=== PATIENT | female | born 1985 | race African-American/Black ===

== ENCOUNTER 2020-08-09 | Outpatient (REF) | payer OTHER, SELFPAY | END 2020-08-09 00:01 | disposition home or self-care (01) | LOC: HO.WFDLNP | PROVIDERS: Visit Provider Family Medicine | DX: Z20.828 Contact with and (suspected) exposure to other viral communicable diseases (principal) | CPT/HCPCS: U0003 ==

== ENCOUNTER 2020-09-30 18:59 | Emergency (ER) | payer OTHER, SELFPAY ==
[2020-09-30 19:13] VITALS: BP 108/62; BP 95/58; PULSE 81; PULSE 98; RESP 16; TEMP 37.4; O2SAT 100; BMI 26.4
--- NOTE | 2020-09-30 19:16 | ED_ITS ---
HPI - Chest Pain General Chief Complaint: Chest Pain Stated Complaint: chest pain Time Seen by Provider: 09/30/20 19:16 Source: patient Mode of arrival: EMS Limitations: no limitations History of Present Illness HPI narrative: Patient history of anxiety an hour ago vomited 1 time and following vomiting started noticing mid chest pain with shortness of breath that increases on taking deep breaths no radiation of pain no diaphoresis no loss of consciousness or palpitation patient does have a history of chest pain with anxiety in the past patient denied any use of cocaine MD complaint: chest pain Onset (ago): hour(s) (1) Timing of current episode: episodic Prior episodes: Yes Onset: during rest Pain location: substernal Pain radiation: none Severity: mild Quality: sharp Relieving factors: nothing Exacerbating factors: inspiration Context: recent illness Associated symptoms: vomiting Treatment prior to arrival: none Risk Factors Coronary artery disease risk factors: none Thoracic aortic dissection risk factors: none Related Data Home Medications Medication Instructions Recorded Confirmed hydroxyzine pamoate 25 mg capsule 25 mg PO BID 08/09/20 quetiapine 100 mg tablet 100 mg PO BEDTIME 08/09/20 sertraline 100 mg tablet 300 mg PO Q OTHER DAY PRN 08/09/20 Allergies Allergy/AdvReac Type Severity Reaction Status Date / Time No Known Allergies Allergy Unknown NOT Verified 09/30/20 19:09 APPLICABLE Review of Systems Review of Systems: Constitutional : No Weight loss, No Fever, No Chills ENT/Mouth : No sore throat, No Rhinorrhea Eyes: No Eye Pain, No Swelling Cardiovascular : ++ Chest Pain, no palpitations Respiratory : No Cough, No Sputum, + shortness of breath Gastrointestinal : no Nausea, No Vomiting, No Diarrhea, No abdominal Pain, no black stools Genitourinary : No Dysuria, No Urinary Frequency Musculoskeletal : No joint pain, No Myalgias, No Joint Swelling Skin : No Skin Lesions, No rash Neuro : No Weakness, No Numbness, No Dizziness, No Headache Psych : + Anxiety/Panic, No Depression Heme/Lymph: No Bruising, No Lymphadenopathy Endocrine : No Polyuria, No Polydipsia All other systems reviewed and are negative [facility] Past Medical History Medical History Anxiety Asthma Depression Social History Social History Alcohol intake: never Smoking Status: Current every day smoker Use of substances other than those prescribed or required for medical reasons: Yes Substance Use Type: Marijuana Substance Use Frequency: Daily Last Used Substance: Hours (ago) Any prior treatment program specific to substance use: No Advance Directives: No Advance Directives Information Provided: Yes Physical Exam Vital Signs: Vital Signs: Last Vital Signs Temp 99.3 F 09/30/20 19:20 Pulse 92 09/30/20 19:20 Resp 14 09/30/20 19:20 BP 95/58 L 09/30/20 19:20 Pulse Ox 100 09/30/20 19:20 Body Mass Index 26.4 Const: General: cooperative, healthy appearing, comfortable, no acute distress and anxious Orientation/consciousness: patient oriented x3 HENMT: Head: Yes normocephalic Eyes: General: appearance normal, both eyes and all related structures Neck: Neck: Yes normal visual inspection and Yes no JVD Chest: Chest palpation & inspection: normal inspection of the chest and normal palpation of entire chest wall Resp: Effort & Inspection: normal respiratory effort Auscultation: clear to auscultation bilaterally, no crackles, no rales and no rhonchi Percussion: percussion normal Cardio: Jugular venous distension: no JVD Rate: regular rate Rhythm: regular rhythm Heart sounds: S1 normal heart sound present and S2 normal heart sound present Peripheral pulses: Peripheral pulses 2+ throughout GI: Inspection: Yes normal to inspection Palpation (GI): Soft to palpation, not firm and nontender Auscultation: normal bowel sounds : General: Yes no CVA tenderness Back/Spine/Pelvis: Back: no CVA tenderness Thoracic/Lumbar Spine: thoracic and lumbar spine normal to inspection Skin: General skin exam: no rashes or lesions noted Neuro: General: patient oriented x3, gait normal, moves all extremities, Normal light touch and pain sensation and CN's II-XI intact bilaterally Extrem: General: Yes no calf tenderness and No pedal edema Psych: Appearance: grossly normal MDM - Chest Pain Differential Diagnosis Differential diagnosis: Likely chest pain Medical Records Data Attestation: I reviewed the patient's medical records. Lab Data Attestation: I reviewed the patient's lab results. Result diagrams: 09/30/20 19:29 09/30/20 19:29 Labs: Lab Results 0109/30/20 09/30/20 Range/Units 19:29 19:29 19:29 WBC 12.1 H (4.8-10.8) X10*3/uL RBC 3.52 L (4.20-5.50) X10*6/uL Hgb 10.9 L (12.0-16.0) g/dl Hct 32.1 L (37-47) % MCV 91.2 (80-98) fL MCH 31.0 (27.0-33.0) pg MCHC 34.0 (31.0-35.0) g/dl RDW 13.8 (11.0-16.0) % Plt Count 313 (160-400) X10*3/uL MPV 8.6 L (9.4-12.3) fL Immature Gran % (Auto) 0.2 (0.0-0.4) % Neut % (Auto) 55.2 (45-73) % Lymph % (Auto) 33.8 (20-40) % [place] % (Auto) 7.0 (2-11) % Eos % (Auto) 3.1 (0-4) % Baso % (Auto) 0.7 (0-2) % Lymph # (Auto) 4.1 (1.2-4.9) X10*3/uL [place] # (Auto) 0.9 (0.1-1.2) X10*3/uL Eos # (Auto) 0.4 (0.0-0.4) X10*3/uL Baso # (Auto) 0.1 (0.0-0.2) X10*3/uL Abs Immat Gran (auto) 0.03 (0.00-0.03) X10*3/uL Absolute Neuts (auto) 6.7 (2.0-8.3) X10*3/uL Absolute Nucleated RBC 0.000 (0.0-0.012) X10*3/uL Nucleated RBC % (auto) 0.0 (0.0-0.2) /100WBC Sodium 141 (135-145) mmol/L Potassium 3.7 (3.3-5.1) mmol/l Chloride 106 (96-108) mmol/L Carbon Dioxide 29 (22-29) mmol/L Anion Gap 10 L (12-20) BUN 14 (9-16) mg/dL Creatinine 0.97 (0.5-1.4) mg/dL Estim Creat Clear Calc 67.4 Estimated GFR > 60 Random Glucose 98 (60-115) mg/dL Calcium 8.7 (8.4-10.2) mg/dL Troponin I High Sens < 3.5 (<3.5-17.0) ng/L ECG Data ECG #1: Attestation: I personally reviewed and interpreted this ECG as follows: Interpretation: Normal sinus rhythm heart rate 89 normal axis normal intervals no acute ST T wave changes impression normal EKG Discharge Plan Discharge Clinical Impression: Atypical chest pain Patient Disposition: Home, Self-Care Instructions: Chest Pain (ED) Additional Instructions: Follow-up with PCP if any concerns Prescriptions: No Action sertraline 100 mg tablet 300 mg PO Q OTHER DAY PRNRF: 0 quetiapine 100 mg tablet 100 mg PO BEDTIME RF: 0 hydroxyzine pamoate 25 mg capsule 25 mg PO BID RF: 0
--- NOTE | 2020-09-30 19:17 | ECG_ITS ---
Test Reason : CHEST PAIN Blood Pressure : / mmHG Vent. Rate : 089 BPM Atrial Rate : 089 BPM P-R Int : 150 ms QRS Dur : 082 ms QT Int : 362 ms P-R-T Axes : 079 066 056 degrees QTc Int : 440 ms Normal sinus rhythm Normal ECG When compared with ECG of 25-NOV-2019 05:56, No significant change was found Referred By: Paolo Donohue Electronically Signed By:PRADEEP GUZMÁN MD
--- NOTE | 2020-09-30 19:17 | XR_ITS ---
EXAMINATION: XR CHEST CLINICAL INFORMATION: Chest pain COMPARISON: 07/12/2019 TECHNIQUE: Frontal view of the chest was obtained. FINDINGS: No significant abnormality is noted involving the heart, lungs, mediastinum, bony thorax or soft tissues. XR/XR chest 1V IMPRESSION: Unremarkable examination.
[2020-09-30 19:20] VITALS: BP 95/58; PULSE 92; RESP 14; TEMP 37.4; O2SAT 100
[2020-09-30 19:34] LABS: MANUAL DIFF FLAG NO
[2020-09-30 19:35] LABS: Basophils Absolute Auto 0.1 X10*3/uL (0.0-0.2); Basophils Percent Auto 0.7 % (0-2); Eosinophils Absolute Auto 0.4 X10*3/uL (0.0-0.4); Eosinophils Percent Auto 3.1 % (0-4); Hematocrit 32.1 % (37-47); Hemoglobin 10.9 g/dl (12.0-16.0); Imm Gran Abs Auto 0.03 X10*3/uL (0.00-0.03); Imm Gran Pct Auto 0.2 % (0.0-0.4); Lymphocytes Absolute Auto 4.1 X10*3/uL (1.2-4.9); Lymphocytes Percent Auto 33.8 % (20-40); Mean Corpuscular Volume 91.2 fL (80-98); Mean Platelet Volume 8.6 fL (9.4-12.3); Monocytes Absolute Auto 0.9 X10*3/uL (0.1-1.2); Neutrophils Absolute Auto 6.7 X10*3/uL (2.0-8.3); Neutrophils Percent Auto 55.2 % (45-73); Platelet Count 313 X10*3/uL (160-400); Red Blood Count 3.52 X10*6/uL (4.20-5.50); Red Cell Distribution Width 13.8 % (11.0-16.0); White Blood Count 12.1 X10*3/uL (4.8-10.8)
[2020-09-30 19:56] LABS: Anion Gap 10 (12-20); Blood Urea Nitrogen 14 mg/dL (9-16); Calcium 8.7 mg/dL (8.4-10.2); Carbon Dioxide 29 mmol/L (22-29); Chloride 106 mmol/L (96-108); Creatinine Clr Calc Pharmacy 67.4; Estimated Glomerular Filt Rate > 60; Glucose Random 98 mg/dL (60-115); Potassium 3.7 mmol/l (3.3-5.1); Sodium 141 mmol/L (135-145)
[2020-09-30 20:01] LABS: Troponin-I High Sensitivity < 3.5 ng/L (<3.5-17.0)
[2020-09-30 20:13] VITALS: BP 98/53; PULSE 80; RESP 20; TEMP 36.8; O2SAT 98
== END 2020-09-30 20:17 | disposition home or self-care (01) ==
PROVIDERS: Emergency Provider Internal Medicine
DX: R07.89 Other chest pain (principal); F12.90 Cannabis use, unspecified, uncomplicated; F17.200 Nicotine dependence, unspecified, uncomplicated; Z71.6 Tobacco abuse counseling; Z79.899 Other long term (current) drug therapy
CPT/HCPCS: 36415; 71045; 80048; 84484; 85025; 93005; 99283; 99284

== ENCOUNTER 2020-10-14 09:26 | Emergency (ER) | payer OTHER, SELFPAY ==
--- NOTE | 2020-10-14 09:55 | ECG_ITS ---
Test Reason : SOB,CP Blood Pressure : / mmHG Vent. Rate : 077 BPM Atrial Rate : 077 BPM P-R Int : 164 ms QRS Dur : 078 ms QT Int : 358 ms P-R-T Axes : 073 058 032 degrees QTc Int : 405 ms Normal sinus rhythm Normal ECG When compared with ECG of 30-SEP-2020 19:08, No significant change was found Referred By: Sonia Smith Electronically Signed By:Panda Manriquez
[2020-10-14 10:08] VITALS: BP 111/69; PULSE 82; RESP 18; TEMP 37.1; O2SAT 99; BMI 24.4
--- NOTE | 2020-10-14 10:43 | ED.URI ---
HPI - URI/Sore Throat General Chief Complaint: Upper Respiratory Symptoms Stated Complaint: SOB Time Seen by Provider: 10/14/20 09:48 Source: patient Mode of arrival: ambulatory History of Present Illness HPI Narrative: 35-year-old female with a past medical history of anxiety, asthma, depression presenting to the ED complaining of sharp chest pain since last night with associated SOB, myalgias, headache, and dry cough. Admits chest pain worse with deep inspiration. 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 Denies fever, chills, abdominal pain, nausea/vomiting, LE edema, history of blood clots Related Data Home Medications Medication Instructions Recorded Confirmed hydroxyzine pamoate 25 mg capsule 25 mg PO BID 08/09/20 buspirone 1 tab PO BID 10/14/20 sertraline 1 tab PO QAM 10/14/20 Allergies Allergy/AdvReac Type Severity Reaction Status Date / Time latex Allergy Mild Rash Verified 10/14/20 10:15 Review of Systems Review of Systems: Constitutional: No Weight loss, No Fever, No Chills, No Night Sweats, +Fatigue, No Malaise ENT/Mouth: No Nasal Congestion, No Sinus Pain, No Hoarseness, No sore throat Eyes: No Eye Pain, No Swelling, No Redness, No Foreign Body, No Discharge, No Vision Changes Cardiovascular: + Chest Pain, +SOB, No Edema Respiratory: + Cough, No Sputum, No Wheezing Gastrointestinal: No Nausea, No Vomiting, No Diarrhea, No Constipation, No Abdominal pain Musculoskeletal: No joint pain,+ Myalgias, No Joint Swelling Skin: No Skin Lesions, No rash Neuro: No Weakness, No Numbness, No Dizziness, + Headache Yes all other systems are reviewed and are negative [facility] Past Medical History Attestation statement: The following information was validated with the patient. Medical History Anxiety Asthma Depression Social History Social History Alcohol intake: never Smoking Status: Current every day smoker Substance Use Type: Marijuana Advance Directives: No Advance Directives Information Provided: No Physical Exam Vital Signs: Vital Signs: Last Vital Signs Temp 98.7 F 10/14/20 10:08 Pulse 80 10/14/20 13:14 Resp 16 10/14/20 13:14 BP 111/69 10/14/20 10:08 Pulse Ox 99 10/14/20 10:08 Body Mass Index 24.4 Const: General: cooperative and healthy appearing Orientation/consciousness: patient oriented x3 Limitations: no limitations HENMT: Head: Yes normal to inspection Ears: hearing grossly normal bilaterally General nose exam: Normal external nose present Face and sinus: Yes normal facial exam Eyes: General: appearance normal, both eyes and all related structures EOM: EOMs intact bilaterally Neck: Neck: Yes normal visual inspection and Yes no meningeal signs Resp: Effort & Inspection: normal respiratory effort Auscultation: clear to auscultation bilaterally, no rales, no rhonchi and no wheezes Cardio: Rate: regular rate Heart sounds: S1 normal heart sound present and S2 normal heart sound present GI: Inspection: Yes normal to inspection Skin: Rashes: no rashes Wounds: no wounds Neuro: General: patient oriented x3 and no meningeal signs Gait exam (Neuro): Normal gait present Extrem: Other: No LE edema General: Yes normal to inspection Course Course Course Narrative: -H&H at baseline, no leukocytosis, D-dimer negative, troponin negative - 1415- COVID-19/influenza/RSV negative. Results discussed with patient including worrisome signs and symptoms and strict return precautions. Patient verbalized understanding and feels safe for discharge home MDM - URI/Sore Throat MDM Narrative Medical decision making narrative: 35-year-old female with a past medical history of anxiety, asthma, depression presenting to the ED complaining of sharp chest pain since last night with associated SOB, myalgias, headache, and dry cough. On exam VSS, NAD/well-appearing, concern for PE/ACS vs COVID-19/viral syndrome. Low concern for pneumonia. Plan: EKG, labs, COVID-19 testing, re-evaluate CXR from 09/30 [facility] Medical Records Attestation: I reviewed the patient's medical records. Lab Data Attestation: I reviewed the patient's lab results. Result diagrams: 10/14/20 11:21 10/14/20 11:21 Labs: Lab Results 10/14/20 10/14/20 10/14/20 Range/Units 11:21 11:21 11:21 WBC 9.9 (4.8-10.8) X10*3/uL RBC 3.77 L (4.20-5.50) X10*6/uL Hgb 11.5 L (12.0-16.0) g/dl Hct 34.1 L (37-47) % MCV 90.5 (80-98) fL MCH 30.5 (27.0-33.0) pg MCHC 33.7 (31.0-35.0) g/dl RDW 13.4 (11.0-16.0) % Plt Count 285 (160-400) X10*3/uL MPV 8.8 L (9.4-12.3) fL Immature Gran % (Auto) 0.2 (0.0-0.4) % Neut % (Auto) 65.1 (45-73) % Lymph % (Auto) 23.8 (20-40) % [place] % (Auto) 8.4 (2-11) % Eos % (Auto) 2.1 (0-4) % Baso % (Auto) 0.4 (0-2) % Lymph # (Auto) 2.4 (1.2-4.9) X10*3/uL [place] # (Auto) 0.8 (0.1-1.2) X10*3/uL Eos # (Auto) 0.2 (0.0-0.4) X10*3/uL Baso # (Auto) 0.0 (0.0-0.2) X10*3/uL Abs Immat Gran (auto) 0.02 (0.00-0.03) X10*3/uL Absolute Neuts (auto) 6.4 (2.0-8.3) X10*3/uL Absolute Nucleated RBC 0.000 (0.0-0.012) X10*3/uL Nucleated RBC % (auto) 0.0 (0.0-0.2) /100WBC PT 12.9 (10.8-13.0) SEC INR 1.1 (0.9-1.1) APTT 38.4 H (24.1-38.0) SEC D-Dimer < 200 NG/ML Sodium 138 (135-145) mmol/L Potassium 4.2 (3.3-5.1) mmol/l Chloride 108 (96-108) mmol/L Carbon Dioxide 23 (22-29) mmol/L Anion Gap 11 L (12-20) BUN 11 (9-16) mg/dL Creatinine 0.75 (0.5-1.4) mg/dL Estim Creat Clear Calc 84.2 Estimated GFR > 60 Random Glucose 80 (60-115) mg/dL Calcium 8.4 (8.4-10.2) mg/dL Magnesium 2.0 (1.6-2.6) mg/dL Troponin I High Sens (<3.5-17.0) ng/L B-Natriuretic Peptide (<100) pg/mL Coronavirus (PCR) (Negative) Influenza Type A (PCR) (Negative) Influenza Type B (PCR) (Negative) RSV RNA Qual (PCR) (Negative) 10/14/20 10/14/20 Range/Units 11:21 13:01 WBC (4.8-10.8) X10*3/uL RBC (4.20-5.50) X10*6/uL Hgb (12.0-16.0) g/dl Hct (37-47) % MCV (80-98) fL MCH (27.0-33.0) pg MCHC (31.0-35.0) g/dl RDW (11.0-16.0) % Plt Count (160-400) X10*3/uL MPV (9.4-12.3) fL Immature Gran % (Auto) (0.0-0.4) % Neut % (Auto) (45-73) % Lymph % (Auto) (20-40) % [place] % (Auto) (2-11) % Eos % (Auto) (0-4) % Baso % (Auto) (0-2) % Lymph # (Auto) (1.2-4.9) X10*3/uL [place] # (Auto) (0.1-1.2) X10*3/uL Eos # (Auto) (0.0-0.4) X10*3/uL Baso # (Auto) (0.0-0.2) X10*3/uL Abs Immat Gran (auto) (0.00-0.03) X10*3/uL Absolute Neuts (auto) (2.0-8.3) X10*3/uL Absolute Nucleated RBC (0.0-0.012) X10*3/uL Nucleated RBC % (auto) (0.0-0.2) /100WBC PT (10.8-13.0) SEC INR (0.9-1.1) APTT (24.1-38.0) SEC D-Dimer NG/ML Sodium (135-145) mmol/L Potassium (3.3-5.1) mmol/l Chloride (96-108) mmol/L Carbon Dioxide (22-29) mmol/L Anion Gap (12-20) BUN (9-16) mg/dL Creatinine (0.5-1.4) mg/dL Estim Creat Clear Calc Estimated GFR Random Glucose (60-115) mg/dL Calcium (8.4-10.2) mg/dL Magnesium (1.6-2.6) mg/dL Troponin I High Sens < 3.5 (<3.5-17.0) ng/L B-Natriuretic Peptide < 10 (<100) pg/mL Coronavirus (PCR) NEGATIVE (Negative) Influenza Type A (PCR) NEGATIVE (Negative) Influenza Type B (PCR) NEGATIVE (Negative) RSV RNA Qual (PCR) NEGATIVE (Negative) Discharge Plan Discharge Clinical Impression: Viral infection Patient Disposition: Home, Self-Care Instructions: Viral Syndrome (ED) Additional Instructions: Your blood work was reassuring today in the ED You are negative for COVID-19/influenza/and RSV. Make sure you stay hydrated at home, rest Follow-up with her doctor If her symptoms persist or worsen, pain becomes unbearable, if constant worsening chest pain/shortness of breath return to the ED Prescriptions: No Action sertraline 100 mg tablet 1 tab PO QAM RF: 0 buspirone 10 mg tablet 1 tab PO BID RF: 0 hydroxyzine pamoate 25 mg capsule 25 mg PO BID RF: 0 Referrals: Physician,Unknown [Primary Care Provider] - 2 days
[2020-10-14 11:28] LABS: MANUAL DIFF FLAG NO
[2020-10-14 11:33] LABS: Basophils Percent Auto 0.4 % (0-2); Eosinophils Absolute Auto 0.2 X10*3/uL (0.0-0.4); Eosinophils Percent Auto 2.1 % (0-4); Hematocrit 34.1 % (37-47); Hemoglobin 11.5 g/dl (12.0-16.0); Imm Gran Abs Auto 0.02 X10*3/uL (0.00-0.03); Imm Gran Pct Auto 0.2 % (0.0-0.4); Lymphocytes Absolute Auto 2.4 X10*3/uL (1.2-4.9); Lymphocytes Percent Auto 23.8 % (20-40); Mean Corpuscular HGB Conc 33.7 g/dl (31.0-35.0); Mean Corpuscular Hemoglobin 30.5 pg (27.0-33.0); Mean Corpuscular Volume 90.5 fL (80-98); Mean Platelet Volume 8.8 fL (9.4-12.3); Monocytes Absolute Auto 0.8 X10*3/uL (0.1-1.2); Monocytes Percent Auto 8.4 % (2-11); Neutrophils Absolute Auto 6.4 X10*3/uL (2.0-8.3); Neutrophils Percent Auto 65.1 % (45-73); Platelet Count 285 X10*3/uL (160-400); Red Blood Count 3.77 X10*6/uL (4.20-5.50); Red Cell Distribution Width 13.4 % (11.0-16.0); White Blood Count 9.9 X10*3/uL (4.8-10.8)
[2020-10-14 11:37] LABS: INTERNATIONAL NORM RATIO 1.1 (0.9-1.1); Prothrombin Time 12.9 SEC (10.8-13.0)
[2020-10-14 11:40] LABS: Partial Thromboplastin Time 38.4 SEC (24.1-38.0)
[2020-10-14 11:41] LABS: D Dimer < 200 NG/ML
[2020-10-14 12:04] LABS: Anion Gap 11 (12-20); Blood Urea Nitrogen 11 mg/dL (9-16); Calcium 8.4 mg/dL (8.4-10.2); Carbon Dioxide 23 mmol/L (22-29); Chloride 108 mmol/L (96-108); Creatinine Clr Calc Pharmacy 84.2; Estimated Glomerular Filt Rate > 60; Glucose Random 80 mg/dL (60-115); Potassium 4.2 mmol/l (3.3-5.1); Sodium 138 mmol/L (135-145)
[2020-10-14 12:13] LABS: B Type Natriuretic Peptide < 10 pg/mL (<100); Troponin-I High Sensitivity < 3.5 ng/L (<3.5-17.0)
[2020-10-14 13:14] VITALS: PULSE 80; RESP 16
[2020-10-14 13:49] LABS: Influenza A PCR NEGATIVE (Negative); Influenza B PCR NEGATIVE (Negative); Resp Syncy Virus RNA Qual PCR NEGATIVE (Negative); SARS COV2 PCR INHOUSE NEGATIVE (Negative)
[2020-10-14 14:30] VITALS: BP 102/70; PULSE 78; RESP 18; TEMP 37.3; O2SAT 96
== END 2020-10-14 14:36 | disposition home or self-care (01) ==
PROVIDERS: Physician Assistant; Emergency Provider Emergency Medicine
DX: B34.9 Viral infection, unspecified (principal); Z20.822 Contact with and (suspected) exposure to COVID-19; J45.909 Unspecified asthma, uncomplicated
CPT/HCPCS: 0241U; 36415; 80048; 83735; 83880; 84484; 85025; 85379; 85610; 85730; 93005; 99283; 99284

== ENCOUNTER 2020-10-20 17:41 | Outpatient (REF) | payer OTHER, SELFPAY | END 2020-10-20 17:42 | disposition home or self-care (01) | LOC: HO.LNP 17:41 | PROVIDERS: Visit Provider Hospitalist | DX: R10.2 Pelvic and perineal pain (principal); Z20.822 Contact with and (suspected) exposure to COVID-19 | CPT/HCPCS: 36415; U0003; U0005 ==

== ENCOUNTER 2020-10-21 19:48 | Emergency (ER) | payer OTHER, SELFPAY ==
--- NOTE | ~2020-10-21 | XR_ITS ---
EXAMINATION: XR CHEST CLINICAL INFORMATION: Pneumonia COMPARISON: Chest x-ray 09/30/2020 TECHNIQUE: Frontal portable view of the chest was obtained. 8:57 PM FINDINGS: No significant abnormality is noted involving the heart, lungs, mediastinum, bony thorax or soft tissues. XR/XR chest 1V IMPRESSION: Unremarkable examination.
[2020-10-21 20:34] VITALS: BP 116/69; PULSE 80; RESP 16; TEMP 36.9; O2SAT 99; BMI 24.4
--- NOTE | 2020-10-21 20:58 | ED.URI ---
HPI - URI/Sore Throat General Chief Complaint: Upper Respiratory Symptoms Stated Complaint: diff Breathing Time Seen by Provider: 10/21/20 20:50 Source: patient Mode of arrival: ambulatory Limitations: no limitations History of Present Illness HPI Narrative: Patient comes to emergency room complaining of chills, body aches, nonproductive cough. Patient states that her shortness of breath is due to her not having albuterol. Patient states she ran out of her albuterol pump and albuterol for her neb machine more than a month ago. Patient has an appointment pending by her PCP. Yesterday, patient was tested for COVID-19, she tested negative. Related Data Home Medications Medication Instructions Recorded Confirmed hydroxyzine pamoate 25 mg capsule 25 mg PO BID 08/09/20 buspirone 1 tab PO BID 10/14/20 sertraline 1 tab PO QAM 10/14/20 ibuprofen 200 mg tablet 400 mg PO Q6H 10/20/20 Previous Rx's Medication Instructions Recorded albuterol sulfate 1.25 mg INHALATION Q4-6H PRN #90 ml 10/21/20 albuterol sulfate 2 puff INHALATION Q4-6H PRN #8.5 g 10/21/20 ipratropium 0.5 mg-albuterol 3 mg 3 ml INHALATION Q6-8H PRN #90 ml 10/21/20 (2.5 mg base)/3 mL nebulization soln Allergies Allergy/AdvReac Type Severity Reaction Status Date / Time latex Allergy Mild Rash Verified 10/21/20 21:27 Review of Systems Review of Systems: Constitutional : No Weight loss, pinning of fatigue, generalized malaise ENT/Mouth : No Hearing loss, No Ear Pain, No Nasal Congestion, No Sinus Pain, No Hoarseness, No sore throat, No Rhinorrhea, No Swallowing Difficulty Eyes: No Eye Pain, No Swelling, No Redness, No Foreign Body, No Discharge, No Vision Changes Cardiovascular : No Chest Pain, No SOB, No Dyspnea on Exertion, No Orthopnea, No Edema, No Palpitations Respiratory : Nonproductive Cough, No Sputum, occasional Wheezing, No Smoke Exposure, No Dyspnea Gastrointestinal : No Nausea, No Vomiting, No Diarrhea, No Constipation, No abdominal Pain, No Hematochezia, No Melena Genitourinary : no irregular bleeding, No Dysuria, No Urinary Frequency, No Hematuria, No Urinary Incontinence, No Urgency, No Flank Pain, No Urinary Flow Changes, No Hesitancy Musculoskeletal : No joint pain, No Myalgias, No Joint Swelling Skin : No Skin Lesions, No rash Neuro : No Weakness, No Numbness, No Paresthesias, No Loss of Consciousness, No Dizziness, No Headache Psych : No Anxiety/Panic, No Depression, No SI/HI/AH/VH, No Social Issues, Heme/Lymph: No Bruising, No Bleeding,No Lymphadenopathy Endocrine : No Polyuria, No Polydipsia, No Temperature Intolerance [facility] Past Medical History Medical History Anxiety Asthma Depression Social History Social History Alcohol intake: never Smoking Status: Current every day smoker Substance Use Type: Marijuana Advance Directives: No Advance Directives Information Provided: No Physical Exam Vital Signs: Vital Signs: Last Vital Signs Temp 98.5 F 10/21/20 20:34 Pulse 80 10/21/20 20:34 Resp 16 10/21/20 20:34 BP 116/69 10/21/20 20:34 Pulse Ox 99 10/21/20 20:34 Body Mass Index 24.4 Appearance: Alert. Oriented X3. No acute distress. Well-appearing Eyes: Pupils equal, round and reactive to light. ENT: Pharynx normal. Neck: Normal inspection. Neck supple. No lymph nodes noted. No crepitus CVS: Normal heart rate and rhythm. Pulses normal. Normal S1 and S2 Respiratory: No respiratory distress. Breath sounds normal. No Wheezing. No rales Abdomen: Soft and nontender. No rigidity. No distention. good BS x4 Skin: Skin warm and dry. Normal skin color. Normal skin turgor. Extremities: No lower extremity edema. No lower extremity edema. No Lacerations. No Rash Neuro: Oriented X 3. No motor deficit. No sensory deficit. Moving all extermities. No slurred speech. Course Course Course Narrative: I discussed the x-ray with the patient, no acute findings. Per patient's request, a prescription of albuterol was sent to the patient's pharmacy. At this time, patient has no respiratory distress, no wheezing, oxygen saturation is 99% on room air. MDM - URI/Sore Throat Imaging Data Chest x-ray: Radiologist's impression: No significant abnormality is noted involving the heart, lungs, mediastinum, bony thorax or soft tissues. XR/XR chest 1V IMPRESSION: Unremarkable examination. Discharge Plan Discharge Clinical Impression: Upper respiratory infection, viral Patient Disposition: Home, Self-Care Instructions: Cold Symptoms (ED) Additional Instructions: Please follow-up with your primary care physician tomorrow. If you have any worsening or new symptoms, please return to the emergency room or call 911 Prescriptions: New albuterol sulfate 90 mcg/actuation HFA aerosol inhaler 2 puff inhalation Q4-6H PRN (Reason: shortness of breath or wheezing) Qty: 8.5 RF: 0 albuterol sulfate 1.25 mg/3 mL solution for nebulization 1.25 mg inhalation Q4-6H PRN (Reason: shortness of breath or wheezing) Qty: 90 RF: 0 No Action sertraline 100 mg tablet 1 tab PO QAM RF: 0 buspirone 10 mg tablet 1 tab PO BID RF: 0 hydroxyzine pamoate 25 mg capsule 25 mg PO BID RF: 0 ibuprofen 200 mg tablet 400 mg PO Q6H RF: 0
== END 2020-10-21 21:49 | disposition home or self-care (01) ==
PROVIDERS: Emergency Provider Emergency Medicine; PCP Hospitalist
DX: J06.9 Acute upper respiratory infection, unspecified (principal); R06.02 Shortness of breath; F17.200 Nicotine dependence, unspecified, uncomplicated; Z71.6 Tobacco abuse counseling; Z79.899 Other long term (current) drug therapy
CPT/HCPCS: 71045; 99283

== ENCOUNTER 2020-10-22 11:10 | Outpatient (REF) | payer OTHER, SELFPAY ==
[2020-10-22 14:16] LABS: Hemoglobin 11.9 g/dl (12.0-16.0); Mean Corpuscular HGB Conc 33.1 g/dl (31.0-35.0); Mean Corpuscular Hemoglobin 30.7 pg (27.0-33.0); Mean Corpuscular Volume 92.8 fL (80-98); Mean Platelet Volume 9.2 fL (9.4-12.3); Platelet Count 334 X10*3/uL (160-400); Red Blood Count 3.88 X10*6/uL (4.20-5.50); Red Cell Distribution Width 13.5 % (11.0-16.0); White Blood Count 9.6 X10*3/uL (4.8-10.8)
[2020-10-22 14:49] LABS: Anion Gap 11 (12-20); Blood Urea Nitrogen 8 mg/dL (9-16); Calcium 9.2 mg/dL (8.4-10.2); Carbon Dioxide 28 mmol/L (22-29); Chloride 107 mmol/L (96-108); Estimated Glomerular Filt Rate > 60; Glucose Random 92 mg/dL (60-115); Sodium 142 mmol/L (135-145)
== END 2020-10-22 11:11 | disposition home or self-care (01) ==
LOC: HO.WFDLDS 11:10
PROVIDERS: Visit Provider Hospitalist
DX: B34.9 Viral infection, unspecified (principal)
CPT/HCPCS: 36415; 80048; 85027

== ENCOUNTER 2020-11-10 09:42 | Outpatient (REF) | payer OTHER, SELFPAY ==
[2020-11-10 12:07] LABS: Alanine Aminotransferase 7 U/L (0-31); Albumin Level 4.2 g/dL (3.5-5.0); Alkaline Phosphatase 29 U/L (39-117); Anion Gap 11 (12-20); Aspartate Amino Transferase 9 U/L (5-31); Bilirubin Total 0.3 mg/dL (0.0-1.0); Blood Urea Nitrogen 10 mg/dL (9-16); Calcium 9.1 mg/dL (8.4-10.2); Carbon Dioxide 27 mmol/L (22-29); Chloride 105 mmol/L (96-108); Estimated Glomerular Filt Rate > 60; Glucose Random 82 mg/dL (60-115); Potassium 4.5 mmol/L (3.3-5.1); Sodium 138 mmol/L (135-145); Total Protein 6.8 g/dL (6.5-8.0)
== END 2020-11-10 09:43 | disposition home or self-care (01) ==
LOC: HO.WFDLDS 09:42
PROVIDERS: Visit Provider Hospitalist
DX: R53.82 Chronic fatigue, unspecified (principal)
CPT/HCPCS: 36415; 80053

== ENCOUNTER 2020-12-16 12:45 | Outpatient (REF) | payer OTHER, SELFPAY ==
[2020-12-16 13:56] LABS: MANUAL DIFF FLAG NO
[2020-12-16 13:59] LABS: Basophils Absolute Auto 0.1 X10*3/uL (0.0-0.2); Basophils Percent Auto 0.5 % (0-2); Eosinophils Absolute Auto 0.2 X10*3/uL (0.0-0.4); Eosinophils Percent Auto 1.7 % (0-4); Hematocrit 36.3 % (37-47); Imm Gran Abs Auto 0.04 X10*3/uL (0.00-0.03); Imm Gran Pct Auto 0.3 % (0.0-0.4); Lymphocytes Absolute Auto 2.4 X10*3/uL (1.2-4.9); Lymphocytes Percent Auto 20.5 % (20-40); Mean Corpuscular HGB Conc 33.1 g/dl (31.0-35.0); Mean Corpuscular Hemoglobin 30.3 pg (27.0-33.0); Mean Corpuscular Volume 91.7 fL (80-98); Mean Platelet Volume 8.9 fL (9.4-12.3); Monocytes Absolute Auto 0.7 X10*3/uL (0.1-1.2); Monocytes Percent Auto 6.1 % (2-11); Neutrophils Absolute Auto 8.2 X10*3/uL (2.0-8.3); Neutrophils Percent Auto 70.9 % (45-73); Platelet Count 336 X10*3/uL (160-400); Red Blood Count 3.96 X10*6/uL (4.20-5.50); Red Cell Distribution Width 13.4 % (11.0-16.0); White Blood Count 11.5 X10*3/uL (4.8-10.8)
[2020-12-16 14:28] LABS: Glucose Urine UA NEG (NEG); Leukocyte Esterase Urine NEG (NEG); Nitrite Urine NEG (NEG); Urine Blood 2+ (NEG); Urine Ketones NEG (NEG); Urine Protein NEG (NEG-TRACE)
[2020-12-16 14:34] LABS: Alanine Aminotransferase 10 U/L (0-31); Albumin Level 4.2 g/dL (3.5-5.0); Alkaline Phosphatase 27 U/L (39-117); Anion Gap 10 (12-20); Aspartate Amino Transferase 11 U/L (5-31); Bilirubin Total 0.3 mg/dL (0.0-1.0); Blood Urea Nitrogen 11 mg/dL (9-16); Calcium 8.8 mg/dL (8.4-10.2); Carbon Dioxide 25 mmol/L (22-29); Chloride 106 mmol/L (96-108); Estimated Glomerular Filt Rate > 60; Glucose Random 87 mg/dL (60-115); Iron 77 mcg/dL (30-160); Percent Iron Saturation 24 % (15-50); Potassium 4.2 mmol/L (3.3-5.1); Sodium 137 mmol/L (135-145); Total Iron Binding Capacity 317 mcg/dL (228-428); Total Protein 6.8 g/dL (6.5-8.0); Unsaturated Iron Binding 240 ug/dL
[2020-12-16 14:41] LABS: Appearance Urine CLEAR; Color Urine YELLOW
[2020-12-16 15:04] LABS: TSH reflex Free T4 1.17 uIU/mL (0.32-4.0)
[2020-12-16 15:06] LABS: WBC Urine 0-2 /HPF (0-4)
[2020-12-16 15:07] LABS: Bacteria Urine TRACE /LPF; Squamous Epithelial Cell Urine 1+ /LPF
== END 2020-12-16 12:46 | disposition home or self-care (01) ==
LOC: HO.WFDLDS 12:45
PROVIDERS: Hospitalist; Visit Provider Family Medicine
DX: R10.9 Unspecified abdominal pain (principal); R53.83 Other fatigue
CPT/HCPCS: 36415; 80053; 81001; 81003; 83540; 84443; 85025

== ENCOUNTER 2020-12-24 03:00 | Emergency (ER) | payer MEDICAID, SELFPAY ==
--- NOTE | ~2020-12-24 | XR_ITS ---
EXAMINATION: XR CHEST CLINICAL INFORMATION: Cough COMPARISON: 10/21/2020 TECHNIQUE: Frontal view of the chest was obtained. FINDINGS: Normal symmetric lung volumes. No parenchymal consolidation. No pleural effusion. No pneumothorax. Cardiomediastinal silhouette and pulmonary vascularity are within normal limits. No acute osseous abnormalities. XR/XR chest 1V IMPRESSION: No acute findings.
--- NOTE | ~2020-12-24 | CT_ITS ---
EXAMINATION: CT ABDOMEN AND PELVIS WITHOUT CONTRAST CLINICAL INFORMATION: Left flank pain COMPARISON: None TECHNIQUE: Multidetector volumetric imaging was performed from the superior aspect of the liver through the pubic symphysis. Sagittal and coronal reformatted images were obtained on the technologist's workstation. This CT examination was performed using dose optimization techniques as appropriate, variously including the following: *Automated exposure control *Adjustment of mA and/or kV according to patient size (this includes techniques or standardized protocols for targeted exams where dose is matched to indication/reason for exam; i.e. extremities or head) *Use of iterative reconstruction technique DLP: 430 mGy-cm FINDINGS: LUNG BASES: The visualized lung bases are unremarkable. LIVER, GALLBLADDER, AND BILIARY TREE: The liver is normal in size, shape, and attenuation. No focal hepatic lesion or biliary ductal dilatation is present. Cholelithiasis. No pericholecystic fluid. PANCREAS: Unremarkable. SPLEEN: Unremarkable. ADRENAL GLANDS: Unremarkable. KIDNEYS AND URETERS: There is bilateral medullary nephrocalcinosis, along with a couple punctate nonobstructive calculi within the interpolar region of the left kidney. BLADDER: Unremarkable. GASTROINTESTINAL TRACT: The small and large bowel are unremarkable. The appendix is unremarkable. ABDOMINAL WALL: No significant hernia is appreciated. LYMPH NODES: Normal. VASCULAR: There are a few scattered calcific plaques of the aorta. PELVIC VISCERA: Unremarkable. OSSEOUS STRUCTURES: Unremarkable. CT/CT abdomen pelvis wo con IMPRESSION: * No acute findings within the abdomen or pelvis to explain the patient's symptomatology. * Mild bilateral medullary nephrocalcinosis along with a couple punctate nonobstructive calculi within the left kidney. No ureteral calculi or hydronephrosis. * Cholelithiasis. * There are a few calcific plaques evident along the distal abdominal aorta and right internal iliac artery. Recommend formal cardiovascular health risk assessment.
[2020-12-24 03:03] VITALS: BP 103/64; BP 136/90; PULSE 80; RESP 16; TEMP 36.8; O2SAT 97; O2SAT 98; BMI 18.8
[2020-12-24] MEDS: 0.9 % Sodium Chloride 1,000 ML 999 ML IV (03:52)
[2020-12-24] MEDS: ondansetron HCL 4 MG/2 ML VIAL IVPUSH (03:52)
[2020-12-24 04:00] VITALS: BP 94/63; PULSE 74; RESP 16; TEMP 36.3; O2SAT 99
--- NOTE | 2020-12-24 04:06 | ED.CHESTPAIN ---
HPI - Chest Pain General Chief Complaint: Chest Pain Stated Complaint: CP W/ VOMITING X'S 30 MINUTES Time Seen by Provider: 12/24/20 03:31 Source: patient Mode of arrival: EMS History of Present Illness HPI narrative: This is a 35-year-old female who presents with chest pain and abdominal pain that started yesterday. The chest pain is sternal and worsens with deep inspiration, nonradiating, ?tight?. She denies any diarrhea, urinary pain/burning/frequency and endorses that she had several episodes of nausea and vomiting that started approximately 1:00 a.m. this morning. Related Data Home Medications Medication Instructions Recorded Confirmed buspirone 1 tab PO BID 10/14/20 12/21/20 sertraline 1 tab PO QAM 10/14/20 12/21/20 ibuprofen 200 mg tablet 400 mg PO Q6H 10/20/20 12/21/20 Previous Rx's Medication Instructions Recorded albuterol sulfate 2 puff INHALATION Q4-6H PRN #8.5 g 10/21/20 albuterol sulfate 1.25 mg/3 mL 1.25 mg INHALATION Q4-6H PRN #90 ml 10/25/20 solution for nebulization budesonide-formoterol HFA 160 2 puff INHALATION Q12H 30 Days 11/29/20 mcg-4.5 mcg/actuation aerosol #10.2 g inhaler ipratropium 0.5 mg-albuterol 3 mg 3 ml INHALATION Q6-8H PRN #90 ml 11/30/20 (2.5 mg base)/3 mL nebulization soln gabapentin 300 mg capsule 300 mg PO BID 30 Days #60 cap 12/16/20 montelukast 10 mg tablet 10 mg PO BEDTIME #30 tab 12/16/20 psyllium husk 3.4 gram/5.4 gram 1 tbsp PO BID 30 Days #660 g 12/16/20 oral powder Allergies Allergy/AdvReac Type Severity Reaction Status Date / Time latex Allergy Mild Rash Verified 12/16/20 11:56 Review of Systems Review of Systems: Pertinent positives and negatives as stated in HPI 10 point review of systems is otherwise negative. PMFSH Past Medical History Source: nursing notes reviewed Medical History Anxiety Asthma Depression Social History Social History Alcohol intake: current Alcohol intake frequency: holidays/special occasions only Smoking Status: Current every day smoker Tobacco Type: Cigarette Cigarettes Per Day: 7 Substance Use Type: Marijuana Advance Directives: No Physical Exam Vital Signs: Vital Signs: Last Vital Signs Temp 97.9 F 12/24/20 06:00 Pulse 72 12/24/20 06:00 Resp 16 12/24/20 06:00 BP 98/64 12/24/20 06:00 Pulse Ox 99 12/24/20 06:00 Body Mass Index 18.8 VITAL SIGNS: Reviewed. GENERAL: Well developed, well nourished, in no acute distress. HEAD: Normocephalic/atraumatic OROPHARYNX: no oral lesions noted, posterior pharynx clear NECK: Supple, no adenopathy LUNGS: Normal breath sounds, no tachypnea, no wheezing SpO2<97> CARDIOVASCULAR: Regular rate and rhythm without noted murmurs ABDOMEN: Soft, non-tender, non-distended with bowel sounds. NEUROLOGIC: Alert and oriented x 4. Course Course Course Narrative: This is a 35-year-old female with history and clinical presentation suggestive of possible marijuana induced nausea and vomiting, however patient reports pleuritic type chest pain and abdominal discomfort after recent visit to [place]. Will rule out gastritis, pancreatitis, gallbladder pathologies. Review of all investigations there are no acute findings from chronically stable. After patient received IV fluids and Zofran she has been able to tolerate oral intake and was informed of all results. She was discharged in stable condition. MDM - Chest Pain Lab Data Result diagrams: 12/24/20 04:35 12/24/20 04:35 Labs: Lab Results 12/24/20 12/24/20 12/24/20 Range/Units 04:35 04:35 04:37 WBC 10.3 (4.8-10.8) X10*3/uL RBC 3.52 L (4.20-5.50) X10*6/uL Hgb 10.7 L (12.0-16.0) g/dl Hct 32.3 L (37-47) % MCV 91.8 (80-98) fL MCH 30.4 (27.0-33.0) pg MCHC 33.1 (31.0-35.0) g/dl RDW 13.1 (11.0-16.0) % Plt Count 286 (160-400) X10*3/uL MPV 8.8 L (9.4-12.3) fL Immature Gran % (Auto) 0.3 (0.0-0.4) % Neut % (Auto) 60.5 (45-73) % Lymph % (Auto) 27.2 (20-40) % [place] % (Auto) 9.5 (2-11) % Eos % (Auto) 2.0 (0-4) % Baso % (Auto) 0.5 (0-2) % Lymph # (Auto) 2.8 (1.2-4.9) X10*3/uL [place] # (Auto) 1.0 (0.1-1.2) X10*3/uL Eos # (Auto) 0.2 (0.0-0.4) X10*3/uL Baso # (Auto) 0.1 (0.0-0.2) X10*3/uL Abs Immat Gran (auto) 0.03 (0.00-0.03) X10*3/uL Absolute Neuts (auto) 6.2 (2.0-8.3) X10*3/uL Absolute Nucleated RBC 0.000 (0.0-0.012) X10*3/uL Nucleated RBC % (auto) 0.0 (0.0-0.2) /100WBC Sodium 141 (135-145) mmol/L Potassium 3.5 (3.3-5.1) mmol/L Chloride 109 H (96-108) mmol/L Carbon Dioxide 23 (22-29) mmol/L Anion Gap 13 (12-20) BUN 8 L (9-16) mg/dL Creatinine 0.74 (0.5-1.4) mg/dL Estim Creat Clear Calc 96.0 Estimated GFR > 60 Random Glucose 83 (60-115) mg/dL Calcium 8.5 (8.4-10.2) mg/dL Total Bilirubin < 0.2 (0.0-1.0) mg/dL AST 10 (5-31) U/L ALT 8 (0-31) U/L Alkaline Phosphatase 27 L (39-117) U/L Total Protein 6.3 L (6.5-8.0) g/dL Albumin 3.9 (3.5-5.0) g/dL Lipase 12 (8-78) U/L Urine Color Urine Appearance Urine pH (5.0-8.0) Ur Specific [place] (1.005-1.025) Urine Protein (NEG-TRACE) MG/DL Urine Glucose (UA) (NEG) MG/DL Urine Ketones (NEG) MG/DL Urine Blood (NEG) Urine Nitrite (NEG) Ur Leukocyte Esterase (NEG) Urine RBC (0) /HPF Urine WBC (0-4) /HPF Ur Squamous Epith Cells /LPF Urine Bacteria /LPF Urine Mucus /LPF Urine Test (NEGATIVE) Urine Opiates Screen (Not Detect) Ur Barbiturates Screen (Not Detect) Ur Phencyclidine Scrn (Not Detect) Ur Amphetamines Screen (Not Detect) U Benzodiazepines Scrn (Not Detect) Urine Cocaine Screen (Not Detect) U Marijuana (THC) Screen (Not Detect) COVID-19 (BASIM) Negative (Negative) COVID-19 Clin Com See Note 12/24/20 12/24/20 12/24/20 Range/Units 04:37 04:37 04:37 WBC (4.8-10.8) X10*3/uL RBC (4.20-5.50) X10*6/uL Hgb (12.0-16.0) g/dl Hct (37-47) % MCV (80-98) fL MCH (27.0-33.0) pg MCHC (31.0-35.0) g/dl RDW (11.0-16.0) % Plt Count (160-400) X10*3/uL MPV (9.4-12.3) fL Immature Gran % (Auto) (0.0-0.4) % Neut % (Auto) (45-73) % Lymph % (Auto) (20-40) % [place] % (Auto) (2-11) % Eos % (Auto) (0-4) % Baso % (Auto) (0-2) % Lymph # (Auto) (1.2-4.9) X10*3/uL [place] # (Auto) (0.1-1.2) X10*3/uL Eos # (Auto) (0.0-0.4) X10*3/uL Baso # (Auto) (0.0-0.2) X10*3/uL Abs Immat Gran (auto) (0.00-0.03) X10*3/uL Absolute Neuts (auto) (2.0-8.3) X10*3/uL Absolute Nucleated RBC (0.0-0.012) X10*3/uL Nucleated RBC % (auto) (0.0-0.2) /100WBC Sodium (135-145) mmol/L Potassium (3.3-5.1) mmol/L Chloride (96-108) mmol/L Carbon Dioxide (22-29) mmol/L Anion Gap (12-20) BUN (9-16) mg/dL Creatinine (0.5-1.4) mg/dL Estim Creat Clear Calc Estimated GFR Random Glucose (60-115) mg/dL Calcium (8.4-10.2) mg/dL Total Bilirubin (0.0-1.0) mg/dL AST (5-31) U/L ALT (0-31) U/L Alkaline Phosphatase (39-117) U/L Total Protein (6.5-8.0) g/dL Albumin (3.5-5.0) g/dL Lipase (8-78) U/L Urine Color YELLOW Urine Appearance CLEAR Urine pH 7.5 (5.0-8.0) Ur Specific [place] 1.020 (1.005-1.025) Urine Protein NEG (NEG-TRACE) MG/DL Urine Glucose (UA) NEG (NEG) MG/DL Urine Ketones NEG (NEG) MG/DL Urine Blood 1+ H (NEG) Urine Nitrite NEG (NEG) Ur Leukocyte Esterase NEG (NEG) Urine RBC 5-9 H (0) /HPF Urine WBC 0-2 (0-4) /HPF Ur Squamous Epith Cells 2+ /LPF Urine Bacteria TRACE /LPF Urine Mucus 2+ /LPF Urine Test NEGATIVE (NEGATIVE) Urine Opiates Screen Not Detected (Not Detect) Ur Barbiturates Screen Not Detected (Not Detect) Ur Phencyclidine Scrn Not Detected (Not Detect) Ur Amphetamines Screen Not Detected (Not Detect) U Benzodiazepines Scrn Not Detected (Not Detect) Urine Cocaine Screen POSITIVE H (Not Detect) U Marijuana (THC) Screen POSITIVE H (Not Detect) COVID-19 (BASIM) (Negative) COVID-19 Clin Com Discharge Plan Discharge Clinical Impression: Abdominal pain, Nausea & vomiting Patient Disposition: Home, Self-Care Instructions: Abdominal Pain (ED), Acute Nausea and Vomiting (ED) Additional Instructions: Continue stay well hydrated with water. Follow-up with your primary care provider in the next 2-3 days. Do not hesitate to return the emergency department should you develop any acute worsening of symptoms. Prescriptions: No Action albuterol sulfate 1.25 mg/3 mL solution for nebulization 1.25 mg inhalation Q4-6H PRN (Reason: shortness of breath or wheezing) Qty: 90 RF: 1 budesonide-formoterol [Symbicort] 160-4.5 mcg/actuation HFA aerosol inhaler 2 puff inhalation Q12H 30 Days Qty: 10.2 RF: 5 montelukast 10 mg tablet 10 mg PO BEDTIME Qty: 30 RF: 2 sertraline 100 mg tablet 1 tab PO QAM RF: 0 buspirone 10 mg tablet 1 tab PO BID RF: 0 albuterol sulfate 90 mcg/actuation HFA aerosol inhaler 2 puff inhalation Q4-6H PRN (Reason: shortness of breath or wheezing) Qty: 8.5 RF: 0 ibuprofen 200 mg tablet 400 mg PO Q6H RF: 0 Metamucil 3.4 gram/5.4 gram powder 1 tbsp PO BID 30 Days Qty: 660 RF: 3 gabapentin 300 mg capsule 300 mg PO BID 30 Days Qty: 60 RF: 3 Referrals: Physician,Unknown [Primary Care Provider] - 2 days
[2020-12-24 04:44] LABS: Basophils Absolute Auto 0.1 X10*3/uL (0.0-0.2); Basophils Percent Auto 0.5 % (0-2); Eosinophils Absolute Auto 0.2 X10*3/uL (0.0-0.4); Hematocrit 32.3 % (37-47); Hemoglobin 10.7 g/dl (12.0-16.0); Imm Gran Abs Auto 0.03 X10*3/uL (0.00-0.03); Imm Gran Pct Auto 0.3 % (0.0-0.4); Lymphocytes Absolute Auto 2.8 X10*3/uL (1.2-4.9); Lymphocytes Percent Auto 27.2 % (20-40); MANUAL DIFF FLAG NO; Mean Corpuscular HGB Conc 33.1 g/dl (31.0-35.0); Mean Corpuscular Hemoglobin 30.4 pg (27.0-33.0); Mean Corpuscular Volume 91.8 fL (80-98); Mean Platelet Volume 8.8 fL (9.4-12.3); Monocytes Percent Auto 9.5 % (2-11); Neutrophils Absolute Auto 6.2 X10*3/uL (2.0-8.3); Neutrophils Percent Auto 60.5 % (45-73); Platelet Count 286 X10*3/uL (160-400); Red Blood Count 3.52 X10*6/uL (4.20-5.50); Red Cell Distribution Width 13.1 % (11.0-16.0); White Blood Count 10.3 X10*3/uL (4.8-10.8)
[2020-12-24 04:49] LABS: Glucose Urine UA NEG (NEG); Leukocyte Esterase Urine NEG (NEG); Nitrite Urine NEG (NEG); PH 7.5 (5.0-8.0); Urine Blood 1+ (NEG); Urine Ketones NEG (NEG); Urine Protein NEG (NEG-TRACE)
[2020-12-24 04:51] LABS: UPreg QC Valid YES; Urine Pregnancy NEGATIVE (NEGATIVE)
[2020-12-24 04:52] LABS: Appearance Urine CLEAR; Color Urine YELLOW
[2020-12-24 05:00] LABS: COVID-19 Test Negative (Negative); IDNOW Serial# 9DD0AD1C
[2020-12-24 05:13] LABS: WBC Urine 0-2 /HPF (0-4)
[2020-12-24 05:14] LABS: Bacteria Urine TRACE /LPF; Mucus Urine 2+ /LPF; Squamous Epithelial Cell Urine 2+ /LPF
[2020-12-24 05:21] LABS: Amphetamine Screen Urine Not Detected (Not Detect); Barbiturates, Urine Not Detected (Not Detect); Benzodiazepines Screen Urine Not Detected (Not Detect); Cannabinoid Screen Urine POSITIVE (Not Detect); Cocaine Screen Urine POSITIVE (Not Detect); Opiate Screen Urine Not Detected (Not Detect); Phencyclidine Screen Urine Not Detected (Not Detect)
[2020-12-24 05:24] LABS: Alanine Aminotransferase 8 U/L (0-31); Albumin Level 3.9 g/dL (3.5-5.0); Alkaline Phosphatase 27 U/L (39-117); Anion Gap 13 (12-20); Aspartate Amino Transferase 10 U/L (5-31); Bilirubin Total < 0.2 mg/dL (0.0-1.0); Blood Urea Nitrogen 8 mg/dL (9-16); Calcium 8.5 mg/dL (8.4-10.2); Carbon Dioxide 23 mmol/L (22-29); Chloride 109 mmol/L (96-108); Estimated Glomerular Filt Rate > 60; Glucose Random 83 mg/dL (60-115); Lipase 12 U/L (8-78); Potassium 3.5 mmol/L (3.3-5.1); Sodium 141 mmol/L (135-145); Total Protein 6.3 g/dL (6.5-8.0)
[2020-12-24 06:00] VITALS: BP 98/64; PULSE 72; RESP 16; TEMP 36.6; O2SAT 99
[2020-12-24] MEDS: Lidocaine HCl Viscous 2 % 15 ML SOLUTION 10 ML MUCOUS MEM (06:25)
[2020-12-24] MEDS: Magnesium Hydrox/Alum Hydrox 30 ML ORAL.SUSP PO (06:25)
== END 2020-12-24 07:50 | disposition home or self-care (01) ==
PROVIDERS: Emergency Provider Student in an Organized Health Care Education/Training Program
DX: R07.9 Chest pain, unspecified (principal); R10.9 Unspecified abdominal pain; F17.210 Nicotine dependence, cigarettes, uncomplicated; R11.2 Nausea with vomiting, unspecified; Z20.822 Contact with and (suspected) exposure to COVID-19; Z79.899 Other long term (current) drug therapy; Z71.6 Tobacco abuse counseling
CPT/HCPCS: 36415; 71045; 74176; 80053; 80307; 81001; 81025; 83690; 85025; 87635; 96374; 96375; 99284; J2405

== ENCOUNTER 2021-04-12 23:17 | Emergency (ER) | payer OTHER, SELFPAY ==
--- NOTE | ~2021-04-12 | XR_ITS ---
EXAMINATION: XR CHEST CLINICAL INFORMATION: Cough COMPARISON: 12/24/2020 TECHNIQUE: 2 views of the chest were obtained. FINDINGS: No significant abnormality is noted involving the heart, lungs, mediastinum, bony thorax or soft tissues. XR/XR chest 2V IMPRESSION: Unremarkable examination.
[2021-04-12 23:41] VITALS: BP 99/54; PULSE 99; RESP 20; TEMP 37.3; O2SAT 99; BMI 28.5
[2021-04-13 01:38] LABS: Strep A Nucleic Acid Negative (Negative)
--- NOTE | 2021-04-13 01:38 | ED.URI ---
HPI - URI/Sore Throat General Chief Complaint: Upper Respiratory Symptoms Stated Complaint: nausea, fever, migraine, cough, SoB Time Seen by Provider: 04/13/21 00:21 Source: patient Mode of arrival: ambulatory Limitations: no limitations History of Present Illness HPI Narrative: 35 y/o female with no medical history presents to the ED with 3 days of sore throat, dry cough, headache and muscle aches. She has been around her 7 yo daughter who had similar symptoms. She took her to the frozen pie [facility] and was tested negative for COVID-19. Patient has been taking Motrin with improvement in her headache. She denies fever, chills, N/V/D, abdominal pain. She has not any chest pains or difficulty breathing. She has not gotten the COVID vaccination. MD elicited complaint: cough, sore throat and nasal congestion Onset (ago): day(s) (3) Consistency: constant Severity: moderate Description of mucous: clear and watery Able to tolerate fluids by mouth: Yes Exacerbating factors: exertion Relieving factors: NSAID and OTC cold medicine Context: sick contacts Associated symptoms: headache, nasal congestion, sore throat and cough Treatments prior to arrival: none Related Data Home Medications Medication Instructions Recorded Confirmed buspirone 1 tab PO BID 10/14/20 12/21/20 sertraline 1 tab PO QAM 10/14/20 12/21/20 ibuprofen 200 mg tablet 400 mg PO Q6H 10/20/20 12/21/20 Previous Rx's Medication Instructions Recorded albuterol sulfate 2 puff INHALATION Q4-6H PRN #8.5 g 10/21/20 albuterol sulfate 1.25 mg/3 mL 1.25 mg INHALATION Q4-6H PRN #90 ml 10/25/20 solution for nebulization budesonide-formoterol HFA 160 2 puff INHALATION Q12H 30 Days 11/29/20 mcg-4.5 mcg/actuation aerosol #10.2 g inhaler ipratropium 0.5 mg-albuterol 3 mg 3 ml INHALATION Q6-8H PRN #90 ml 11/30/20 (2.5 mg base)/3 mL nebulization soln gabapentin 300 mg capsule 300 mg PO BID 30 Days #60 cap 12/16/20 montelukast 10 mg tablet 10 mg PO BEDTIME #30 tab 12/16/20 psyllium husk 3.4 gram/5.4 gram 1 tbsp PO BID 30 Days #660 g 12/16/20 oral powder Allergies Allergy/AdvReac Type Severity Reaction Status Date / Time latex Allergy Mild Rash Verified 12/16/20 11:56 Review of Systems Review of Systems: Constitutional: No Fever, No Chills ENT/Mouth: + sore throat, + Rhinorrhea, No Swallowing Difficulty Cardiovascular: No Chest Pain, No SOB, No Orthopnea, No Edema Respiratory: + Cough, No Sputum, No Wheezing, No dyspnea Gastrointestinal: No Nausea, No Vomiting, No Diarrhea, No abdominal Pain Genitourinary: No Dysuria, No Urinary Frequency, No Hematuria Musculoskeletal: No joint pain, + Myalgias Skin: No Skin Lesions, No rash Neuro: No Weakness, No Numbness, No Dizziness, + Headache Psych: No Anxiety/Panic, No Depression Heme/Lymph: No Bruising, No Lymphadenopathy Endocrine: No Polyuria, No Polydipsia PMFSH Past Medical History Attestation statement: The following information was validated with the patient. Medical History Anxiety Asthma Depression Social History Social History Alcohol intake: current Alcohol intake frequency: holidays/special occasions only Cigarettes Per Day: 7 Substance Use Type: Marijuana Advance Directives: No Advance Directives Information Provided: No Patient : No Physical Exam Vital Signs: Vital Signs: Last Vital Signs Temp 99.1 F 04/12/21 23:41 Pulse 99 04/12/21 23:41 Resp 20 04/12/21 23:41 BP 99/54 L 04/12/21 23:41 Pulse Ox 99 04/12/21 23:41 Body Mass Index 28.5 Appearance: Alert. Oriented X3. Appears ill. Eyes: Pupils equal, round and reactive to light. ENT: Pharynx with moderate generalized erythema, no tonsillar swelling or exudate. Neck: Normal inspection. Neck supple. CVS: Normal heart rate and rhythm. Pulses normal. Respiratory: No respiratory distress. Breath sounds normal. Abdomen: Soft and nontender. +BS x4 Skin: Skin warm and dry. Normal skin color. Normal skin turgor. No rashes. Extremities: No lower extremity edema. Neuro: Oriented X 3. Nonfocal. Course Course Course Narrative: 35 y/o female presenting with dry cough, sore throat, headache and myalgias in the setting of being around her sick daughter who was COVID negative. Suspect viral syndrome. VS are stable and lungs are clear. COVID and Strep test sent. MDM - URI/Sore Throat Lab Data Labs: Lab Results 04/13/21 04/13/21 Range/Units 01:11 01:11 COVID-19 (BASIM) Negative (Negative) COVID-19 Clin Com See Note S. pyogenes GrpA JOBY Negative (Negative) Critical Care Time Critical Care Time Critical Care Time: No Discharge Plan Discharge Clinical Impression: Viral illness Patient Disposition: Home, Self-Care Instructions: Viral Syndrome (ED) Additional Instructions: Your Strep test was negative. Your COVID test was negative. Your symptoms are most likely due to another virus. Treatment is supportive care - rest, drink plenty of fluids. Take over the counter cold and flu medications for your symptoms. Use warm salt water gargles several times per day. Take Motrin and/or Tylenol as needed for body aches and headaches. Follow up with your doctor as needed. If you develop new or worsening symptoms call 911 or come back to the ER for further evaluation. Prescriptions: No Action albuterol sulfate 1.25 mg/3 mL solution for nebulization 1.25 mg inhalation Q4-6H PRN (Reason: shortness of breath or wheezing) Qty: 90 RF: 1 budesonide-formoterol [Symbicort] 160-4.5 mcg/actuation HFA aerosol inhaler 2 puff inhalation Q12H 30 Days Qty: 10.2 RF: 5 montelukast 10 mg tablet 10 mg PO BEDTIME Qty: 30 RF: 2 sertraline 100 mg tablet 1 tab PO QAM RF: 0 buspirone 10 mg tablet 1 tab PO BID RF: 0 albuterol sulfate 90 mcg/actuation HFA aerosol inhaler 2 puff inhalation Q4-6H PRN (Reason: shortness of breath or wheezing) Qty: 8.5 RF: 0 ibuprofen 200 mg tablet 400 mg PO Q6H RF: 0 Metamucil 3.4 gram/5.4 gram powder 1 tbsp PO BID 30 Days Qty: 660 RF: 3 gabapentin 300 mg capsule 300 mg PO BID 30 Days Qty: 60 RF: 3
[2021-04-13 01:43] LABS: COVID-19 Test Negative (Negative); IDNOW Serial# 9DD0AD1C
--- NOTE | 2021-04-13 02:48 | PC.NURSE ---
pt resting in hallway stretcher in supine position. no coughing or dyspnea.
== END 2021-04-13 02:48 | disposition home or self-care (01) ==
PROVIDERS: Emergency Provider Student in an Organized Health Care Education/Training Program; PCP Hospitalist
DX: B34.9 Viral infection, unspecified (principal); Z20.822 Contact with and (suspected) exposure to COVID-19; R50.9 Fever, unspecified; J02.9 Acute pharyngitis, unspecified; F17.210 Nicotine dependence, cigarettes, uncomplicated; F12.90 Cannabis use, unspecified, uncomplicated
CPT/HCPCS: 36415; 71046; 87635; 87651; 99283

== ENCOUNTER → 2021-06-22 15:09 | Outpatient (BNVA) | payer OTHER, SELFPAY | PROVIDERS: PCP Family Medicine; Referring Provider Family Medicine; Visit Provider Surgery | DX: K80.20 Calculus of gallbladder without cholecystitis without obstruction (principal) | CPT/HCPCS: 99202 ==

== ENCOUNTER 2021-10-18 08:51 | Day surgery (SDC) | payer OTHER, SELFPAY ==
[2021-10-12 15:19] VITALS: BMI 32.7
--- NOTE | 2021-10-17 09:53 | P.CONAN_ITS ---
Documented by User: Mely Blank NP 10/17/21 09:55 HPI - Anesthesia Eval Consult details Narrative: 36yo F for Cholecystectomy Laparoscopic, Poss Open PMFSH Active Problems Active Problems: All Active Problems (Updated 10/12/21 @ 15:19 by Tran Can RN) Close exposure to 2019 novel coronavirus (Acute) Viral illness (Acute) Suprapubic pain, acute (Acute) Fatigue (Acute) Asthma, mild intermittent, poorly controlled (Acute) Joint pain (Acute) Abdominal pain (Acute) Cholelithiasis (Acute) Gallstones (Acute) Past Medical History Medical History (Updated 10/12/21 @ 15:19 by Tran Can RN) Anxiety Asthma COVID-19 vaccination declined Depression Gallstones Surgical History Surgical History (Updated 10/12/21 @ 15:07 by Tran Can RN) Hx of tubal ligation Social History Social History Household Members Other:: minor daughter Are you a primary pediatric care coordinator to a significant other at home: Yes (minor daughter) Do you presently have visiting nurse or other home services: No Alcohol intake: current Alcohol intake frequency: does not drink Patient Tobacco Use Status: Current everyday Tobacco user Tobacco use type: Cigarette Cigarettes Per Day: 4 Years Smoked: 5 Use of substances other than those prescribed or required for medical reasons: Yes Substance Use Type: Marijuana Substance Use Type Other:: advised to hold pre-op Are you DNR?: No Advance Directives: No Advance Directives Information Provided: Yes (brochure mailed) Advance Directives on File: No Recently lost weight without trying: No Eating poorly because of decreased appetite: No Nutrition Risks: No Nutritional Risk Patient : No : No Meds Allergies Allergy/AdvReac Type Severity Reaction Status Date / Time latex Allergy Mild Rash Verified 10/18/21 08:56 Home Medications Medication Instructions Recorded Confirmed Last Taken Type buspirone 10 mg 1 tab PO BID 10/14/20 10/12/21 Unknown History tablet sertraline 100 mg 1 tab PO QAM 10/14/20 10/12/21 Unknown History tablet famotidine 40 mg 40 mg PO DAILY 06/22/21 10/12/21 Unknown History tablet hydroxyzine 25 mg PO BEDTIME 10/06/21 01/26/22 Unknown History pamoate 25 mg capsule Exam Exam Date and Time: October 17, 2021 0953 Height,Weight and Vital Signs: Height 5 ft Weight 76 kg Pertinent Lab Results Pertinent Lab Results: Laboratory Tests 12/24/20 12/24/20 04:35 04:35 WBC 10.3 Hgb 10.7 L Hct 32.3 L Plt Count 286 Sodium 141 Potassium 3.5 Chloride 109 H Carbon Dioxide 23 BUN 8 L Creatinine 0.74 Assessment and Plan Assessment Anesthesia Assessment: Chart Reviewed Documented by User: Omar Del Real 10/18/21 10:06 [facility] Past Medical History Medical History (Updated 10/12/21 @ 15:19 by Tran Can RN) Anxiety Asthma COVID-19 vaccination declined Depression Gallstones Family History Family history of problems with anesthesia: No Surgical History Surgical History (Updated 10/12/21 @ 15:07 by Tran Can RN) Hx of tubal ligation History of Problems with Anesthesia: No Social History Social History Household Members Other:: minor daughter Are you a primary pediatric care coordinator to a significant other at home: Yes (minor daughter) Do you presently have visiting nurse or other home services: No Alcohol intake: current Alcohol intake frequency: does not drink Patient Tobacco Use Status: Current everyday Tobacco user Tobacco use type: Cigarette Cigarettes Per Day: 4 Years Smoked: 5 Use of substances other than those prescribed or required for medical reasons: Yes Substance Use Type: Marijuana Substance Use Type Other:: advised to hold pre-op Are you DNR?: No Advance Directives: No Advance Directives Information Provided: Yes (brochure mailed) Advance Directives on File: No Recently lost weight without trying: No Eating poorly because of decreased appetite: No Nutrition Risks: No Nutritional Risk Patient : No : No Meds Allergies Allergy/AdvReac Type Severity Reaction Status Date / Time latex Allergy Mild Rash Verified 10/18/21 08:56 Home Medications Medication Instructions Recorded Confirmed Last Taken Type buspirone 10 mg 1 tab PO BID 10/14/20 10/12/21 Unknown History tablet sertraline 100 mg 1 tab PO QAM 10/14/20 10/12/21 Unknown History tablet famotidine 40 mg 40 mg PO DAILY 06/22/21 10/12/21 Unknown History tablet hydroxyzine 25 mg PO BEDTIME 06/22/21 10/12/21 Unknown History pamoate 25 mg capsule Exam Airway Mallampati Class: II Neck ROM: Full Loose/Missing/Broken Teeth: Yes (Chipped ) Assessment and Plan Assessment Anesthesia Assessment: Anesthesia Plan Discussed Final Anesthetic Review Family History of Problems with Anesthesia: No History of Problems with Anesthesia: No NPO: Yes ASA Class: II Final Preanesthetic Review: Meds/Louis Chart Reviewed Patient Risk: Intermediate Procedure Risk: Intermediate Anesthetic Plan Anesthetic Plan: GA Disposition: Standard PACU
[2021-10-18] VITALS (21 sets, daily range): BP systolic 98–114; BP diastolic 59–80; PULSE 76–96; RESP 12–20; TEMP 36.4–36.7; O2SAT 97–100
[2021-10-18] MEDS: Acetaminophen 325 MG TABLET 650 MG PO (09:19)
[2021-10-18] MEDS: Lactated Ringers 1,000 ML 100 ML IVCONT (09:28)
--- NOTE | 2021-10-18 09:38 | MHC.SHP ---
Pre-Procedural Eval Section A Date of Service: 10/18/21 Section B Chief Complaint: Gallstones Details of Present Illness: Has had periodic right upper quadrant pain, ultrasound last year showed gallstones Relevant Family History (Specify if Yes): No Relevant Social History: None Present Medications: see Short Stay Collaborative assessment Medical History: Significant History (Asthma) History of Previous Operations: No relevant previous surgery Allergies: Allergies Allergy/AdvReac Type Severity Reaction Status Date / Time latex Allergy Mild Rash Verified 10/18/21 08:56 Review of Systems Sugical H&P ROS: Negative: Constitution, Cardiovascular, Respiratory, Neurological, Psychiatric, Hem-Onc, Allergic/Immunologic, Gastrointestinal, Genitourinary, Musculoskeletal, Integumentary, Endocrine and Eyes/Ears/Nose/Throat Exam Surgical H&P Exam: Normal: HEENT, Normal: Heart, Normal: Lungs, Normal: Extremities, Normal: Abdomen, Normal: Skin and Normal: Neurological Plan Diagnosis/Plan: Unchanged I have reviewed the history and physical and performed a pertinent physical examination on my patient. No changes have occurred unless specified.
--- NOTE | 2021-10-18 11:28 | P.OP_ITS ---
Operative Note Operative Note Date of Service: 10/18/21 Narrative: Preop diagnosis: Symptomatic gallstones Postop diagnosis same Procedure: Laparoscopic cholecystectomy Surgeon: Tray Escamilla MD pharmacy sales assistant: DALIA Campa Patient is a 36 year female with known gallstones on a previous ultrasound. She did describe periodic right upper quadrant pain and tenderness. I had seen her last June 2021 and she wanted to proceed with cholecystectomy. She understood the technique of laparoscopic cholecystectomy and possible open and was aware of the risks, benefits, and alternatives . She was brought to the operating room and placed supine on the table under gene ral anesthesia via endotracheal tube. The abdomen is prepped and draped in the usual sterile fashion. A surgical time-out was done. The patient received Cefotan 2 g IV preoperatively. I made a short supraumbilical incision on the skin using blade 15. This was carried down through the full-thickness of the skin and subcutaneous fat down to the fascia. The fascia was incised. The peritoneum was entered. Through this incision a Chata port was introduced. Pneumoperitoneum was introduced to a pressure of 15 mm hg. From here on the rest of the procedure was done under vision with the laparoscope. With laparoscopic visualization, I proceeded to insert a 5 psoas 12 mm port in the epigastric area below the subcostal margin through a small stab incision. 5 mm port introduced a small incisions below the subcostal margin along the anterior axillary line and the midclavicular line. Graspers were placed through these working ports. The patient was placed in head-up and [id number] position. The gallbladder was seen in the subhepatic space. We able to apply a grasper at the fundus and this was used to retract the gallbladder cephalad. By doing so were able to apply another grasper at the pouch of the gallbladder and this was used to retract the gallbladder laterally. At this point therefore the gallbladder was being retracted in a cephalad and lateral fashion to put the cystic duct on stretch Gallbladder was not inflamed I proceeded to then carefully stripped off fibrillar tissue neck of the gallbladder using the [place] dissector. We continued with this dissection until was able to clearly visualize the cystic duct. We were able to confirm its confluence with the neck of the gallbladder. With this dissection, were able to also achieve a critical view of the hepatocystic triangle. There were very fine arterial branches adjacent to the cystic duct but there were no other large-sized tubular structure . I therefore applied clips on the cystic duct with 2 clips being applied distally. The cystic duct was transected between clips with Endo scissors. I proceeded to gently dissect the cystic artery and once this was defined, I applied clips and the cystic artery was transected between clips with Endo scissors. I continued to gently dissect at the hilum applied clips periodically as we divided parts of the hilum to make sure we had good hemostasis. There were no significant tubular structure seen in the area. I would then eventually able to reach the interface of the gallbladder and the liver bed. I used electrocautery spatula to incise the peritoneum. I then defined the plane of dissection between the gallbladder wall and the liver bed using blunt dissection with the tip of the spatula and electrocautery itself. I the gallbladder from the liver bed along this well-defined plane of dissection continue with this manner of dissection all the way to the fundus until the entire gallbladder was completely from the liver bed. I retrieved the gallbladder through an endobag through the umbilical incision. We reinserted all ports and re- insufflated. We had a little tear in the gallbladder wall with some bile leakage so we had to copiously irrigate the subhepatic space and suctioned out the irrigant fluid. I observed all 4 quadrants of the peritoneum and there was no other pathology or any evidence of any bowel injury . I re-examined the subhepatic space. Hemostasis was firm. I therefore proceeded to desufflate the port sites. I removed all ports under vision with the umbilical port being removed last. The fascia of the umbilical incision was closed with [id number] Dexon 0 stitch. Skin closure was achieved on all incisions using Dexon 4-0 subcuticular running sutures. Steri-Strips and dressings were applied All incisions were infiltrated with Marcaine 0.5% for postop analgesia. The procedure was then completed The patient tolerated procedure well. There were no complication noted. Initial and final counts of sponges and instruments were correct. Estimated blood loss was about 25 cc. The patient was extubated without difficulty in the operating room and transf erred to the recovery room with stable vital signs.
[2021-10-18] MEDS: fentaNYL citrate/PF 100 MCG/2 ML VIAL 50 MCG IVPUSH (11:51)
[2021-10-18] MEDS: oxyCODONE HCl Immed Release 5 MG TABLET 10 MG PO (12:02)
[2021-10-18] MEDS: fentaNYL citrate/PF 100 MCG/2 ML VIAL 25 MCG IVPUSH ×4 (12:03→12:22)
== END 2021-10-18 15:19 | disposition home or self-care (01) ==
PROVIDERS: PCP Family Medicine; Visit Provider Surgery
PROC: 0FT44ZZ Resection of Gallbladder, Percutaneous Endoscopic Approach (ICD-10-PCS; CPT 47562; principal; 2021-10-18 09:30)
DX: K80.10 Calculus of gallbladder with chronic cholecystitis without obstruction (principal); J45.909 Unspecified asthma, uncomplicated; F32.9 Major depressive disorder, single episode, unspecified; Z79.51 Long term (current) use of inhaled steroids; Z79.899 Other long term (current) drug therapy; F17.210 Nicotine dependence, cigarettes, uncomplicated; F12.90 Cannabis use, unspecified, uncomplicated; Z91.040 Latex allergy status
CPT/HCPCS: 47562; 88304; J0131; J1100; J2250; J2370; J2405; J2550; J3010

== ENCOUNTER 2021-11-04 10:02 | Outpatient (REF) | payer OTHER, SELFPAY ==
[2021-11-04 11:36] LABS: MANUAL DIFF FLAG NO
[2021-11-04 11:47] LABS: Basophils Absolute Auto 0.1 X10*3/uL (0.0-0.2); Basophils Percent Auto 0.4 % (0-2); Eosinophils Absolute Auto 0.6 X10*3/uL (0.0-0.4); Hematocrit 36.2 % (37.0-47.0); Hemoglobin 11.8 g/dl (12.0-16.0); Imm Gran Abs Auto 0.06 X10*3/uL (0.00-0.03); Imm Gran Pct Auto 0.5 % (0.0-0.4); Lymphocytes Absolute Auto 2.6 X10*3/uL (1.2-4.9); Lymphocytes Percent Auto 23.2 % (20-40); Mean Corpuscular HGB Conc 32.6 g/dl (31.0-35.0); Mean Corpuscular Hemoglobin 27.8 pg (27.0-33.0); Mean Corpuscular Volume 85.4 fL (80.0-98.0); Mean Platelet Volume 9.4 fL (9.4-12.3); Monocytes Absolute Auto 0.7 X10*3/uL (0.1-1.2); Monocytes Percent Auto 6.1 % (2-11); Neutrophils Absolute Auto 7.3 x10*3/uL (2.0-8.3); Neutrophils Percent Auto 64.8 % (45-73); Platelet Count 413 X10*3/uL (160-400); Red Blood Count 4.24 X10*6/uL (4.20-5.50); Red Cell Distribution Width 13.9 % (11.0-16.0); White Blood Count 11.2 X10*3/uL (4.8-10.8)
[2021-11-04 11:55] LABS: Appearance Urine CLOUDY; Color Urine YELLOW; Glucose Urine UA NEG (NEG); Leukocyte Esterase Urine NEG (NEG); Nitrite Urine NEG (NEG); PH 5.5 (5.0-8.0); Specific Gravity - Urine 1.025 (1.005-1.025); Urine Blood 1+ (NEG); Urine Ketones NEG (NEG); Urine Protein NEG (NEG-TRACE)
[2021-11-04 12:12] LABS: Alanine Aminotransferase 15 U/L (0-31); Albumin Level 4.1 g/dL (3.5-5.0); Alkaline Phosphatase 43 U/L (39-117); Anion Gap 10 (12-20); Aspartate Amino Transferase 13 U/L (5-31); Bilirubin Total 0.2 mg/dL (0.0-1.0); Blood Urea Nitrogen 7 mg/dL (9-16); Calcium 9.2 mg/dL (8.4-10.2); Carbon Dioxide 27 mmol/L (22-29); Chloride 107 mmol/L (96-108); Cholesterol 166 mg/dL; Estimated Glomerular Filt Rate > 60; Glucose Fasting 80 mg/dL (60-99); HDL Cholesterol 32 mg/dL; LDL Cholesterol Calculated 115 mg/dl; Potassium 4.2 mmol/L (3.3-5.1); Sodium 140 mmol/L (135-145); Triglycerides 95 mg/dL
[2021-11-04 12:17] LABS: TSH reflex Free T4 0.54 uIU/mL (0.32-4.0)
[2021-11-04 12:30] LABS: Bacteria Urine 1+ /LPF; Squamous Epithelial Cell Urine 3+ /LPF; WBC Urine 0-2 /HPF (0-4)
== END 2021-11-04 10:03 | disposition home or self-care (01) ==
LOC: HO.WFDLDS 10:02
PROVIDERS: Visit Provider Family Medicine
DX: Z00.00 Encounter for general adult medical examination without abnormal findings (principal)
CPT/HCPCS: 36415; 80053; 80061; 81001; 81003; 84443; 85025

== ENCOUNTER 2021-12-26 04:58 | Emergency (ER) | payer OTHER, SELFPAY ==
[2021-12-26 05:15] VITALS: BP 110/86; PULSE 84; RESP 24; TEMP 37; O2SAT 100; BMI 29.2
[2021-12-26 06:00] LABS: Influenza A PCR NEGATIVE (Negative); Influenza B PCR NEGATIVE (Negative); Resp Syncy Virus RNA Qual PCR NEGATIVE (Negative); SARS COV2 PCR INHOUSE NEGATIVE (Negative)
--- NOTE | 2021-12-26 06:34 | ED.PEDGIA ---
HPI - Pediatric GI General Chief Complaint: Abdominal Pain Stated Complaint: asthma Time Seen by Provider: 12/26/21 06:33 Source: patient Mode of arrival: ambulatory Limitations: no limitations History of Present Illness MD complaint: nausea, vomiting and abdominal pain Onset (ago): day(s) (1) Fever: Yes Temperature source: subjective Activity level: normal Pain location: diffuse Severity: mild Radiation of pain: none Migration of pain: no migration Quality of pain: cramping Consistency of pain: intermittent Relieving factors: nothing Exacerbating factors: eating Context: sick contacts (daughter with same illness) Associated symptoms: nausea, vomiting and abdominal pain Related Data Home Medications Medication Instructions Recorded Confirmed buspirone 10 mg tablet 1 tab PO BID 10/14/20 10/12/21 sertraline 100 mg tablet 1 tab PO QAM 10/14/20 10/12/21 famotidine 40 mg tablet 40 mg PO DAILY 06/22/21 10/12/21 Previous Rx's Medication Instructions Recorded albuterol sulfate 90 mcg/actuation 2 puff INHALATION Q4-6H PRN #8.5 g 10/21/20 aerosol inhaler albuterol sulfate 1.25 mg/3 mL 1.25 mg (3 mL) INHALATION Q4-6H 10/25/20 solution for nebulization PRN #90 ml budesonide-formoterol HFA 160 2 puff INHALATION Q12H 30 Days 11/29/20 mcg-4.5 mcg/actuation aerosol #10.2 g inhaler (Symbicort) ipratropium 0.5 mg-albuterol 3 mg 3 ml INHALATION Q6-8H PRN #90 ml 11/30/20 (2.5 mg base)/3 mL nebulization soln gabapentin 300 mg capsule 300 mg PO BID 30 Days #60 cap 12/16/20 montelukast 10 mg tablet 10 mg PO BEDTIME #30 tab 12/16/20 psyllium husk 3.4 gram/5.4 gram 1 tbsp PO BID 30 Days #660 g 12/16/20 oral powder (Metamucil) ibuprofen 600 mg tablet 600 mg PO Q6H PRN #30 tab 10/18/21 oxycodone-acetaminophen 5 mg-325 1 tab PO Q4-6H PRN #30 tab 10/18/21 mg tablet (Percocet) ondansetron 4 mg disintegrating 4 mg PO Q8H PRN #20 tab 12/26/21 tablet Allergies Allergy/AdvReac Type Severity Reaction Status Date / Time latex Allergy Mild Rash Verified 11/04/21 09:08 Pediatric Review of Systems Review of Systems: Constitutional : No Weight loss, pos Fever, pos Chills ENT/Mouth : No sore throat, No Rhinorrhea Eyes: No Swelling, No Redness Cardiovascular : No Chest Pain, No SOB, NoEdema Respiratory : No Cough, No Sputum, pos Wheezing Gastrointestinal : Positive Nausea, Positive Vomiting, no Diarrhea, positive abdominal Pain, No Hematochezia, No Melena Genitourinary : No Dysuria, No Urinary Frequency, No Hematuria, No Urgency Musculoskeletal : No joint pain, No Myalgias, No Joint Swelling Skin : No Skin Lesions, No rash Neuro : No Weakness, No Numbness, No Dizziness, No Headache PMFSH Past Medical History Attestation statement: The following information was validated with the patient. Medical History Anxiety Asthma COVID-19 vaccination declined Depression Gallstones Surgical History Hx of tubal ligation Social History Social History Household Members Other:: minor daughter Housing: Apartment Are you a primary human services care specialist to a significant other at home: Yes (minor daughter) Do you presently have visiting nurse or other home services: No Alcohol intake: current Alcohol intake frequency: does not drink Patient Tobacco Use Status: Current everyday Tobacco user Tobacco use type: Cigarette Cigarettes Per Day: 4 Years Smoked: 5 e-Cigarette/Vaping Use: Never Used Substance Use Type: Marijuana Advance Directives: No Advance Directives Information Provided: No Patient : No service: No Current occupational status: employed Current occupational exposures/hazards: No Cognitive needs: No Hearing needs: No Vision needs: No Pediatric Exam Narrative: Physical exam: Appearance: Alert. Oriented X3. No acute distress. Eyes: Pupils equal, round and reactive to light. ENT: Pharynx normal. MMM Neck: Normal inspection. Neck supple. CVS: Normal heart rate and rhythm. Pulses normal. Respiratory: No respiratory distress. Breath sounds normal. no wheezes noted Abdomen: Soft and non-tender. Skin: Skin warm and dry. Normal skin color. Normal skin turgor. Extremities: No lower extremity edema. Neuro: Oriented X 3. No motor deficit. No sensory deficit. General: Limitations: no limitations Medical Decision Making MDM Narrative Medical decision making narrative: 36 yo female with asthma - not toxic appearing here with her daughter both with subj fevers, vomiting, abdominal cramping - not toxic, appearing, no signs of clinical dehydration. ODT zofran and supportive care. Abdominal exam benign - suspect viral syndrome Lab Data Labs: Lab Results 12/26/21 Range/Units 05:17 Influenza Type A (PCR) NEGATIVE (Negative) Influenza Type B (PCR) NEGATIVE (Negative) RSV RNA Qual (PCR) NEGATIVE (Negative) SARS-CoV-2 RNA (RT-PCR) NEGATIVE (Negative) Discharge Plan Discharge Clinical Impression: Acute viral syndrome Vomiting Qualifiers: Vomiting type: unspecified Nausea presence: with nausea Qualified Code(s): R11.2 - Nausea with vomiting, unspecified Patient Disposition: Home, Self-Care Instructions: Acute Nausea and Vomiting (ED), Viral Syndrome (ED) Additional Instructions: return to ED for any worsening symptoms or concerns no dairy x 3 days negative for covid and flu Prescriptions: New ondansetron 4 mg tablet,disintegrating 4 mg PO Q8H PRN (Reason: nausea and vomiting) Qty: 20 0RF No Action albuterol sulfate 1.25 mg/3 mL solution for nebulization 1.25 mg inhalation Q4-6H PRN (Reason: shortness of breath or wheezing) Qty: 90 1RF budesonide-formoterol [Symbicort] 160-4.5 mcg/actuation HFA aerosol inhaler 2 puff inhalation Q12H 30 Days Qty: 10.2 5RF ipratropium-albuterol 0.5 mg-3 mg(2.5 mg base)/3 mL solution for nebulization 3 ml inhalation Q6-8H PRN (Reason: wheezing) Qty: 90 0RF montelukast 10 mg tablet 10 mg PO BEDTIME Qty: 30 2RF sertraline 100 mg tablet 1 tab PO QAM 0RF buspirone 10 mg tablet 1 tab PO BID 0RF albuterol sulfate 90 mcg/actuation HFA aerosol inhaler 2 puff inhalation Q4-6H PRN (Reason: shortness of breath or wheezing) Qty: 8.5 0RF oxycodone-acetaminophen [Percocet] 5-325 mg tablet 1 tab PO Q4-6H PRN (Reason: pain, severe) Qty: 30 0RF ibuprofen 600 mg tablet 600 mg PO Q6H PRN (Reason: pain) Qty: 30 0RF Metamucil 3.4 gram/5.4 gram powder 1 tbsp PO BID 30 Days Qty: 660 3RF Rx Instructions: mix into at least 8 oz of water or juice before administering gabapentin 300 mg capsule 300 mg PO BID 30 Days Qty: 60 3RF famotidine 40 mg tablet 40 mg PO DAILY 0RF Stand Alone Forms: Work/School Release
[2021-12-26 06:36] VITALS: BP 96/53; PULSE 66; RESP 12; TEMP 36.8; O2SAT 100
[2021-12-26] MEDS: Ondansetron ODT 4 MG TAB.RAPDIS TRANSLINGU (07:02)
== END 2021-12-26 07:14 | disposition home or self-care (01) ==
PROVIDERS: Emergency Provider Emergency Medicine; PCP Hospitalist
DX: B34.9 Viral infection, unspecified (principal); Z20.822 Contact with and (suspected) exposure to COVID-19; R11.2 Nausea with vomiting, unspecified; F17.200 Nicotine dependence, unspecified, uncomplicated; F12.90 Cannabis use, unspecified, uncomplicated
CPT/HCPCS: 0241U; 99283

== ENCOUNTER 2022-01-25 13:22 | Outpatient (REF) | payer OTHER, SELFPAY ==
[2022-01-25 14:27] LABS: Influenza A PCR NEGATIVE (Negative); Influenza B PCR NEGATIVE (Negative); Resp Syncy Virus RNA Qual PCR NEGATIVE (Negative); SARS COV2 PCR INHOUSE NEGATIVE (Negative)
== END 2022-01-25 13:23 | disposition home or self-care (01) ==
LOC: HO.LNP 13:22
PROVIDERS: Visit Provider Hospitalist
DX: Z20.822 Contact with and (suspected) exposure to COVID-19 (principal); R68.89 Other general symptoms and signs
CPT/HCPCS: 0241U

== ENCOUNTER 2022-05-29 08:40 | Emergency (ER) | payer OTHER, SELFPAY ==
--- NOTE | ~2022-05-29 | XR_ITS ---
EXAMINATION: XR CHEST CLINICAL INFORMATION: Chest pain COMPARISON: 04/12/2021 TECHNIQUE: PA and lateral radiographs of the chest were obtained. FINDINGS: No focal consolidation or mass. No pleural effusion or pneumothorax. Normal pulmonary vascularity. Normal heart size. Regional skeleton intact. XR/XR chest 2V IMPRESSION: Normal examination.
[2022-05-29 08:44] VITALS: BP 128/77; PULSE 88; RESP 20; TEMP 36.3; O2SAT 100; BMI 29.2
--- NOTE | 2022-05-29 09:56 | ECG_ITS ---
Test Reason : chest pain Blood Pressure : / mmHG Vent. Rate : 068 BPM Atrial Rate : 068 BPM P-R Int : 180 ms QRS Dur : 078 ms QT Int : 396 ms P-R-T Axes : 059 040 017 degrees QTc Int : 421 ms Normal sinus rhythm Normal ECG When compared with ECG of 14-OCT-2020 10:02, No significant change was found Referred By: Kaycee Marie Electronically Signed By:ROD HANLEY
--- NOTE | 2022-05-29 10:19 | ED_ITS ---
HPI - SOB/Dyspnea General Chief Complaint: Dyspnea Stated Complaint: diff breathing Time Seen by Provider: 05/29/22 09:49 Source: patient Mode of arrival: ambulatory Limitations: no limitations History of Present Illness HPI Narrative: Patient presents emergency department for evaluation of chest pain and difficult y breathing. She states that 430 this morning she awoke from her sleep to use the bathroom and she felt as though she was short of breath. She then noticed a pain to the right upper chest. She trialed using a breathing treatment home but states that this made no difference. She has had an intermittent nonproductive cough. Reports this feels similar to her asthma symptoms. Denies fevers, chil ls, nasal congestion, sore throat, nausea, vomiting, abdominal pain. Denies lower extremity swelling or redness, prolonged immobilization, recent surgical procedures, past history of DVT/PE, use of oral contraceptives, or personal history of cancer. Related Data Home Medications Medication Instructions Recorded Confirmed buspirone 10 mg tablet 1 tab PO BID 10/14/20 10/12/21 sertraline 100 mg tablet 1 tab PO QAM 10/14/20 10/12/21 famotidine 40 mg tablet 40 mg PO DAILY 06/22/21 10/12/21 Previous Rx's Medication Instructions Recorded albuterol sulfate 90 mcg/actuation 2 puff inhalation Q4-6H PRN 10/21/20 aerosol inhaler shortness of breath or wheezing #8.5 grams albuterol sulfate 1.25 mg/3 mL 1.25 mg (3 mL) inhalation Q4-6H 10/25/20 solution for nebulization PRN shortness of breath or wheezing #90 mL budesonide-formoterol HFA 160 2 puff inhalation Q12H 1 month 11/29/20 mcg-4.5 mcg/actuation aerosol #10.2 grams inhaler (Symbicort) ipratropium 0.5 mg-albuterol 3 mg 3 ml inhalation Q6-8H PRN wheezing 11/30/20 (2.5 mg base)/3 mL nebulization #90 mL soln gabapentin 300 mg capsule 300 mg PO BID 30 days #60 caps 12/16/20 montelukast 10 mg tablet 10 mg PO BEDTIME #30 tabs 12/16/20 psyllium husk 3.4 gram/5.4 gram 1 tbsp PO BID 30 days #660 grams 12/16/20 oral powder (Metamucil) ondansetron 4 mg disintegrating 4 mg PO Q8H PRN nausea and 01/25/22 tablet vomiting #20 tabs ibuprofen 800 mg tablet 800 mg PO Q8H #30 tabs 05/11/22 Allergies Allergy/AdvReac Type Severity Reaction Status Date / Time latex Allergy Mild Rash Verified 05/11/22 11:31 Review of Systems 2 Review of Systems: Constitutional : No Weight loss, No Fever, No Chills ENT/Mouth :? No sore throat, No Rhinorrhea Eyes: No Eye Pain, No Swelling Cardiovascular : pos Chest Pain, pos SOB, no Dyspnea on Exertion, No Orthopnea, No Edema, No Palpitations Respiratory : pos Cough, No Sputum Gastrointestinal : no Nausea, No Vomiting, No Diarrhea, No abdominal Pain, No Hematochezia, No Melena Genitourinary : No Dysuria, No Urinary Frequency Musculoskeletal : No joint pain, No Myalgias, No Joint Swelling Skin : No Skin Lesions, No rash Neuro : No Weakness, No Numbness, No Dizziness, No Headache Psych : No Anxiety/Panic, No Depression Heme/Lymph: No Bruising, No Lymphadenopathy Endocrine : No Polyuria, No Polydipsia Yes all other systems are reviewed and are negative [facility] Past Medical History Attestation statement: The following information was validated with the patient. Source: old records reviewed Medical History Anxiety Asthma COVID-19 vaccination declined Depression Gallstones Surgical History Hx of tubal ligation Social History Social History Household Members Other:: minor daughter Housing: Apartment Are you a primary career placement services counselor to a significant other at home: Yes (minor daughter) Do you presently have visiting nurse or other home services: No Alcohol intake: current Alcohol intake frequency: does not drink Patient Tobacco Use Status: Current everyday Tobacco user Tobacco use type: Cigarette Cigarettes Per Day: 4 Years Smoked: 5 e-Cigarette/Vaping Use: Never Used Substance Use Type: Marijuana service: No Current occupational status: employed Current occupational exposures/hazards: No Cognitive needs: No Hearing needs: No Vision needs: No Physical Exam Vital Signs: Vital Signs: Last Vital Signs Temp 97.4 F 05/29/22 08:44 Pulse 88 05/29/22 08:44 Resp 20 05/29/22 08:44 BP 128/77 05/29/22 08:44 Pulse Ox 100 05/29/22 08:44 BMI result Body Mass Index 29.2 Appearance: Alert.?Oriented to person, place and time. No acute distress.?Normal affect. Eyes: Pupils equal, round and reactive to light.? ENT: Pharynx normal.?? Neck: Normal inspection.? Neck supple.?? CVS: Heart sounds normal. Normal heart rate and rhythm.? Pulses normal.?? Respiratory: No respiratory distress.? Lung sounds clear to auscultation bilaterally. Tenderness upon palpation of right anterior chest wall, no crepitus? Abdomen: Soft and non-tender. Normoactive bowel sounds. No pulsatile mass.?? Skin: Skin warm and dry.? Normal skin color.? ? Extremities: No lower extremity edema.? No calf ttp? Neuro: Moves all extremities spontaneously. Sensation intact bilaterally. No motor deficits. Ambulates with normal steady gait. Course Course Course Narrative: Patient is a 36-year-old female with a past medical history of anxiety, depres alice, asthma, gallstones who presents emergency department today for evaluation of difficulty breathing and chest pain. She is overall well-appearing, in no apparent distress, speaking clear full sentences, vital signs are stable without tachycardia, tachypnea, or hypoxia. Will obtain CBC to evaluate for leukocytosis/ anemia, CMP to evaluate for abnormal electrolytes /abnormal renal function/ abnormal hepatic/biliary function, EKG and troponin to evaluate for ischemia/ACS. Chest x-ray to evaluate for consolidation/ infiltrate/ mass/ pulmonary congestion. Disposition pending results. Reevaluation(s) Reevaluation #1: CBC, CMP overall an unremarkable. Troponin <3.5, EKG reveals normal sinus rhythm, no acute ischemic findings. Chest x-ray with no acute findings. Exam does not appear consistent with asthma exacerbation, no wheezing, lung sounds are clear. Vital signs remain stable. Given reproduction of pain upon palpation and with movement, suspect to be muscular in nature. Advised Tylenol/ibuprofen as needed for pain. Continued use of her nebulizer/inhalers as needed. Follow-up with primary care provider within 3 days. Reviewed worrisome signs and symptoms to return back to emergency department for. All questions were answered, she was discharged home in stable condition. MDM - SOB/Dyspnea Medical Records Attestation: I reviewed the patient's medical records. Lab Data Attestation: I reviewed the patient's lab results. Result diagrams: 05/29/22 10:20 05/29/22 10:20 Labs: Lab Results 05/29/22 05/29/22 05/29/22 Range/Units 10:16 10:20 10:20 WBC 11.1 H (4.8-10.8) X10*3/uL RBC 4.37 (4.20-5.50) X10*6/uL Hgb 12.5 (12.0-16.0) g/dl Hct 37.1 (37.0-47.0) % MCV 84.9 (80.0-98.0) fL MCH 28.6 (27.0-33.0) pg MCHC 33.7 (31.0-35.0) g/dl RDW 14.2 (11.0-16.0) % Plt Count 342 (160-400) X10*3/uL MPV 9.0 L (9.4-12.3) fL Immature Gran % (Auto) 0.4 (0.0-0.4) % Neut % (Auto) 68.5 (45-73) % Lymph % (Auto) 22.2 (20-40) % Nelson % (Auto) 6.5 (2-11) % Eos % (Auto) 1.9 (0-4) % Baso % (Auto) 0.5 (0-2) % Lymph # (Auto) 2.5 (1.2-4.9) X10*3/uL Nelson # (Auto) 0.7 (0.1-1.2) X10*3/uL Eos # (Auto) 0.2 (0.0-0.4) X10*3/uL Baso # (Auto) 0.1 (0.0-0.2) X10*3/uL Abs Immat Gran (auto) 0.04 H (0.00-0.03) X10*3/uL Absolute Neuts (auto) 7.6 (2.0-8.3) x10*3/uL Absolute Nucleated RBC 0.000 (0.0-0.012) X10*3/uL Nucleated RBC % (auto) 0.0 (0.0-0.2) /100WBC Sodium 138 (135-145) mmol/L Potassium 4.1 (3.3-5.1) mmol/L Chloride 106 (96-108) mmol/L Carbon Dioxide 23 (22-29) mmol/L Anion Gap 13 (12-20) BUN 10 (9-16) mg/dL Creatinine 0.71 (0.5-1.4) mg/dL Estim Creat Clear Calc 96.1 Estimated GFR > 60 Random Glucose 89 (60-115) mg/dL Calcium 9.3 (8.4-10.2) mg/dL Total Bilirubin 0.4 (0.0-1.0) mg/dL AST 12 (5-31) U/L ALT 11 (0-31) U/L Alkaline Phosphatase 43 (39-117) U/L Troponin I High Sens (<3.5-17.0) ng/L Total Protein 7.1 (6.5-8.0) g/dL Albumin 4.3 (3.5-5.0) g/dL COVID-19 (BASIM) Negative (Negative) COVID-19 Clin Com See Note 05/29/22 Range/Units 10:20 WBC (4.8-10.8) X10*3/uL RBC (4.20-5.50) X10*6/uL Hgb (12.0-16.0) g/dl Hct (37.0-47.0) % MCV (80.0-98.0) fL MCH (27.0-33.0) pg MCHC (31.0-35.0) g/dl RDW (11.0-16.0) % Plt Count (160-400) X10*3/uL MPV (9.4-12.3) fL Immature Gran % (Auto) (0.0-0.4) % Neut % (Auto) (45-73) % Lymph % (Auto) (20-40) % Nelson % (Auto) (2-11) % Eos % (Auto) (0-4) % Baso % (Auto) (0-2) % Lymph # (Auto) (1.2-4.9) X10*3/uL Nelson # (Auto) (0.1-1.2) X10*3/uL Eos # (Auto) (0.0-0.4) X10*3/uL Baso # (Auto) (0.0-0.2) X10*3/uL Abs Immat Gran (auto) (0.00-0.03) X10*3/uL Absolute Neuts (auto) (2.0-8.3) x10*3/uL Absolute Nucleated RBC (0.0-0.012) X10*3/uL Nucleated RBC % (auto) (0.0-0.2) /100WBC Sodium (135-145) mmol/L Potassium (3.3-5.1) mmol/L Chloride (96-108) mmol/L Carbon Dioxide (22-29) mmol/L Anion Gap (12-20) BUN (9-16) mg/dL Creatinine (0.5-1.4) mg/dL Estim Creat Clear Calc Estimated GFR Random Glucose (60-115) mg/dL Calcium (8.4-10.2) mg/dL Total Bilirubin (0.0-1.0) mg/dL AST (5-31) U/L ALT (0-31) U/L Alkaline Phosphatase (39-117) U/L Troponin I High Sens < 3.5 (<3.5-17.0) ng/L Total Protein (6.5-8.0) g/dL Albumin (3.5-5.0) g/dL COVID-19 (BASIM) (Negative) COVID-19 Clin Com Imaging Data Chest x-ray: Radiologist's impression: FINDINGS: No focal consolidation or mass. No pleural effusion or pneumothorax. Normal pulmonary vascularity. Normal heart size. Regional skeleton intact. XR/XR chest 2V IMPRESSION: Normal examination.? ECG Data Attestation: I personally reviewed and interpreted this ECG as follows: ECG interpretation date: 05/29/22 Prior ECG tracings: available for review Interpretation: Rate: 68 Rhythm:? Normal sinus rhythm Hamilton:? Normal Normal P waves.? Normal AWILDA.?? Normal QRS complex.?? ST T wave :??No ST elevation, no ST depression, no T-wave inversion qTC: 421 prior studies:? September 2020 The study has been interpreted contemporaneously by me. Discharge Plan Discharge Clinical Impression: Costochondritis Patient Disposition: Home, Self-Care Instructions: Costochondritis (ED) Additional Instructions: As we discussed, your blood work was normal, your chest x-ray was normal, your lung sounds are clear, your COVID-19 test was negative. Your pain is most likely muscular, for this you may take ibuprofen 200 mg, 3 tablets (600mg) every 6-8 hours as needed for pain, in addition to Tylenol 500 mg, 2 tablets (1,000mg) every 4-6 hours as needed for pain, but not to exceed 3 doses daily (3,000mg).? Contact your primary care provider in arrange for a follow-up visit Return to emergency department with any new or worsening symptoms or concerns. Prescriptions: No Action albuterol sulfate 1.25 mg/3 mL solution for nebulization 1.25 mg inhalation Q4-6H PRN (Reason: shortness of breath or wheezing) Qty: 90 1RF budesonide-formoterol [Symbicort] 160-4.5 mcg/actuation HFA aerosol inhaler 2 puff inhalation Q12H 30 Days Qty: 10.2 5RF ipratropium-albuterol 0.5 mg-3 mg(2.5 mg base)/3 mL solution for nebulization 3 ml inhalation Q6-8H PRN (Reason: wheezing) Qty: 90 0RF montelukast 10 mg tablet 10 mg PO BEDTIME Qty: 30 2RF sertraline 100 mg tablet 1 tab PO QAM buspirone 10 mg tablet 1 tab PO BID albuterol sulfate 90 mcg/actuation HFA aerosol inhaler 2 puff inhalation Q4-6H PRN (Reason: shortness of breath or wheezing) Qty: 8.5 0RF Metamucil 3.4 gram/5.4 gram powder 1 tbsp PO BID 30 Days Qty: 660 3RF Rx Instructions: mix into at least 8 oz of water or juice before administering gabapentin 300 mg capsule 300 mg PO BID 30 Days Qty: 60 3RF ondansetron 4 mg tablet,disintegrating 4 mg PO Q8H PRN (Reason: nausea and vomiting) Qty: 20 0RF ibuprofen 800 mg tablet 800 mg PO Q8H Qty: 30 0RF Rx Instructions: take with food or milk famotidine 40 mg tablet 40 mg PO DAILY Interventions: ED Discharge Assessment Last Done: 05/29/22 11:58 Discharge Date/Time: 05/29/22 11:59
[2022-05-29 10:25] LABS: MANUAL DIFF FLAG NO
[2022-05-29 10:26] LABS: Basophils Absolute Auto 0.1 X10*3/uL (0.0-0.2); Basophils Percent Auto 0.5 % (0-2); Eosinophils Absolute Auto 0.2 X10*3/uL (0.0-0.4); Eosinophils Percent Auto 1.9 % (0-4); Hematocrit 37.1 % (37.0-47.0); Hemoglobin 12.5 g/dl (12.0-16.0); Imm Gran Abs Auto 0.04 X10*3/uL (0.00-0.03); Imm Gran Pct Auto 0.4 % (0.0-0.4); Lymphocytes Absolute Auto 2.5 X10*3/uL (1.2-4.9); Lymphocytes Percent Auto 22.2 % (20-40); Mean Corpuscular HGB Conc 33.7 g/dl (31.0-35.0); Mean Corpuscular Hemoglobin 28.6 pg (27.0-33.0); Mean Corpuscular Volume 84.9 fL (80.0-98.0); Monocytes Absolute Auto 0.7 X10*3/uL (0.1-1.2); Monocytes Percent Auto 6.5 % (2-11); Neutrophils Absolute Auto 7.6 x10*3/uL (2.0-8.3); Neutrophils Percent Auto 68.5 % (45-73); Platelet Count 342 X10*3/uL (160-400); Red Blood Count 4.37 X10*6/uL (4.20-5.50); Red Cell Distribution Width 14.2 % (11.0-16.0); White Blood Count 11.1 X10*3/uL (4.8-10.8)
[2022-05-29 10:47] LABS: Alanine Aminotransferase 11 U/L (0-31); Albumin Level 4.3 g/dL (3.5-5.0); Alkaline Phosphatase 43 U/L (39-117); Anion Gap 13 (12-20); Aspartate Amino Transferase 12 U/L (5-31); Bilirubin Total 0.4 mg/dL (0.0-1.0); Blood Urea Nitrogen 10 mg/dL (9-16); Calcium 9.3 mg/dL (8.4-10.2); Carbon Dioxide 23 mmol/L (22-29); Chloride 106 mmol/L (96-108); Creatinine Clr Calc Pharmacy 96.1; Estimated Glomerular Filt Rate > 60; Glucose Random 89 mg/dL (60-115); Potassium 4.1 mmol/L (3.3-5.1); Sodium 138 mmol/L (135-145); Total Protein 7.1 g/dL (6.5-8.0)
[2022-05-29 10:51] LABS: COVID-19 Test Negative (Negative); IDNOW Serial# 16C4AD1C
[2022-05-29 10:51] LABS: Troponin-I High Sensitivity < 3.5 ng/L (<3.5-17.0)
== END 2022-05-29 11:59 | disposition home or self-care (01) ==
PROVIDERS: Nurse Practitioner Family; Emergency Provider Emergency Medicine; PCP Hospitalist
DX: M94.0 Chondrocostal junction syndrome [Tietze] (principal); Z20.822 Contact with and (suspected) exposure to COVID-19; R06.02 Shortness of breath; F17.210 Nicotine dependence, cigarettes, uncomplicated; F12.90 Cannabis use, unspecified, uncomplicated; Z79.899 Other long term (current) drug therapy
CPT/HCPCS: 71046; 80053; 84484; 85025; 87635; 93005; 99283

== ENCOUNTER 2023-08-17 07:48 | Emergency (ER) | payer OTHER, SELFPAY ==
--- NOTE | ~2023-08-17 | XR_ITS ---
EXAMINATION: XR CHEST CLINICAL INFORMATION: Left-sided chest pain, rule out pneumonia left lower COMPARISON: 05/29/2022 and 04/12/2021 TECHNIQUE: 2 views of the chest were obtained. FINDINGS: No significant abnormality is noted involving the heart, lungs, mediastinum, bony thorax or soft tissues. XR/XR chest 2V IMPRESSION: Unremarkable examination, without interval change.
[2023-08-17 08:02] VITALS: BP 123/80; PULSE 71; RESP 20; TEMP 36.8; O2SAT 98; BMI 26.4
--- NOTE | 2023-08-17 09:09 | ED_ITS ---
HPI - Chest Pain General Chief Complaint: Neck Pain/Injury Stated Complaint: L side pain Time Seen by Provider: 08/17/23 08:05 Source: patient Mode of arrival: ambulatory Limitations: no limitations History of Present Illness HPI narrative: 38-year-old female with a history of asthma, costochondritis, atypical chest pain, who presents emergency department for evaluation of left-sided chest pain. The patient states that she was in the bathroom doing her hair using her right arm when she had sudden onset of left-sided chest pain. Pain started at 06:30 hours and has been constant. She describes as a pressure-like pain which is worse with breathing worse with coughing. The pain is 10/10. She denied fever, chills, cough. She is not on control pills or estrogen supplements. She did not travel recently. She denied pain or swelling of her lower extremities. Patient does feel short of breath and has dyspnea on exertion. Related Data Home Medications Medication Instructions Recorded Confirmed buspirone 10 mg tablet 1 tab PO BID 10/14/20 05/31/22 sertraline 100 mg tablet 1 tab PO QAM 10/14/20 05/31/22 famotidine 40 mg tablet 40 mg PO DAILY 06/22/21 05/31/22 Previous Rx's Medication Instructions Recorded psyllium husk 3.4 gram/5.4 gram 1 tbsp PO BID 30 days #660 grams 12/16/20 oral powder (Metamucil) ondansetron 4 mg disintegrating 4 mg PO Q8H PRN nausea and 01/25/22 tablet vomiting #20 tabs gabapentin 300 mg capsule 300 mg PO BID 30 days #90 caps 05/31/22 naproxen 500 mg tablet,delayed 500 mg PO Q12H #60 tabs 05/31/22 release (EC-Naprosyn) ProAir HFA 90 mcg/actuation 2 puff inhalation Q4-6H PRN 07/20/22 aerosol inhaler (albuterol sulfate) shortness of breath or wheezing 1 month #8.5 grams budesonide-formoterol HFA 160 2 puff inhalation Q12H 1 month 07/20/22 mcg-4.5 mcg/actuation aerosol #10.2 grams inhaler (Symbicort) ipratropium 0.5 mg-albuterol 3 mg 3 ml inhalation Q6-8H PRN wheezing 07/20/22 (2.5 mg base)/3 mL nebulization 3 months #180 mL soln montelukast 10 mg tablet 10 mg PO BEDTIME #90 tabs 07/20/22 prednisone 20 mg tablet 40 mg (2 x 20 mg) PO DAILY #10 tabs 07/20/22 ibuprofen 400 mg tablet 400 mg PO TID PRN fever or pain 08/17/23 #30 tabs Allergies Allergy/AdvReac Type Severity Reaction Status Date / Time latex Allergy Mild Rash Verified 07/20/22 11:50 Review of Systems 2 Review of Systems: Yes all other systems are reviewed and are negative [facility] Past Medical History [facility] Narrative: Social history: The patient is a former smoker and stop smoking 1 year prior. She has smoked 1/2 pack of cigarettes per day times 20 years. She denies alcohol use. She does smoke marijuana. Medical History Anxiety Asthma COVID-19 vaccination declined Depression Gallstones Surgical History Hx of tubal ligation Social History Social History Household Members Other:: minor daughter Housing: Apartment Are you a primary medicare specialist to a significant other at home: Yes (minor daughter) Do you presently have visiting nurse or other home services: No Alcohol intake: current Alcohol intake frequency: does not drink Patient Tobacco Use Status: Current everyday Tobacco user Tobacco use type: Cigarette Cigarettes Per Day: 4 Years Smoked: 5 Smoked in Last 30 Days: Yes e-Cigarette/Vaping Use: Never Used Use of substances other than those prescribed or required for medical reasons: No Substance Use Type: Marijuana Advance Directives: No Advance Directives Information Provided: Yes Patient : No service: No Current occupational status: employed Current occupational exposures/hazards: No Cognitive needs: No Hearing needs: No Vision needs: No Physical Exam 2 Vital Signs: Vital Signs: Last Vital Signs Temp 98.2 F 08/17/23 10:29 Pulse 82 08/17/23 10:29 Resp 19 08/17/23 10:29 BP 107/74 08/17/23 10:29 Pulse Ox 98 08/17/23 10:29 O2 Del Method Room Air 08/17/23 10:29 BMI result Body Mass Index 26.4 Vital signs were normal Exam: General: Awake, alert , appears to be in distress secondary to pain Head: Normocephalic, atraumatic EENT: PERRL, Lids normal, sclera normal, conjunctiva normal, nose normal , ears normal, throat without erythema or exudates Neck: Supple, no adenopathy, no trachea midline or C-spine tenderness Lung: breath sounds symmetric, no wheezing, rales or rhonchi Chest: symmetric movement, tender with palpation of the left costochondral joints, no left lateral tenderness Heart: regular rate and rhythm, normal S1, S2 no murmurs or rubs Abdomen: soft, non-tender, nondistended, normal bowel sounds Back: no vertebral tenderness, no CVAT Extremities: no deformities, moves all extremities symmetrically Skin: no rashes, no lesion, normal color and warmth Neuro: Awake, alert, oriented, normal speech, moves all extremities symmetrically Psych: Pleasant, cooperative Medications Administered Discontinued Medications Generic Name Dose Route Start Last Admin Trade Name Freq PRN Reason Stop Dose Admin Ketorolac Tromethamine 15 mg 08/17/23 09:01 08/17/23 09:50 Ketorolac Tromethamine 15 Mg/Ml Vial IVPUSH 08/17/23 09:02 15 mg ONCE STA Administration Medical Decision Making Medical Decision Making [facility] Narrative: 38-year-old female with a history of asthma, costochondritis, atypical chest pain, who presents emergency department for evaluation of left-sided chest pain, constant, 10/10, worse with breathing, associated with shortness of breath and dyspnea on exertion. Vital signs were normal. Exam did reveal left costochondral joint tenderness otherwise was unremarkable. Following evaluation was ordered: CBC, CMP, D-dimer, PT/INR, PTT, troponin, EKG. Treatment: Patient was placed on a cardiac and O2 saturation monitor. Patient was treated with Toradol 15 mg IV. 11:09 The patient's laboratory evaluation was unremarkable except for mild anemia with an H&H of 12 and 35. Patient's D-dimer was normal and high sensitive troponin I was below detectable limits. Twelve EKG and chest x-ray were unremarkable. Patient is feeling better after the above treatment. Patient's symptoms and presentation are consistent with acute costochondritis I did discuss this with her. Patient was advised to take Tylenol ibuprofen She was discharged with printed and verbal instructions and given a work note Differential Diagnosis Differential Diagnoses: The differential diagnosis associated with the presentation includes Differential diagnosis includes but is not limited to pneumonia, pulmonary embolism, myocardial infarction, myocardial ischemia, costochondritis, chest wall pain Admission/Observation Consideration of admission/observation: Escalation of care including admission/observation considered Lab Data MDM Lab Attestation statement: I reviewed the patient's lab results. My interpretation patient's laboratory evaluation is as follows: WBC was normal 10,700, anemia with an H&H of 12 and 35. CMP was normal. High sensitive troponin I was below detectable limits. D-dimer was normal at 153. 08/17/23 09:43 08/17/23 09:43 Labs: Lab Results 08/17/23 Range/Units 09:43 WBC 10.7 (4.8-10.8) X10*3/uL RBC 4.06 L (4.20-5.50) X10*6/uL Hgb 12.0 (12.0-16.0) g/dl Hct 35.5 L (37.0-47.0) % MCV 87.4 (80.0-98.0) fL MCH 29.6 (27.0-33.0) pg MCHC 33.8 (31.0-35.0) g/dl RDW 13.7 (11.0-16.0) % Plt Count 338 (160-400) X10*3/uL MPV 8.7 L (9.4-12.3) fL Immature Gran % (Auto) 0.4 (0.0-0.4) % Neut % (Auto) 61.9 (45-73) % Lymph % (Auto) 27.3 (20-40) % [place] % (Auto) 6.9 (2-11) % Eos % (Auto) 2.9 (0-4) % Baso % (Auto) 0.6 (0-2) % Lymph # (Auto) 2.9 (1.2-4.9) X10*3/uL [place] # (Auto) 0.7 (0.1-1.2) X10*3/uL Eos # (Auto) 0.3 (0.0-0.4) X10*3/uL Baso # (Auto) 0.1 (0.0-0.2) X10*3/uL Abs Immat Gran (auto) 0.04 H (0.00-0.03) X10*3/uL Absolute Neuts (auto) 6.6 (2.0-8.3) x10*3/uL Absolute Nucleated RBC 0.000 (0.0-0.012) X10*3/uL Nucleated RBC % (auto) 0.0 (0.0-0.2) /100WBC PT 11.7 (11.1-13.3) SEC INR 1.0 (0.9-1.1) APTT 36.2 (26.0-36.4) SEC D-Dimer High Sensitivty 153 NG/ML Sodium 142 (135-145) mmol/L Potassium 4.2 (3.3-5.1) mmol/L Chloride 107 (96-108) mmol/L Carbon Dioxide 29 (22-29) mmol/L Anion Gap 10 L (12-20) BUN 10 (9-16) mg/dL Creatinine 0.70 (0.5-1.4) mg/dL Estim Creat Clear Calc 90.8 Estimated GFR > 60 Random Glucose 87 (60-115) mg/dL Calcium 9.2 (8.4-10.2) mg/dL Total Bilirubin 0.3 (0.0-1.0) mg/dL AST 13 (5-31) U/L ALT 12 (0-31) U/L Alkaline Phosphatase 35 L (39-117) U/L Troponin I High Sens < 2.7 (<3.5-17.0) ng/L Total Protein 7.1 (6.5-8.0) g/dL Albumin 4.0 (3.5-5.0) g/dL Independent Interpretation I performed an independent interpretation of an: Plain X-Ray Interpretation: My interpretation of the patient's two view chest x-ray is as follows: No acute disease My interpretation patient's 12 EKG done at 09:18 hours is as follows: Normal sinus rhythm rate of 67, normal FL interval, QRS duration QTC interval, no ST segment elevation, ST segment depression, no significant T-wave abnormalities no PACs no PVCs Radiology Impression Discussion of test interpretation with radiology: I have reviewed the radiologist's reading. Radiologist Impression: XR chest 2V IMPRESSION: Unremarkable examination, without interval change. Dictated By: Zachary Mendez MD Discharge Plan Discharge Clinical Impression: Costochondritis, acute Patient Disposition: Home, Self-Care Instructions: Costochondritis (ED) Additional Instructions: Your laboratory evaluation was unremarkable. Your EKG was normal. Your chest x-ray was normal pain Your symptoms and physical exam are consistent with inflammation of the joints of your chest (costochondritis) Take ibuprofen 400 mg pills, 1 pills every 6 hours (3 times a day) for 4 days then after 4 days you can take this 3 times a day as needed for pain or fever. Take Tylenol (acetaminophen) 500 mg pills, 2 pills every 6 hours as needed for pain not relieved by the ibuprofen or for fever. Follow-up with your doctor in 2 days. Please return to the emergency department if your symptoms get worse or if you develop any symptoms that are concerning to you. Please see work note Prescriptions: New ibuprofen 400 mg tablet 400 mg PO TID PRN (Reason: fever or pain) Qty: 30 0RF No Action sertraline 100 mg tablet 1 tab PO QAM buspirone 10 mg tablet 1 tab PO BID Metamucil 3.4 gram/5.4 gram powder 1 tbsp PO BID 30 Days Qty: 660 3RF Rx Instructions: mix into at least 8 oz of water or juice before administering budesonide-formoterol [Symbicort] 160-4.5 mcg/actuation HFA aerosol inhaler 2 puff inhalation Q12H 30 Days Qty: 10.2 5RF montelukast 10 mg tablet 10 mg PO BEDTIME Qty: 90 3RF albuterol sulfate [ProAir HFA] 90 mcg/actuation HFA aerosol inhaler 2 puff inhalation Q4-6H PRN (Reason: shortness of breath or wheezing) 30 Days Qty: 8.5 11RF ipratropium-albuterol 0.5 mg-3 mg(2.5 mg base)/3 mL solution for nebulization 3 ml inhalation Q6-8H PRN (Reason: wheezing) 90 Days Qty: 180 3RF prednisone 20 mg tablet 40 mg PO DAILY Qty: 10 0RF Rx Instructions: take every dose with food or milk gabapentin 300 mg capsule 300 mg PO BID MDD 3 per day 30 Days Qty: 90 3RF Rx Instructions: take one for 5 days then increase to two at bed time on day 6 if needed can take an additonal dose during the day on day 11 naproxen [EC-Naprosyn] 500 mg tablet,delayed release (DR/EC) 500 mg PO Q12H Qty: 60 0RF Rx Instructions: take tiwce a dy for at least 3-4 weeks then stop make sure to take with food or milk ondansetron 4 mg tablet,disintegrating 4 mg PO Q8H PRN (Reason: nausea and vomiting) Qty: 20 0RF famotidine 40 mg tablet 40 mg PO DAILY Stand Alone Forms: Work/School Release
--- NOTE | 2023-08-17 09:13 | ECG_ITS ---
Test Reason : L ARM PAIN Blood Pressure : / mmHG Vent. Rate : 067 BPM Atrial Rate : 067 BPM P-R Int : 162 ms QRS Dur : 074 ms QT Int : 388 ms P-R-T Axes : 024 028 014 degrees QTc Int : 409 ms Normal sinus rhythm Normal ECG When compared with ECG of 29-MAY-2022 10:10, No significant change was found Referred By: Dane Omalley Electronically Signed By:PRADEEP GUZMÁN MD
[2023-08-17 09:47] LABS: MANUAL DIFF FLAG NO
[2023-08-17 09:50] LABS: Basophils Absolute Auto 0.1 X10*3/uL (0.0-0.2); Basophils Percent Auto 0.6 % (0-2); Eosinophils Absolute Auto 0.3 X10*3/uL (0.0-0.4); Eosinophils Percent Auto 2.9 % (0-4); Hematocrit 35.5 % (37.0-47.0); Imm Gran Abs Auto 0.04 X10*3/uL (0.00-0.03); Imm Gran Pct Auto 0.4 % (0.0-0.4); Lymphocytes Absolute Auto 2.9 X10*3/uL (1.2-4.9); Lymphocytes Percent Auto 27.3 % (20-40); Mean Corpuscular HGB Conc 33.8 g/dl (31.0-35.0); Mean Corpuscular Hemoglobin 29.6 pg (27.0-33.0); Mean Corpuscular Volume 87.4 fL (80.0-98.0); Mean Platelet Volume 8.7 fL (9.4-12.3); Monocytes Absolute Auto 0.7 X10*3/uL (0.1-1.2); Monocytes Percent Auto 6.9 % (2-11); Neutrophils Absolute Auto 6.6 x10*3/uL (2.0-8.3); Neutrophils Percent Auto 61.9 % (45-73); Platelet Count 338 X10*3/uL (160-400); Red Blood Count 4.06 X10*6/uL (4.20-5.50); Red Cell Distribution Width 13.7 % (11.0-16.0); White Blood Count 10.7 X10*3/uL (4.8-10.8)
[2023-08-17] MEDS: Ketorolac Tromethamine 15 MG/ML VIAL IVPUSH (09:50)
[2023-08-17 10:01] LABS: Prothrombin Time 11.7 SEC (11.1-13.3)
[2023-08-17 10:03] LABS: Alanine Aminotransferase 12 U/L (0-31); Alkaline Phosphatase 35 U/L (39-117); Anion Gap 10 (12-20); Aspartate Amino Transferase 13 U/L (5-31); Bilirubin Total 0.3 mg/dL (0.0-1.0); Blood Urea Nitrogen 10 mg/dL (9-16); Calcium 9.2 mg/dL (8.4-10.2); Carbon Dioxide 29 mmol/L (22-29); Chloride 107 mmol/L (96-108); Creatinine Clr Calc Pharmacy 90.8; D Dimer High Sensitivity 153 NG/ML; Estimated Glomerular Filt Rate > 60; Glucose Random 87 mg/dL (60-115); Potassium 4.2 mmol/L (3.3-5.1); Sodium 142 mmol/L (135-145); Total Protein 7.1 g/dL (6.5-8.0)
[2023-08-17 10:04] LABS: Partial Thromboplastin Time 36.2 SEC (26.0-36.4)
[2023-08-17 10:12] LABS: Troponin-I High Sensitivity < 2.7 ng/L (<3.5-17.0)
[2023-08-17 10:29] VITALS: BP 107/74; PULSE 82; RESP 19; TEMP 36.8; O2SAT 98
[2023-08-17 11:25] VITALS: BP 96/53; PULSE 82; RESP 20; O2SAT 100
== END 2023-08-17 11:26 | disposition home or self-care (01) ==
PROVIDERS: Emergency Provider Emergency Medicine Emergency Medical Services; PCP Hospitalist
DX: M94.0 Chondrocostal junction syndrome [Tietze] (principal); R07.89 Other chest pain; M79.602 Pain in left arm; Z79.899 Other long term (current) drug therapy
CPT/HCPCS: 36415; 71046; 80053; 84484; 85025; 85379; 85610; 85730; 93005; 96374; 99284; 99285; J1885

== ENCOUNTER → 2023-08-17 09:13 | Outpatient (BNV) | payer OTHER, SELFPAY | PROVIDERS: Emergency Provider Emergency Medicine Emergency Medical Services; PCP Hospitalist; Visit Provider Internal Medicine Cardiovascular Disease | DX: R07.89 Other chest pain (principal) | CPT/HCPCS: 93010 ==

== ENCOUNTER 2023-09-07 12:02 | Emergency (ER) | payer OTHER, SELFPAY ==
--- NOTE | ~2023-09-07 | XR_ITS ---
EXAMINATION: XR CHEST CLINICAL INFORMATION: Chest pain. COMPARISON: 08/17/2023 TECHNIQUE: 2 views of the chest were obtained. FINDINGS: No significant abnormality is noted involving the heart, lungs, mediastinum, bony thorax or soft tissues. XR/XR chest 2V IMPRESSION: Unremarkable examination.
--- NOTE | 2023-09-07 12:07 | ECG_ITS ---
Test Reason : CHEST PAIN Blood Pressure : / mmHG Vent. Rate : 097 BPM Atrial Rate : 097 BPM P-R Int : 154 ms QRS Dur : 078 ms QT Int : 332 ms P-R-T Axes : 060 032 021 degrees QTc Int : 421 ms Normal sinus rhythm Normal ECG When compared with ECG of 17-AUG-2023 09:18, No significant change was found Referred By: Maranda Trevizo Electronically Signed By:PRADEEP GUZMÁN MD
[2023-09-07 12:11] VITALS: BP 115/77; PULSE 107; RESP 18; TEMP 38.1; O2SAT 96; BMI 31.2
--- NOTE | 2023-09-07 12:11 | ED_ITS ---
HPI - General Adult General Chief complaint: Upper Respiratory Symptoms Stated complaint: chest pain, vomiting Time Seen by Provider: 09/07/23 12:21 Source: patient, RN notes reviewed and old records reviewed Mode of arrival: ambulatory History of Present Illness HPI narrative: 38-year-old female with a past medical history of anxiety, depression, anemia, asthma, presenting to the ED complaining of myalgias/body aches, headache, fever T-max 101 degrees, productive cough, SOB, and CP since yesterday. Admits daughter tested positive for influenza a yesterday. Denies taking any antipyretic today. Denies abdominal pain, nausea/vomiting, recent trauma Related Data Home Medications Medication Instructions Recorded Confirmed buspirone 10 mg tablet 1 tab PO BID 10/14/20 05/31/22 sertraline 100 mg tablet 1 tab PO QAM 10/14/20 05/31/22 famotidine 40 mg tablet 40 mg PO DAILY 06/22/21 05/31/22 Previous Rx's Medication Instructions Recorded psyllium husk 3.4 gram/5.4 gram 1 tbsp PO BID 30 days #660 grams 12/16/20 oral powder (Metamucil) ondansetron 4 mg disintegrating 4 mg PO Q8H PRN nausea and 01/25/22 tablet vomiting #20 tabs gabapentin 300 mg capsule 300 mg PO BID 30 days #90 caps 05/31/22 naproxen 500 mg tablet,delayed 500 mg PO Q12H #60 tabs 05/31/22 release (EC-Naprosyn) ProAir HFA 90 mcg/actuation 2 puff inhalation Q4-6H PRN 07/20/22 aerosol inhaler (albuterol sulfate) shortness of breath or wheezing 1 month #8.5 grams budesonide-formoterol HFA 160 2 puff inhalation Q12H 1 month 07/20/22 mcg-4.5 mcg/actuation aerosol #10.2 grams inhaler (Symbicort) ipratropium 0.5 mg-albuterol 3 mg 3 ml inhalation Q6-8H PRN wheezing 07/20/22 (2.5 mg base)/3 mL nebulization 3 months #180 mL soln montelukast 10 mg tablet 10 mg PO BEDTIME #90 tabs 07/20/22 prednisone 20 mg tablet 40 mg (2 x 20 mg) PO DAILY #10 tabs 07/20/22 ibuprofen 400 mg tablet 400 mg PO TID PRN fever or pain 08/17/23 #30 tabs oseltamivir 75 mg capsule (Tamiflu) 75 mg PO Q12H 5 days #10 caps 09/07/23 Allergies Allergy/AdvReac Type Severity Reaction Status Date / Time latex Allergy Mild Rash Verified 07/20/22 11:50 Review of Systems 2 Review of Systems: Constitutional: +Fever, + Chills ENT/Mouth: No Ear Pain, No Nasal Congestion, No Sinus Pain, No Hoarseness, + sore throat, + Rhinorrhea, No Swallowing Difficulty Cardiovascular: + Chest Pain, + SOB Respiratory: + Cough, + Sputum, No Wheezing Gastrointestinal: No Nausea, No Vomiting, No Diarrhea, No Constipation, No Abdominal pain Musculoskeletal: No joint pain, + Myalgias, No Joint Swelling Skin: No Skin Lesions, No rash Neuro: No Weakness, No Numbness, No Paresthesias Yes all other systems are reviewed and are negative Constitutional: Constitutional: Reports as per [facility] Past Medical History Attestation statement: The following information was validated with the patient. Source: old records reviewed Medical History Asthma exacerbation Costochondral chest pain Systemic viral illness Flu-like symptoms Atypical chest pain Chest wall pain Screening for cervical cancer Annual physical exam Cholelithiasis Abdominal pain Joint pain Fatigue Suprapubic pain, acute Viral illness Close exposure to 2019 novel coronavirus COVID-19 vaccination declined Gallstones Depression Anxiety Asthma Surgical History Hx of tubal ligation Social History Social History Household Members Other:: minor daughter Housing: Apartment Are you a primary clinical care leader to a significant other at home: Yes (minor daughter) Do you presently have visiting nurse or other home services: No Alcohol intake: current Alcohol intake frequency: does not drink Patient Tobacco Use Status: Current everyday Tobacco user Tobacco use type: Cigarette Cigarettes Per Day: 4 Years Smoked: 5 e-Cigarette/Vaping Use: Never Used Substance Use Type: Marijuana Advance Directives: No Advance Directives Information Provided: No service: No Current occupational status: employed Current occupational exposures/hazards: No Cognitive needs: No Hearing needs: No Vision needs: No Physical Exam ED Vital Signs: Vital Signs - 24 hr 09/07/23 12:11 09/07/23 12:58 Temperature 100.5 F H 99 F Pulse Rate 107 H 102 H Respiratory Rate 18 20 Blood Pressure 115/77 98/60 Pulse Oximetry 96 95 Oxygen Delivery Method Room Air Room Air BMI result Body Mass Index 31.2 Const General: cooperative, healthy appearing and no acute distress Orientation/consciousness: patient oriented x3 Limitations: no limitations HENMT Head: Yes normal to inspection and Yes atraumatic Ears: hearing grossly normal bilaterally General nose exam: Normal external nose present Face and sinus: Yes normal facial exam Mouth: Normal oral and palatal mucosa present Throat: Yes posterior oropharynx normal, Yes uvula midline and No peritonsillar mass Eyes General: appearance normal, both eyes and all related structures EOM: EOMs intact bilaterally Neck Neck: Yes normal visual inspection and Yes no meningeal signs Resp Effort & Inspection: normal respiratory effort and no respiratory distress Auscultation: clear to auscultation bilaterally, no crackles and no wheezes Cardio Rate: regular rate Heart sounds: S1 normal heart sound present and S2 normal heart sound present GI Inspection: Yes normal to inspection Palpation (GI): Soft to palpation, nontender, no guarding and not rigid Skin Rashes: no rashes Wounds: no wounds Neuro General: patient oriented x3, tone normal and no meningeal signs Cranial nerves: Yes CN's II-XII intact bilaterally Gait exam (Neuro): Normal gait present Extrem General: Yes normal to inspection Course Course Course Narrative: RME performed by Maranda Trevizo PA-C. Patient is a 38 year old assigned female at presenting to the emergency department with feeling generally unwell and chest wall pain. Patient states that her daughter tested positive for influenza yesterday. Patient states that she has a history of this chest pain. Swabs, EKG, and CXR ordered. Patient placed back in the waiting room pending room availability and results. -1339--leukocytosis of 13.4. Labs otherwise reassuring XR chest 2V IMPRESSION: Unremarkable examination. -troponin negative. Influenza A positive Results discussed with patient including worrisome signs and symptoms and strict return precautions, and when to return to the emergency department. They verbalized understanding and feel safe for discharge at this time. Medications Administered Discontinued Medications Generic Name Dose Route Start Last Admin Trade Name Halima PRN Reason Stop Dose Admin Ibuprofen 600 mg 09/07/23 12:37 09/07/23 12:57 Ibuprofen 600 Mg Tablet PO 09/07/23 12:38 600 mg ONCE ONE Administration Medical Decision Making Medical Decision Making [facility] Narrative: 38-year-old female with a past medical history of anxiety, depression, anemia, asthma, presenting to the ED complaining of myalgias/body aches, headache, fever T-max 101 degrees, productive cough, SOB, and CP since yesterday. On exam a febrile to 100.5, tachycardic likely from fever, NAD/nontoxic appearing, lungs CTA, exam otherwise unremarkable, abdomen soft/nontender. Concern for viral illness including influenza. Rule out pneumonia/bronchitis. Lower suspicion for ACS/PE. Low suspicion for severe sepsis is likely viral etiology Plan: EKG, labs, viral testing, CXR, antipyretic, re-evaluate Please refer to course for remaining clinical decision making, interpretation of labs/imaging results, and discussions with consultants and/or family members. Differential Diagnosis Differential Diagnoses: The differential diagnosis associated with the presentation includes As above Admission/Observation Consideration of admission/observation: Escalation of care including admission/observation considered Lab Data [facility] Lab Attestation statement: I reviewed the patient's lab results. 09/07/23 13:06 09/07/23 13:06 Labs: Lab Results 09/07/23 09/07/23 09/07/23 Range/Units 13:01 13:02 13:06 WBC 13.4 H (4.8-10.8) X10*3/uL RBC 4.32 (4.20-5.50) X10*6/uL Hgb 12.7 (12.0-16.0) g/dl Hct 37.0 (37.0-47.0) % MCV 85.6 (80.0-98.0) fL MCH 29.4 (27.0-33.0) pg MCHC 34.3 (31.0-35.0) g/dl RDW 13.5 (11.0-16.0) % Plt Count 321 (160-400) X10*3/uL MPV 8.9 L (9.4-12.3) fL Immature Gran % (Auto) 0.4 (0.0-0.4) % Neut % (Auto) 84.2 H (45-73) % Lymph % (Auto) 6.0 L (20-40) % [place] % (Auto) 8.3 (2-11) % Eos % (Auto) 0.7 (0-4) % Baso % (Auto) 0.4 (0-2) % Lymph # (Auto) 0.8 L (1.2-4.9) X10*3/uL [place] # (Auto) 1.1 (0.1-1.2) X10*3/uL Eos # (Auto) 0.1 (0.0-0.4) X10*3/uL Baso # (Auto) 0.1 (0.0-0.2) X10*3/uL Abs Immat Gran (auto) 0.06 H (0.00-0.03) X10*3/uL Absolute Neuts (auto) 11.2 H (2.0-8.3) x10*3/uL Absolute Nucleated RBC 0.000 (0.0-0.012) X10*3/uL Nucleated RBC % (auto) 0.0 (0.0-0.2) /100WBC Sodium 135 (135-145) mmol/L Potassium 3.9 (3.3-5.1) mmol/L Chloride 105 (96-108) mmol/L Carbon Dioxide 23 (22-29) mmol/L Anion Gap 11 L (12-20) BUN 8 L (9-16) mg/dL Creatinine 0.79 (0.5-1.4) mg/dL Estim Creat Clear Calc 87.5 Estimated GFR > 60 Random Glucose 100 (60-115) mg/dL Calcium 9.4 (8.4-10.2) mg/dL Total Bilirubin 0.4 (0.0-1.0) mg/dL Direct Bilirubin 0.2 (0.0-0.5) mg/dL AST 20 (5-31) U/L ALT 17 (0-31) U/L Alkaline Phosphatase 39 (39-117) U/L Troponin I High Sens < 2.7 (<3.5-17.0) ng/L Total Protein 7.8 (6.5-8.0) g/dL Albumin 4.3 (3.5-5.0) g/dL Influenza Type A (PCR) POSITIVE A (Negative) Influenza Type B (PCR) NEGATIVE (Negative) RSV RNA Qual (PCR) NEGATIVE (Negative) SARS-CoV-2 RNA (RT-PCR) NEGATIVE (Negative) S. pyogenes GrpA JOBY Negative (Negative) Independent Interpretation I performed an independent interpretation of an: EKG and Plain X-Ray Radiology Impression Discussion of test interpretation with radiology: I have reviewed the radiologist's reading. External Record Review External record reviewed: Inpatient record, Office record, Outpatient record, Prior outpatient labs, Prior outpatient radiology, Primary care record and Outside ED record Tests considered The following testing was considered but not selected: As above Prescription Management I considered prescription management with: Pain Medication, Antiviral and Antibiotic Discharge Plan Discharge Clinical Impression: Influenza Patient Disposition: Home, Self-Care Instructions: Influenza (DC) Additional Instructions: You have the flu. Tamiflu is an antiviral medication No antibiotics are indicated at this time Make sure you are staying hydrated. Drink plenty of fluids. Rest Alternate Tylenol and Motrin at home as needed for body aches and fever Follow-up with your doctor. If symptoms persist or worsen return to the emergency department Prescriptions: New oseltamivir [Tamiflu] 75 mg capsule 75 mg PO Q12H 5 Days Qty: 10 0RF No Action sertraline 100 mg tablet 1 tab PO QAM buspirone 10 mg tablet 1 tab PO BID ibuprofen 400 mg tablet 400 mg PO TID PRN (Reason: fever or pain) Qty: 30 0RF Metamucil 3.4 gram/5.4 gram powder 1 tbsp PO BID 30 Days Qty: 660 3RF Rx Instructions: mix into at least 8 oz of water or juice before administering budesonide-formoterol [Symbicort] 160-4.5 mcg/actuation HFA aerosol inhaler 2 puff inhalation Q12H 30 Days Qty: 10.2 5RF montelukast 10 mg tablet 10 mg PO BEDTIME Qty: 90 3RF albuterol sulfate [ProAir HFA] 90 mcg/actuation HFA aerosol inhaler 2 puff inhalation Q4-6H PRN (Reason: shortness of breath or wheezing) 30 Days Qty: 8.5 11RF ipratropium-albuterol 0.5 mg-3 mg(2.5 mg base)/3 mL solution for nebulization 3 ml inhalation Q6-8H PRN (Reason: wheezing) 90 Days Qty: 180 3RF prednisone 20 mg tablet 40 mg PO DAILY Qty: 10 0RF Rx Instructions: take every dose with food or milk gabapentin 300 mg capsule 300 mg PO BID MDD 3 per day 30 Days Qty: 90 3RF Rx Instructions: take one for 5 days then increase to two at bed time on day 6 if needed can take an additonal dose during the day on day 11 naproxen [EC-Naprosyn] 500 mg tablet,delayed release (DR/EC) 500 mg PO Q12H Qty: 60 0RF Rx Instructions: take tiwce a dy for at least 3-4 weeks then stop make sure to take with food or milk ondansetron 4 mg tablet,disintegrating 4 mg PO Q8H PRN (Reason: nausea and vomiting) Qty: 20 0RF famotidine 40 mg tablet 40 mg PO DAILY Referrals: [place],[facility] [Primary Care Provider] - 1 week Stand Alone Forms: Work/School Release Interventions: ED Discharge Assessment Last Done: 09/07/23 14:37 Discharge Date/Time: 09/07/23 14:37
[2023-09-07] MEDS: Ibuprofen 600 MG TABLET PO (12:57)
[2023-09-07 12:58] VITALS: BP 98/60; PULSE 102; RESP 20; TEMP 37.2; O2SAT 95
[2023-09-07 13:10] LABS: MANUAL DIFF FLAG NO
[2023-09-07 13:12] LABS: Basophils Absolute Auto 0.1 X10*3/uL (0.0-0.2); Basophils Percent Auto 0.4 % (0-2); Eosinophils Absolute Auto 0.1 X10*3/uL (0.0-0.4); Eosinophils Percent Auto 0.7 % (0-4); Hemoglobin 12.7 g/dl (12.0-16.0); Imm Gran Abs Auto 0.06 X10*3/uL (0.00-0.03); Imm Gran Pct Auto 0.4 % (0.0-0.4); Lymphocytes Absolute Auto 0.8 X10*3/uL (1.2-4.9); Mean Corpuscular HGB Conc 34.3 g/dl (31.0-35.0); Mean Corpuscular Hemoglobin 29.4 pg (27.0-33.0); Mean Corpuscular Volume 85.6 fL (80.0-98.0); Mean Platelet Volume 8.9 fL (9.4-12.3); Monocytes Absolute Auto 1.1 X10*3/uL (0.1-1.2); Monocytes Percent Auto 8.3 % (2-11); Neutrophils Absolute Auto 11.2 x10*3/uL (2.0-8.3); Neutrophils Percent Auto 84.2 % (45-73); Platelet Count 321 X10*3/uL (160-400); Red Blood Count 4.32 X10*6/uL (4.20-5.50); Red Cell Distribution Width 13.5 % (11.0-16.0); White Blood Count 13.4 X10*3/uL (4.8-10.8)
[2023-09-07 13:35] LABS: Alanine Aminotransferase 17 U/L (0-31); Albumin Level 4.3 g/dL (3.5-5.0); Alkaline Phosphatase 39 U/L (39-117); Anion Gap 11 (12-20); Aspartate Amino Transferase 20 U/L (5-31); Bilirubin Direct 0.2 mg/dL (0.0-0.5); Bilirubin Total 0.4 mg/dL (0.0-1.0); Blood Urea Nitrogen 8 mg/dL (9-16); Calcium 9.4 mg/dL (8.4-10.2); Carbon Dioxide 23 mmol/L (22-29); Chloride 105 mmol/L (96-108); Creatinine Clr Calc Pharmacy 87.5; Estimated Glomerular Filt Rate > 60; Glucose Random 100 mg/dL (60-115); Potassium 3.9 mmol/L (3.3-5.1); Sodium 135 mmol/L (135-145); Total Protein 7.8 g/dL (6.5-8.0)
[2023-09-07 13:42] LABS: IDNOW Serial# 58CA691E; Strep A Nucleic Acid Negative (Negative)
[2023-09-07 13:43] LABS: Troponin-I High Sensitivity < 2.7 ng/L (<3.5-17.0)
[2023-09-07 13:51] LABS: Influenza A PCR POSITIVE (Negative); Influenza B PCR NEGATIVE (Negative); Resp Syncy Virus RNA Qual PCR NEGATIVE (Negative); SARS COV2 PCR INHOUSE NEGATIVE (Negative)
== END 2023-09-07 14:37 | disposition home or self-care (01) ==
PROVIDERS: Physician Assistant; Physician Assistant Medical; Emergency Provider Emergency Medicine Emergency Medical Services
DX: J10.1 Influenza due to other identified influenza virus with other respiratory manifestations (principal); Z11.52 Encounter for screening for COVID-19; F17.210 Nicotine dependence, cigarettes, uncomplicated; F12.90 Cannabis use, unspecified, uncomplicated; Z79.899 Other long term (current) drug therapy
CPT/HCPCS: 0241U; 36415; 71046; 80048; 80076; 84484; 85025; 87651; 93005; 99283; 99284

== ENCOUNTER → 2023-09-07 12:07 | Outpatient (BNV) | payer OTHER, SELFPAY | PROVIDERS: Emergency Provider Emergency Medicine Emergency Medical Services; Visit Provider Internal Medicine Cardiovascular Disease | DX: R07.9 Chest pain, unspecified (principal) | CPT/HCPCS: 93010 ==

== ENCOUNTER 2023-09-14 09:03 | Outpatient (AMB) | payer OTHER, SELFPAY ==
--- NOTE | 2023-09-14 09:05 | MHC.PC.OV ---
Vital Signs 09/14/23 09:06 Height 5 ft Weight 159 lb 4 oz BMI 31.1 BP 110/70 Blood Pressure Location Rt brachial Position Sitting Pulse 88 Pulse Source Pulse Oximeter Temp 98.5 F Temp Source Oral Pulse Oximetry (%) 97 Oxygen Delivery Method Room Air Intake Visit Reasons: Annual PE Intake Note: Patient is here for her physical and is following up on hospital visit, patient had the flu. Allergies latex Allergy (Mild, Verified 09/14/23 09:09) Rash Tobacco use date assessed: 09/14/23 Dental Screening Dental Screen Date: 09/14/23 Did you have a dental visit in the last 12 months?: Yes Did you have a dental problem in the last 6 months where you did not have access to dental care?: No Was dental information given to patient?: Patient has dentist HPI Annual PE HPI Details 38 y/o female presents today for an acute visit. She states she has recently had the flu. Poorly controlled asthma. Pt scores high on her anxiety/depression today. JALEN-7 15 and PHQ-9 21. Pt reports she had run out of her sertraline and buspirone. She reports she would like to resume these as she had felt stable on them. [facility] Medical History (Updated 09/14/23 @ 09:48 by Stephen Conde) Viral illness Asthma exacerbation Costochondral chest pain Systemic viral illness Flu-like symptoms Atypical chest pain Chest wall pain Screening for cervical cancer Annual physical exam Cholelithiasis Abdominal pain Joint pain Fatigue Suprapubic pain, acute Close exposure to 2019 novel coronavirus COVID-19 vaccination declined Gallstones Depression Anxiety Asthma Surgical History Hx of tubal ligation Social History Household Members Other:: minor daughter Housing: Apartment Are you a primary acute care assistant to a significant other at home: Yes (minor daughter) Do you presently have visiting nurse or other home services: No Alcohol intake: current Alcohol intake frequency: does not drink Patient Tobacco Use Status: Former Tobacco user (Patient quit in September.) Tobacco use type: Cigarette Cigarettes Per Day: 4 Years Smoked: 5 e-Cigarette/Vaping Use: Never Used Substance Use Type: Marijuana service: No Current occupational status: employed Current occupational exposures/hazards: No Cognitive needs: No Hearing needs: No Vision needs: No Questionnaire PHQ-9 Over the last 2 weeks, how often have you been bothered by any of the following problems? 1. Little interest or pleasure in doing things: nearly every day 2. Feeling down, depressed, or hopeless: nearly every day 3. Trouble falling or staying asleep, or sleeping too much: nearly every day 4. Feeling tired or having little energy: nearly every day 5. Poor appetite or overeating: nearly every day 6. Feeling bad about yourself - or that you are a failure or have let yourself or your family down: nearly every day 7. Trouble concentrating on things, such as reading the newspaper or watching television: nearly every day 8. Moving or speaking so slowly that other people could have noticed. Or the opposite - being so fidgety or restless that you have been moving around a lot more than usual: not at all 9. Thoughts that you would be better off or of hurting yourself in some way: not at all Total score: 21 Depression Screening Interpretation: Positive Depression Screening Done: Yes Source: Developed by Drs. Sadiq Artis, Azucena Warren, Vern Mckeon and colleagues, with an educational jose from [employer]. Thrive Questionnaire Date Thrive assessed: 09/14/23 I am a: Patient What is your living situation today?: I have a steady place to live Within the past 12 months, did the food you bought not last and you didn't have the money to get more?: Never true Within the past 12 months, did you worry whether your food would run out before you got money to buy more?: Never true Do you have trouble paying for medicines?: No Do you have trouble getting transportation to medical appointments?: No Do you have trouble paying your heating and electricity bill?: No Do you have trouble taking care of your child, family member or friend?: No Do you have trouble with day-to-day activities such as bathing, preparing meals, shopping, managing finances, etc.?: No Are you currently unemployed and looking for a job?: No Are you interested in more education?: No AUDIT C Alcohol Use Questionnaire (AUDIT-C) 1. How often do you have a drink containing alcohol?: Monthly or less 2. How many drinks containing alcohol do you have on a typical day when you are drinking?: 1 or 2 3. How often do you have six or more drinks on one occasion?: Never Total Score: 1 JALEN-7 AMB Questionnaire JALEN-7 Date JALEN - 7 assessed: 09/14/23 Feeling nervous, anxious, or on edge: 2 = More than half the days Not being able to stop or control worryin = Nearly every day Worrying too much about different things: 3 = Nearly every day Trouble relaxin = Nearly every day Being so restless that it is hard to sit still: 2 = More than half the days Becoming easily annoyed or irritable: 1 = Several days Feeling afraid as if something awful might happen: 1 = Several days Total JALEN-7 score (0-4 normal; 5-9 mild; 10-14 moderate; 15-21 severe): 15 Source: Developed by Drs. Sadiq Artis, Azucena Warren, Vern Mckeon and colleagues, with an educational jose from [employer]. ACT Questionnaire In the past 4 weeks, how much of the time did your asthma keep you from getting as much done at work, school or at home?: All of the time During the past 4 weeks, how often have you had shortness of breath?: More than once a day During the past 4 weeks, how often did your asthma symptoms wake you up at night or earlier than usual in the morning?: 4 or more nights a week During the past 4 weeks, how often have you had to use your rescue inhaler or nebulizer medication?: 1-2 times a week How would you rate your asthma control during the past 4 weeks?: Somewhat controlled Score: 8 Review of Systems Const Denies chills, Denies fatigue, Denies fever(s), Denies headache(s) and Denies weakness ENT Denies dizziness and Denies headache(s) Card Denies chest pain, Denies lightheadedness, Denies dyspnea and Denies other (Palpitations) Resp Denies cough, Denies dyspnea, Denies wheezing and Denies other ( shortness of breath) Musc Denies numbness and Denies tingling Neuro Denies dizziness, Denies headache(s), Denies numbness, Denies tingling, Denies paresthesias and Denies weakness Psych Reports anxiety and Reports depression Endo Denies fatigue Aller/Immun Denies wheezing Physical exam (Primary Care) Vital Signs: Last Vital Signs Temp 98.5 F 09/14/23 09:06 Pulse 88 09/14/23 09:06 BP 110/70 09/14/23 09:06 Pulse Ox 97 09/14/23 09:06 Oxygen Delivery Method Room Air 09/14/23 09:06 BMI result Body Mass Index 31.1 Tobacco/Smoking Status: Tobacco use Status Tobacco use date assessed 09/14/23 09/14/23 09:14 Patient Tobacco Use Status Former Tobacco user (Patient 09/14/23 09:14 quit in September.) Tobacco use type Cigarette 09/14/23 09:14 e-Cigarette/Vaping Use Never Used 09/14/23 09:14 PHQ-9: PHQ-9 Score PHQ-9: Total score 21 09/14/23 09:44 Depression Screening Interpretation: Positive Thrive Assessment: Date of Thrive Assessment Date Thrive assessed 09/14/23 09/14/23 09:28 Const General: no acute distress and well developed Nutritional Appearance: well nourished Orientation/consciousness: patient oriented x3 HENMT Head: Yes normocephalic and Yes atraumatic Eyes General: appearance normal, both eyes and all related structures Pupils: Equal, round and reactive pupils present EOM: EOMs intact bilaterally Resp Other: Wheeze Effort & Inspection: normal respiratory effort Auscultation: clear to auscultation bilaterally Cardio Rate: regular rate Rhythm: regular rhythm Heart sounds: S1 normal heart sound present, S2 normal heart sound present, no gallops, no murmurs and no rubs Neuro General: patient oriented x3 and gait normal Cranial nerves: Yes Equal, round and reactive pupils present Psych Affect: normal affect Office Procedures Pulmonary Testing Pulmonary Testing Details: 1-240 2-190 3-150 best 2400 All charges added?: Additional procedure code (CPT) needed Assessment and Plan Assessment & Plan (1) Anxiety with depression: Code(s): F41.8 - Other specified anxiety disorders Plan: Patient?has?been?without?her?medications Refilled?buspirone?and?also?sertraline.??She?had?been?on?sertraline?100?mg?daily?and?I?am?restarting?this?at?50?mg?daily.??We?can?adjust?her?dose?at?her?next?appointment?in?about?a?month (2) Viral illness: Code(s): B34.9 - Viral infection, unspecified Plan: Recent?influenza?and?was?given?Tamiflu. Should?spontaneously?resolve (3) Moderate persistent asthma: Code(s): J45.40 - Moderate persistent asthma, uncomplicated Plan: Poorly?controlled?moderate?persistent?asthma?as?patient?is?out?of?all?of?her?medications?and?is?recently?in?exacerbation?secondary?to?recent?influenza?infection?last?week. Refilled?inhaled?medications?and?also?Singulair Will?give?her?a?script?for?prednisone Return?to?office?if?worsens?or?not?improving.??We?can?follow-up?at?her?next?appointment?in?about?a?month Orders: Orders Pulmonary Test/Procedure Today J45.20 - Mild intermittent asthma, uncomplicated Lipid Panel Today Z00.00 - Encounter for general adult medical examination without abnormal findings UA and rflx microscopic Today Z00.00 - Encounter for general adult medical examination without abnormal findings Comprehensive [place]. Panel Fast Today Z00.00 - Encounter for general adult medical examination without abnormal findings Complete Blood Count Auto Diff Today Z00.00 - Encounter for general adult medical examination without abnormal findings Microalbumin, Random (w Creat) Today I10 - Essential (primary) hypertension TSH reflex Free T4 Today Z00.00 - Encounter for general adult medical examination without abnormal findings Medications: New nebulizers (Compact Compressor Nebulizer) Use?As directed to?treat?asthma, 999 days 1 ea 0RF J45.40 - Moderate persistent asthma, uncomplicated Changed From sertraline 1 tab PO QAM To sertraline 50 mg PO QAM 30 tabs 2RF 30 days From buspirone 1 tab PO BID To buspirone 10 mg PO BID 60 tabs 1RF 30 days From prednisone take every dose with food or milk 40 mg (2 x 20 mg) PO DAILY 10 tabs 0RF To prednisone 40 mg (2 x 20 mg) PO DAILY 10 tabs 0RF 5 days Refilled budesonide-formoterol 160-4.5 mcg/actuation (Symbicort) 2 puffs inhalation Q12H 10.2 grams 5RF 1 month montelukast 10 mg PO BEDTIME 90 tabs 3RF J45.20 - Mild intermittent asthma, uncomplicated ipratropium-albuterol 0.5 mg-3 mg(2.5 mg base)/3 mL 3 mL inhalation Q6-8H PRN 180 mL 3RF wheezing 3 months J45.20 - Mild intermittent asthma, uncomplicated ProAir HFA 90 mcg/actuation (albuterol sulfate) 2 puffs inhalation Q4-6H PRN 8.5 grams 11RF shortness of breath or wheezing 1 month NS J45.20 - Mild intermittent asthma, uncomplicated Coding Level of Care Code Est Pt Level 4 (45214) Diagnoses Anxiety with depression F41.8 Viral illness B34.9 Moderate persistent asthma J45.40
[2023-09-14 09:06] VITALS: BP 110/70; PULSE 88; TEMP 36.9; O2SAT 97; BMI 31.1
== END 2023-09-14 10:02 | disposition home or self-care (01) ==
PROVIDERS: PCP Hospitalist; Visit Provider Family Medicine
DX: J45.40 Moderate persistent asthma, uncomplicated (principal); F41.8 Other specified anxiety disorders; B34.9 Viral infection, unspecified; J45.901 Unspecified asthma with (acute) exacerbation
CPT/HCPCS: 94640; 99214; J7613

== ENCOUNTER 2023-10-08 09:07 | Outpatient (AMB) | payer OTHER, SELFPAY ==
--- NOTE | 2023-10-08 09:53 | MHC.PC.OV ---
Vital Signs 10/08/23 09:54 Height 5 ft Weight 266 lb BMI 51.9 BP 102/58 L Blood Pressure Location Lt brachial Position Sitting Respiration 13 Pulse 99 Pulse Source Pulse Oximeter Pulse Oximetry (%) 99 Oxygen Delivery Method Room Air Intake Visit Reasons: PE Med Clearance Intake Note: Patient states she is here for paperwork for medical clearance for [facility] department. Labor Representative Required: No Accompanied by: Self / Same As Patient Allergies latex Allergy (Mild, Verified 10/08/23 10:04) Rash Medication List - Last Reconciled 10/08/23 by Viridiana Hayes, [facility] budesonide-formoterol 160-4.5 mcg/actuation (Symbicort) 2 puffs inhalation Q12H 1 month buspirone 10 mg PO BID 30 days famotidine 40 mg PO DAILY gabapentin 300 mg PO BID 30 days MDD 3 per day ibuprofen 400 mg PO TID PRN ipratropium-albuterol 0.5 mg-3 mg(2.5 mg base)/3 mL 3 mL inhalation Q6-8H PRN 3 months montelukast 10 mg PO BEDTIME naproxen (EC-Naprosyn) 500 mg PO Q12H nebulizers (Compact Compressor Nebulizer) Use?As directed to?treat?asthma, 999 days ondansetron 4 mg PO Q8H PRN oseltamivir (Tamiflu) 75 mg PO Q12H 5 days prednisone 40 mg (2 x 20 mg) PO DAILY 5 days ProAir HFA 90 mcg/actuation (albuterol sulfate) 2 puffs inhalation Q4-6H PRN 1 month NS psyllium husk (Metamucil) 1 tbsp PO BID 30 days sertraline 50 mg PO QAM 30 days Tobacco use date assessed: 10/08/23 HPI HPI Comments History of Present Illness Details Here today for Work Clearance Physical Exam for [employer], hopes to be a [place] Has asthma - reports well controlled on current therapies. No hospitalization or intubations Denies any cardiac conditions. 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 She also c/o a skin rash to L hand and scalp, present for years. Using topical steroid cream and antifungals w/ limited relief. Was referred to derm but did not make the appt as she moved to [place]. [facility] Medical History (Updated 10/08/23 @ 10:23 by Viridiana Hayes, [facility]) Anxiety with depression Asthma, mild intermittent, poorly controlled Viral illness Asthma exacerbation Costochondral chest pain Systemic viral illness Flu-like symptoms Atypical chest pain Chest wall pain Screening for cervical cancer Annual physical exam Cholelithiasis Abdominal pain Joint pain Fatigue Suprapubic pain, acute Close exposure to 2019 novel coronavirus COVID-19 vaccination declined Gallstones Depression Anxiety Asthma Surgical History Hx of tubal ligation Social History Household Members Other:: minor daughter Housing: Apartment Are you a primary child care sitter to a significant other at home: Yes (minor daughter) Do you presently have visiting nurse or other home services: No Alcohol intake: current Alcohol intake frequency: does not drink Patient Tobacco Use Status: Former Tobacco user (Patient quit in September.) Tobacco use type: Cigarette Cigarettes Per Day: 4 Years Smoked: 5 e-Cigarette/Vaping Use: Never Used Substance Use Type: Marijuana service: No Current occupational status: employed Current occupational exposures/hazards: No Cognitive needs: No Hearing needs: No Vision needs: No Questionnaire Thrive Questionnaire Date Thrive assessed: 09/14/23 JALEN-7 AMB Questionnaire JALEN-7 Date JALEN - 7 assessed: 09/14/23 Source: Developed by Drs. Sadiq Artis, Azucena Warren, Vern Mckeon and colleagues, with an educational jose from [employer]. Review of Systems Const All systems reviewed & are unremarkable except as noted in HPI and below Physical exam (Primary Care) Vital Signs: Last Vital Signs Pulse 99 10/08/23 09:54 Resp 13 10/08/23 09:54 BP 102/58 L 10/08/23 09:54 Pulse Ox 99 10/08/23 09:54 Oxygen Delivery Method Room Air 10/08/23 09:54 BMI result Body Mass Index 51.9 Tobacco/Smoking Status: Tobacco use Status Tobacco use date assessed 10/08/23 10/08/23 10:04 Patient Tobacco Use Status Former Tobacco user (Patient 10/08/23 10:04 quit in September.) Tobacco use type Cigarette 10/08/23 10:04 e-Cigarette/Vaping Use Never Used 10/08/23 10:04 Thrive Assessment: Date of Thrive Assessment Date Thrive assessed 09/14/23 10/08/23 10:04 Const Other: Able to perform 62 second plank, 11 pushups Not able to do agility or speed test given physical space limitations She reports exercising daily w/o incident LS CTAB RRR Psoriatic plaque to left snuff box, right scalp proximal to ear w/o secondary infection Assessment and Plan Assessment & Plan (1) Pre-employment examination: Code(s): Z02.1 - Encounter for pre-employment examination Plan: Form completed and returned to her today. Medically cleared. No limitations. 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 i have sent in new RX medication she should d/c antifungal and f/u with Derm. Orders: Referrals Dermatology Referral L30.8 - Other specified dermatitis Medications: New triamcinolone acetonide 0.1% 1 appl topical BID 30 days 15 grams 2RF Coding Level of Care Code Est Pt Level 3 (92815) Est Pt Prev Care 18-39y(99875) Diagnoses Pre-employment examination Z02.1 Psoriasiform eczema L30.8
[2023-10-08 09:54] VITALS: BP 102/58; PULSE 99; RESP 13; O2SAT 99; BMI 51.9
== END 2023-10-08 10:28 | disposition home or self-care (01) ==
PROVIDERS: PCP Family Medicine; Visit Provider Nurse Practitioner Family
DX: L30.8 Other specified dermatitis (principal)
CPT/HCPCS: 99213

== ENCOUNTER 2023-10-19 08:00 | Outpatient (REF) | payer OTHER, SELFPAY ==
[2023-10-19 08:15] LABS: MANUAL DIFF FLAG NO
[2023-10-19 09:00] LABS: Basophils Absolute Auto 0.1 X10*3/uL (0.0-0.2); Basophils Percent Auto 0.5 % (0-2); Eosinophils Absolute Auto 0.2 X10*3/uL (0.0-0.4); Eosinophils Percent Auto 1.8 % (0-4); Hematocrit 36.9 % (37.0-47.0); Hemoglobin 12.5 g/dl (12.0-16.0); Imm Gran Abs Auto 0.05 X10*3/uL (0.00-0.03); Imm Gran Pct Auto 0.4 % (0.0-0.4); Lymphocytes Absolute Auto 3.3 X10*3/uL (1.2-4.9); Lymphocytes Percent Auto 27.2 % (20-40); Mean Corpuscular HGB Conc 33.9 g/dl (31.0-35.0); Mean Corpuscular Hemoglobin 29.7 pg (27.0-33.0); Mean Corpuscular Volume 87.6 fL (80.0-98.0); Mean Platelet Volume 9.1 fL (9.4-12.3); Monocytes Absolute Auto 0.8 X10*3/uL (0.1-1.2); Monocytes Percent Auto 6.6 % (2-11); Neutrophils Absolute Auto 7.6 x10*3/uL (2.0-8.3); Neutrophils Percent Auto 63.5 % (45-73); Platelet Count 359 X10*3/uL (160-400); Red Blood Count 4.21 X10*6/uL (4.20-5.50)
[2023-10-19 09:07] LABS: Appearance Urine Cloudy; Color Urine Yellow; Glucose Urine UA Negative (Negative); Leukocyte Esterase Urine Small (1+) (Negative); Nitrite Urine Negative (Negative); Specific Gravity - Urine 1.025 (1.005-1.025); UMIC TRIGGER UA YES; Urine Blood Large (3+) (Negative); Urine Ketones Negative (Negative); Urine Protein Trace mg/dL (Neg-Trace)
[2023-10-19 09:23] LABS: Bacteria Urine 4+ (None Seen); RBC Urine >20 /HPF (0-2); Squamous Epithelial Cell Urine >20 /HPF (0-2)
[2023-10-19 09:44] LABS: Creatinine Urine 219.76 mg/dL; Microalbum/Creatinine Ratio Ur 7.2 ug/mg cr (<30)
[2023-10-19 09:44] LABS: Alanine Aminotransferase 10 U/L (0-31); Albumin Level 4.1 g/dL (3.5-5.0); Alkaline Phosphatase 35 U/L (39-117); Anion Gap 11 (12-20); Aspartate Amino Transferase 13 U/L (5-31); Bilirubin Total 0.4 mg/dL (0.0-1.0); Blood Urea Nitrogen 8 mg/dL (9-16); Calcium 9.4 mg/dL (8.4-10.2); Carbon Dioxide 24 mmol/L (22-29); Chloride 106 mmol/L (96-108); Cholesterol 163 mg/dL (<200); Estimated Glomerular Filt Rate > 60; Glucose Fasting 92 mg/dL (60-99); HDL Cholesterol 36 mg/dL (>40); LDL Cholesterol Calculated 110 mg/dL (<100); Potassium 3.8 mmol/L (3.3-5.1); Sodium 137 mmol/L (135-145); Total Protein 7.4 g/dL (6.5-8.0); Triglycerides 87 mg/dL (<150)
[2023-10-19 10:05] LABS: TSH reflex Free T4 0.84 uIU/mL (0.32-4.0)
== END 2023-10-19 08:01 | disposition home or self-care (01) ==
LOC: HO.LAB 08:00
PROVIDERS: PCP Family Medicine; Visit Provider Family Medicine
DX: Z00.00 Encounter for general adult medical examination without abnormal findings (principal); I10 Essential (primary) hypertension; Z13.29 Encounter for screening for other suspected endocrine disorder; R82.90 Unspecified abnormal findings in urine
CPT/HCPCS: 36415; 80053; 80061; 81001; 81003; 82043; 82570; 84443; 85025

== ENCOUNTER 2023-10-19 12:51 | Outpatient (AMB) | payer OTHER, SELFPAY ==
--- NOTE | 2023-10-19 12:53 | A.OFFPC_ITS ---
Vital Signs 10/19/23 12:56 Height 5 ft Weight 165 lb 8 oz BMI 32.3 BP 130/72 Blood Pressure Location Lt brachial Position Sitting Pulse 91 Pulse Source Pulse Oximeter Pulse Oximetry (%) 97 Oxygen Delivery Method Room Air Intake Visit Reasons: Extended exam with f/u labs and health maint. Intake Note: Patient is here today for a physical with lab results. Weight And Balance Control Agent Required: No Software Team Leader: Present Accompanied by: Dependent of Minor Dependent Allergies latex Allergy (Mild, Verified 10/19/23 12:56) Rash Tobacco use date assessed: 10/19/23 Dental Screening Dental Screen Date: 10/19/23 Did you have a dental visit in the last 12 months?: Yes Did you have a dental problem in the last 6 months where you did not have access to dental care?: No Was dental information given to patient?: Patient has dentist HPI Extended exam with f/u labs and health maint. HPI Details 38 y/o female presents for an extended e xam with f/u labs and health maintenance. Labs were drawn 10/19/23. Reviewed labs with pt. Elevated WBC at 12.0 but has improved from 13.4 in August. Triglycerides 87. TC 163. LDL 110. HDL low at 36. Urinalysis suspicious of a UTI but pt denies any symptoms. Pt reports longstanding GERD daily. Pt reports LLQ pain/suprapubic pain. [facility] Medical History (Updated 10/19/23 @ 13:33 by Stephen Conde) Screening for cervical cancer Anxiety with depression Asthma, mild intermittent, poorly controlled Viral illness Asthma exacerbation Costochondral chest pain Systemic viral illness Flu-like symptoms Atypical chest pain Chest wall pain Annual physical exam Cholelithiasis Abdominal pain Joint pain Fatigue Suprapubic pain, acute Close exposure to 2019 novel coronavirus COVID-19 vaccination declined Gallstones Depression Anxiety Asthma Surgical History Hx of tubal ligation Social History (Updated 10/19/23 @ 13:00 by NADEGE Lombardo) Household Members Other:: minor daughter Housing: Apartment Are you a primary child adolescent care to a significant other at home: Yes (minor daughter) Do you presently have visiting nurse or other home services: No Alcohol intake: current Alcohol intake frequency: does not drink Patient Tobacco Use Status: Former Tobacco user (Patient quit in September.) Tobacco use type: Cigarette Cigarettes Per Day: 4 Years Smoked: 5 e-Cigarette/Vaping Use: Never Used Second Hand Smoke Exposure: Yes Substance Use Type: Marijuana service: No Current occupational status: employed Current occupational exposures/hazards: No Cognitive needs: No Hearing needs: No Vision needs: No Questionnaire PHQ-9 Over the last 2 weeks, how often have you been bothered by any of the following problems? 1. Little interest or pleasure in doing things: not at all 2. Feeling down, depressed, or hopeless: several days (on medication) 3. Trouble falling or staying asleep, or sleeping too much: not at all 4. Feeling tired or having little energy: not at all 5. Poor appetite or overeating: not at all 6. Feeling bad about yourself - or that you are a failure or have let yourself or your family down: not at all 7. Trouble concentrating on things, such as reading the newspaper or watching television: not at all 8. Moving or speaking so slowly that other people could have noticed. Or the opposite - being so fidgety or restless that you have been moving around a lot more than usual: not at all 9. Thoughts that you would be better off or of hurting yourself in some way: not at all Total score: 1 Depression Screening Interpretation: Negative Depression Screening Done: Yes Source: Developed by Drs. Sadiq Artis, Azucena Warren, Vern Mckeon and colleagues, with an educational jose from [employer]. Thrive Questionnaire Date Thrive assessed: 10/19/23 I am a: Patient What is your living situation today?: I have a steady place to live Within the past 12 months, did the food you bought not last and you didn't have the money to get more?: Never true Within the past 12 months, did you worry whether your food would run out before you got money to buy more?: Never true Do you have trouble paying for medicines?: No Do you have trouble getting transportation to medical appointments?: No Do you have trouble paying your heating and electricity bill?: No Do you have trouble taking care of your child, family member or friend?: No Do you have trouble with day-to-day activities such as bathing, preparing meals, shopping, managing finances, etc.?: No Are you currently unemployed and looking for a job?: No Are you interested in more education?: No Currently or been in a relationship where the following occur: no concerns reported THRIVE Score: 0 AUDIT C Alcohol Use Questionnaire (AUDIT-C) 1. How often do you have a drink containing alcohol?: Monthly or less 2. How many drinks containing alcohol do you have on a typical day when you are drinking?: 1 or 2 Total Score: 1 JALEN-7 AMB Questionnaire JALEN-7 Date JALEN - 7 assessed: 10/19/23 Feeling nervous, anxious, or on edge: 1 = Several days (on medication) Not being able to stop or control worryin = Not at all Worrying too much about different things: 0 = Not at all Trouble relaxin = Not at all Being so restless that it is hard to sit still: 0 = Not at all Becoming easily annoyed or irritable: 0 = Not at all Feeling afraid as if something awful might happen: 0 = Not at all Total JALEN-7 score (0-4 normal; 5-9 mild; 10-14 moderate; 15-21 severe): 1 Source: Developed by Drs. Sadiq Artis, Azucena Warren, Vern Mckeon and colleagues, with an educational jose from [employer]. Physical exam (Primary Care) Vital Signs: Last Vital Signs Pulse 91 10/19/23 12:56 BP 130/72 10/19/23 12:56 Pulse Ox 97 10/19/23 12:56 Oxygen Delivery Method Room Air 10/19/23 12:56 BMI result Body Mass Index 32.3 Tobacco/Smoking Status: Tobacco use Status Tobacco use date assessed 10/19/23 10/19/23 13:03 Patient Tobacco Use Status Former Tobacco user (Patient 10/19/23 13:00 quit in September.) Tobacco use type Cigarette 10/19/23 13:00 e-Cigarette/Vaping Use Never Used 10/19/23 13:00 PHQ-9: PHQ-9 Score PHQ-9: Total score 1 10/19/23 13:08 Depression Screening Interpretation: Negative Thrive Assessment: Date of Thrive Assessment Date Thrive assessed 10/19/23 10/19/23 13:03 Currently or been in a relationship where the following occur: no concerns reported Assessment and Plan Assessment & Plan (1) GERD (gastroesophageal reflux disease): Code(s): K21.9 - Gastro-esophageal reflux disease without esophagitis Plan: Start?omeprazole Patient?has?had?longstanding?daily?symptoms Referred?to?GI (2) Moderate persistent asthma: Code(s): J45.40 - Moderate persistent asthma, uncomplicated Plan: Has?only?been?using?albuterol. Had?prescribed?Symbicort?at?her?last?visit?but?she?has?not?started?this?yet. Recent?scri pt.??Advised?patient?to?pick?up?and?use?both?medications?as?prescribed (3) Suprapubic pain: Code(s): R10.2 - Pelvic and perineal pain Plan: Patient?notes?suprapubic?pain?which?is?modified?with?urination Urinalysis?suspicious?for?UTI Start?Macrobid Hydrate?well (4) Screening for cervical cancer: Code(s): Z12.4 - Encounter for screening for malignant neoplasm of cervix Plan: Referred?to?[facility]?OBGYN?at?patient?request (5) Bilateral hand pain: Code(s): M79.641 - Pain in right hand; M79.642 - Pain in left hand Plan: Bilateral?hand?wrist?and?forearm?pain Patient?notes?history?of?carpal?tunnel Referred?to?Hand?surgery She?has?felt?relief?from?gabapentin?in?the?past Continued (6) Low HDL (under 40): Code(s): E78.6 - Lipoprotein deficiency Plan: Encouraged?increased?exercise (7) Adult general medical exam: Code(s): Z00.00 - Encounter for general adult medical examination without abnormal findings Plan: A?38-year-old?female?presents?for?an?extended?exam (8) Anxiety: Code(s): F41.9 - Anxiety disorder, unspecified Plan: Stable?on?sertraline?and?buspirone Continue?current?medication Orders: Orders UA and rflx microscopic 10/20/23 R82.90 - Unspecified abnormal findings in urine, Z00.00 - Encounter for general adult medical examination without abnormal findings Urine Dipstick Today R82.90 - Unspecified abnormal findings in urine Referrals Hand Surgery Referral M25.539 - Pain in unspecified wrist, M79.641 - Pain in right hand, M79.642 - Pain in left hand Gastroenterology Referral K21.9 - Gastro-esophageal reflux disease without esophagitis HEALTH CLINICIAN Referral Z12.4 - Encounter for screening for malignant neoplasm of cervix Medications: New omeprazole 20 mg PO DAILY 30 caps 2RF 30 days nitrofurantoin monohyd/m-cryst 100 mg (Macrobid) must administer with a meal/food 100 mg PO BID 10 caps 0RF 5 days Refilled psyllium husk (Metamucil) mix into at least 8 oz of water or juice before administering 1 tbsp PO BID 660 grams 3RF 30 days budesonide-formoterol 160-4.5 mcg/actuation (Symbicort) 2 puffs inhalation Q12H 1 month 10.2 grams 5RF Coding Level of Care Code Est Pt Level 4 (98317) Diagnoses GERD (gastroesophageal reflux disease) K21.9 Moderate persistent asthma J45.40 Suprapubic pain R10.2 Screening for cervical cancer Z12.4 Bilateral hand pain M79.641; M79.642 Low HDL (under 40) E78.6 Adult general medical exam Z00.00 Anxiety F41.9
[2023-10-19 12:56] VITALS: BP 130/72; PULSE 91; O2SAT 97; BMI 32.3
== END 2023-10-19 13:56 | disposition home or self-care (01) ==
PROVIDERS: PCP Family Medicine; Visit Provider Family Medicine
DX: K21.9 Gastro-esophageal reflux disease without esophagitis (principal); J45.40 Moderate persistent asthma, uncomplicated; R10.2 Pelvic and perineal pain; Z12.4 Encounter for screening for malignant neoplasm of cervix; M79.641 Pain in right hand; M79.642 Pain in left hand; E78.6 Lipoprotein deficiency; Z00.00 Encounter for general adult medical examination without abnormal findings; F41.9 Anxiety disorder, unspecified
CPT/HCPCS: 99214

== ENCOUNTER 2023-11-21 08:48 | Outpatient (AMB) | payer OTHER, SELFPAY ==
--- NOTE | 2023-11-21 08:53 | A.OFFVIS_ITS ---
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 Patient reports ongoing pain and numbness in bilateral hand with her right hand being the worse. States being incarcerated where she attended PT. 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 She has tried bracing with no relief however found most relief with muscle rub and brace. States pain in her whole hand that radiates down her forearm. She had an EMG of right side on 06/05/19. 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 She reports she has pain in her bilateral hands with the right hand being the worse. She currently states she has ongoing pain, numbness and tingling in her hands which radiates down to her forearm. Her pain is aggravated with pushups and with certain movements. She had tried bracing in the past with no relief however she found some relief with muscle rub and compression brace. She had an EMG study on 06/05/19. She had undergone physical therapy but she states being incarcerated where she attended her sessions. 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 [facility] Medical History (Updated 11/21/23 @ 09:23 by Timothy Gomez PA-C) Screening for cervical cancer Anxiety with depression Asthma, mild intermittent, poorly controlled Viral illness Asthma exacerbation Costochondral chest pain Systemic viral illness Flu-like symptoms Atypical chest pain Chest wall pain Annual physical exam Cholelithiasis Abdominal pain Joint pain Fatigue Suprapubic pain, acute Close exposure to 2019 novel coronavirus COVID-19 vaccination declined Gallstones Depression Anxiety Asthma Surgical History (Updated 11/21/23 @ 08:58 by NADEGE Moura) Hx of cholecystectomy Hx of tubal ligation Social History (Updated 11/21/23 @ 08:59 by NADEGE Moura) Household Members Other:: minor daughter Housing: Apartment Are you a primary childcare aide to a significant other at home: Yes (minor daughter) Do you presently have visiting nurse or other home services: No Alcohol intake: current Alcohol intake frequency: does not drink Patient Tobacco Use Status: Former Tobacco user (Patient quit in September.) Tobacco use type: Cigarette Cigarettes Per Day: 4 Years Smoked: 5 e-Cigarette/Vaping Use: Never Used Second Hand Smoke Exposure: Yes Substance Use Type: Marijuana service: No Current occupational status: unemployed Current occupation: right hand dominant Current occupational exposures/hazards: No Cognitive needs: No Hearing needs: No Vision needs: No Review of Systems Const All systems reviewed & are unremarkable except as noted in HPI and below Physical Exam Vital Signs: BMI result Body Mass Index 32.2 Const General: cooperative, healthy appearing, comfortable, no acute distress, well developed and alert Orientation/consciousness: patient oriented x3 HEENT Head: Yes normal to inspection, Yes normocephalic and Yes atraumatic Eyes General: appearance normal, both eyes and all related structures Resp Effort & Inspection: normal respiratory effort and able to speak in complete sentences Cardio Rate: regular rate Peripheral pulses: Peripheral pulses 2+ throughout GI Palpation (GI): Soft to palpation Skin Lesions: no lesions Rashes: no rashes Neuro General: patient oriented x3 Extrem Other: Bilateral wrist: Without deformity. No swelling. Mild tenderness over the radial styloid. Positive Romeo?s. No pain with [facility] grind. is able to make a full fist and fully extend all digits. NVI. Assessment & Plan Assessment & Plan (1) De Quervain's tenosynovitis, right: Code(s): M65.4 - Radial styloid tenosynovitis [de Quervain] (2) De Quervain's tenosynovitis, left: Code(s): M65.4 - Radial styloid tenosynovitis [de Quervain] (3) Carpal tunnel syndrome, bilateral: Code(s): G56.03 - Carpal tunnel syndrome, bilateral upper limbs Plan We discussed options which include PT, NSAIDs and injections. The patient will defer on the injection today and proceed with PT and NSAIDs. If symptoms persist, the patient will contact me for an injection. If her numbness and tingling worsen or become more consistent, she may want to inquire about an EMG/NCS to rule out carpal tunnel syndrome. She is moving out of town in a few weeks and may want to establish herself with a hand surgeon / orthopedist for further followup. Orders: Orders OT Evaluation and Treatment Today G56.03 - Carpal tunnel syndrome, bilateral upper limbs, M65.4 - Radial styloid tenosynovitis [de Quervain] Patient Instructions: Scribed for Timothy Gomez PA-C, by Saurav Roque medical equipment repair technician, on 11/21/2023 at 9:00 AM EST. I, Timothy Gomez PA-C, have personally reviewed and agree with the information entered by the scribe. Coding Level of Care Code New Pt Level 3 (46050) Diagnoses De Quervain's tenosynovitis, right M65.4 De Quervain's tenosynovitis, left M65.4 Carpal tunnel syndrome, bilateral G56.03
[2023-11-21 09:12] VITALS: BMI 32.2
== END 2023-11-21 09:53 | disposition home or self-care (01) ==
PROVIDERS: PCP Family Medicine; Visit Provider Physician Assistant
DX: M65.4 Radial styloid tenosynovitis [de Quervain] (principal); G56.03 Carpal tunnel syndrome, bilateral upper limbs
CPT/HCPCS: 99203

== ENCOUNTER → 2023-11-21 08:48 | Outpatient (BNVA) | payer OTHER, SELFPAY | PROVIDERS: PCP Family Medicine; Visit Provider Physician Assistant | DX: M65.4 Radial styloid tenosynovitis [de Quervain] (principal); G56.03 Carpal tunnel syndrome, bilateral upper limbs | CPT/HCPCS: 99202 ==

== ENCOUNTER 2024-05-11 19:27 | Emergency (ER) | payer OTHER, SELFPAY ==
[2024-05-11 19:33] VITALS: BP 128/85; BP 137/83; PULSE 87; PULSE 88; RESP 18; TEMP 36.7; O2SAT 100; O2SAT 98; BMI 30.9
--- NOTE | 2024-05-11 19:35 | ED.GENADULT ---
HPI - General Adult General Chief complaint: Abdominal Pain Stated complaint: abdominal pain, x20 mins Related Data Previous Rx's ?Medication ?Instructions ?Recorded gabapentin 300 mg capsule 300 mg PO BID 30 days #90 caps 05/31/22 naproxen 500 mg tablet,delayed 500 mg PO Q12H #60 tabs 05/31/22 release (EC-Naprosyn) ibuprofen 400 mg tablet 400 mg PO TID PRN fever or pain 08/17/23 #30 tabs ProAir HFA 90 mcg/actuation 2 puff inhalation Q4-6H PRN 09/14/23 aerosol inhaler (albuterol sulfate) shortness of breath or wheezing 1 month #8.5 grams ipratropium 0.5 mg-albuterol 3 mg 3 ml inhalation Q6-8H PRN wheezing 09/14/23 (2.5 mg base)/3 mL nebulization 3 months #180 mL soln montelukast 10 mg tablet 10 mg PO BEDTIME #90 tabs 09/14/23 nebulizers (Compact Compressor #1 ea 09/14/23 Nebulizer) sertraline 50 mg tablet 50 mg PO QAM 30 days #30 tabs 09/14/23 triamcinolone acetonide 0.1 % 1 appl topical BID 30 days #15 10/08/23 topical cream grams budesonide-formoterol HFA 160 2 puff inhalation Q12H 1 month 10/19/23 mcg-4.5 mcg/actuation aerosol #10.2 grams inhaler (Symbicort) nitrofurantoin 100 mg PO BID 5 days #10 caps 10/19/23 monohydrate/macrocrystals 100 mg capsule (Macrobid) psyllium husk 3.4 gram/5.4 gram 1 tbsp PO BID 30 days #660 grams 10/19/23 oral powder (Metamucil) buspirone 10 mg tablet 10 mg PO BID 30 days #60 tabs 11/09/23 omeprazole 20 mg capsule,delayed 20 mg PO DAILY 30 days #90 caps 11/19/23 release Allergies Allergy/AdvReac Type Severity Reaction Status Date / Time latex Allergy Mild Rash Verified 05/11/24 19:34 [facility] Past Medical History Medical History (Updated 05/12/24 @ 00:01 by Jesús Valentin) Screening for cervical cancer Anxiety with depression Asthma, mild intermittent, poorly controlled Viral illness Asthma exacerbation Costochondral chest pain Systemic viral illness Flu-like symptoms Atypical chest pain Chest wall pain Annual physical exam Cholelithiasis Abdominal pain Joint pain Fatigue Suprapubic pain, acute Close exposure to 2019 novel coronavirus COVID-19 vaccination declined Gallstones Depression Anxiety Asthma Surgical History (Updated 11/21/23 @ 08:58 by NADEGE Moura) Hx of cholecystectomy Hx of tubal ligation Social History Social History (Updated 11/21/23 @ 08:59 by NADEGE Moura) Household Members Other:: minor daughter Housing: Apartment 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 (minor daughter) Do you presently have visiting nurse or other home services: No Alcohol intake: current Alcohol intake frequency: does not drink Patient Tobacco Use Status: Former Tobacco user (Patient quit in September.) Tobacco use type: Cigarette Cigarettes Per Day: 4 Years Smoked: 5 e-Cigarette/Vaping Use: Never Used Second Hand Smoke Exposure: Yes Substance Use Type: Marijuana Advance Directives: No Advance Directives Information Provided: No Do you have a plan to hurt others: No Plan service: No Current occupational status: unemployed Current occupation: right hand dominant Current occupational exposures/hazards: No Cognitive needs: No Hearing needs: No Vision needs: No Physical Exam ED Vital Signs: Vital Signs - 24 hr 05/11/24 19:33 Temperature 98.0 F Pulse Rate 88 Respiratory Rate 18 Blood Pressure 137/83 Pulse Oximetry 98 Oxygen Delivery Method Room Air BMI result Body Mass Index 30.9 Course Course Course Narrative: This is a rapid medical exam performed by Beth Infante NP: Additional HPI, ROS, PE not included below will be deferred to primary provider. Patient is a 38-year-old female with history of asthma, anemia, cholecystectomy, anxiety and depression presenting with complaint of lower abdominal pain which began 20 minutes prior to arrival. Patient A+Ox3, in no acute distress, abdomen soft and nontender, ambulating with steady gait. Plan: labs, UA Medical Decision Making Lab Data 05/11/24 19:49 05/11/24 19:49 Labs: Lab Results 05/11/24 Range/Units 19:49 WBC 13.2 H (4.8-10.8) X10*3/uL RBC 3.89 L (4.20-5.50) X10*6/uL Hgb 11.8 L (12.0-16.0) g/dl Hct 34.2 L (37.0-47.0) % MCV 87.9 (80.0-98.0) fL MCH 30.3 (27.0-33.0) pg MCHC 34.5 (31.0-35.0) g/dl RDW 14.1 (11.0-16.0) % Plt Count 310 (160-400) X10*3/uL MPV 8.9 L (9.4-12.3) fL Immature Gran % (Auto) 0.4 (0.0-0.4) % Neut % (Auto) 60.4 (45-73) % Lymph % (Auto) 30.3 (20-40) % [place] % (Auto) 6.4 (2-11) % Eos % (Auto) 2.0 (0-4) % Baso % (Auto) 0.5 (0-2) % Lymph # (Auto) 4.0 (1.2-4.9) X10*3/uL [place] # (Auto) 0.9 (0.1-1.2) X10*3/uL Eos # (Auto) 0.3 (0.0-0.4) X10*3/uL Baso # (Auto) 0.1 (0.0-0.2) X10*3/uL Abs Immat Gran (auto) 0.05 H (0.00-0.03) X10*3/uL Absolute Neuts (auto) 8.0 (2.0-8.3) x10*3/uL Absolute Nucleated RBC 0.000 (0.0-0.012) X10*3/uL Nucleated RBC % (auto) 0.0 (0.0-0.2) /100WBC Smear Tech's Comments VERIFIED Sodium 138 (135-145) mmol/L Potassium 3.8 (3.3-5.1) mmol/L Chloride 105 (96-108) mmol/L Carbon Dioxide 25 (22-29) mmol/L Anion Gap 12 (12-20) BUN 8 L (9-16) mg/dL Creatinine 0.84 (0.5-1.4) mg/dL Estim Creat Clear Calc 81.8 Estimated GFR > 60 Random Glucose 114 (60-115) mg/dL Calcium 9.5 (8.4-10.2) mg/dL Total Bilirubin 0.2 (0.0-1.0) mg/dL AST 13 (5-31) U/L ALT 11 (0-31) U/L Alkaline Phosphatase 39 (39-117) U/L Total Protein 6.9 (6.5-8.0) g/dL Albumin 3.9 (3.5-5.0) g/dL Beta HCG, Quant < 2 mIU/mL Discharge Plan Discharge Clinical Impression: Gastroenteritis Patient Disposition: Left W/O Completing Treatment Prescriptions: No Action buspirone 10 mg tablet 10 mg PO BID 30 Days Qty: 60 1RF omeprazole 20 mg capsule,delayed release(DR/EC) 20 mg PO DAILY 30 Days Qty: 90 0RF ibuprofen 400 mg tablet 400 mg PO TID PRN (Reason: fever or pain) Qty: 30 0RF gabapentin 300 mg capsule 300 mg PO BID MDD 3 per day 30 Days Qty: 90 3RF Rx Instructions: take one for 5 days then increase to two at bed time on day 6 if needed can take an additonal dose during the day on day 11 naproxen [EC-Naprosyn] 500 mg tablet,delayed release (DR/EC) 500 mg PO Q12H Qty: 60 0RF Rx Instructions: take tiwce a dy for at least 3-4 weeks then stop make sure to take with food or milk triamcinolone acetonide 0.1 % cream 1 appl topical BID 30 Days Qty: 15 2RF montelukast 10 mg tablet 10 mg PO BEDTIME Qty: 90 3RF ipratropium-albuterol 0.5 mg-3 mg(2.5 mg base)/3 mL solution for nebulization 3 ml inhalation Q6-8H PRN (Reason: wheezing) 90 Days Qty: 180 3RF albuterol sulfate [ProAir HFA] 90 mcg/actuation HFA aerosol inhaler 2 puff inhalation Q4-6H PRN (Reason: shortness of breath or wheezing) 30 Days Qty: 8.5 11RF sertraline 50 mg tablet 50 mg PO QAM 30 Days Qty: 30 2RF (DME) nebulizers [Compact Compressor Nebulizer] Misc See Rx Instructions .Route Qty: 1 0RF Rx Instructions: Use?As directed to?treat?asthma, 999 days Metamucil 3.4 gram/5.4 gram powder 1 tbsp PO BID 30 Days Qty: 660 3RF Rx Instructions: mix into at least 8 oz of water or juice before administering budesonide-formoterol [Symbicort] 160-4.5 mcg/actuation HFA aerosol inhaler 2 puff inhalation Q12H 30 Days Qty: 10.2 5RF nitrofurantoin monohyd/m-cryst [Macrobid] 100 mg capsule 100 mg PO BID 5 Days Qty: 10 0RF Rx Instructions: must administer with a meal/food Discharge Date/Time: 05/11/24 23:44
[2024-05-11 19:58] LABS: Basophils Absolute Auto 0.1 X10*3/uL (0.0-0.2); Basophils Percent Auto 0.5 % (0-2); Eosinophils Absolute Auto 0.3 X10*3/uL (0.0-0.4); Hematocrit 34.2 % (37.0-47.0); Hemoglobin 11.8 g/dl (12.0-16.0); Imm Gran Abs Auto 0.05 X10*3/uL (0.00-0.03); Imm Gran Pct Auto 0.4 % (0.0-0.4); Lymphocytes Percent Auto 30.3 % (20-40); MANUAL DIFF FLAG SCAN; Mean Corpuscular HGB Conc 34.5 g/dl (31.0-35.0); Mean Corpuscular Hemoglobin 30.3 pg (27.0-33.0); Mean Corpuscular Volume 87.9 fL (80.0-98.0); Mean Platelet Volume 8.9 fL (9.4-12.3); Monocytes Absolute Auto 0.9 X10*3/uL (0.1-1.2); Monocytes Percent Auto 6.4 % (2-11); Neutrophils Percent Auto 60.4 % (45-73); Platelet Count 310 X10*3/uL (160-400); Red Blood Count 3.89 X10*6/uL (4.20-5.50); Red Cell Distribution Width 14.1 % (11.0-16.0); SCAN SMEAR FLAG 1; White Blood Count 13.2 X10*3/uL (4.8-10.8)
[2024-05-11 20:24] LABS: SLIDE REVIEW VERIFIED
[2024-05-11 20:40] LABS: Alanine Aminotransferase 11 U/L (0-31); Albumin Level 3.9 g/dL (3.5-5.0); Alkaline Phosphatase 39 U/L (39-117); Anion Gap 12 (12-20); Aspartate Amino Transferase 13 U/L (5-31); Bilirubin Total 0.2 mg/dL (0.0-1.0); Blood Urea Nitrogen 8 mg/dL (9-16); Calcium 9.5 mg/dL (8.4-10.2); Carbon Dioxide 25 mmol/L (22-29); Chloride 105 mmol/L (96-108); Creatinine Clr Calc Pharmacy 81.8; Estimated Glomerular Filt Rate > 60; Glucose Random 114 mg/dL (60-115); Potassium 3.8 mmol/L (3.3-5.1); Sodium 138 mmol/L (135-145); Total Protein 6.9 g/dL (6.5-8.0)
[2024-05-11 20:42] LABS: HCG Quantitative < 2 mIU/mL
== END 2024-05-11 23:44 | disposition left against medical advice (07) ==
LOC: HO.ED 23:41
PROVIDERS: Registered Nurse Emergency; Emergency Provider Emergency Medicine
DX: K52.9 Noninfective gastroenteritis and colitis, unspecified (principal); R10.9 Unspecified abdominal pain; Z79.899 Other long term (current) drug therapy
CPT/HCPCS: 36415; 80053; 84702; 85025; 99281; 99283

== ENCOUNTER 2024-05-29 11:33 | Outpatient (AMB) | payer OTHER, SELFPAY ==
--- NOTE | 2024-05-29 11:45 | AM.OFFWIN_ITS ---
Intake Vital Signs 05/29/24 11:48 Height 5 ft Weight 156 lb 4 oz BMI 30.5 BP 94/68 Blood Pressure Location Rt brachial Position Sitting Respiration 16 Pulse 87 Pulse Source Pulse Oximeter Temp 97.8 F Temp Source Oral Pulse Oximetry (%) 97 Oxygen Delivery Method Room Air Intake Visit Reasons: Rash Intake Note: patient here c/o rash all over body. Patient Tobacco Use Status: Former Tobacco user (Patient quit in September.) Is last menstrual period known: Yes Last menstrual period: 05/14/24 Post menopausal: No Patient : No Allergies latex Allergy (Mild, Verified 05/29/24 11:50) Rash Medication List - Last Reconciled 05/29/24 by Norma Wang CNP budesonide-formoterol 160-4.5 mcg/actuation (Symbicort) 2 puffs inhalation Q12H 1 month buspirone 10 mg PO BID 30 days gabapentin 300 mg PO BID 30 days MDD 3 per day ipratropium-albuterol 0.5 mg-3 mg(2.5 mg base)/3 mL 3 mL inhalation Q6-8H PRN 3 months montelukast 10 mg PO BEDTIME naproxen (EC-Naprosyn) 500 mg PO Q12H nebulizers (Compact Compressor Nebulizer) Use?As directed to?treat?asthma, 999 days omeprazole 20 mg PO DAILY 30 days ProAir HFA 90 mcg/actuation (albuterol sulfate) 2 puffs inhalation Q4-6H PRN 1 month NS psyllium husk (Metamucil) 1 tbsp PO BID 30 days sertraline 50 mg PO QAM 30 days Do you need a note to return to daycare/school/sports/work: No HPI HPI Comments History of Present Illness Details 38-year-old female presents with complai nts of itchy diffuse rash to her head, arms, and legs. She notes that the rash is intermittent since 2019. She has been treated with antifungal and steroid creams with improvement of the itching. She does not use lotion or moisturizers. ON LICENSE OF [facility] Medical History (Updated 05/12/24 @ 00:01 by Jesús Valentin) Screening for cervical cancer Anxiety with depression Asthma, mild intermittent, poorly controlled Viral illness Asthma exacerbation Costochondral chest pain Systemic viral illness Flu-like symptoms Atypical chest pain Chest wall pain Annual physical exam Cholelithiasis Abdominal pain Joint pain Fatigue Suprapubic pain, acute Close exposure to 2019 novel coronavirus COVID-19 vaccination declined Gallstones Depression Anxiety Asthma Surgical History (Updated 11/21/23 @ 08:58 by NADEGE Moura) Hx of cholecystectomy Hx of tubal ligation Social History (Updated 11/21/23 @ 08:59 by NADEGE Moura) Household Members Other:: minor daughter Housing: Apartment 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 (minor daughter) Do you presently have visiting nurse or other home services: No Alcohol intake: current Alcohol intake frequency: does not drink Patient Tobacco Use Status: Former Tobacco user (Patient quit in September.) Tobacco use type: Cigarette Cigarettes Per Day: 4 Years Smoked: 5 e-Cigarette/Vaping Use: Never Used Second Hand Smoke Exposure: Yes Substance Use Type: Marijuana service: No Current occupational status: unemployed Current occupation: right hand dominant Current occupational exposures/hazards: No Cognitive needs: No Hearing needs: No Vision needs: No Female Reproductive History Menstrual Date of last menstrual period: 05/14/24 Review of Systems Const Details: Const Denies chills, Denies fatigue, Denies fever(s), Denies headache(s) and Denies weakness ENT Denies dizziness and Denies headache(s) Card Denies chest pain, Denies lightheadedness, Denies dyspnea and Denies other (Palpitations) Resp Denies cough, Denies dyspnea, Denies wheezing and Denies other ( shortness of breath) GI Denies abdominal pain, Denies melena, Denies hematochezia, Denies change in bowel habits, Denies dyspepsia and Denies nausea Denies hematuria and Denies dysuria Musc Denies abnormal gait, Denies myalgias, Denies arthralgias, Denies numbness and Denies tingling Skin/Breast Reports as per HPI Neuro Denies abnormal gait, Denies dizziness, Denies headache(s), Denies memory loss, Denies numbness, Denies Sensory deficit (Neuro), Denies tingling and Denies weakness Psych Denies anxiety, Denies depression, Denies memory loss Endo Denies cold intolerance, Denies fatigue, Denies heat intolerance, Denies polydipsia and Denies polyuria Aller/Immun Denies wheezing Physical Exam Vital Signs: Last Vital Signs Temp 97.8 F 05/29/24 11:48 Pulse 87 05/29/24 11:48 Resp 16 05/29/24 11:48 BP 94/68 05/29/24 11:48 Pulse Ox 97 05/29/24 11:48 Oxygen Delivery Method Room Air 05/29/24 11:48 BMI result Body Mass Index 30.5 Const Other: Const General: well developed; No acute distress Nutritional Appearance: well nourished Orientation/consciousness: patient oriented x3 HEENT Head: Yes normocephalic and Yes atraumatic Eyes General: appearance normal, both eyes and all related structures Pupils: Equal, round and reactive pupils present EOM: EOMs intact bilaterally Resp Effort & Inspection: normal respiratory effort Auscultation: clear to auscultation bilaterally Cardio Rate: regular rate Rhythm: regular rhythm Heart sounds: S1 normal heart sound present, S2 normal heart sound present, no gallops, no murmurs and no rubs Bruits: no abdominal aortic bruits and no carotid bruits Neuro General: patient oriented x3 and gait normal, no focal neuro deficit Cranial nerves: Yes Equal, round and reactive pupils present Skin Red and slivery patches noted on her scalp, right hand, right elbow, and right foot Psych Affect: normal affect Assessment & Plan Assessment & Plan (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 Advised to use as prescribed Encouraged to use good moisturizing lotion such as Cetaphil or Lubriderm Referred to dermatology Follow-up with PCP or return with worsening or new signs and symptoms Verbalized understanding and agreed with the treatment plan Orders: Referrals Dermatology Referral L30.8 - Other specified dermatitis Medications: Refilled triamcinolone acetonide 0.1% 1 appl topical BID 15 grams 2RF 30 days Coding Level of Care Code Est Pt Level 4 (54000) Diagnoses Psoriasiform eczema L30.8
[2024-05-29 11:48] VITALS: BP 94/68; PULSE 87; RESP 16; TEMP 36.6; O2SAT 97; BMI 30.5
== END 2024-05-29 12:08 | disposition home or self-care (01) ==
PROVIDERS: PCP Family Medicine; Visit Provider Nurse Practitioner Family
DX: L30.8 Other specified dermatitis (principal)
CPT/HCPCS: 99214

== ENCOUNTER 2024-06-10 08:11 | Outpatient (AMB) | payer OTHER, SELFPAY ==
--- NOTE | 2024-06-10 08:13 | MHC.PC.OV ---
Vital Signs 06/10/24 08:16 Height 5 ft Weight 155 lb BMI 30.3 BP 114/66 Blood Pressure Location Rt brachial Position Sitting Respiration 13 Pulse 92 Pulse Source Pulse Oximeter Pulse Oximetry (%) 98 Oxygen Delivery Method Room Air Intake Visit Reasons: Annual Physical Intake Note: annual physical Allergies latex Allergy (Mild, Verified 06/10/24 08:22) Rash Medication List - Last Reconciled 06/10/24 by Viridiana Hayes, [facility]- budesonide-formoterol 160-4.5 mcg/actuation (Symbicort) 2 puffs inhalation Q12H 1 month ipratropium-albuterol 0.5 mg-3 mg(2.5 mg base)/3 mL 3 mL inhalation Q6-8H PRN 3 months montelukast 10 mg PO BEDTIME multivitamin with iron 1 tab PO DAILY nebulizers (Compact Compressor Nebulizer) Use?As directed to?treat?asthma, 999 days omeprazole 20 mg PO DAILY 30 days ProAir HFA 90 mcg/actuation (albuterol sulfate) 2 puffs inhalation Q4-6H PRN 1 month NS psyllium husk (Metamucil) 1 tbsp PO BID 30 days triamcinolone acetonide 0.1% 1 appl topical BID 30 days Tobacco use date assessed: 06/10/24 Dental Screening Dental Screen Date: 06/10/24 Did you have a dental visit in the last 12 months?: Yes Did you have a dental problem in the last 6 months where you did not have access to dental care?: No Was dental information given to patient?: Patient has dentist HPI HPI Comments History of Present Illness Details 39-year-old female with generalized anxiety disorder, major depressive disorder, moderate persistent asthma, former smoker, psoriasis, obesity, GERD, CTS bilat, renal calculus, CAD (noted on Abd/pelvis CT 12/24/20 scattered calcific plaques of the aorta), anemia, marijuana use Status post tubal ligation, lap natalya Health Maintenance: ? PAP 2023 in [place], reports normal, n/a to me ? Tdap declined. Declined flu. Specialists: Dermatology Orthopedics Here today for a CPE Labs done 05/11/24 @ [facility] ED reviewed. Needs new referral to Ortho for CTS bilat. Asthma well controlled when taking her meds; states Nebs work better. Pump does not work as much. Does not like the shakes she gets after using. Started with URI sx over the last few days, exposed to sick contacts ([employer] works there), runny nose, cough. No at home treatments. c/o light sensitivity to bilat eyes, has been present for months. >> Eye Dr Referral Bilat knee pain and weakness, reports to cause her to fall. No overt injury >> Refer to PT Chronic generalized myalgia cracking bilat knees, falls down, knees feel weak. Mood stable w/o meds Anemia denies overt bleeding. Was taking Iron in the past, no longer. Needs refill on all meds. Plan Cont all meds as directed Supportive care for nasopharyngitis. START MVI with Iron QD to help w/ anemia Referral to Ortho for CTS bilat Referral to Eye Dr for light sensitivity Referral to PT for bilat knee pain/weakness RTO 1 year for CPE, sooner PRN This note is constructed using voice recognition software. While every effort has been made to ensure accuracy in family court registrar, still errors may have been included Sometimes, these errors may affect the content or meaning of the given sentence . An additional 20 was spent addressing the problem(s) noted at todays visit. This includes time spent before the visit reviewing the chart, time spent during the visit, and time spent after the visit on documentation [facility] Medical History (Updated 06/10/24 @ 08:49 by Viridiana Hayes, [facility]) Anxiety with depression Costochondral chest pain Chest wall pain Suprapubic pain, acute Gallstones Depression Anxiety Asthma Surgical History (Updated 11/21/23 @ 08:58 by Esha Menchaca Diana) Hx of cholecystectomy Hx of tubal ligation Social History (Updated 11/21/23 @ 08:59 by Esha Menchaca Diana) Household Members Other:: minor daughter Housing: Apartment Are you a primary resident care director to a significant other at home: Yes (minor daughter) Do you presently have visiting nurse or other home services: No Alcohol intake: current Alcohol intake frequency: does not drink Patient Tobacco Use Status: Former Tobacco user (Patient quit in September.) Tobacco use type: Cigarette Cigarettes Per Day: 4 Years Smoked: 5 e-Cigarette/Vaping Use: Never Used Second Hand Smoke Exposure: Yes Substance Use Type: Marijuana service: No Current occupational status: unemployed Current occupation: right hand dominant Current occupational exposures/hazards: No Cognitive needs: No Hearing needs: No Vision needs: No Questionnaire PHQ-9 Over the last 2 weeks, how often have you been bothered by any of the following problems? 1. Little interest or pleasure in doing things: nearly every day 2. Feeling down, depressed, or hopeless: nearly every day 3. Trouble falling or staying asleep, or sleeping too much: nearly every day 4. Feeling tired or having little energy: nearly every day 5. Poor appetite or overeating: more than half the days 6. Feeling bad about yourself - or that you are a failure or have let yourself or your family down: nearly every day 7. Trouble concentrating on things, such as reading the newspaper or watching television: nearly every day 8. Moving or speaking so slowly that other people could have noticed. Or the opposite - being so fidgety or restless that you have been moving around a lot more than usual: not at all 9. Thoughts that you would be better off or of hurting yourself in some way: not at all Total score: 20 Depression Screening Interpretation: Positive Depression Screening Follow-up: Existing condition and Community Mental Health Worker F/U Depression Screening Done: Yes 73417 - PHQ-9 Billing: Yes Source: Developed by Drs. Sadiq Artis, Azucena Warren, Vern Mckeon and colleagues, with an educational jose from [employer]. Thrive Questionnaire Date Thrive assessed: 06/10/24 I am a: Patient What is your living situation today?: I do not have a steady places to live Within the past 12 months, did the food you bought not last and you didn't have the money to get more?: Never true Within the past 12 months, did you worry whether your food would run out before you got money to buy more?: Never true Do you have trouble paying for medicines?: No Do you have trouble getting transportation to medical appointments?: No Do you have trouble paying your heating and electricity bill?: No Do you have trouble taking care of your child, family member or friend?: No Do you have trouble with day-to-day activities such as bathing, preparing meals, shopping, managing finances, etc.?: No Are you currently unemployed and looking for a job?: No Are you interested in more education?: No Please select the resources that you would like help with: None Currently or been in a relationship where the following occur: No concerns reported THRIVE Score: 1 AUDIT C Alcohol Use Questionnaire (AUDIT-C) 1. How often do you have a drink containing alcohol?: Monthly or less 2. How many drinks containing alcohol do you have on a typical day when you are drinking?: 1 or 2 3. How often do you have six or more drinks on one occasion?: Never Total Score: 1 Score Reviewed/Action Taken: Yes JALEN-7 AMB Questionnaire JALEN-7 Date JALEN - 7 assessed: 06/10/24 Feeling nervous, anxious, or on edge: 3 = Nearly every day Not being able to stop or control worryin = Nearly every day Worrying too much about different things: 3 = Nearly every day Trouble relaxin = Nearly every day Being so restless that it is hard to sit still: 3 = Nearly every day Becoming easily annoyed or irritable: 1 = Several days Feeling afraid as if something awful might happen: 2 = More than half the days Total JALEN-7 score (0-4 normal; 5-9 mild; 10-14 moderate; 15-21 severe): 18 Source: Developed by Drs. Sadiq Artis, Azucena Warren, Vern Mckeon and colleagues, with an educational jose from [employer]. JALEN-7 Assessment Billing JALEN-7 Assessment Tool: JALEN-7 Assessment 16468 ACT Questionnaire In the past 4 weeks, how much of the time did your asthma keep you from getting as much done at work, school or at home?: Some of the time During the past 4 weeks, how often have you had shortness of breath?: 1-2 times a week During the past 4 weeks, how often did your asthma symptoms wake you up at night or earlier than usual in the morning?: Once or twice per week During the past 4 weeks, how often have you had to use your rescue inhaler or nebulizer medication?: 2-3 times a week How would you rate your asthma control during the past 4 weeks?: Somewhat controlled ACT Interpretation: Negative Score: 17 Review of Systems Const Details: Constitutional: Denies fever. Skin: Denies rash. Eye: Denies eye pain. ENMT: Denies sore throat, + nasal congestion Respiratory: Denies shortness of breath; + cough Gastrointestinal: Denies nausea, vomiting or abdominal pain. Cardiovascular: Denies chest pain and syncope. Genitourinary: Denies dysuria. Musculoskeletal: generalized pain Neurologic: Denies headaches, confusion, and weakness. Psychiatric: Denies suicidal thoughts and substance abuse. Allergy/ Immunologic: Denies impaired immunity. Physical exam (Primary Care) Vital Signs: Last Vital Signs Pulse 92 06/10/24 08:16 Resp 13 06/10/24 08:16 BP 114/66 06/10/24 08:16 Pulse Ox 98 06/10/24 08:16 Oxygen Delivery Method Room Air 06/10/24 08:16 BMI result Body Mass Index 30.3 BMI Assessment/Plan discussion: High BMI High, discussed plan: lifestyle Tobacco/Smoking Status: Tobacco use Status Tobacco use date assessed 10/19/23 06/10/24 08:15 Patient Tobacco Use Status Former Tobacco user (Patient 06/10/24 08:15 quit in September.) Tobacco use type Cigarette 06/10/24 08:15 e-Cigarette/Vaping Use Never Used 06/10/24 08:15 Depression Screening Interpretation: Positive Depression Screening Follow-up: Existing condition and Community Mental Health Worker F/U Thrive Assessment: Date of Thrive Assessment Date Thrive assessed 10/19/23 06/10/24 08:15 Currently or been in a relationship where the following occur: No concerns reported Const Other: General: Well developed, well nourished, in no acute distress. Appears stated age. Head: Normocephalic, atraumatic. Eyes: Pupils are equal, round and reactive to light and accommodation. Conjunctivae are clear. Vision grossly normal. Ears: TMs clear AU, EACS WNL Nose: mild congestion. Mouth: There are no ulcers or lesions noted. No inflammation, no post nasal drip, no plaques nor exudates. Neck: Supple, no adenopathy or thyromegaly. Lungs: Dim throughout, occassional cough w/o distress Heart: Regular rate and rhythm. No murmurs, click, rubs or gallops are noted. Abdomen: Bowel sounds present in all quadrants. The abdomen is soft, nontender, with no masses or organomegaly noted. No hernias are noted. Musculoskeletal: c/o pain with palpation, active and passive ROM bilat knees, palp crepitus, no deformity, warmth or edema. + CTS exam bilat hands Pulses: Peripheral pulses are equal and palpable bilaterally. Extremities: No clubbing, cyanosis nor edema is noted. Neurologic: Gait and station normal. Cranial Nerves 2-12 intact. Motor strength grossly symmetrical and intact. No sensory loss. Balance normal. Skin: psoriasiform eczema noted, Turgor is good. Skin color is good. Hair and nails are without abnormalities. Psych: Normal eye contact, affect and mood appropriate, and normal interactions. Patient is alert and appropriate to context. Assessment and Plan Assessment & Plan (1) Encounter for general adult medical examination with abnormal findings: Code(s): Z00.01 - Encounter for general adult medical examination with abnormal findings (2) De Quervain's tenosynovitis, right: Code(s): M65.4 - Radial styloid tenosynovitis [de Quervain] (3) De Quervain's tenosynovitis, left: Code(s): M65.4 - Radial styloid tenosynovitis [de Quervain] (4) Carpal tunnel syndrome, bilateral: Code(s): G56.03 - Carpal tunnel syndrome, bilateral upper limbs (5) Eyes sensitive to light: Code(s): H53.149 - Visual discomfort, unspecified Qualifiers: Laterality: bilateral Qualified Code(s): H53.143 - Visual discomfort, bilateral (6) Patellofemoral pain syndrome of both knees: Code(s): M22.2X1 - Patellofemoral disorders, right knee; M22.2X2 - Patellofemoral disorders, left knee (7) CAD (coronary artery disease): Comment: (noted on Abd/pelvis CT 12/24/20 scattered calcific plaques of the aorta) Lifestyle mods, LDL < 100 Code(s): I25.10 - Atherosclerotic heart disease of [place] coronary artery without angina pectoris Qualifiers: Coronary Disease-Associated Artery/Lesion type: [place] artery [place] vs. transplanted heart: [place] heart Associated angina: without angina Qualified Code(s): I25.10 - Atherosclerotic heart disease of [place] coronary artery without angina pectoris (8) Latex allergy status: Code(s): Z91.040 - Latex allergy status (9) MDD (major depressive disorder), recurrent episode: Code(s): F33.9 - Major depressive disorder, recurrent, unspecified Qualifiers: Major depression episode severity: mild Qualified Code(s): F33.0 - Major depressive disorder, recurrent, mild (10) JALEN (generalized anxiety disorder): Code(s): F41.1 - Generalized anxiety disorder (11) GERD (gastroesophageal reflux disease): Code(s): K21.9 - Gastro-esophageal reflux disease without esophagitis Qualifiers: Esophagitis presence: without esophagitis Qualified Code(s): K21.9 - Gastro-esophageal reflux disease without esophagitis (12) Psoriasiform eczema: Code(s): L30.8 - Other specified dermatitis (13) Mild anemia: Code(s): D64.9 - Anemia, unspecified (14) Moderate persistent asthma: Code(s): J45.40 - Moderate persistent asthma, uncomplicated Qualifiers: Asthma complication type: uncomplicated Qualified Code(s): J45.40 - Moderate persistent asthma, uncomplicated (15) Nasopharyngitis: Code(s): J00 - Acute nasopharyngitis [common cold] (16) Marijuana use, continuous: Code(s): F12.90 - Cannabis use, unspecified, uncomplicated Orders: Orders PT Evaluation and Treatment Today M22.2X1 - Patellofemoral disorders, right knee, M22.2X2 - Patellofemoral disorders, left knee Referrals Orthopedics Referral G56.03 - Carpal tunnel syndrome, bilateral upper limbs, M65.4 - Radial styloid tenosynovitis [de Quervain] Ophthalmology Referral H53.149 - Visual discomfort, unspecified Medications: New multivitamin with iron 1 tab PO DAILY 90 tabs 2RF Changed From omeprazole 20 mg PO DAILY 30 days 90 caps 0RF To omeprazole 20 mg PO DAILY 90 days 90 caps 2RF From ProAir HFA 90 mcg/actuation (albuterol sulfate) 2 puffs inhalation Q4-6H 1 month PRN 8.5 grams 11RF shortness of breath or wheezing NS J45.20 - Mild intermittent asthma, uncomplicated To albuterol sulfate 90 mcg/actuation 2 puffs inhalation Q4-6H 1 month PRN 8.5 grams 1RF shortness of breath or wheezing NS J45.20 - Mild intermittent asthma, uncomplicated Refilled ipratropium-albuterol 0.5 mg-3 mg(2.5 mg base)/3 mL 3 mL inhalation Q6-8H 3 months PRN 180 mL 3RF wheezing J45.20 - Mild intermittent asthma, uncomplicated montelukast 10 mg PO BEDTIME 90 tabs 3RF J45.20 - Mild intermittent asthma, uncomplicated budesonide-formoterol 160-4.5 mcg/actuation (Symbicort) 2 puffs inhalation Q12H 1 month 10.2 grams 11RF Discontinued buspirone Discontinued Reason: Patient no longer taking 10 mg PO BID 30 days 60 tabs 1RF Patient Instructions: Health screenings for women You should visit your health care provider from time to time, even if you are healthy. The purpose of these visits is to: Screen for medical issues Assess your risk for future medical problems Encourage a healthy lifestyle Update vaccinations and other preventive care services Help you get to know your provider in case of an illness Information Even if you feel fine, you should still see your provider for regular checkups. These visits can help you avoid problems in the future. For example, the only way to find out if you have high blood pressure is to have it checked regularly. High blood sugar and high cholesterol levels also may not have any symptoms in the early stages. A simple blood test can check for these conditions. There are specific times when you should see your provider or receive specific health screenings. The [place] Preventive Services Task Force publishes a list of recommended screenings. Below are screening guidelines for women ages 18 to 39. BLOOD PRESSURE SCREENING Your blood pressure should be checked at least once every 3 to 5 years if: Your blood pressure is in the normal range (top number less than 120 mm Hg and bottom number less than 80 mm Hg) You don't have risk factors for high blood pressure Ask your provider if you need your blood pressure checked more often if: The top number is 120 to 129 mm Hg or the bottom number is 70 to 79 mm Hg You have diabetes, heart disease, kidney problems, are overweight, or have certain other health conditions You have a first-degree relative with high blood pressure You are Black You had high blood pressure during a If the top number is 130 mm Hg or greater or the bottom number is 80 mm Hg or greater, this is considered stage 1 hypertension. Schedule an appointment with your provider to learn how you can reduce your blood pressure. Watch for blood pressure screenings in your area. Ask your provider if you can stop in to have your blood pressure checked. BREAST CANCER SCREENING Experts do not agree about the benefits of breast self-exams in finding breast cancer or saving lives. Talk to your provider about what is best for you. A screening mammogram is not recommended for most women under age 40. Your provider may discuss and recommend mammograms, MRI scans, or ultrasounds if you have an increased risk for breast cancer, such as: A mother or sister who had breast cancer at a young age (most often starting screening earlier than the age the close relative was diagnosed) You carry a high-risk genetic marker CERVICAL CANCER SCREENING Cervical cancer screening should start at age 21 years unless your provider advises otherwise. After the first test: Women ages 21 through 29 should have a Pap test every 3 years. Exoprts do not agree on whether HPV testing is recommended for this age group. Women ages 30 through 65 should be screened with either a Pap test every 3 years or the HPV test every 5 years or both tests every 5 years (called cotesting ). Women who have been treated for precancer (cervical dysplasia) should continue to have Pap tests for 20 years after treatment or until age 65, whichever is longer. If you have had your uterus and cervix removed (total hysterectomy), and you have not been diagnosed with cervical cancer or precancer (high grade cervical neoplasia), you do not need cervical cancer screening. CHOLESTEROL SCREENING Cholesterol screening should begin at: Age 45 for women with no known risk factors for coronary heart disease Age 20 for women with known risk factors for coronary heart disease Repeat cholesterol screening should take place: Every 5 years for women with normal cholesterol levels More often if changes occur in lifestyle (including weight gain and diet) More often if you have diabetes, heart disease, kidney problems, or certain other conditions DIABETES SCREENING You should be screened for diabetes starting at age 35 and then repeated every 3 years if you have no risk factors for diabetes. Screening may need to start earlier and be repeated more often if you have other risk factors for diabetes, such as: You have a first degree relative with diabetes. You are overweight or have obesity. You have high blood pressure, prediabetes, or a history of heart disease. Screening for diabetes should be done if you are planning to become and you are overweight and have other risk factors such as high blood pressure. DENTAL EXAM Go to the dentist once or twice every year for an exam and cleaning. Your dentist will evaluate if you need more frequent visits. EYE EXAM Have an eye exam every 5 to 10 years before age 40. If you have vision problems, have an eye exam every 2 years or more often if recommended by your provider. You should have an eye exam that includes an examination of your retina (back of your eye) at least every year if you have diabetes. IMMUNIZATIONS Commonly needed vaccines include: Flu shot: get one every year. COVID-19 vaccine: ask your provider what is best for you. Tetanus-diphtheria and acellular pertussis (Tdap) vaccine: have one at or after age 19 as one of your tetanus-diphtheria vaccines if you did not receive it as an adolescent. Tetanus-diphtheria: have a booster (or Tdap) every 10 years. Varicella vaccine: receive 2 doses if you never had chickenpox or the varicella vaccine. Hepatitis B vaccine: receive 2, 3, or 4 doses, depending on your exact circumstances. Measles, mumps, and rubella (MMR) vaccine: receive 1 to 2 doses if you are not already immune to MMR. Your provider can tell you if you are immune. Ask your provider about the human papillomavirus (HPV) vaccine if: You have not received the HPV vaccine in the past You have not completed the full vaccine series (you should catch up on this shot) Ask your provider if you should receive other immunizations if you have certain health problems that increase your risk for some diseases such as pneumonia. INFECTIOUS DISEASE SCREENING Women who are sexually active should be screened for chlamydia and gonorrhea up until age 25. Women 25 years and older should be screened for chlamydia and gonorrhea if at high risk. Screening for hepatitis C: All adults ages 18 to 79 should get a one-time test for hepatitis C. people should be screened at every . Screening for human immunodeficiency virus (HIV): All people ages 15 to 65 should get a one-time test for HIV. Depending on your lifestyle and medical history, you may also need to be screened for infections such as syphilis and HIV, as well as other infections. PHYSICAL EXAM All adults should visit their provider from time to time, even if they are healthy. The purpose of these visits is to: Screen for disease Assess your risk of future medical problems Encourage a healthy lifestyle Update your vaccinations and other preventive care services Maintain a relationship with a provider in case of an illness Your height, weight, and BMI should be checked at every exam. During your exam, your provider may ask you about: Depression and anxiety Diet and exercise Alcohol and tobacco use Safety issues, such as using seat belts, smoke detectors, and intimate partner violence Your medicines and risk for interactions SKIN SELF-EXAM Your provider may check your skin for signs of skin cancer, especially if you're at high risk, such as if you: Have had skin cancer before Have close relatives with skin cancer Have a weakened immune system OTHER SCREENING Talk with your provider about colon cancer screening if you have a strong family history of colon cancer or polyps, or if you have had inflammatory bowel disease or polyps yourself. Routine bone density screening of women under 40 is not recommended. Review Patient declined Pneumococcal Vaccine: 06/10/24 Flu Vaccine not done: patient reason Declined TDap/Td: 06/10/24 Coding Level of Care Code Est Pt Level 3 (62695) Est Pt Prev Care 18-39y(43322) Diagnoses Encounter for general adult medical examination with abnormal findings Z00.01 De Quervain's tenosynovitis, right M65.4 De Quervain's tenosynovitis, left M65.4 Carpal tunnel syndrome, bilateral G56.03 Photophobia of both eyes H53.143 Laterality: bilateral Patellofemoral pain syndrome of both knees M22.2X1; M22.2X2 Coronary artery disease involving [place] coronary artery of [place] heart without angina pectoris I25.10 Coronary Disease-Associated Artery/Lesion type: [place] artery [place] vs. transplanted heart: [place] heart Associated angina: without angina Latex allergy status Z91.040 Mild episode of recurrent major depressive disorder F33.0 Major depression episode severity: mild JALEN (generalized anxiety disorder) F41.1 Gastroesophageal reflux disease without esophagitis K21.9 Esophagitis presence: without esophagitis Psoriasiform eczema L30.8 Mild anemia D64.9 Moderate persistent asthma without complication J45.40 Asthma complication type: uncomplicated Nasopharyngitis J00 Marijuana use, continuous F12.90 Additional Codes JALEN-7 Assessment Billing - JALEN-7 Assessment Tool: JALEN-7 Assessment [id number] ([id number])
[2024-06-10 08:16] VITALS: BP 114/66; PULSE 92; RESP 13; O2SAT 98; BMI 30.3
== END 2024-06-10 08:37 | disposition home or self-care (01) ==
LOC: HO.HMCFM 08:11
PROVIDERS: PCP Family Medicine; Visit Provider Nurse Practitioner Family
DX: Z00.00 Encounter for general adult medical examination without abnormal findings (principal); M65.4 Radial styloid tenosynovitis [de Quervain]; F33.0 Major depressive disorder, recurrent, mild; G56.03 Carpal tunnel syndrome, bilateral upper limbs; H53.143 Visual discomfort, bilateral; M22.2X1 Patellofemoral disorders, right knee; M22.2X2 Patellofemoral disorders, left knee; I25.10 Atherosclerotic heart disease of native coronary artery without angina pectoris; Z91.040 Latex allergy status; F41.1 Generalized anxiety disorder; K21.9 Gastro-esophageal reflux disease without esophagitis

== ENCOUNTER → 2024-06-10 08:11 | Outpatient (BNVA) | payer OTHER, SELFPAY | PROVIDERS: PCP Family Medicine; Visit Provider Nurse Practitioner Family | DX: Z00.01 Encounter for general adult medical examination with abnormal findings (principal); M65.4 Radial styloid tenosynovitis [de Quervain]; G56.03 Carpal tunnel syndrome, bilateral upper limbs; H53.143 Visual discomfort, bilateral; M22.2X2 Patellofemoral disorders, left knee; M22.2X1 Patellofemoral disorders, right knee; I25.10 Atherosclerotic heart disease of native coronary artery without angina pectoris; Z91.040 Latex allergy status; F33.0 Major depressive disorder, recurrent, mild; F41.1 Generalized anxiety disorder; K21.9 Gastro-esophageal reflux disease without esophagitis; L30.8 Other specified dermatitis; D64.9 Anemia, unspecified; J45.40 Moderate persistent asthma, uncomplicated; F12.90 Cannabis use, unspecified, uncomplicated | CPT/HCPCS: 96127; 99212; 99395 ==

== ENCOUNTER 2024-06-24 08:41 | Outpatient (AMB) | payer OTHER, SELFPAY ==
--- NOTE | 2024-06-24 08:44 | MHC.OFFVIS ---
Intake Visit Reasons: OV - B/L hand numbness/tingling Intake Note: Nelli is a 39 year old right hand dominant female who presents today for a follow up of bilateral hands numbness and tingling. Patient was last seen in office on 11/21/23 with Timothy Gomez where she ordered OT for the patient's hands. [facility] but states she will be going after her evaluation on 06/29/24. Pt states her right hand is worse than her left and states she still is experiencing the numbness and tingling in both hands. Allergies latex Allergy (Mild, Verified 06/24/24 08:46) Rash HPI HPI OV - B/L hand numbness/tingling: Details: Patient is a 39-year-old female who presents for evaluation of bilateral hand pain, numbness, tingling, ongoing for at least 3 years. Patient reports that the symptoms began while she was incarcerated, and she went to physical therapy for them, to minimal effect. The patient reports that she was previously scheduled for a carpal tunnel release, but states that she canceled her previous surgery due to being afraid of a surgical procedure. Patient was previously evaluated in November of this year, where a referral was placed to occupational therapy, but the patient states that she moved to [place] for 2-3 months and was unable to attend her occupational therapy appointments. Today, the patient reports that her numbness and tingling is still intermittent, but daily, and worse at night, and she states that she has been attempting to wear various different wrist splints, to minimal effect. Patient states she would like to have an EMG and nerve conduction study performed to see if she does have carpal tunnel syndrome on the left, as she know she has not on the right, but states she is uninterested in any potential surgical intervention at this time, as she has a 10-year-old daughter at home and she is her primary grounds caretaker. No other acute complaints or concerns at this time. 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 a significant other at home: Yes (minor daughter) Do you presently have visiting nurse or other home services: No Alcohol intake: current Alcohol intake frequency: does not drink Patient Tobacco Use Status: Former Tobacco user (Patient quit in September.) Tobacco use type: Cigarette Cigarettes Per Day: 4 Years Smoked: 5 e-Cigarette/Vaping Use: Never Used Second Hand Smoke Exposure: Yes Substance Use Type: Marijuana service: No Current occupational status: unemployed Current occupation: right hand dominant Current occupational exposures/hazards: No Cognitive needs: No Hearing needs: No Vision needs: No Review of Systems Const All systems reviewed & are unremarkable except as noted in HPI and below Physical Exam Extrem Other: Neuro: Normal sensation of the tips of all digits of bilateral hands at this time No thenar or intrinsic wasting. Good APB muscle firing and good finger cross. Vascular: Capillary refill brisk. ROM: Patient can make a fist and extend all their digits. Skin: No lacerations or abrasions noted. General: No ecchymosis. No erythema or evidence of infection. Assessment & Plan Assessment & Plan (1) Numbness and tingling in both hands: Code(s): R20.0 - Anesthesia of skin; R20.2 - Paresthesia of skin Category: Medical Plan 1. Numbness and tingling of bilateral hands Ongoing for approximately 3 years Symptoms intermittent, daily, worse at night At this time, EMG and nerve conduction study are ordered to assess the health of the nerves of bilateral upper extremities Patient is amenable to this plan Patient is educated on the potential effects of prolonging treatment for carpal tunnel syndrome, namely dense numbness that does not improve after surgery and APB muscle belly wasting Patient understands these risks Patient will follow-up after nerve conduction study for results review and further discussion of potential treatment options, sooner with any acute concerns Orders: Orders NE electromyogram (EMG) Today R20.0 - Anesthesia of skin, R20.2 - Paresthesia of skin NE nerve conduction velocity Today R20.0 - Anesthesia of skin, R20.2 - Paresthesia of skin Coding Level of Care Code Est Pt Level 3 (02422) Diagnoses Numbness and tingling in both hands R20.0; R20.2
== END 2024-06-24 09:01 | disposition home or self-care (01) ==
PROVIDERS: PCP Family Medicine
DX: R20.0 Anesthesia of skin (principal); R20.2 Paresthesia of skin
CPT/HCPCS: 99213

== ENCOUNTER → 2024-06-24 08:41 | Outpatient (BNVA) | payer OTHER, SELFPAY | PROVIDERS: PCP Family Medicine | DX: R20.0 Anesthesia of skin (principal); R20.2 Paresthesia of skin | CPT/HCPCS: 99212 ==

== ENCOUNTER 2024-07-15 08:39 | Outpatient (REF) | payer OTHER, SELFPAY ==
--- NOTE | 2024-07-15 08:45 | EMG_ITS ---
Bilateral median and ulnar motor and sensory studies were performed. Bilateral radial sensory studies were performed and paraspinal muscles were tested with a needle. Bilateral median and lateral antecubital brachial sensory studies were also performed. IMPRESSION: Mild to moderate bilateral median neuropathy across carpal tunnel. MD HAILEY Rosas/PABLO / [phone]
== END 2024-07-15 08:40 | disposition home or self-care (01) ==
LOC: HO.NEURO 08:39
PROVIDERS: PCP Family Medicine
DX: R20.0 Anesthesia of skin (principal); R20.2 Paresthesia of skin
CPT/HCPCS: 95886; 95913

== ENCOUNTER 2024-07-25 13:30 | Outpatient (AMB) | payer OTHER, SELFPAY ==
--- NOTE | 2024-07-25 13:32 | A.OFFVIS_ITS ---
Intake Visit Reasons: OV- EMG review of B/L hands Intake Note: Nelli is a 39 year old female who presents to the office today for an EMG review of B/L hands. Allergies latex Allergy (Mild, Verified 08/13/24 10:55) Rash HPI HPI OV- EMG review of B/L hands: Details: Patient is a 39-year-old female who presents for EMG of bilateral hands. Patient states that her symptoms have remained the same since previous evaluation, and that they are intermittent, daily, and worse at night. 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 No other acute complaints or concerns at this time. [facility] Medical History Anxiety with depression Costochondral chest pain Chest wall pain Suprapubic pain, acute Gallstones Depression Anxiety Asthma Surgical History Hx of cholecystectomy Hx of tubal ligation Social History Household Members Other:: minor daughter Housing: Apartment Are you a primary after school caregiver to a significant other at home: Yes (minor daughter) Do you presently have visiting nurse or other home services: No Alcohol intake: current Alcohol intake frequency: does not drink Patient Tobacco Use Status: Former Tobacco user Tobacco use type: Cigarette Cigarettes Per Day: 4 Years Smoked: 5 e-Cigarette/Vaping Use: Never Used Second Hand Smoke Exposure: Yes Substance Use Type: Marijuana service: No Current occupational status: unemployed Current occupation: right hand dominant Current occupational exposures/hazards: No Cognitive needs: No Hearing needs: No Vision needs: No Review of Systems Const All systems reviewed & are unremarkable except as noted in HPI and below Physical Exam Extrem Other: Neuro: Normal sensation of the tips of all digits of bilateral hands at this time No thenar or intrinsic wasting. Good APB muscle firing and good finger cross. Vascular: Capillary refill brisk. ROM: Patient can make a fist and extend all their digits. Skin: No lacerations or abrasions noted. General: No ecchymosis. No erythema or evidence of infection. Results Reviewed Results Reviewed: IMPRESSION: Mild to moderate bilateral median neuropathy across carpal tunnel. Rayo Leigh MD Assessment & Plan Assessment & Plan (1) Carpal tunnel syndrome, bilateral: Code(s): G56.03 - Carpal tunnel syndrome, bilateral upper limbs Category: Medical Plan 1. Carpal tunnel syndrome, bilateral Symptoms intermittent, daily, worse at night At this time, patient is informed that the best treatment for her would be operative intervention for her carpal tunnel syndrome However, the patient states that she is not in a position where she can have surgery on her hands at this time Patient is educated that she can continue to use her Velcro wrist splints to be worn at night for relief of nighttime symptoms Patient was also educated about the potential risks of prolonging the treatment course for carpal tunnel syndrome for too long, namely dense numbness, thenar and intrinsic wasting, and diminished sensation even with surgical intervention Patient expresses understanding of these risks Patient will follow-up when she is ready to discuss potential carpal tunnel releases, sooner with any other acute concerns Coding Level of Care Code Est Pt Level 4 (53003) Diagnoses Carpal tunnel syndrome, bilateral G56.03
== END 2024-07-25 14:08 | disposition home or self-care (01) ==
PROVIDERS: PCP Family Medicine
DX: G56.03 Carpal tunnel syndrome, bilateral upper limbs (principal)
CPT/HCPCS: 99214

== ENCOUNTER → 2024-07-25 13:30 | Outpatient (BNVA) | payer OTHER, SELFPAY | PROVIDERS: PCP Family Medicine | DX: G56.03 Carpal tunnel syndrome, bilateral upper limbs (principal) | CPT/HCPCS: 99212 ==

== ENCOUNTER 2024-07-30 16:25 | Emergency (ER) | payer OTHER, SELFPAY ==
--- NOTE | ~2024-07-30 | XR_ITS ---
EXAMINATION: XR CHEST CLINICAL INFORMATION: Chest pain COMPARISON: 09/07/2023 TECHNIQUE: 2 views of the chest were obtained. FINDINGS: There is some minimal increased density seen in the retrocardiac/infrahilar region on the left medially however on the lateral radiograph a significant abnormality is not seen. The heart and pulmonary vessels appear normal. No pleural effusions. The bony thorax is unremarkable. Surgical clips are present in the gallbladder fossa. XR/XR chest 2V IMPRESSION: No acute intrathoracic disease. Question of minimal left infrahilar/retrocardiac infiltrate. Electronically signed by: Rylan Nicole MD 07/30/2024 07:08 PM ZAFAR GAUTHIER
--- NOTE | 2024-07-30 16:28 | ECG_ITS ---
Test Reason : cp Blood Pressure : / mmHG Vent. Rate : 075 BPM Atrial Rate : 075 BPM P-R Int : 166 ms QRS Dur : 076 ms QT Int : 372 ms P-R-T Axes : 063 038 025 degrees QTc Int : 415 ms Normal sinus rhythm Normal ECG When compared with ECG of 07-SEP-2023 13:50, No significant change was found Referred By: Felipe Monaco Electronically Signed By:Panda Manriquez
[2024-07-30 16:44] VITALS: BP 116/70; PULSE 78; RESP 18; TEMP 36.8; O2SAT 99; BMI 30.8
[2024-07-30 16:44] LABS: MANUAL DIFF FLAG NO
--- NOTE | 2024-07-30 16:51 | ED.GENADULT ---
HPI - General Adult General Chief complaint: Abdominal Pain Stated complaint: chest pain and abdominal pain Time Seen by Provider: 07/30/24 17:32 Source: patient, RN notes reviewed and old records reviewed Mode of arrival: ambulatory Limitations: no limitations History of Present Illness ED Provider: Evon HPI narrative: 39-year-old male past medical history significant for asthma, GERD presents for evaluation of chest pain and abdominal pain. Patient reports that her symptoms started yesterday. She started with chest pain initially and then upper abdominal pain today. Her pain is sharp. Denies any nausea vomiting, diarrhea. Denies any difficulty urinating. Denies any respiratory symptoms with shortness of breath, cough Denies any leg swelling Her pain is 8/10 She reports regular bowel movements The complaints or concerns at this time Related Data Previous Rx's ?Medication ?Instructions ?Recorded nebulizers (Compact Compressor #1 ea 09/14/23 Nebulizer) psyllium husk 3.4 gram/5.4 gram 1 tbsp PO BID 30 days #660 grams 10/19/23 oral powder (Metamucil) triamcinolone acetonide 0.1 % 1 appl topical BID 30 days #15 05/29/24 topical cream grams multivitamin with iron 1 tab PO DAILY #90 tabs 06/10/24 cyclobenzaprine 10 mg tablet 10 mg PO TID PRN muscle spasm #20 08/03/24 tabs budesonide-formoterol HFA 160 2 puff inhalation Q12H 1 month 08/13/24 mcg-4.5 mcg/actuation aerosol #10.2 grams inhaler (Symbicort) cephalexin 500 mg capsule 500 mg PO Q12H 10 days #20 caps 08/13/24 gabapentin 300 mg capsule 300 mg PO BID 30 days #60 caps 08/13/24 ipratropium 0.5 mg-albuterol 3 mg 3 ml inhalation Q6-8H PRN wheezing 08/13/24 (2.5 mg base)/3 mL nebulization 3 months #180 mL soln montelukast 10 mg tablet 10 mg PO BEDTIME #90 tabs 08/13/24 omeprazole 20 mg capsule,delayed 20 mg PO DAILY 90 days #90 caps 08/13/24 release albuterol sulfate 90 mcg/actuation 2 puff inhalation Q4-6H PRN 08/18/24 aerosol inhaler shortness of breath or wheezing 1 month #8.5 grams Allergies Allergy/AdvReac Type Severity Reaction Status Date / Time latex Allergy Mild Rash Verified 09/04/24 09:54 Review of Systems Constitutional: Constitutional: Denies body ache(s), Denies chills, Denies fever(s) and Denies headache(s) Eyes: Eyes: Denies blurry vision ENT: Denies vertigo, Denies dizziness and Denies headache(s) Cardiovascular: Cardiovascular: Reports chest pain, Reports chest pain at rest, Denies chest pain with activity, Reports Epigastric Pain and Denies dyspnea Respiratory: Respiratory: Denies cough and Denies dyspnea Gastrointestinal: Gastrointestinal: Reports abdominal pain, Denies nausea and Denies vomiting Musculoskeletal: Musculoskeletal: Denies back pain Integumentary/Breasts: Skin/Breast: Denies rash Neurologic: Denies vertigo, Denies dizziness and Denies headache(s) Psychiatric: Psychiatric: Denies anxiety PMFSH Past Medical History Medical History Anxiety with depression Costochondral chest pain Chest wall pain Suprapubic pain, acute Gallstones Depression Anxiety Asthma Surgical History Hx of cholecystectomy Hx of tubal ligation Social History Social History Household Members Other:: minor daughter Housing: Apartment Are you a primary caregiver services home to a significant other at home: Yes (minor daughter) Do you presently have visiting nurse or other home services: No Alcohol intake: current Alcohol intake frequency: does not drink Patient Tobacco Use Status: Former Tobacco user Tobacco use type: Cigarette Cigarettes Per Day: 4 Years Smoked: 5 e-Cigarette/Vaping Use: Never Used Second Hand Smoke Exposure: Yes Substance Use Type: Marijuana service: No Current occupational status: unemployed Current occupation: right hand dominant Current occupational exposures/hazards: No Cognitive needs: No Hearing needs: No Vision needs: No Physical Exam ED Vital Signs: Vital Signs - 24 hr 07/30/24 16:44 07/30/24 18:08 Temperature 98.3 F 97.1 F Pulse Rate 78 86 Respiratory Rate 18 18 Blood Pressure 116/70 110/76 Pulse Oximetry 99 100 Oxygen Delivery Method Room Air Room Air BMI result Body Mass Index 30.8 Const General: healthy appearing, comfortable, no acute distress, alert and awake Nutritional Appearance: well nourished Orientation/consciousness: patient oriented x3 HENMT Head: Yes normocephalic and Yes atraumatic Eyes Eyelids: Yes eyelids normal Conjunctivae: conjunctivae normal Sclerae: sclerae normal Corneas: corneas normal Pupils: Equal, round and reactive pupils present EOM: EOMs intact bilaterally Neck Neck: Yes full ROM Resp Effort & Inspection: normal respiratory effort, able to speak in complete sentences, no audible wheezes and not labored Auscultation: clear to auscultation bilaterally Cardio Rate: regular rate Rhythm: regular rhythm GI Inspection: No distended Palpation (GI): Soft to palpation, not firm, nontender, no guarding and not rigid Skin General skin exam: elasticity normal Neuro General: patient oriented x3 Cranial nerves: Yes Equal, round and reactive pupils present and Yes Bilaterally intact EOM present Cognition (Neuro): normal cognition Extrem Other: Moving all extremities well without any obvious deformities Course Course Course Narrative: RME; 39-year-old female presents to be midsternal chest pain epigastric pain started today. Patient denies any nausea or vomiting. Patient denies any shortness of breath. Patient denies any urinary symptoms. Lungs clear. EKG chest x-ray labs ordered. Reevaluation(s) Reevaluation #1: Patient's x-ray shows a questionable mild left retrocardiac infiltrate. Given the patient is asthmatic and this is the area of her pain, we will treat this as an infiltrate with azithromycin. Time: 19:44 Medical Decision Making Medical Decision Making MDM Narrative: 39-year-old female presents for evaluation of chest pain upper abdominal pain. She has no associated symptoms. The patient does have a leukocytosis to 15k, she appears to have a chronic leukocytosis and this is just above her baseline of around 13k. No obvious source of infections, chest x-ray was ordered which does not show any evidence of consolidation or pneumonia. The patient is status post cholecystectomy. LFTs are within normal limits, troponin is negative. EKG is nonischemic. I feel at this time the patient's most likely diagnosis is GERD/peptic ulcer disease and she will be referred to GI. There is no concern for obstruction as the patient is having regular bowel movement Differential Diagnosis Differential Diagnoses: The differential diagnosis associated with the presentation includes GERD ACS less likely Bowel obstruction Peptic ulcer disease Pneumonia Lab Data MDM Lab Attestation statement: I reviewed the patient's lab results. Leukocytosis as documented above. No clinically significant anemia. Normal platelet count. No significant electrolyte abnormalities. Troponin and BNP negative 07/30/24 16:39 07/30/24 16:39 Labs: Lab Results 07/30/24 07/30/24 Range/Units 16:39 17:02 WBC 15.0 H (4.8-10.8) X10*3/uL RBC 4.02 L (4.20-5.50) X10*6/uL Hgb 12.0 (12.0-16.0) g/dl Hct 35.3 L (37.0-47.0) % MCV 87.8 (80.0-98.0) fL MCH 29.9 (27.0-33.0) pg MCHC 34.0 (31.0-35.0) g/dl RDW 13.9 (11.0-16.0) % Plt Count 318 (160-400) X10*3/uL MPV 9.2 L (9.4-12.3) fL Immature Gran % (Auto) 0.3 (0.0-0.4) % Neut % (Auto) 66.5 (45-73) % Lymph % (Auto) 24.3 (20-40) % Graham % (Auto) 6.1 (2-11) % Eos % (Auto) 2.3 (0-4) % Baso % (Auto) 0.5 (0-2) % Lymph # (Auto) 3.7 (1.2-4.9) X10*3/uL Graham # (Auto) 0.9 (0.1-1.2) X10*3/uL Eos # (Auto) 0.3 (0.0-0.4) X10*3/uL Baso # (Auto) 0.1 (0.0-0.2) X10*3/uL Abs Immat Gran (auto) 0.05 H (0.00-0.03) X10*3/uL Absolute Neuts (auto) 10.0 H (2.0-8.3) x10*3/uL Absolute Nucleated RBC 0.000 (0.0-0.012) X10*3/uL Nucleated RBC % (auto) 0.0 (0.0-0.2) /100WBC PT 11.4 (10.9-12.4) SEC INR 1.0 (0.9-1.1) APTT 35.3 (26.0-36.8) SEC Sodium 137 (135-145) mmol/L Potassium 3.7 (3.3-5.1) mmol/L Chloride 107 (96-108) mmol/L Carbon Dioxide 24 (22-29) mmol/L Anion Gap 10 L (12-20) BUN 8 L (9-16) mg/dL Creatinine 0.74 (0.5-1.4) mg/dL Estim Creat Clear Calc 91.9 Estimated GFR > 60 Random Glucose 94 (60-115) mg/dL Calcium 9.5 (8.4-10.2) mg/dL Total Bilirubin 0.1 (0.0-1.0) mg/dL AST 16 (5-31) U/L ALT 13 (0-31) U/L Alkaline Phosphatase 39 (39-117) U/L Troponin I High Sens < 2.7 (<3.5-17.0) ng/L B-Natriuretic Peptide 22 (<100) pg/mL Total Protein 7.2 (6.5-8.0) g/dL Albumin 3.9 (3.5-5.0) g/dL Beta HCG, Quant < 2 mIU/mL Urine Color Yellow Urine Appearance Clear Urine pH 7.0 (5.0-9.0) Ur Specific [place] 1.010 (1.005-1.025) Urine Protein Negative (Neg-Trace) mg/dL Urine Glucose (UA) Negative (Negative) mg/dL Urine Ketones Negative (Negative) mg/dL Urine Blood Moderate (2+) H (Negative) Urine Nitrite Negative (Negative) Ur Leukocyte Esterase Negative (Negative) Urine RBC 11-20 H (0-2) /HPF Urine WBC 0-5 (0-5) /HPF Ur Squamous Epith Cells 3-5 (0-2) /HPF Urine Bacteria None Seen (None Seen) Hyaline Casts 0-2 (0-2) /LPF Urine Test NEGATIVE (NEGATIVE) Independent Interpretation I performed an independent interpretation of an: EKG Interpretation: Normal sinus rhythm with a rate of 75 beats per minute. No ST segment change Radiology Impression Discussion of test interpretation with radiology: I have reviewed the radiologist's reading. Radiologist Impression: FINDINGS: There is some minimal increased density seen in the retrocardiac/infrahilar region on the left medially however on the lateral radiograph a significant abnormality is not seen. The heart and pulmonary vessels appear normal. No pleural effusions. The bony thorax is unremarkable. Surgical clips are present in the gallbladder fossa. XR/XR chest 2V IMPRESSION: No acute intrathoracic disease. Question of minimal left infrahilar/retrocardiac infiltrate. Electronically signed by: Rylan Nicole MD 07/30/2024 07:08 PM EST Attestation Attending Attestation: I was available for consultation however the patient was not discussed with me. I agree with the caring provider's MDM. Jeremy Campbell MD Discharge Plan Discharge Clinical Impression: Chest pain, Abdominal pain Patient Disposition: Home, Self-Care Instructions: Chest Pain (ED), Abdominal Pain (ED) Additional Instructions: Your workup in the ER today was reassuring. This includes your EKG, your blood work. Your x-ray showed a questionable pneumonia in the left lower lung field Take azithromycin as directed to treat this Your symptoms may be related to heartburn versus peptic ulcer disease I recommend that you follow-up with a GI doctor at the number provided Prescriptions: No Action albuterol sulfate 90 mcg/actuation HFA aerosol inhaler 2 puff inhalation Q4-6H PRN (Reason: shortness of breath or wheezing) 30 Days Qty: 8.5 1RF cyclobenzaprine 10 mg tablet 10 mg PO TID PRN (Reason: muscle spasm) Qty: 20 0RF triamcinolone acetonide 0.1 % cream 1 appl topical BID 30 Days Qty: 15 2RF (DME) nebulizers [Compact Compressor Nebulizer] Misc See Rx Instructions .Route Qty: 1 0RF Rx Instructions: Use?As directed to?treat?asthma, 999 days Metamucil 3.4 gram/5.4 gram powder 1 tbsp PO BID 30 Days Qty: 660 3RF Rx Instructions: mix into at least 8 oz of water or juice before administering multivitamin with iron Tablet 1 tab PO DAILY Qty: 90 2RF cephalexin 500 mg capsule 500 mg PO Q12H 10 Days Qty: 20 0RF ipratropium-albuterol 0.5 mg-3 mg(2.5 mg base)/3 mL solution for nebulization 3 ml inhalation Q6-8H PRN (Reason: wheezing) 90 Days Qty: 180 3RF gabapentin 300 mg capsule 300 mg PO BID 30 Days Qty: 60 3RF montelukast 10 mg tablet 10 mg PO BEDTIME Qty: 90 3RF omeprazole 20 mg capsule,delayed release(DR/EC) 20 mg PO DAILY 90 Days Qty: 90 2RF budesonide-formoterol [Symbicort] 160-4.5 mcg/actuation HFA aerosol inhaler 2 puff inhalation Q12H 30 Days Qty: 10.2 11RF Interventions: ED Discharge Assessment Last Done: 07/30/24 19:55 Discharge Date/Time: 07/30/24 19:58 Print Language: Lao
[2024-07-30 16:52] LABS: Prothrombin Time 11.4 SEC (10.9-12.4)
[2024-07-30 16:54] LABS: Partial Thromboplastin Time 35.3 SEC (26.0-36.8)
[2024-07-30 17:04] LABS: B Type Natriuretic Peptide 22 pg/mL (<100)
[2024-07-30 17:05] LABS: Alanine Aminotransferase 13 U/L (0-31); Albumin Level 3.9 g/dL (3.5-5.0); Alkaline Phosphatase 39 U/L (39-117); Anion Gap 10 (12-20); Aspartate Amino Transferase 16 U/L (5-31); Basophils Absolute Auto 0.1 X10*3/uL (0.0-0.2); Basophils Percent Auto 0.5 % (0-2); Bilirubin Total 0.1 mg/dL (0.0-1.0); Blood Urea Nitrogen 8 mg/dL (9-16); Calcium 9.5 mg/dL (8.4-10.2); Carbon Dioxide 24 mmol/L (22-29); Chloride 107 mmol/L (96-108); Creatinine Clr Calc Pharmacy 91.9; Eosinophils Absolute Auto 0.3 X10*3/uL (0.0-0.4); Eosinophils Percent Auto 2.3 % (0-4); Estimated Glomerular Filt Rate > 60; Glucose Random 94 mg/dL (60-115); Hematocrit 35.3 % (37.0-47.0); Imm Gran Abs Auto 0.05 X10*3/uL (0.00-0.03); Imm Gran Pct Auto 0.3 % (0.0-0.4); Lymphocytes Absolute Auto 3.7 X10*3/uL (1.2-4.9); Lymphocytes Percent Auto 24.3 % (20-40); Mean Corpuscular Hemoglobin 29.9 pg (27.0-33.0); Mean Corpuscular Volume 87.8 fL (80.0-98.0); Mean Platelet Volume 9.2 fL (9.4-12.3); Monocytes Absolute Auto 0.9 X10*3/uL (0.1-1.2); Monocytes Percent Auto 6.1 % (2-11); Neutrophils Percent Auto 66.5 % (45-73); Platelet Count 318 X10*3/uL (160-400); Potassium 3.7 mmol/L (3.3-5.1); Red Blood Count 4.02 X10*6/uL (4.20-5.50); Red Cell Distribution Width 13.9 % (11.0-16.0); Sodium 137 mmol/L (135-145); Total Protein 7.2 g/dL (6.5-8.0)
[2024-07-30 17:06] LABS: Troponin-I High Sensitivity < 2.7 ng/L (<3.5-17.0)
[2024-07-30 17:09] LABS: HCG Quantitative < 2 mIU/mL
[2024-07-30 17:12] LABS: UPreg QC Valid YES; Urine Pregnancy NEGATIVE (NEGATIVE)
[2024-07-30 17:29] LABS: Appearance Urine Clear; Color Urine Yellow; Glucose Urine UA Negative (Negative); Leukocyte Esterase Urine Negative (Negative); Nitrite Urine Negative (Negative); UMIC TRIGGER UACC YES; Urine Blood Moderate (2+) (Negative); Urine Ketones Negative (Negative); Urine Protein Negative (Neg-Trace)
[2024-07-30 17:35] LABS: Bacteria Urine None Seen (None Seen); Hyaline Casts Urine 0-2 /LPF (0-2); WBC Urine 0-5 /HPF (0-5)
[2024-07-30 18:08] VITALS: BP 110/76; PULSE 86; RESP 18; TEMP 36.2; O2SAT 100
--- NOTE | 2024-07-30 19:04 | PC.NURSE ---
This RN assumed pt care @ 1900. Plan of care ongoing.
--- NOTE | 2024-07-30 19:30 | PC.NURSE ---
Pt a&ox3, no signs of distress. Pt resting in bed comfortably, no signs of distress. Plan of care ongoing.
[2024-07-30 19:55] VITALS: BP 110/76; PULSE 86; RESP 18; TEMP 36.2; O2SAT 100
== END 2024-07-30 19:58 | disposition home or self-care (01) ==
PROVIDERS: Physician Assistant; Emergency Provider Student in an Organized Health Care Education/Training Program; PCP Family Medicine
DX: R07.89 Other chest pain (principal); R10.2 Pelvic and perineal pain; R06.02 Shortness of breath; Z87.891 Personal history of nicotine dependence; Z79.899 Other long term (current) drug therapy
CPT/HCPCS: 36415; 71046; 80053; 81001; 81025; 83880; 84484; 84702; 85025; 85610; 85730; 93005; 99283; 99284

== ENCOUNTER → 2024-07-30 16:28 | Outpatient (BNV) | payer OTHER, SELFPAY | PROVIDERS: Emergency Provider Student in an Organized Health Care Education/Training Program; PCP Family Medicine; Visit Provider Internal Medicine Cardiovascular Disease | DX: R07.9 Chest pain, unspecified (principal); R94.31 Abnormal electrocardiogram [ECG] [EKG] | CPT/HCPCS: 93010 ==

== ENCOUNTER 2024-08-03 07:18 | Emergency (ER) | payer OTHER, SELFPAY ==
--- NOTE | ~2024-08-03 | XR_ITS ---
EXAMINATION: XR CHEST CLINICAL INFORMATION: Chest pain COMPARISON: 07/30/2024 TECHNIQUE: Frontal view of the chest was obtained. FINDINGS: No significant abnormality is noted involving the heart, lungs, mediastinum, bony thorax or soft tissues. XR/XR chest 1V IMPRESSION: Unremarkable examination. Electronically signed by: Shad Langston MD 08/03/2024 08:41 AM [facility]
--- NOTE | 2024-08-03 07:21 | ECG_ITS ---
Test Reason : cp Blood Pressure : / mmHG Vent. Rate : 086 BPM Atrial Rate : 086 BPM P-R Int : 154 ms QRS Dur : 080 ms QT Int : 364 ms P-R-T Axes : 057 043 023 degrees QTc Int : 435 ms Normal sinus rhythm with sinus arrhythmia Low voltage QRS Borderline ECG When compared with ECG of 30-JUL-2024 16:24, No significant change was found Referred By: Generic ED Physician Electronically Signed By:Panda Manriquez
[2024-08-03 07:26] VITALS: BP 119/55; PULSE 92; RESP 19; TEMP 36.6; O2SAT 99; BMI 29.7
--- NOTE | 2024-08-03 07:39 | ED.CHESTPAIN ---
HPI - Chest Pain General Chief Complaint: Upper Respiratory Symptoms Stated Complaint: Chest tightness, shakiness Time Seen by Provider: 08/03/24 07:31 Source: patient and old records reviewed Mode of arrival: ambulatory Limitations: no limitations History of Present Illness ED Provider: ELANA ESTEBAN narrative: 39 yo female with PMH of asthma, costochondritis and anxiety seen on 07/30 for chest pain abdominal pain work up unremarkable except for slight WBC count and minimal hazy retrocardiac opacity. She returns today with c/o not feeling well, chest tightness, using INH but not helping feeling like she has to yawn or take a deep breath. She was not on prednisone. She feels overall unwell. No recent travel no OCP use. MD complaint: chest discomfort Onset (ago): day(s) (Sunday) Timing of current episode: constant Prior episodes: Yes Onset: during rest and during exertion Pain location: left chest Pain radiation: none Severity: moderate Quality: tightness Relieving factors: other (meds and INH, rest) Exacerbating factors: other (cough, movement, breathing) Context: recent illness Associated symptoms: dyspnea Treatment prior to arrival: other (asthma meds) Related Data Home Medications ?Medication ?Instructions ?Recorded ?Confirmed gabapentin 300 mg capsule 300 mg PO BID 06/24/24 Previous Rx's ?Medication ?Instructions ?Recorded nebulizers (Compact Compressor #1 ea 09/14/23 Nebulizer) psyllium husk 3.4 gram/5.4 gram 1 tbsp PO BID 30 days #660 grams 10/19/23 oral powder (Metamucil) triamcinolone acetonide 0.1 % 1 appl topical BID 30 days #15 05/29/24 topical cream grams albuterol sulfate 90 mcg/actuation 2 puff inhalation Q4-6H PRN 06/10/24 aerosol inhaler shortness of breath or wheezing 1 month #8.5 grams budesonide-formoterol HFA 160 2 puff inhalation Q12H 1 month 06/10/24 mcg-4.5 mcg/actuation aerosol #10.2 grams inhaler (Symbicort) ipratropium 0.5 mg-albuterol 3 mg 3 ml inhalation Q6-8H PRN wheezing 06/10/24 (2.5 mg base)/3 mL nebulization 3 months #180 mL soln montelukast 10 mg tablet 10 mg PO BEDTIME #90 tabs 06/10/24 multivitamin with iron 1 tab PO DAILY #90 tabs 06/10/24 omeprazole 20 mg capsule,delayed 20 mg PO DAILY 90 days #90 caps 06/10/24 release azithromycin 250 mg tablet See Rx Instructions PO .COMPLEX #6 07/30/24 tabs cyclobenzaprine 10 mg tablet 10 mg PO TID PRN muscle spasm #20 08/03/24 tabs prednisone 20 mg tablet 40 mg (2 x 20 mg) PO DAILY 4 days 08/03/24 #8 tabs Allergies Allergy/AdvReac Type Severity Reaction Status Date / Time latex Allergy Mild Rash Verified 08/03/24 07:29 Review of Systems Review of Systems: Constitutional : No Fever, No Chills ENT/Mouth : No Hoarseness, No sore throat, No Rhinorrhea Eyes: No Redness, No Discharge, No Vision Changes Cardiovascular : pos Chest Pain, positive SOB, positive Dyspnea on Exertion, No Edema Respiratory : positive Cough, No Sputum, positive Wheezing, Gastrointestinal : No Nausea, No Vomiting, No Diarrhea, No abdominal Pain Genitourinary : No Dysuria, No Hematuria Musculoskeletal : No joint pain, No Myalgias Skin : No rash Neuro : No Weakness, No Numbness, No Headache Psych : No anxiety, depression All other systems reviewed and are negative [facility] Past Medical History Attestation statement: The following information was validated with the patient. Source: old records reviewed Medical History Anxiety with depression Costochondral chest pain Chest wall pain Suprapubic pain, acute Gallstones Depression Anxiety Asthma Surgical History Hx of cholecystectomy Hx of tubal ligation Social History Social History Household Members Other:: minor daughter Housing: Apartment Are you a primary care consultant to a significant other at home: Yes (minor daughter) Do you presently have visiting nurse or other home services: No Alcohol intake: current Alcohol intake frequency: does not drink Patient Tobacco Use Status: Former Tobacco user Tobacco use type: Cigarette Cigarettes Per Day: 4 Years Smoked: 5 e-Cigarette/Vaping Use: Never Used Second Hand Smoke Exposure: Yes Substance Use Type: Marijuana Advance Directives: No Advance Directives Information Provided: Yes Do you have a plan to hurt others: No Plan service: No Current occupational status: unemployed Current occupation: right hand dominant Current occupational exposures/hazards: No Cognitive needs: No Hearing needs: No Vision needs: No Physical Exam Vital Signs: Vital Signs: Last Vital Signs Temp 98 F 08/03/24 07:26 Pulse 92 08/03/24 07:26 Resp 19 08/03/24 07:26 BP 119/55 L 08/03/24 07:26 Pulse Ox 99 08/03/24 07:26 O2 Del Method Room Air 08/03/24 07:26 BMI result Body Mass Index 29.7 Appearance: Alert. Oriented X3. No acute distress. Eyes: Pupils equal, round and reactive to light. ENT: Pharynx normal. Neck: Normal inspection. Neck supple. CVS: Normal heart rate and rhythm. Pulses normal. Chest wall: ttp anterior chest Respiratory: No respiratory distress. Breath sounds mildly diminished Abdomen: Soft and non-tender. Skin: Skin warm and dry. Normal skin color. Normal skin turgor. Extremities: No lower extremity edema. No calf ttp Neuro: Oriented X 3. No motor deficit. No sensory deficit. Medications Administered Discontinued Medications Generic Name Dose Route Start Last Admin Trade Name Freq PRN Reason Stop Dose Admin Ketorolac Tromethamine 30 mg 08/03/24 07:31 08/03/24 08:02 Ketorolac Tromethamine 30 Mg/Ml Vial IM 08/03/24 07:32 30 mg ONCE ONE Administration Prednisone 60 mg 08/03/24 07:31 08/03/24 08:02 Prednisone 20 Mg Tablet PO 08/03/24 07:32 60 mg ONCE ONE Administration Medical Decision Making Medical Decision Making [facility] Narrative: 39 yo female with PMH of asthma, costochondritis and anxiety here with c/o chest tightness and pain following recent mild pneumonia - she has asthma and was not given steroids which is likely the problem she has no ACS risk factors she is PERC negative at this time will repeat labs, CXR and start on steroids/nebs and IM toradol. Doubt ACS, dissection/VTE Differential Diagnosis Differential Diagnoses: The differential diagnosis associated with the presentation includes costochondritis, anxiety, asthma, pneumonia Admission/Observation Consideration of admission/observation: Escalation of care including admission/observation considered negative work up neg trop CXR will start on prednisone and MRs stable for DC Lab Data MDM Lab Attestation statement: I reviewed the patient's lab results. 08/03/24 07:51 08/03/24 07:51 Labs: Lab Results 08/03/24 Range/Units 07:51 WBC 11.2 H (4.8-10.8) X10*3/uL RBC 3.81 L (4.20-5.50) X10*6/uL Hgb 11.5 L (12.0-16.0) g/dl Hct 33.2 L (37.0-47.0) % MCV 87.1 (80.0-98.0) fL MCH 30.2 (27.0-33.0) pg MCHC 34.6 (31.0-35.0) g/dl RDW 13.5 (11.0-16.0) % Plt Count 327 (160-400) X10*3/uL MPV 8.8 L (9.4-12.3) fL Immature Gran % (Auto) 0.4 (0.0-0.4) % Neut % (Auto) 65.9 (45-73) % Lymph % (Auto) 24.6 (20-40) % Bee % (Auto) 6.3 (2-11) % Eos % (Auto) 2.4 (0-4) % Baso % (Auto) 0.4 (0-2) % Lymph # (Auto) 2.7 (1.2-4.9) X10*3/uL Bee # (Auto) 0.7 (0.1-1.2) X10*3/uL Eos # (Auto) 0.3 (0.0-0.4) X10*3/uL Baso # (Auto) 0.1 (0.0-0.2) X10*3/uL Abs Immat Gran (auto) 0.05 H (0.00-0.03) X10*3/uL Absolute Neuts (auto) 7.4 (2.0-8.3) x10*3/uL Absolute Nucleated RBC 0.000 (0.0-0.012) X10*3/uL Nucleated RBC % (auto) 0.0 (0.0-0.2) /100WBC Sodium 140 (135-145) mmol/L Potassium 3.8 (3.3-5.1) mmol/L Chloride 109 H (96-108) mmol/L Carbon Dioxide 23 (22-29) mmol/L Anion Gap 12 (12-20) BUN 8 L (9-16) mg/dL Creatinine 0.72 (0.5-1.4) mg/dL Estim Creat Clear Calc 92.7 Estimated GFR > 60 Random Glucose 93 (60-115) mg/dL Calcium 8.5 D (8.4-10.2) mg/dL Magnesium 1.9 (1.6-2.6) mg/dL Total Bilirubin 0.4 (0.0-1.0) mg/dL Direct Bilirubin 0.1 (0.0-0.5) mg/dL AST 15 (5-31) U/L ALT 8 (0-31) U/L Alkaline Phosphatase 35 L (39-117) U/L Troponin I High Sens < 2.7 (<3.5-17.0) ng/L Total Protein 6.7 (6.5-8.0) g/dL Albumin 3.7 (3.5-5.0) g/dL Independent Interpretation I performed an independent interpretation of an: EKG and Plain X-Ray (normal ) Interpretation: Rate: 86 Rhythm: NSR [place]: normal Normal P waves. Normal AWILDA. Normal QRS complex. ST T wave : inverted t waves, no REMA qTC: 435 prior studies: no acute ischemia The study has been interpreted contemporaneously by me. . Radiology Impression Discussion of test interpretation with radiology: I have reviewed the radiologist's reading. External Record Review External record reviewed: Outpatient record Prescription Management I considered prescription management with: Other Discharge Plan Discharge Clinical Impression: Moderate persistent asthma, Acute costochondritis Patient Disposition: Home, Self-Care Instructions: Asthma (ED), Costochondritis (ED) Additional Instructions: labs normal of the heart EKG nonischemic chest xray no pneumonia at this time start on steroids and muscle relaxers please continue your inhaler - return for any worsening symptoms or concerns stay hydrated and rest Prescriptions: New cyclobenzaprine 10 mg tablet 10 mg PO TID PRN (Reason: muscle spasm) Qty: 20 0RF prednisone 20 mg tablet 40 mg PO DAILY 4 Days Qty: 8 0RF No Action azithromycin 250 mg tablet See Rx Instructions .ROUTE .COMPLEX Qty: 6 0RF Rx Instructions: For 250 mg dose pack: take 500 mg today (day 1), then 250 mg for 4 days (days 2-5) triamcinolone acetonide 0.1 % cream 1 appl topical BID 30 Days Qty: 15 2RF (DME) nebulizers [Compact Compressor Nebulizer] Misc See Rx Instructions .Route Qty: 1 0RF Rx Instructions: Use?As directed to?treat?asthma, 999 days Metamucil 3.4 gram/5.4 gram powder 1 tbsp PO BID 30 Days Qty: 660 3RF Rx Instructions: mix into at least 8 oz of water or juice before administering multivitamin with iron Tablet 1 tab PO DAILY Qty: 90 2RF budesonide-formoterol [Symbicort] 160-4.5 mcg/actuation HFA aerosol inhaler 2 puff inhalation Q12H 30 Days Qty: 10.2 11RF ipratropium-albuterol 0.5 mg-3 mg(2.5 mg base)/3 mL solution for nebulization 3 ml inhalation Q6-8H PRN (Reason: wheezing) 90 Days Qty: 180 3RF montelukast 10 mg tablet 10 mg PO BEDTIME Qty: 90 3RF omeprazole 20 mg capsule,delayed release(DR/EC) 20 mg PO DAILY 90 Days Qty: 90 2RF albuterol sulfate 90 mcg/actuation HFA aerosol inhaler 2 puff inhalation Q4-6H PRN (Reason: shortness of breath or wheezing) 30 Days Qty: 8.5 1RF gabapentin 300 mg capsule 300 mg PO BID Stand Alone Forms: Work/School Release Print Language: Upper Sorbian
[2024-08-03 07:54] LABS: MANUAL DIFF FLAG NO
[2024-08-03 07:56] LABS: Basophils Absolute Auto 0.1 X10*3/uL (0.0-0.2); Basophils Percent Auto 0.4 % (0-2); Eosinophils Absolute Auto 0.3 X10*3/uL (0.0-0.4); Eosinophils Percent Auto 2.4 % (0-4); Hematocrit 33.2 % (37.0-47.0); Hemoglobin 11.5 g/dl (12.0-16.0); Imm Gran Abs Auto 0.05 X10*3/uL (0.00-0.03); Imm Gran Pct Auto 0.4 % (0.0-0.4); Lymphocytes Absolute Auto 2.7 X10*3/uL (1.2-4.9); Lymphocytes Percent Auto 24.6 % (20-40); Mean Corpuscular HGB Conc 34.6 g/dl (31.0-35.0); Mean Corpuscular Hemoglobin 30.2 pg (27.0-33.0); Mean Corpuscular Volume 87.1 fL (80.0-98.0); Mean Platelet Volume 8.8 fL (9.4-12.3); Monocytes Absolute Auto 0.7 X10*3/uL (0.1-1.2); Monocytes Percent Auto 6.3 % (2-11); Neutrophils Absolute Auto 7.4 x10*3/uL (2.0-8.3); Neutrophils Percent Auto 65.9 % (45-73); Platelet Count 327 X10*3/uL (160-400); Red Blood Count 3.81 X10*6/uL (4.20-5.50); Red Cell Distribution Width 13.5 % (11.0-16.0); White Blood Count 11.2 X10*3/uL (4.8-10.8)
[2024-08-03] MEDS: predniSONE 20 MG TABLET 60 MG PO (08:02)
[2024-08-03] MEDS: Ketorolac Tromethamine 30 MG/ML VIAL IM (08:02)
[2024-08-03 08:12] LABS: Alanine Aminotransferase 8 U/L (0-31); Albumin Level 3.7 g/dL (3.5-5.0); Alkaline Phosphatase 35 U/L (39-117); Anion Gap 12 (12-20); Aspartate Amino Transferase 15 U/L (5-31); Bilirubin Direct 0.1 mg/dL (0.0-0.5); Bilirubin Total 0.4 mg/dL (0.0-1.0); Blood Urea Nitrogen 8 mg/dL (9-16); Calcium 8.5 mg/dL (8.4-10.2); Carbon Dioxide 23 mmol/L (22-29); Chloride 109 mmol/L (96-108); Creatinine Clr Calc Pharmacy 92.7; Estimated Glomerular Filt Rate > 60; Glucose Random 93 mg/dL (60-115); Magnesium 1.9 mg/dL (1.6-2.6); Potassium 3.8 mmol/L (3.3-5.1); Sodium 140 mmol/L (135-145); Total Protein 6.7 g/dL (6.5-8.0)
[2024-08-03 08:23] LABS: Troponin-I High Sensitivity < 2.7 ng/L (<3.5-17.0)
[2024-08-03] MEDS: Albuterol/Iprat 2.5/0.5MG 3 ML AMPUL.NEB INHALE (09:12)
[2024-08-03 09:13] VITALS: PULSE 72; RESP 18; O2SAT 99
[2024-08-03 09:32] VITALS: BP 0/0; PULSE 72; RESP 18; TEMP 36.6; O2SAT 98
== END 2024-08-03 09:33 | disposition home or self-care (01) ==
PROVIDERS: Emergency Provider Emergency Medicine; PCP Family Medicine
DX: J45.40 Moderate persistent asthma, uncomplicated (principal); R07.89 Other chest pain; M94.0 Chondrocostal junction syndrome [Tietze]; R06.02 Shortness of breath; I49.8 Other specified cardiac arrhythmias; R05.9 Cough, unspecified; Z87.891 Personal history of nicotine dependence; Z79.899 Other long term (current) drug therapy
CPT/HCPCS: 36415; 71045; 80048; 80076; 83735; 84484; 85025; 93005; 94640; 96372; 99284; J1885

== ENCOUNTER → 2024-08-03 07:21 | Outpatient (BNV) | payer OTHER, SELFPAY | PROVIDERS: Emergency Provider Emergency Medicine; PCP Family Medicine; Visit Provider Internal Medicine Cardiovascular Disease | DX: R07.9 Chest pain, unspecified (principal); R94.31 Abnormal electrocardiogram [ECG] [EKG] | CPT/HCPCS: 93010 ==

== ENCOUNTER 2024-08-13 10:43 | Outpatient (AMB) | payer OTHER, SELFPAY ==
--- NOTE | 2024-08-13 10:51 | A.OFFPC_ITS ---
Vital Signs 08/13/24 10:57 Height 5 ft Weight 156 lb 4 oz BMI 30.5 BP 93/55 L Blood Pressure Location Rt brachial Position Sitting Respiration 14 Pulse 105 H Pulse Source Pulse Oximeter Temp 98.2 F Temp Source Temporal Artery Scan Pulse Oximetry (%) 98 Oxygen Delivery Method Room Air Intake Visit Reasons: left kidney pain Intake Note: f/u left side pain and right great toe pain Allergies latex Allergy (Mild, Verified 08/22/24 08:35) Rash Tobacco use date assessed: 06/10/24 Dental Screening Dental Screen Date: 06/10/24 HPI left kidney pain HPI Details 39 y/o female presents today with compla ints of L kidney pain. Was seen at ED for L lateral abd. pain and flank pain. Chest x-ray had suggested L lower lung infiltrate and was given a Z-scott. Pt also has hematuria. Has complaints of an ingrown nail. Reports pain/swelling. [facility] Medical History Anxiety with depression Costochondral chest pain Chest wall pain Suprapubic pain, acute Gallstones Depression Anxiety Asthma Surgical History Hx of cholecystectomy Hx of tubal ligation Social History Household Members Other:: minor daughter Housing: Apartment Are you a primary healthcare facility administrator to a significant other at home: Yes (minor daughter) Do you presently have visiting nurse or other home services: No Alcohol intake: current Alcohol intake frequency: does not drink Patient Tobacco Use Status: Former Tobacco user Tobacco use type: Cigarette Cigarettes Per Day: 4 Years Smoked: 5 e-Cigarette/Vaping Use: Never Used Second Hand Smoke Exposure: Yes Substance Use Type: Marijuana service: No Current occupational status: unemployed Current occupation: right hand dominant Current occupational exposures/hazards: No Cognitive needs: No Hearing needs: No Vision needs: No Questionnaire PHQ-9 Over the last 2 weeks, how often have you been bothered by any of the following problems? 1. Little interest or pleasure in doing things: nearly every day 2. Feeling down, depressed, or hopeless: nearly every day 3. Trouble falling or staying asleep, or sleeping too much: nearly every day 4. Feeling tired or having little energy: nearly every day 5. Poor appetite or overeating: nearly every day 6. Feeling bad about yourself - or that you are a failure or have let yourself or your family down: nearly every day 7. Trouble concentrating on things, such as reading the newspaper or watching television: several days 8. Moving or speaking so slowly that other people could have noticed. Or the opposite - being so fidgety or restless that you have been moving around a lot more than usual: several days 9. Thoughts that you would be better off or of hurting yourself in some way: not at all Total score: 20 Source: Developed by Drs. Sadiq Artis, Azucena Warren, Vern Mckeon and colleagues, with an educational jose from [employer] Thrive Questionnaire Date Thrive assessed: 08/12/24 I am a: Patient What is your living situation today?: I choose not to answer this question Within the past 12 months, did the food you bought not last and you didn't have the money to get more?: Never true Within the past 12 months, did you worry whether your food would run out before you got money to buy more?: Never true Do you have trouble paying for medicines?: No Do you have trouble getting transportation to medical appointments?: No Do you have trouble paying your heating and electricity bill?: No Do you have trouble taking care of your child, family member or friend?: No Do you have trouble with day-to-day activities such as bathing, preparing meals, shopping, managing finances, etc.?: No Are you currently unemployed and looking for a job?: No Are you interested in more education?: No Please select the resources that you would like help with: None Currently or been in a relationship where the following occur: I choose not to answer THRIVE Score: 0 AUDIT C Alcohol Use Questionnaire (AUDIT-C) 2. How many drinks containing alcohol do you have on a typical day when you are drinking?: 1 or 2 Total Score: 0 JALEN-7 AMB Questionnaire JALEN-7 Date JALEN - 7 assessed: 06/10/24 Feeling nervous, anxious, or on edge: 3 = Nearly every day Not being able to stop or control worryin = Nearly every day Worrying too much about different things: 3 = Nearly every day Trouble relaxin = Nearly every day Being so restless that it is hard to sit still: 2 = More than half the days Becoming easily annoyed or irritable: 1 = Several days Feeling afraid as if something awful might happen: 0 = Not at all Total JALEN-7 score (0-4 normal; 5-9 mild; 10-14 moderate; 15-21 severe): 15 Source: Developed by Drs. Sadiq Artis, Azucena Warren, Vern Mckeon and colleagues, with an educational jose from [employer] Review of Systems Const Denies chills, Denies fatigue, Denies fever(s), Denies headache(s) and Denies weakness ENT Denies dizziness and Denies headache(s) Card Denies dyspnea Resp Denies cough, Denies dyspnea, Denies wheezing and Denies other (shortness of breath) Musc Denies numbness and Denies tingling Neuro Denies dizziness, Denies headache(s), Denies numbness, Denies tingling and Denies weakness Psych Denies anxiety and Denies depression Endo Denies fatigue Aller/Immun Denies wheezing Physical exam (Primary Care) Vital Signs: Last Vital Signs Temp 98.2 F 08/13/24 10:57 Pulse 105 H 08/13/24 10:57 Resp 14 08/13/24 10:57 BP 93/55 L 08/13/24 10:57 Pulse Ox 98 08/13/24 10:57 Oxygen Delivery Method Room Air 08/13/24 10:57 BMI result Body Mass Index 30.5 Tobacco/Smoking Status: Tobacco use Status Tobacco use date assessed 06/10/24 08/13/24 11:01 Patient Tobacco Use Status Former Tobacco user 08/13/24 11:01 Tobacco use type Cigarette 08/13/24 11:01 e-Cigarette/Vaping Use Never Used 08/13/24 11:01 PHQ-9: PHQ-9 Score PHQ-9: Total score 20 08/13/24 11:22 Thrive Assessment: Date of Thrive Assessment Date Thrive assessed 08/12/24 08/13/24 11:01 Currently or been in a relationship where the following occur: I choose not to answer Const General: well developed; No acute distress Nutritional Appearance: well nourished Orientation/consciousness: patient oriented x3 HENMT Head: Yes normocephalic and Yes atraumatic Eyes General: appearance normal, both eyes and all related structures Pupils: Equal, round and reactive pupils present EOM: EOMs intact bilaterally Resp Effort & Inspection: normal respiratory effort Neuro General: patient oriented x3 and gait normal Cranial nerves: Yes Equal, round and reactive pupils present Psych Affect: normal affect Results AMB Urinalysis, Automated UA Leukoctes 0 Anand/uL Last Edit by PANCHO Sotelo on 08/13/24 13:18 UA Nitrite Negative Last Edit by PANCHO Sotelo on 08/13/24 13:18 UA Urobilinogen 3.5 mg/dL Last Edit by PANCHO Sotelo on 08/13/24 13:18 UA Protein 0 mg/dL Last Edit by PANCHO Sotelo on 08/13/24 13:18 UA pH 6.0 Last Edit by PANCHO Sotelo on 08/13/24 13:18 UA Blood 80 Jonathan/uL Last Edit by PANCHO Sotelo on 08/13/24 13:18 UA Specific [place] 1.015 Last Edit by PANCHO Sotelo on 08/13/24 13:18 UA Ketone Negative Last Edit by PANCHO Sotelo on 08/13/24 13:18 UA Bilirubin 0 mg/dL Last Edit by PANCHO Sotelo on 08/13/24 13:18 UA Glucose 0 mg/dL Last Edit by PANCHO Sotelo on 08/13/24 13:18 Results Reviewed Results Reviewed: Laboratory Last Values Urine pH (Auto) 6.0 08/13/24 11:31 Specific [place] (Auto) 1.015 08/13/24 11:31 Urine Protein (Auto) 0 mg/dL 08/13/24 11:31 Glucose (UA)(Auto) 0 mg/dL 08/13/24 11:31 Urine Ketones (Auto) Negative 08/13/24 11:31 Urine Blood (Auto) 80 Jonathan/uL 08/13/24 11:31 Urine Nitrite (Auto) Negative 08/13/24 11:31 Urine Bilirubin (Auto) 0 mg/dL 08/13/24 11:31 Urine Urobilinogen (Auto) 3.5 mg/dL 08/13/24 11:31 Leukocyte Esterase (Auto) 0 Anand/uL 08/13/24 11:31 Coding Level of Care Code Est Pt Level 3 (54064) Diagnoses Left flank pain R10.9 Ingrown toenail L60.0 Hematuria R31.9 Assessment & Plan Assessment & Plan (1) Left flank pain: Code(s): R10.9 - Unspecified abdominal pain Category: Medical Plan: Patient?was?recently?seen?at?the?ED?for?left?lateral?abdominal/flank?pain. Chest?x-ray?suggested?a left?lower?lung?infiltrate?and?she?was?given?a?Z-Scott. She?also?had?elevated?white?count Also,?patient?had?hematuria and?history?of?left?nephrocalcinosis. Checking?CT?abdomen?to?rule?out?urinary?stone?as?the?underlying?cause?of?flank?p ain Increase?hydration Will?follow-up?on?CT?and?may?need?Flomax?and?referral?to?urology Can?use?NSAIDs?for?pain (2) Ingrown toenail: Code(s): L60.0 - Ingrowing nail Category: Medical Plan: Patient?has?ingrown?nail?with?increased?pain?swelling?and?is?mildly?infected Will?give?her?cephalexin She?will?use?cotton?pledgets?to?try?to?decreased?pain?and?swel ling?at?site?of?nail?plate?while?awaiting?referral?to?Podiatry?which?have?made?t cj (3) Hematuria: Code(s): R31.9 - Hematuria, unspecified Category: Medical Plan: As?above Orders: Orders Complete Blood Count Auto Diff 08/13/24 R10.9 - Unspecified abdominal pain, R31.9 - Hematuria, unspecified UA and rflx microscopic 08/13/24 Z00.00 - Encounter for general adult medical examination without abnormal findings, R10.9 - Unspecified abdominal pain CT abdomen pelvis wo IV con 08/13/24 R10.9 - Unspecified abdominal pain, R31.9 - Hematuria, unspecified Comprehensive Met. Panel 08/13/24 R10.9 - Unspecified abdominal pain Urine Dipstick 08/13/24 R10.9 - Unspecified abdominal pain AMB Urinalysis Automated 08/13/24 R10.9 - Unspecified abdominal pain UA CC w/rflx Micro + Cult 08/13/24 R10.9 - Unspecified abdominal pain Referrals Podiatry Referral L60.0 - Ingrowing nail Medications: New cephalexin 500 mg PO Q12H 20 caps 0RF 10 days Changed From gabapentin 300 mg PO BID To gabapentin 300 mg PO BID 60 caps 3RF 30 days From budesonide-formoterol 160-4.5 mcg/actuation 2 puffs inhalation Q12H 1 month 10.2 grams 11RF To budesonide-formoterol 160-4.5 mcg/actuation (Symbicort) 2 puffs inhalation Q12H 10.2 grams 11RF 1 month From albuterol sulfate 90 mcg/actuation 2 puffs inhalation Q4-6H 1 month PRN 8.5 grams 1RF shortness of breath or wheezing NS J45.20 - Mild intermittent asthma, uncomplicated To albuterol sulfate 90 mcg/actuation 2 puffs inhalation Q4-6H PRN 8.5 grams 1RF shortness of breath or wheezing 1 month NS J45.20 - Mild intermittent asthma, uncomplicated Refilled montelukast 10 mg PO BEDTIME 90 tabs 3RF J45.20 - Mild intermittent asthma, uncomplicated ipratropium-albuterol 0.5 mg-3 mg(2.5 mg base)/3 mL 3 mL inhalation Q6-8H PRN 180 mL 3RF wheezing 3 months J45.20 - Mild intermittent asthma, uncomplicated omeprazole 20 mg PO DAILY 90 caps 2RF 90 days
[2024-08-13 10:57] VITALS: BP 93/55; PULSE 105; RESP 14; TEMP 36.8; O2SAT 98; BMI 30.5
== END 2024-08-13 11:51 | disposition home or self-care (01) ==
PROVIDERS: PCP Family Medicine; Visit Provider Family Medicine
DX: R10.9 Unspecified abdominal pain (principal); L60.0 Ingrowing nail; R31.9 Hematuria, unspecified

== ENCOUNTER 2024-08-13 10:43 | Outpatient (REF) | payer OTHER, SELFPAY ==
[2024-08-13 14:28] LABS: Appearance Urine Clear; Color Urine Yellow; Glucose Urine UA Negative (Negative); Leukocyte Esterase Urine Negative (Negative); Nitrite Urine Negative (Negative); PH 6.5 (5.0-9.0); Specific Gravity - Urine 1.015 (1.005-1.025); UMIC TRIGGER UACC YES; Urine Blood Moderate (2+) (Negative); Urine Ketones Negative (Negative); Urine Protein Negative (Neg-Trace)
[2024-08-13 14:31] LABS: Bacteria Urine Trace (None Seen); Hyaline Casts Urine 0-2 /LPF (0-2); WBC Urine 0-5 /HPF (0-5)
== END 2024-08-13 10:44 | disposition home or self-care (01) ==
LOC: HO.LAB 10:43
PROVIDERS: PCP Family Medicine; Visit Provider Family Medicine
DX: R10.9 Unspecified abdominal pain (principal); R31.9 Hematuria, unspecified; L60.0 Ingrowing nail
CPT/HCPCS: 81001; 96127; 99212

== ENCOUNTER 2024-08-22 08:36 | Outpatient (AMB) | payer OTHER, SELFPAY ==
--- NOTE | 2024-08-22 08:32 | A.OFFPC_ITS ---
Intake Visit Reasons: f/u new meds Intake Note: pt would like to discuss emotional support letter for her dog Allergies latex Allergy (Mild, Verified 08/22/24 08:35) Rash Tobacco use date assessed: 06/10/24 Dental Screening Dental Screen Date: 06/10/24 HPI f/u new meds HPI Details Follow-up?flank?pain Patient?has?ongoing?flank?pain?and?hematuria?on?urinalysis Had?ordered?CT?scan?stat?but?patient?says?she?was?never?called?about?this. Had?also?ordered?lab?work?but?patient?did?not?get?his?done. Still?has?ongoing?flank?pain.??Prior?imaging?had?shown?nephrocalcinosis?in?the?p ast Patient?also?would?like?a?new?letter?for?emotional?support?animal.??We?have?carline t ed?her?for?major?depression?and?also?for?anxiety?in?the?past.??She?is?working?on ?getting?reestablished?with?her?prior?behavioral?health?providers. [facility] Medical History Anxiety with depression Costochondral chest pain Chest wall pain Suprapubic pain, acute Gallstones Depression Anxiety Asthma Surgical History Hx of cholecystectomy Hx of tubal ligation Social History Household Members Other:: minor daughter Housing: Apartment Are you a primary congregational care pastor to a significant other at home: Yes (minor daughter) Do you presently have visiting nurse or other home services: No Alcohol intake: current Alcohol intake frequency: does not drink Patient Tobacco Use Status: Former Tobacco user Tobacco use type: Cigarette Cigarettes Per Day: 4 Years Smoked: 5 e-Cigarette/Vaping Use: Never Used Second Hand Smoke Exposure: Yes Substance Use Type: Marijuana service: No Current occupational status: unemployed Current occupation: right hand dominant Current occupational exposures/hazards: No Cognitive needs: No Hearing needs: No Vision needs: No Questionnaire Thrive Questionnaire Date Thrive assessed: 08/12/24 I am a: Patient What is your living situation today?: I choose not to answer this question Within the past 12 months, did the food you bought not last and you didn't have the money to get more?: Never true Within the past 12 months, did you worry whether your food would run out before you got money to buy more?: Never true Do you have trouble paying for medicines?: No Do you have trouble getting transportation to medical appointments?: No Do you have trouble paying your heating and electricity bill?: No Do you have trouble taking care of your child, family member or friend?: No Do you have trouble with day-to-day activities such as bathing, preparing meals, shopping, managing finances, etc.?: No Are you currently unemployed and looking for a job?: No Are you interested in more education?: No Please select the resources that you would like help with: None Currently or been in a relationship where the following occur: I choose not to answer THRIVE Score: 0 JALEN-7 AMB Questionnaire JALEN-7 Date JALEN - 7 assessed: 06/10/24 Source: Developed by Drs. Sadiq Artis, Azucena Warren, Vern Mckeon and colleagues, with an educational jose from [employer]. Review of Systems Const Denies chills, Denies fatigue, Denies fever(s), Denies headache(s) and Denies weakness ENT Denies dizziness and Denies headache(s) Card Denies chest pain, Denies lightheadedness, Denies dyspnea and Denies other (Palpitations) Resp Denies cough, Denies dyspnea, Denies wheezing and Denies other ( shortness of breath) Musc Denies numbness and Denies tingling Neuro Denies dizziness, Denies headache(s), Denies numbness, Denies tingling, Denies paresthesias and Denies weakness Psych Denies anxiety and Denies depression Endo Denies fatigue Aller/Immun Denies wheezing Physical exam (Primary Care) Tobacco/Smoking Status: Tobacco use Status Tobacco use date assessed 06/10/24 08/22/24 08:37 Patient Tobacco Use Status Former Tobacco user 08/22/24 08:37 Tobacco use type Cigarette 08/22/24 08:37 e-Cigarette/Vaping Use Never Used 08/22/24 08:37 Thrive Assessment: Date of Thrive Assessment Date Thrive assessed 08/12/24 08/22/24 08:37 Currently or been in a relationship where the following occur: I choose not to answer Telehealth Telehealth Telehealth Platform: Telephone Location of provider rendering services: practice address Location of patient: address on file Patient Identification confirmed using: Name, : Yes Telehealth method: voice only Patient verbally consented to treatment: Yes Patient verbally consented to billing insurance company: Yes Patient informed of any privacy concerns related to visit: Yes Minutes spent on Phone/Video with Pt.: 8 Coding Level of Care Code Tele Est Pt Level 2 (20613) Diagnoses Left flank pain R10.9 Hematuria R31.9 Mild episode of recurrent major depressive disorder F33.0 Major depression episode severity: mild JALEN (generalized anxiety disorder) F41.1 Assessment & Plan Assessment & Plan (1) Left flank pain: Code(s): R10.9 - Unspecified abdominal pain Category: Medical Plan: Ongoing?left?leg?pain?with?hematuria Had?ordered?a?CT?scan?stab?but?patient?has?not?been?contacted?about?this.??[facility]?office?to?check?on?the?status?of?this?get?it?ordered?as?soon?as?possible Patient?has?not?had?blood?work?drawn?so?will?come?in?today?to?get?that?done. We?will?follow-up?by?telemedicine?in?a?few?days?to?review (2) Hematuria: Code(s): R31.9 - Hematuria, unspecified Category: Medical Plan: As?above (3) MDD (major depressive disorder), recurrent episode: Code(s): F33.9 - Major depressive disorder, recurrent, unspecified Category: Medical Qualifiers: Major depression episode severity: mild Qualified Code(s): F33.0 - Major depressive disorder, recurrent, mild Plan: History?of?major?depression?and?anxiety. ??Have?treated?patient?with?medications?in?the?past?though?she?is?working?on?get ting?reestablished?with?her?prior?behavioral?health?team/providers. Will?write?her?a?letter?for?her?emotional support?an imal?as?she?has?already?had?this?in?the?past?but?needs?her?letter?updated. (4) JALEN (generalized anxiety disorder): Code(s): F41.1 - Generalized anxiety disorder Category: Medical Plan: As?above Orders: Orders UA and rflx microscopic Today R31.9 - Hematuria, unspecified, Z00.00 - Encounter for general adult medical examination without abnormal findings Comprehensive Met. Panel Today R10.9 - Unspecified abdominal pain Complete Blood Count Auto Diff Today R10.9 - Unspecified abdominal pain, Z00.00 - Encounter for general adult medical examination without abnormal findings Urine Culture Today R31.9 - Hematuria, unspecified
== END 2024-08-22 13:34 | disposition home or self-care (01) ==
LOC: HO.HMCFM 08:36
PROVIDERS: PCP Family Medicine; Visit Provider Family Medicine
DX: R10.9 Unspecified abdominal pain (principal); R31.9 Hematuria, unspecified; F33.0 Major depressive disorder, recurrent, mild; F41.1 Generalized anxiety disorder

== ENCOUNTER → 2024-08-22 08:36 | Outpatient (BNVA) | payer OTHER, SELFPAY | PROVIDERS: PCP Family Medicine; Visit Provider Family Medicine ==

== ENCOUNTER 2024-08-25 14:45 | Outpatient (REF) | payer OTHER, SELFPAY ==
--- NOTE | ~2024-08-25 | CT_ITS ---
EXAMINATION: CT ABDOMEN AND PELVIS WITHOUT CONTRAST CLINICAL INFORMATION: Specified abdomen pain COMPARISON: 12/24/2020 TECHNIQUE: Multidetector volumetric imaging was performed from the superior aspect of the liver through the pubic symphysis. Sagittal and coronal reformatted images were obtained on the technologist's workstation. This CT examination was performed using dose optimization techniques as appropriate, variously including the following: *Automated exposure control *Adjustment of mA and/or kV according to patient size (this includes techniques or standardized protocols for targeted exams where dose is matched to indication/reason for exam; i.e. extremities or head) *Use of iterative reconstruction technique DLP: 491 mGy-cm FINDINGS: LUNG BASES: The visualized lung bases are unremarkable. LIVER, GALLBLADDER, AND BILIARY TREE: The liver is normal in size, shape, and attenuation. No focal hepatic lesion or biliary ductal dilatation is present. The gallbladder surgically absent. PANCREAS: Unremarkable. SPLEEN: Unremarkable. ADRENAL GLANDS: Unremarkable. KIDNEYS AND URETERS: Subtle low density areas in the mid left kidney not completely characterized. This can be followed with ultrasound. A few tiny 1 mm punctate stones in both kidneys are observed nonobstructive. No suspicious lesion or perinephric collection or hydronephrosis. Bladder is decompressed. BLADDER: Decompressed GASTROINTESTINAL TRACT: No evidence of bowel obstruction. The stomach is filled with fluid and ingested material. No right or left lower quadrant inflammatory change. Appendix not clearly identified. ABDOMINAL WALL: No significant hernia is appreciated. LYMPH NODES: Normal. VASCULAR: Aorta is atherosclerotic but not aneurysmal at the bifurcation. PELVIC VISCERA: Unremarkable. OSSEOUS STRUCTURES: Unremarkable. CT/CT abdomen pelvis wo IV con IMPRESSION: Tiny bilateral punctate nephroliths. No hydronephrosis. Fleischner guidelines were followed. Electronically signed by: Kahlil Howell MD 08/26/2024 09:27 AM EST
== END 2024-08-25 14:46 | disposition home or self-care (01) ==
LOC: HO.CT 14:45
PROVIDERS: PCP Family Medicine; Visit Provider Family Medicine
DX: R10.9 Unspecified abdominal pain (principal); R31.9 Hematuria, unspecified
CPT/HCPCS: 74176

== ENCOUNTER 2024-08-26 10:55 | Outpatient (REF) | payer OTHER, SELFPAY ==
[2024-08-26 14:20] LABS: MANUAL DIFF FLAG NO
[2024-08-26 14:25] LABS: Basophils Absolute Auto 0.1 X10*3/uL (0.0-0.2); Basophils Percent Auto 0.5 % (0-2); Eosinophils Absolute Auto 0.2 X10*3/uL (0.0-0.4); Eosinophils Percent Auto 1.9 % (0-4); Hematocrit 37.4 % (37.0-47.0); Hemoglobin 12.8 g/dl (12.0-16.0); Imm Gran Abs Auto 0.06 X10*3/uL (0.00-0.03); Imm Gran Pct Auto 0.5 % (0.0-0.4); Lymphocytes Absolute Auto 2.9 X10*3/uL (1.2-4.9); Lymphocytes Percent Auto 25.7 % (20-40); Mean Corpuscular HGB Conc 34.2 g/dl (31.0-35.0); Mean Corpuscular Hemoglobin 30.3 pg (27.0-33.0); Mean Corpuscular Volume 88.4 fL (80.0-98.0); Mean Platelet Volume 9.3 fL (9.4-12.3); Monocytes Absolute Auto 0.6 X10*3/uL (0.1-1.2); Monocytes Percent Auto 5.4 % (2-11); Neutrophils Absolute Auto 7.4 x10*3/uL (2.0-8.3); Platelet Count 371 X10*3/uL (160-400); Red Blood Count 4.23 X10*6/uL (4.20-5.50); Red Cell Distribution Width 13.9 % (11.0-16.0); White Blood Count 11.3 X10*3/uL (4.8-10.8)
[2024-08-26 14:32] LABS: Appearance Urine Clear; Color Urine Yellow; Glucose Urine UA Negative (Negative); Leukocyte Esterase Urine Negative (Negative); Nitrite Urine Negative (Negative); UMIC TRIGGER UA YES; UMIC TRIGGER UACC YES; Urine Blood Moderate (2+) (Negative); Urine Ketones Negative (Negative); Urine Protein Negative (Neg-Trace)
[2024-08-26 14:34] LABS: Bacteria Urine None Seen (None Seen); Hyaline Casts Urine 0-2 /LPF (0-2); Squamous Epithelial Cell Urine 0-2 /HPF (0-2); WBC Urine 0-5 /HPF (0-5)
[2024-08-26 14:37] LABS: Alanine Aminotransferase 13 U/L (0-31); Alkaline Phosphatase 34 U/L (39-117); Anion Gap 12 (12-20); Aspartate Amino Transferase 15 U/L (5-31); Bilirubin Total 0.3 mg/dL (0.0-1.0); Blood Urea Nitrogen 10 mg/dL (9-16); Calcium 9.1 mg/dL (8.4-10.2); Carbon Dioxide 28 mmol/L (22-29); Chloride 105 mmol/L (96-108); Estimated Glomerular Filt Rate > 60; Glucose Random 84 mg/dL (60-115); Potassium 3.7 mmol/L (3.3-5.1); Sodium 141 mmol/L (135-145); Total Protein 7.3 g/dL (6.5-8.0)
== END 2024-08-26 10:56 | disposition home or self-care (01) ==
LOC: HO.WFDLDS 10:55
PROVIDERS: Visit Provider Family Medicine
DX: R10.9 Unspecified abdominal pain (principal); R31.9 Hematuria, unspecified
CPT/HCPCS: 36415; 80053; 81001; 85025; 87086

== ENCOUNTER 2024-08-26 13:48 | Outpatient (RCR) | payer OTHER, SELFPAY ==
--- NOTE | 2024-07-09 11:53 | MHC.PT.EP ---
[facility] Mobile Office [place] Office [place] Office [address] Vibha Bui [address] [phone] F: [phone] F: [phone] F: [phone] F: [phone] Physical Therapy Plan of Care Date of Evaluation: 07/09/24 Date of Surgery: Diagnosis: Patellofemoral disorder B Assessment: 39 y/o female referred to PT [facility] B patellofemoral pain syndrome. S/s consistent with diagnosis resulting in pain and difficulty with walking, stairs, bending, data operations leader, and sleeping sometimes as well as buckling when standing secondary to decreased knee/hip strength, lateral patella tracking, lateral static tilt, impaired postural awareness (stands in locked out knee/lumbar position), and impaired squatting. Recommend PT 2x/week for 5 weeks to address impairments, implement HEP, and optimize functional mobility. Frequency and Duration: The patient will be seen 2x/week for 5 weeks Short Term Goals: 3 weeks I with HEP Pt will stand with soft knee position > 50% of the time Longterm Goals: 5 weeks I [facility] HEP and self management of sx Pt will be able to walk > 30 min with pain < 3/10 Pt will be able to roll in bed with pain < 3/10 Treatment Plan: Modalities to reduce pain, spasms and effusion. Manual therapy to restore motion and function. Therapeutic exercise to improve strength and flexibility. Neuromuscular re-education for posture and balance. Therapeutic activities to return to functional activities of daily living. Electronically signed by: Claudia Dunn PT Please sign and return to therapist. Thank you for your referral.
--- NOTE | 2024-08-26 14:25 | MHC.PT.DC ---
[facility] [place] Office Reading Office [place] Office [address] Vibha Bui [address] [phone] F: [phone] F: [phone] F: [phone] F: [phone] Physical Therapy Discharge Report Diagnosis: Patellofemoral disorder B Date of Surgery: Date of Evaluation: 07/09/24 Date of Discharge: 08/26/24 Treatments to Date: 9 Cancellations to Date: 2 No Shows to Date: 0 Discharge Status: Independent with HEP Recommend MD Follow-up Discharge Summary: Pt reports feeling the same since starting PT overall and has a f/u with MD soon. She is more aware of postural tendencies and has improved with static position of knees, but otherwise pain continues. At this time, will close chart and pt will f/u with MD Electronically signed by: Claudia Dunn PT Please sign and return to therapist. Thank you for your referral.
== END 2024-08-26 14:26 | disposition home or self-care (01) ==
LOC: HO.PT 13:48
PROVIDERS: PCP Family Medicine; Visit Provider Nurse Practitioner Family
DX: M22.2X2 Patellofemoral disorders, left knee (principal); M22.2X1 Patellofemoral disorders, right knee
CPT/HCPCS: 97014; 97110; 97162

== ENCOUNTER 2024-09-04 09:54 | Outpatient (AMB) | payer OTHER, SELFPAY ==
--- NOTE | 2024-09-04 09:53 | A.OFFPC_ITS ---
Intake Visit Reasons: fu?left?flank?pain?and?hematuria, telemedicine Intake Note: ct review Allergies latex Allergy (Mild, Verified 09/04/24 09:54) Rash Tobacco use date assessed: 06/10/24 Dental Screening Dental Screen Date: 06/10/24 HPI fu?left?flank?pain?and?hematuria, telemedicine HPI Details 39 y/o female presents to f/u L flank pa in and hematuria via telemedicine. CT scan 08/25/24 showed tiny bilateral punctate nephroliths. No hydronephrosis. Moderate 2+ blood in urine. No urine bacteria seen. Reports ongoing intermittent flank pain. HPI Comments History of Present Illness Details Documentation assistance for Alfonso Ray MD, was provided by Stephen Conde,? Android Framework Developer on 09/04/2024 at 10:07 AM EST. I, Dr. Ray, have read, observed, and verified documentation. ?? PFSH Medical History Anxiety with depression Costochondral chest pain Chest wall pain Suprapubic pain, acute Gallstones Depression Anxiety Asthma Surgical History Hx of cholecystectomy Hx of tubal ligation Social History Household Members Other:: minor daughter Housing: Apartment Are you a primary home care consultant to a significant other at home: Yes (minor daughter) Do you presently have visiting nurse or other home services: No Alcohol intake: current Alcohol intake frequency: does not drink Patient Tobacco Use Status: Former Tobacco user Tobacco use type: Cigarette Cigarettes Per Day: 4 Years Smoked: 5 e-Cigarette/Vaping Use: Never Used Second Hand Smoke Exposure: Yes Substance Use Type: Marijuana service: No Current occupational status: unemployed Current occupation: right hand dominant Current occupational exposures/hazards: No Cognitive needs: No Hearing needs: No Vision needs: No Questionnaire Thrive Questionnaire Date Thrive assessed: 08/12/24 I am a: Patient What is your living situation today?: I choose not to answer this question Within the past 12 months, did the food you bought not last and you didn't have the money to get more?: Never true Within the past 12 months, did you worry whether your food would run out before you got money to buy more?: Never true Do you have trouble paying for medicines?: No Do you have trouble getting transportation to medical appointments?: No Do you have trouble paying your heating and electricity bill?: No Do you have trouble taking care of your child, family member or friend?: No Do you have trouble with day-to-day activities such as bathing, preparing meals, shopping, managing finances, etc.?: No Are you currently unemployed and looking for a job?: No Are you interested in more education?: No Please select the resources that you would like help with: None Currently or been in a relationship where the following occur: I choose not to answer THRIVE Score: 0 JALEN-7 AMB Questionnaire JALEN-7 Date JALEN - 7 assessed: 06/10/24 Source: Developed by Drs. Sadiq Artis, Azucena Warren, Vern Mckeon and colleagues, with an educational jose from [employer]. Review of Systems Const Denies chills, Denies fatigue, Denies fever(s), Denies headache(s) and Denies weakness ENT Denies dizziness and Denies headache(s) Card Denies dyspnea Resp Denies cough, Denies dyspnea, Denies wheezing and Denies other (shortness of breath) Musc Denies numbness and Denies tingling Neuro Denies dizziness, Denies headache(s), Denies numbness, Denies tingling and Denies weakness Psych Denies anxiety and Denies depression Endo Denies fatigue Aller/Immun Denies wheezing Physical exam (Primary Care) Tobacco/Smoking Status: Tobacco use Status Tobacco use date assessed 06/10/24 09/04/24 09:55 Patient Tobacco Use Status Former Tobacco user 09/04/24 09:55 Tobacco use type Cigarette 09/04/24 09:55 e-Cigarette/Vaping Use Never Used 09/04/24 09:55 Thrive Assessment: Date of Thrive Assessment Date Thrive assessed 08/12/24 09/04/24 09:55 Currently or been in a relationship where the following occur: I choose not to answer Telehealth Telehealth Telehealth Platform: Telephone Location of provider rendering services: practice address Location of patient: address on file Patient Identification confirmed using: Name, : Yes Telehealth method: voice only Patient verbally consented to treatment: Yes Patient verbally consented to billing insurance company: Yes Patient informed of any privacy concerns related to visit: Yes Minutes spent on Phone/Video with Pt.: 4 Coding Level of Care Code Tele Est Pt Level 2 (81843) Diagnoses Left flank pain R10.9 Hematuria R31.9 Nephrolithiasis N20.0 Assessment & Plan Assessment & Plan (1) Left flank pain: Code(s): R10.9 - Unspecified abdominal pain Category: Medical (2) Hematuria: Code(s): R31.9 - Hematuria, unspecified Category: Medical (3) Nephrolithiasis: Code(s): N20.0 - Calculus of kidney Category: Medical Plan Ongoing?intermittent?bouts?of?left?flank?pain. CT?scan?shows?nephrolithiasis?which?has?been?seen?before. CT?is?otherwise?unremarkable except?does?note ?that?she?no?longer?has?her?gallbladder. Urine?studies?positive?hematuria. Will?refer?her?to?Urology?she?may?be?passing?some?renal?stones. Advised?she?hydrate?well Will?give?her?a?script?for?meloxicam Orders: Referrals Urology Referral N20.0 - Calculus of kidney, R10.9 - Unspecified abdominal pain, R31.9 - Hematuria, unspecified
== END 2024-09-04 16:56 | disposition home or self-care (01) ==
LOC: HO.HMCFM 09:54
PROVIDERS: PCP Family Medicine; Visit Provider Family Medicine
DX: R10.9 Unspecified abdominal pain (principal); R31.9 Hematuria, unspecified; N20.0 Calculus of kidney

== ENCOUNTER → 2024-11-06 08:38 | Outpatient (BNVA) | payer OTHER, SELFPAY | PROVIDERS: PCP Family Medicine; Visit Provider Urology ==

== ENCOUNTER 2024-11-11 12:43 | Outpatient (AMB) | payer OTHER, SELFPAY ==
--- NOTE | 2024-11-11 12:58 | A.OFFVIS_ITS ---
Intake Visit Reasons: Kidney stones Intake Note: Patient presents to office for kidney stones Out Of School Hours Care Worker Required: No Allergies latex Allergy (Mild, Verified 11/11/24 12:58) Rash HPI Comments Details: Nelli is a 39-year-old female who is here with her mother for evaluation as a new patient kidney stones. The patient has had chronic back pain. A CT scan was done which noted punctate bilateral kidney stones. I have discussed with the patient that this finding of punctate bilateral kidney stones is likely not contributing to her back pain. I have discussed further evaluation with 24 hour urine collection. I have discussed the importance of fluid hydration. The patient denies family history of kidney stones. [facility] Medical History Anxiety with depression Costochondral chest pain Chest wall pain Suprapubic pain, acute Gallstones Depression Anxiety Asthma Surgical History Hx of cholecystectomy Hx of tubal ligation Social History Household Members Other:: minor daughter Housing: Apartment Are you a primary resident care aid to a significant other at home: Yes (minor daughter) Do you presently have visiting nurse or other home services: No Alcohol intake: current Alcohol intake frequency: does not drink Patient Tobacco Use Status: Former Tobacco user Tobacco use type: Cigarette Cigarettes Per Day: 4 Years Smoked: 5 e-Cigarette/Vaping Use: Never Used Second Hand Smoke Exposure: Yes Substance Use Type: Marijuana service: No Current occupational status: unemployed Current occupation: right hand dominant Current occupational exposures/hazards: No Cognitive needs: No Hearing needs: No Vision needs: No Review of Systems Const All systems reviewed & are unremarkable except as noted in HPI and below Reports no additional complaints Eyes Reports no additional complaints ENT Reports no additional complaints Card Reports no additional complaints Resp Reports no additional complaints GI Reports no additional complaints Reports as per HPI Musc Reports no additional complaints Skin/Breast Reports system reviewed and no additional complaints, except as documented Neuro Reports no additional complaints Psych Reports no additional complaints Endo Reports no additional complaints Robel/Lymph Reports no additional complaints Aller/Immun Reports no additional complaints Physical Exam Const General: cooperative, healthy appearing and no acute distress Orientation/consciousness: patient oriented x3 HEENT Head: Yes normal to inspection, Yes normocephalic and Yes atraumatic Eyes Conjunctivae: conjunctivae normal Neck Neck: Yes normal visual inspection and Yes trachea midline Chest Chest palpation & inspection: normal inspection of the chest Resp Effort & Inspection: normal respiratory effort GI Inspection: Yes normal to inspection Neuro General: patient oriented x3 Extrem General: No edema Psych Appearance: grossly normal Results Reviewed Results Reviewed: Date of Service: 08/25/24 CT ABDOMEN AND PELVIS WITHOUT CONTRAST CLINICAL INFORMATION: Specified abdomen pain COMPARISON: 12/24/2020 TECHNIQUE: Multidetector volumetric imaging was performed from the superior aspect of the liver through the pubic symphysis. Sagittal and coronal reformatted images were obtained on the technologist's workstation. This CT examination was performed using dose optimization techniques as appropriate, variously including the following: *Automated exposure control *Adjustment of mA and/or kV according to patient size (this includes techniques or standardized protocols for targeted exams where dose is matched to indication/reason for exam; i.e. extremities or head) *Use of iterative reconstruction technique DLP: 491 mGy-cm FINDINGS: LUNG BASES: The visualized lung bases are unremarkable. LIVER, GALLBLADDER, AND BILIARY TREE: The liver is normal in size, shape, and attenuation. No focal hepatic lesion or biliary ductal dilatation is present. The gallbladder surgically absent. PANCREAS: Unremarkable. SPLEEN: Unremarkable. ADRENAL GLANDS: Unremarkable. KIDNEYS AND URETERS: Subtle low density areas in the mid left kidney not completely characterized. This can be followed with ultrasound. A few tiny 1 mm punctate stones in both kidneys are observed nonobstructive. No suspicious lesion or perinephric collection or hydronephrosis. Bladder is decompressed. BLADDER: Decompressed GASTROINTESTINAL TRACT: No evidence of bowel obstruction. The stomach is filled with fluid and ingested material. No right or left lower quadrant inflammatory change. Appendix not clearly identified. ABDOMINAL WALL: No significant hernia is appreciated. LYMPH NODES: Normal. VASCULAR: Aorta is atherosclerotic but not aneurysmal at the bifurcation. PELVIC VISCERA: Unremarkable. OSSEOUS STRUCTURES: Unremarkable. IMPRESSION: Tiny bilateral punctate nephroliths. No hydronephrosis. Assessment & Plan Assessment & Plan (1) Nephrolithiasis: Code(s): N20.0 - Calculus of kidney Category: Medical (2) Chronic back pain: Code(s): M54.9 - Dorsalgia, unspecified; G89.29 - Other chronic pain Category: Medical Plan 24 hour urine collection. Patient Instructions: The patient had an opportunity to ask questions regarding treatment plan. The patient expressed understanding and agreement with the above treatment plan. The patient is aware they should contact our office by phone for worsening of their current condition or the appearance of new symptoms. Compliance is encouraged with any medications and followup testing that is ordered. It is a privilege to be allowed the opportunity to participate in the urologic care of your patient. If you have any questions or concerns regarding treatment for the above conditions please do not hesitate to contact me. The office telephone contact is [phone]. This note is constructed in part using voice recognition software. While every effort has been made to ensure accuracy custom harvester errors may have been included. Yours sincerely, Clemente Middleton MD Coding Level of Care Code New Pt Level 3 (87643) Diagnoses Nephrolithiasis N20.0 Chronic back pain M54.9; G89.29
--- OUTSIDE RECORDS SUMMARY | 2024-11-11 15:24 | XMS_ITS | Clinical Summary ---
Author Organization [employer] Address [address] [place] [address] Care Team Providers Care Helper Maintenance Cleaning Name Role Phone Unavailable Primary Care Provider Unavailabl e Social History Tobacco Use Types Packs/Day Years Used Date Smoking Tobacco: Never Assessed Comments Unknown Sex and Gender Information Value Date Recorded Sex Assigned at Female 07/17/2022 10:15 AM EDT Legal Sex Female 10:15 AM EDT Gender Identity Not on file Sexual Orientation Not on file Plan of Treatment Health Maintenance Due Date Last Done Comments Depression Screening 1987 Alcohol/Substance Use Screening 1999 Tobacco Screening 1999 Family Planning (PISQ) 2002 DTaP/Tdap/Td Vaccines (1 - Tdap) 2006 Hepatitis B Vaccines (1 of 3 - 19+ 3-dose series) 2006 Pap Smear 2008 Cervical Cancer Screening 2017 HPV/Cotest 2017 COVID-19 Vaccine ( - 2023-2 5 season) 2024 Influenza Vaccine (#1) 2024 Zoster Vaccines (1 of 2) 2037 RSV Patients and Pa tients Aged 60 years or older (1 - 1-dose 75+ series) 2062 HIB Vaccines Aged Out No longer eligi ble based on patient's age to complete this topic HPV Vaccines Aged Out No longer eligi ble based on patient's age to complete this topic Hepatitis A Vaccines Aged Out No long er eligible based on patient's age to complete this topic IPV Vaccines Aged Out No longer eligi ble based on patient's age to complete this topic Meningococcal Vaccine Aged Out No eagle navi eligible based on patient's age to complete this topic Pneumococcal Vaccine: Pediat rics (0 to 5 Years) and At-Risk Patients (6 to 49) Years) Aged Out No longer eligible b ased on patient's age to complete this topic RSV under 20 months Aged Out No longe r eligible based on patient's age to complete this topic Rotavirus Vaccines Aged Out No longer eligible based on patient's age to complete this topic
--- OUTSIDE RECORDS SUMMARY | 2024-11-11 15:24 | XMS_ITS | Clinical Summary ---
Author Organization 175 [facility] Address 175 [place] [address] Phone Care Team Providers Care Clinical Advisor Name Role Phone Alfonso Ray MD Primary Care Provider Social History Tobacco Use Types Packs/Day Years Used Date Smoking Tobacco: Never Assessed Comments Unknown Sex and Gender Information Value Date Recorded Sex Assigned at Not on file Legal Sex Female 2:11 PM EST Gender Identity Not on file Sexual Orientation Not on file Plan of Treatment Upcoming Encounters Date Type Department Care Team ([facility] Contact Info) Description 11/25/2024 1:15 PM EDT Consult Orthopedic Surgery [place] [phone] [phone] Yusuf Collins, DPM [address] [address] Health Maintenance Due Date Last Done Comments DTaP,Tdap,and Td Vaccines (1 - Tdap) 2006 Hepatitis B Vaccines (1 of 3 - 19+ 3-dose series) 2006 Cervical Cancer Screening: P ap Smear 2008 COVID-19 Vaccine ( - 2023-2 5 season) 2024 Influenza Vaccine (#1) 2024 Depression Screening 09/02/2024 HIV Screening 09/02/2024 Hepatitis C Screening 09/02/2024 Social Influencers of Health Screening 09/02/2024 HIB Vaccines Aged Out No longer eligi [...] on patient's age to complete this topic MMR Vaccines Aged Out No longer eligi ble based on patient's age to complete this topic Meningococcal ACWY Vaccine Aged Out N o longer eligible based on patient's age to complete this topic Meningococcal B Vacine Aged Out No lo nger eligible based on patient's age to complete this topic Pneumococcal Vaccine: Pediat rics (0 to 5 Years) and At-Risk Patients (6 to 64 Years) Aged Out No longer eligible b ased on patient's age to complete this topic RSV Immunization Patients Un paola 20 months Aged Out No longer eligible b ased on patient's age to complete this topic Varicella Vaccines Aged Out No longer eligible based on patient's age to complete this topic Insurance [facility] [place] [address] Care Teams Clinical Advisor Relationship Specialty Start Date End Date Alfonso Ray MD [address] [place] [address] Dr Graves [address] [place] [address] [place] PCP - General Family Medicine 09/02/24
== END 2024-11-11 13:26 | disposition home or self-care (01) ==
PROVIDERS: PCP Family Medicine; Visit Provider Urology
DX: N20.0 Calculus of kidney (principal); M54.9 Dorsalgia, unspecified; G89.29 Other chronic pain
CPT/HCPCS: 99203

== ENCOUNTER → 2024-11-11 12:43 | Outpatient (BNVA) | payer OTHER, SELFPAY | PROVIDERS: PCP Family Medicine; Visit Provider Urology | DX: N20.0 Calculus of kidney (principal); M54.9 Dorsalgia, unspecified; G89.29 Other chronic pain | CPT/HCPCS: 99202 ==

== ENCOUNTER 2024-11-20 14:38 | Outpatient (AMB) | payer OTHER, SELFPAY ==
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
[2024-11-20 15:26] VITALS: BP 90/60; PULSE 78; RESP 14; TEMP 36.7; O2SAT 97; BMI 29.8
--- OUTSIDE RECORDS SUMMARY | 2024-11-20 18:03 | XMS_ITS | Clinical Summary ---
Author Organization [employer] Address [address] [facility] [address] [place] [address] Care Team Providers Care Scrap Metal Processing Worker Name Role Phone Unavailable Primary Care Provider [...]
--- OUTSIDE RECORDS SUMMARY | 2024-11-20 18:03 | XMS_ITS | Clinical Summary ---
Author Organization 175 [facility] Address 175 [place] [address] Phone Care Team Providers Care Slime Plant Operator Helper Name Role Phone Alfonso Ray MD Primary Care Provider Social History Tobacco Use Types Packs/Day Years Used Date Smoking Tobacco: Never Assessed Comments Unknown Sex and Gender Information Value Date Recorded Sex Assigned at Not on file Legal Sex Female 2:11 PM EST Gender Identity Not on file Sexual Orientation Not on file Plan of Treatment Upcoming Encounters Date Type Department Care Team ([facility] Contact Info) Description 11/25/2024 1:15 PM EDT Consult Orthopedic Surgery [place] [phone] [phone] Yusuf Collins, DPM [address] [address] Health Maintenance Due Date Last Done Comments [...] patient's age to complete this topic Insurance [facility] Care Teams Slime Plant Operator Helper Relationship Specialty Start Date End Date Alfonso Ray MD [address] [place] [address] Dr Graves [address] [place] [address] [place] PCP - General Family Medicine 09/02/24
== END 2024-11-20 15:50 | disposition home or self-care (01) ==
PROVIDERS: PCP Family Medicine; Visit Provider Family Medicine
DX: M25.569 Pain in unspecified knee (principal); N20.0 Calculus of kidney; R21 Rash and other nonspecific skin eruption

== ENCOUNTER → 2024-11-20 14:38 | Outpatient (BNVA) | payer OTHER, SELFPAY | PROVIDERS: PCP Family Medicine; Visit Provider Family Medicine | DX: N20.0 Calculus of kidney (principal); R21 Rash and other nonspecific skin eruption; M25.561 Pain in right knee; M25.562 Pain in left knee | CPT/HCPCS: 99212 ==

== ENCOUNTER 2024-11-25 10:18 | Outpatient (REF) | payer OTHER, SELFPAY ==
--- NOTE | ~2024-11-25 | XR_ITS ---
EXAMINATION: XR KNEE, RIGHT CLINICAL INFORMATION: M25.569 - Pain in unspecified knee COMPARISON: August 03, 2018. TECHNIQUE: Four views of the right knee. FINDINGS: No acute cortical disruption or malalignment. No lytic or blastic lesions. No suprapatellar bursa joint effusion. No metallic or radiopaque foreign body. XR/XR knee RT 4V IMPRESSION: Normal right knee. Electronically signed by: Parminder Orta MD 11/25/2024 02:42 PM EDT
--- NOTE | ~2024-11-25 | XR_ITS ---
EXAMINATION: XR KNEE, LEFT CLINICAL INFORMATION: M25.569 - Pain in unspecified knee COMPARISON: None available. TECHNIQUE: Four views of the left knee. FINDINGS: No acute cortical disruption or malalignment. No lytic or blastic lesions. No suprapatellar bursa joint effusion. Preservation of the joint spaces. XR/XR knee LT 4V IMPRESSION: Normal left knee. Electronically signed by: Parminder Orta MD 11/25/2024 02:49 PM EDT
[2024-11-25 11:09] LABS: MANUAL DIFF FLAG NO
[2024-11-25 11:58] LABS: Appearance Urine Clear; Color Urine Yellow; Glucose Urine UA Negative (Negative); Leukocyte Esterase Urine Negative (Negative); Nitrite Urine Negative (Negative); Specific Gravity - Urine 1.015 (1.005-1.025); UMIC TRIGGER UA YES; UMIC TRIGGER UACC YES; Urine Blood Moderate (2+) (Negative); Urine Ketones Negative (Negative); Urine Protein Negative (Neg-Trace)
[2024-11-25 12:01] LABS: Basophils Absolute Auto 0.1 X10*3/uL (0.0-0.2); Basophils Percent Auto 0.4 % (0-2); Eosinophils Absolute Auto 0.3 X10*3/uL (0.0-0.4); Eosinophils Percent Auto 2.7 % (0-4); Hematocrit 36.6 % (37.0-47.0); Hemoglobin 12.6 g/dl (12.0-16.0); Imm Gran Abs Auto 0.05 X10*3/uL (0.00-0.03); Imm Gran Pct Auto 0.4 % (0.0-0.4); Lymphocytes Absolute Auto 3.1 X10*3/uL (1.2-4.9); Lymphocytes Percent Auto 26.8 % (20-40); Mean Corpuscular HGB Conc 34.4 g/dl (31.0-35.0); Mean Corpuscular Hemoglobin 30.6 pg (27.0-33.0); Mean Corpuscular Volume 88.8 fL (80.0-98.0); Mean Platelet Volume 9.1 fL (9.4-12.3); Monocytes Absolute Auto 0.8 X10*3/uL (0.1-1.2); Monocytes Percent Auto 6.9 % (2-11); Neutrophils Absolute Auto 7.2 x10*3/uL (2.0-8.3); Neutrophils Percent Auto 62.8 % (45-73); Platelet Count 344 X10*3/uL (160-400); Red Blood Count 4.12 X10*6/uL (4.20-5.50); White Blood Count 11.4 X10*3/uL (4.8-10.8)
[2024-11-25 12:06] LABS: Bacteria Urine Trace (None Seen); Hyaline Casts Urine 0-2 /LPF (0-2); WBC Urine 0-5 /HPF (0-5)
--- OUTSIDE RECORDS SUMMARY | 2024-11-25 12:13 | XMS_ITS | Clinical Summary ---
Author Organization [employer] Address [address] [facility] [address] [place] [address] Care Team Providers Care Aircraft Powertrain Repairer Name Role Phone Unavailable Primary Care Provider [...]
--- OUTSIDE RECORDS SUMMARY | 2024-11-25 12:13 | XMS_ITS | Clinical Summary ---
Author Organization 175 [facility] Address 175 [place] [address] Phone Care Team Providers Care Mains And Service Supervisor Name Role Phone Alfonso Ray MD Primary Care Provider [phone] Social History Tobacco Use Types Packs/Day Years Used Date Smoking Tobacco: Never Assessed Comments Unknown Sex and Gender Information Value Date Recorded Sex Assigned at Not on file Legal Sex Female 2:11 PM EST Gender Identity Not on file Sexual Orientation Not on file Plan of Treatment Upcoming Encounters Date Type Department Care Team ([facility] Contact Info) Description 11/25/2024 1:15 PM EDT Consult Orthopedic Surgery [place] [address] [phone] Yusuf Collins, DPM [address] [address] Health Maintenance Due Date Last Done Comments [...] patient's age to complete this topic Insurance [facility] PL[facility] Care Teams Mains And Service Supervisor Relationship Specialty Start Date End Date Alfonso Ray MD [address] [place] [address] Dr Graves [address] [place] [address] [place] PCP - General Family Medicine 09/02/24
[2024-11-25 13:03] LABS: Alanine Aminotransferase 14 U/L (0-31); Alkaline Phosphatase 39 U/L (39-117); Anion Gap 11 (12-20); Aspartate Amino Transferase 17 U/L (5-31); Bilirubin Total 0.4 mg/dL (0.0-1.0); Blood Urea Nitrogen 10 mg/dL (9-16); Calcium 9.3 mg/dL (8.4-10.2); Carbon Dioxide 24 mmol/L (22-29); Chloride 109 mmol/L (96-108); Estimated Glomerular Filt Rate > 60; Glucose Random 79 mg/dL (60-115); Potassium 3.9 mmol/L (3.3-5.1); Sodium 140 mmol/L (135-145); Total Protein 7.5 g/dL (6.5-8.0)
== END 2024-11-25 10:19 | disposition home or self-care (01) ==
LOC: HO.LAB 10:18
PROVIDERS: PCP Family Medicine; Visit Provider Family Medicine
DX: Z00.00 Encounter for general adult medical examination without abnormal findings (principal); M25.562 Pain in left knee; M25.561 Pain in right knee; R10.9 Unspecified abdominal pain
CPT/HCPCS: 36415; 73564; 80053; 81001; 85025

== ENCOUNTER → 2024-11-25 10:22 | Outpatient (BNV) | payer OTHER, SELFPAY | PROVIDERS: PCP Family Medicine; Visit Provider Radiology Diagnostic Radiology | DX: M25.562 Pain in left knee (principal); M25.561 Pain in right knee | CPT/HCPCS: 73564 ==

== ENCOUNTER 2024-12-03 21:37 | Emergency (ER) | payer OTHER, SELFPAY ==
--- NOTE | ~2024-12-03 | XR_ITS ---
CLINICAL HISTORY: knee pain heard a pop while getting out of car AP and lateral views left knee Comparison: CR/NC/SR - XR KNEE LT 4V - 11/25/24 10:33 EDT Findings: No fractures, subluxations or dislocations. Joint intervals are preserved. No osteochondral lesions or loose bodies. Normal patellar alignment. No suprapatellar joint effusion.No prepatellar soft tissue swelling. Normal bone mineralization and soft tissues. No unusual radiopaque foreign body. Impression: 1. Normal left knee. This document has been electronically signed by: Glenn Lantigua MD on 12/03/2024 22:16:58
[2024-12-03 21:42] VITALS: BP 102/62; PULSE 83; RESP 19; TEMP 36.5; O2SAT 96; BMI 28.1
--- NOTE | 2024-12-03 23:06 | PC.NURSE ---
Pt brought to [facility] for treatment, assumed care of pt at this time. A&Ox3 skin pwd respirations even unlabored. Endorsing left knee pain, non traumatic for a while worsening today after getting out of car and hearing a pop . Did not take any meds prior to coming to ED. +csm. Xray obtained and resulted, awaiting primary provider eval.
--- NOTE | 2024-12-03 23:54 | ED_ITS ---
HPI - Extremity Injury (Lower) General Chief Complaint: Extremity Injury, Lower Stated Complaint: LT knee pain Time Seen by Provider: 12/03/24 23:03 Source: patient Mode of arrival: ambulatory Limitations: no limitations History of Present Illness ED Provider: HPI Narrative: Patient has chronic knee pain and problems been followed by orthopedics today she was getting out of the car and suddenly noted a pop in the left knee since then been having the pain no direct fall no direct injury no swelling of the knee Related Data Previous Rx's ?Medication ?Instructions ?Recorded psyllium husk 3.4 gram/5.4 gram 1 tbsp PO BID 30 days #660 grams 10/19/23 oral powder (Metamucil) triamcinolone acetonide 0.1 % 1 appl topical BID 30 days #15 05/29/24 topical cream grams multivitamin with iron 1 tab PO DAILY #90 tabs 06/10/24 cyclobenzaprine 10 mg tablet 10 mg PO TID PRN muscle spasm #20 08/03/24 tabs budesonide-formoterol HFA 160 2 puff inhalation Q12H 1 month 08/13/24 mcg-4.5 mcg/actuation aerosol #10.2 grams inhaler (Symbicort) gabapentin 300 mg capsule 300 mg PO BID 30 days #60 caps 08/13/24 ipratropium 0.5 mg-albuterol 3 mg 3 ml inhalation Q6-8H PRN wheezing 08/13/24 (2.5 mg base)/3 mL nebulization 3 months #180 mL soln montelukast 10 mg tablet 10 mg PO BEDTIME #90 tabs 08/13/24 omeprazole 20 mg capsule,delayed 20 mg PO DAILY 90 days #90 caps 08/13/24 release albuterol sulfate 90 mcg/actuation 2 puff inhalation Q4-6H PRN 10/06/24 aerosol inhaler shortness of breath or wheezing 1 month #8.5 grams nebulizers (Compact Compressor #1 ea 10/30/24 Nebulizer) albuterol sulfate 90 mcg/actuation 1 inh inhalation Q4-6H PRN 11/02/24 breath activated powder shortness of breath or wheezing 30 inhaler,sensor (Proair Digihaler) days #1 ea Allergies Allergy/AdvReac Type Severity Reaction Status Date / Time latex Allergy Mild Rash Verified 12/03/24 21:44 Review of Systems Review of Systems: Yes all other systems are reviewed and are negative [facility] Past Medical History Medical History Anxiety with depression Costochondral chest pain Chest wall pain Suprapubic pain, acute Gallstones Depression Anxiety Asthma Surgical History Hx of cholecystectomy Hx of tubal ligation Social History Social History Household Members Other:: minor daughter Housing: Apartment Are you a primary long term care pharmacist to a significant other at home: Yes (minor daughter) Do you presently have visiting nurse or other home services: No Alcohol intake: current Alcohol intake frequency: does not drink Patient Tobacco Use Status: Former Tobacco user Tobacco use type: Cigarette Cigarettes Per Day: 4 Years Smoked: 5 Smoked in Last 30 Days: No e-Cigarette/Vaping Use: Never Used Second Hand Smoke Exposure: Yes Substance Use Type: Marijuana Advance Directives: No Advance Directives Information Provided: No Do you have a plan to hurt others: No Plan Patient : No service: No Current occupational status: unemployed Current occupation: right hand dominant Current occupational exposures/hazards: No Cognitive needs: No Hearing needs: No Vision needs: No Physical Exam Vital Signs: Vital Signs: Last Vital Signs Temp 97.7 F 12/03/24 21:42 Pulse 76 12/04/24 00:08 Resp 18 12/04/24 00:08 BP 99/54 L 12/04/24 00:08 Pulse Ox 100 12/04/24 00:08 O2 Del Method Room Air 12/03/24 21:42 BMI result Body Mass Index 28.1 Appearance: Alert. Oriented X3. No acute distress. Neck: Normal inspection. Neck supple. CVS: Normal heart rate and rhythm. Pulses normal. Respiratory: No respiratory distress. Equal air entry bilateral, no wheezing/rales/rhonchi Abdomen: Soft and nontender. Bowel sounds are present, no mass palpable, no CVA tenderness Skin: Skin warm and dry. Normal skin color. Normal skin turgor. Extremities: No lower extremity edema. No calf tenderness left knee no effusion slight swelling or any María sign negative anterior drawer sign negative patient is able to stand up and walk Neuro: Oriented X 3. No motor deficit. No sensory deficit.No cerebellar signs , cranial nerves II-XII intact Medications Administered Discontinued Medications Generic Name Dose Route Start Last Admin Trade Name Freq PRN Reason Stop Dose Admin Ketorolac Tromethamine 60 mg 12/03/24 23:44 12/04/24 00:43 Ketorolac Tromethamine 60 Mg/2 Ml Vial IM 12/03/24 23:45 60 mg ONCE ONE Administration Medical Decision Making Medical Decision Making [facility] Narrative: Patient with chronic instability of the knee joints been for the orthopedics comes here with a sudden onset of pain while coming out of the car with some of the palm x-rays negative for fracture no effusion on clinical exam likely patient has collateral ligaments strain as the cause of the pain Aleksandar wrap was applied patient advised to follow up with Orthopedics tomorrow as scheduled Independent Interpretation I performed an independent interpretation of an: Plain X-Ray Interpretation: NAD Radiology Impression Discussion of test interpretation with radiology: I have reviewed the radiologist's reading. Discharge Plan Discharge Clinical Impression: Left knee sprain Patient Disposition: Home, Self-Care Instructions: Knee Sprain (ED) Additional Instructions: Wear the Aleksandar wrap for support Follow up with Orthopedics as scheduled tomorrow for further management Prescriptions: No Action albuterol sulfate 90 mcg/actuation HFA aerosol inhaler 2 puff inhalation Q4-6H PRN (Reason: shortness of breath or wheezing) 30 Days Qty: 8.5 1RF (DME) nebulizers [Compact Compressor Nebulizer] Misc See Rx Instructions .Route Qty: 1 0RF Rx Instructions: Use?As directed to?treat?asthma, 999 days Proair Digihaler 90 mcg/actuation aero powdr breath act w/sensor 1 inh inhalation Q4-6H PRN (Reason: shortness of breath or wheezing) 30 Days Qty: 1 2RF cyclobenzaprine 10 mg tablet 10 mg PO TID PRN (Reason: muscle spasm) Qty: 20 0RF triamcinolone acetonide 0.1 % cream 1 appl topical BID 30 Days Qty: 15 2RF Metamucil 3.4 gram/5.4 gram powder 1 tbsp PO BID 30 Days Qty: 660 3RF Rx Instructions: mix into at least 8 oz of water or juice before administering multivitamin with iron Tablet 1 tab PO DAILY Qty: 90 2RF ipratropium-albuterol 0.5 mg-3 mg(2.5 mg base)/3 mL solution for nebulization 3 ml inhalation Q6-8H PRN (Reason: wheezing) 90 Days Qty: 180 3RF gabapentin 300 mg capsule 300 mg PO BID 30 Days Qty: 60 3RF montelukast 10 mg tablet 10 mg PO BEDTIME Qty: 90 3RF omeprazole 20 mg capsule,delayed release(DR/EC) 20 mg PO DAILY 90 Days Qty: 90 2RF budesonide-formoterol [Symbicort] 160-4.5 mcg/actuation HFA aerosol inhaler 2 puff inhalation Q12H 30 Days Qty: 10.2 11RF Interventions: ED Discharge Assessment Last Done: 12/04/24 00:47 Print Language: Hebrew
[2024-12-04 00:08] VITALS: BP 99/54; PULSE 76; RESP 18; O2SAT 100
[2024-12-04] MEDS: Ketorolac Tromethamine 60 MG/2 ML VIAL IM (00:43)
[2024-12-04 00:47] VITALS: BP 99/54; PULSE 76; RESP 18; TEMP -17.7; TEMP 0; O2SAT 100
== END 2024-12-04 00:47 | disposition home or self-care (01) ==
PROVIDERS: Emergency Provider Internal Medicine; PCP Family Medicine
DX: S83.92XA Sprain of unspecified site of left knee, initial encounter (principal); M25.562 Pain in left knee; X58.XXXA Exposure to other specified factors, initial encounter; Y93.9 Activity, unspecified; Y92.810 Car as the place of occurrence of the external cause; Y99.8 Other external cause status; Z87.891 Personal history of nicotine dependence
CPT/HCPCS: 73560; 96372; 99284; J1885

== ENCOUNTER → 2024-12-03 21:45 | Outpatient (BNV) | payer OTHER, SELFPAY | PROVIDERS: PCP Family Medicine; Visit Provider Radiology Diagnostic Radiology | DX: M25.562 Pain in left knee (principal) | CPT/HCPCS: 73560 ==

== ENCOUNTER 2024-12-05 10:43 | Outpatient (AMB) | payer OTHER, SELFPAY ==
--- NOTE | 2024-12-05 10:45 | A.OFFPC_ITS ---
Intake Visit Reasons: f/u bilateral knee pain via telemedicine Intake Note: Follow up bilateral knee pain. Xray results. Went to [facility] for worsening left knee pain yesterday. 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 Labs drawn 11/25/24. Reviewed labs with pt. Mild anemia. Recent ED visit for L knee pain. Had gotten out of her car and suddenly noted a pop in L knee. Knee x-ray 12/03/24 showed normal L knee. Knee x-ray 11/25/24 normal. HPI Comments History of Present Illness Details Documentation assistance for Alfonso Ray MD, was provided by Stephen Conde,? System Analyst on 12/05/2024 at 11:05 AM EST. I, Dr. Ray, have read, observe d, and verified documentation. ?? [facility] Medical History Anxiety with depression Costochondral chest pain Chest wall pain Suprapubic pain, acute Gallstones Depression Anxiety Asthma Surgical History Hx of cholecystectomy Hx of tubal ligation Social History (Updated 12/05/24 @ 10:49 by Mago Lopez CMA) Household Members Other:: minor daughter Housing: Apartment Are you a primary respiratory care instructor to a significant other at home: Yes (minor daughter) Do you presently have visiting nurse or other home services: No Alcohol intake: current Alcohol intake frequency: does not drink Patient Tobacco Use Status: Former Tobacco user Tobacco use type: Cigarette Cigarettes Per Day: 4 Years Smoked: 5 Packs per year/per ci.00 e-Cigarette/Vaping Use: Never Used Second Hand Smoke Exposure: Yes Use of substances other than those prescribed or required for medical reasons: Yes Substance Use Type: Marijuana service: No Current occupational status: unemployed Current occupation: right hand dominant Current occupational exposures/hazards: No Cognitive needs: No Hearing needs: No Vision needs: No Questionnaire Thrive Questionnaire Date Thrive assessed: 11/14/24 JALEN-7 AMB Questionnaire JALEN-7 Date JALEN - 7 assessed: 06/10/24 Source: Developed by Drs. Sadiq Artis, Azucena Warren, Vern Mckeon and colleagues, with an educational jose from [employer]. Review of Systems Const Denies chills, Denies fatigue, Denies fever(s), Denies headache(s) and Denies weakness ENT Denies dizziness and Denies headache(s) Card Denies dyspnea Resp Denies cough, Denies dyspnea, Denies wheezing and Denies other (shortness of breath) Musc Denies numbness and Denies tingling Neuro Denies dizziness, Denies headache(s), Denies numbness, Denies tingling and Denies weakness Psych Denies anxiety and Denies depression Endo Denies fatigue Aller/Immun Denies wheezing Physical exam (Primary Care) Tobacco/Smoking Status: Tobacco use Status Tobacco use date assessed 12/05/24 12/05/24 10:49 Patient Tobacco Use Status Former Tobacco user 12/05/24 10:49 Tobacco use type Cigarette 12/05/24 10:49 e-Cigarette/Vaping Use Never Used 12/05/24 10:49 Thrive Assessment: Date of Thrive Assessment Date Thrive assessed 11/14/24 12/05/24 10:49 Telehealth Telehealth Telehealth Platform: Telephone Location of provider rendering services: practice address Location of patient: address on file Patient Identification confirmed using: Name, : Yes Telehealth method: voice only Patient verbally consented to treatment: Yes Patient verbally consented to billing insurance company: Yes Patient informed of any privacy concerns related to visit: Yes Minutes spent on Phone/Video with Pt.: 5 Coding Level of Care Code Tele Est Pt Level 2 (88020) Diagnoses Bilateral knee pain M25.561; M25.562 Mild anemia D64.9 Assessment & Plan Assessment & Plan (1) Bilateral knee pain: Code(s): M25.561 - Pain in right knee; M25.562 - Pain in left knee Category: Medical Plan: Ongoing?bilateral?knee?pain X-rays?were?unremarkable Will?refer?to?physiatry (2) Mild anemia: Code(s): D64.9 - Anemia, unspecified Category: Medical Plan: Mild/borderline?anemia Rather?stable Will?continue?to?monitor Orders: Referrals Physiatry Referral M25.561 - Pain in right knee, M25.562 - Pain in left knee
== END 2024-12-05 17:05 | disposition home or self-care (01) ==
LOC: HO.HMCFM 10:43
PROVIDERS: PCP Family Medicine; Visit Provider Family Medicine
DX: M25.561 Pain in right knee (principal); M25.562 Pain in left knee; D64.9 Anemia, unspecified

== ENCOUNTER → 2024-12-05 10:43 | Outpatient (BNVA) | payer OTHER, SELFPAY | PROVIDERS: PCP Family Medicine; Visit Provider Family Medicine ==

== ENCOUNTER 2025-02-02 08:51 | Outpatient (REF) | payer OTHER, SELFPAY ==
--- NOTE | ~2025-02-02 | XR_ITS ---
EXAMINATION: XR KNEE AP STANDING CLINICAL INFORMATION: M25.561 - Pain in right knee COMPARISON: December 03, 2024 and November 25, 2024. TECHNIQUE: AP bilateral standing view of the knees was obtained. FINDINGS: No acute cortical disruption or malalignment. Mild joint space narrowing involving mostly the medial compartment with sclerosis along the articular surface of the medial tibial plateau. No lytic or blastic lesions. XR/XR knee standing BI IMPRESSION: Medial compartment osteoarthrosis, mild to moderate. Electronically signed by: Parminder Orta MD 02/02/2025 02:16 PM EDT
--- OUTSIDE RECORDS SUMMARY | 2025-02-04 10:06 | XMS_ITS | Clinical Summary ---
Author Organization [address] [place] [address] Address [address] [place] [address] Phone Care Team Providers Care Rug Hooker Hand Name Role Phone Alfonso Ray MD Primary Care Provider Encounters Date Type Department Care Team Description 11/25/2024 1:15 PM EDT Consult Orthopedic Surgery [facility] [address] [phone] Yusuf Collins DPM Ingrowing nail [...] Surgery [facility] [address] [phone] Yusuf Collins DPM [address] [address] Health Maintenance Due Date Last [...] patient's age to complete this topic [place] [address] [place] [address] [employer] PLAN Care Teams Rug Hooker Hand Relationship Specialty Start Date End Date Alfonso Ray MD [address] [place] [address] Dr Laurence [place] PCP - General Family Medicine 09/02/24
--- OUTSIDE RECORDS SUMMARY | 2025-02-04 10:06 | XMS_ITS | Clinical Summary ---
Author Organization [employer] Address [address] [facility] [address] [place] [address] Care Team Providers Care Traveling Electrician Name Role Phone Unavailable Primary Care Provider [...]
== END 2025-02-02 08:52 | disposition home or self-care (01) ==
LOC: HO.HOSX 08:51
PROVIDERS: Visit Provider Physician Assistant
DX: M25.561 Pain in right knee (principal); M25.562 Pain in left knee; M17.0 Bilateral primary osteoarthritis of knee
CPT/HCPCS: 73565; 99212

== ENCOUNTER 2025-02-02 13:14 | Outpatient (AMB) | payer OTHER, SELFPAY ==
--- OUTSIDE RECORDS SUMMARY | 2025-02-02 13:19 | XMS_ITS | Clinical Summary ---
Author Organization [address] [place] [address] Address [address] [place] [address] Phone Care Team Providers Care Residential Sales Manager Name Role Phone Alfonso Ray MD Primary Care Provider [phone] Encounters Date Type Department Care Team Description 11/25/2024 1:15 PM EDT Consult Orthopedic Surgery [facility] [address] [address] Yusuf Collins DPM Ingrowing nail from Last 3 Months Social History Tobacco Use Types Packs/Day Years Used Date Smoking Tobacco: Never Assessed Comments Unknown Sex and Gender Information Value Date Recorded Sex Assigned at Not on file Legal Sex Female 2:11 PM EST Gender Identity Not on file Sexual Orientation Not on file Last Filed Vital Signs Vital Sign Reading Time Taken Comments Blood Pressure - - Pulse - - Temperature - - Respiratory Rate - - Oxygen Saturation - - Inhaled Oxygen Concentration - - Weight 70.3 kg (155 lb) 11/25/2024 1:24 PM EDT Height 152.4 cm (5') 11/25/2024 1:24 PM EDT Body Mass Index 30.27 11/25/2024 1:24 PM EDT Plan of Treatment Upcoming Encounters Date Type Department Care Team (Late st Contact Info) Description 04/02/2025 8:45 AM EDT Office Visit Orthopedic Surgery [facility] [address] [address] Yusuf Collins DPM [address] [address] Health Maintenance Due Date Last Done Comments DTaP,Tdap,and Td Vaccines (1 - Tdap) 2006 Hepatitis B Vaccines (1 of 3 - 19+ 3-dose series) 2006 Cervical Cancer Screening: P ap Smear 2008 COVID-19 Vaccine (2023-2 5 season) 2024 04/27/2022, 04/06/2022 Depression Screening 09/02/2024 HIV Screening 09/02/2024 Hepatitis C Screening 09/02/2024 Social Influencers of Health Screening 09/02/2024 Influenza Vaccine (Season Ended) 2025 Hepatitis A Vaccines Aged Out 01/24/2021 No long er eligible based on patient's age to complete this topic HIB Vaccines Aged Out No longer eligi [...] age to complete this topic Meningococcal B Vaccine Aged Out No l onger eligible based on patient's age to complete this topic Pneumococcal Vaccine: Pediatrics (0 to 5 Years) and At-Risk Patients (6 to 64 Years) Aged Out No longer eligible b ased on patient's age to complete this topic RSV Immunization Patients Under 20 months Aged Out No longer eligible b ased on patient's age to complete this topic Varicella Vaccines Aged Out No longer eligible based on patient's age to complete this topic Insurance [address] [address] HEALTH PLAN Care Teams Residential Sales Manager Relationship Specialty Start Date End Date Alfonso Ray MD [address] [place] [address] Dr Laurence [place] PCP - General Family Medicine 09/02/24
--- NOTE | 2025-02-02 13:30 | A.OFFVIS_ITS ---
Vital Signs 02/02/25 13:31 Height 5 ft Weight 150 lb BMI 29.3 Intake Visit Reasons: Newprob-Pain of both knees Intake Note: Nelli is a 39 year old female who presents today for an evaluation of bilateral knee pain, right knee is worse. Patient reports her pain has been present for about 6 months. Her pain is located all around the knee right knee. Patient complains her right knee gives away, clicks, and pops. Patient states it is most painful to to use stairs, walking, and driving. She has tried physical therapy, ice and heat, lcarence wrap, and OTC knee brace. She takes gabapentin and Tylenol OTC with some relief. Patient states the knee brace is what has helped the most. Denies prior injuries or surgeries to either knee. Allergies latex Allergy (Mild, Verified 02/02/25 13:31) Rash Medication List - Last Reconciled 02/02/25 by Timothy Gomez PA-C albuterol sulfate 90 mcg/actuation (Proair Digihaler) 1 inh inhalation Q4-6H PRN 30 days budesonide-formoterol 160-4.5 mcg/actuation (Symbicort) 2 puffs inhalation Q12H 1 month cyclobenzaprine 10 mg PO TID PRN gabapentin 300 mg PO BID 30 days ipratropium-albuterol 0.5 mg-3 mg(2.5 mg base)/3 mL 3 mL inhalation Q6-8H PRN 3 months montelukast 10 mg PO BEDTIME multivitamin with iron 1 tab PO DAILY nebulizers (Compact Compressor Nebulizer) Use?As directed to?treat?asthma, 999 days omeprazole 20 mg PO DAILY 90 days psyllium husk (Metamucil) 1 tbsp PO BID 30 days triamcinolone acetonide 0.1% 1 appl topical BID 30 days HPI HPI Newprob-Pain of both knees: Details: 39 yo female presents to the office today for bilat knee pain. She states the pain is generalized around the knee. She feels the knee wants to give out. She has pain with stairs which is located in the front of the knee. She feels the knees crack. She has done physical therapy in the past for approximately 6 weeks and feels there has been no significant relief. [facility]LY [facility] Medical History Anxiety with depression Costochondral chest pain Chest wall pain Suprapubic pain, acute Gallstones Depression Anxiety Asthma Surgical History Hx of cholecystectomy Hx of tubal ligation Social History (Updated 12/05/24 @ 10:49 by Mago Lopez CMA) Household Members Other:: minor daughter Housing: Apartment Are you a primary long term acute care registered nurse to a significant other at home: Yes (minor daughter) Do you presently have visiting nurse or other home services: No Alcohol intake: current Alcohol intake frequency: does not drink Patient Tobacco Use Status: Former Tobacco user Tobacco use type: Cigarette Cigarettes Per Day: 4 Years Smoked: 5 e-Cigarette/Vaping Use: Never Used Second Hand Smoke Exposure: Yes Substance Use Type: Marijuana service: No Current occupational status: unemployed Current occupation: right hand dominant Current occupational exposures/hazards: No Cognitive needs: No Hearing needs: No Vision needs: No Review of Systems Const All systems reviewed & are unremarkable except as noted in HPI and below Physical Exam Vital Signs: BMI result Body Mass Index 29.3 Extrem Other: Bilateral knees are normal to inspection. She does have retropatellar tenderness present bilaterally. Positive patellar grind. Crepitus with range of motion. Calf supple nontender neurovascularly intact. Results Reviewed Results Reviewed: X-rays of both knees obtained in the office today and reviewed by me show patellofemoral syndrome Assessment & Plan Assessment & Plan (1) Patellofemoral syndrome, right: Code(s): M22.2X1 - Patellofemoral disorders, right knee Category: Medical (2) Patellofemoral syndrome of left knee: Code(s): M22.2X2 - Patellofemoral disorders, left knee Category: Medical Plan We discussed options today which include anti-inflammatory use with Celebrex which was sent to her pharmacy. She will take this twice a day for the next 2 weeks. She was fit for bilateral knee Genumed knee braces. If symptoms persist or worsen she will contact our office for a steroid injection otherwise she will follow up as needed. Orders: Orders XR knee standing BI Today M25.561 - Pain in right knee, M25.562 - Pain in left knee Medications: New celecoxib (Celebrex) 200 mg PO BID 60 caps 3RF 30 days Coding Level of Care Code Est Pt Level 3 (98432) Complex EM visit Add On G2211 Diagnoses Patellofemoral syndrome, right M22.2X1 Patellofemoral syndrome of left knee M22.2X2
[2025-02-02 13:31] VITALS: BMI 29.3
== END 2025-02-02 14:12 | disposition home or self-care (01) ==
LOC: HO.HOS 13:15
PROVIDERS: PCP Family Medicine; Visit Provider Physician Assistant
DX: M22.2X1 Patellofemoral disorders, right knee (principal); M22.2X2 Patellofemoral disorders, left knee
CPT/HCPCS: 99213; G2211

== ENCOUNTER → 2025-02-02 13:16 | Outpatient (BNV) | payer OTHER, SELFPAY | PROVIDERS: Visit Provider Radiology Diagnostic Radiology | DX: M17.10 Unilateral primary osteoarthritis, unspecified knee (principal) | CPT/HCPCS: 73565 ==

== ENCOUNTER 2025-02-12 08:32 | Outpatient (AMB) | payer OTHER, SELFPAY ==
--- NOTE | 2025-02-12 09:11 | MHC.OFFVIS ---
Intake Visit Reasons: 12wk follow up/ Litho Intake Note: Patient presents today for a 12 week follow up/[facility]ol[facility] Urology Medication:None Blood Thinner:None Antibiotic Allergies:None Boiler Water Tester Required: No Allergies latex Allergy (Mild, Verified 02/02/25 13:31) Rash Medication List - Last Reconciled 02/12/25 by Clemente Middleton MD albuterol sulfate 90 mcg/actuation (Proair Digihaler) 1 inh inhalation Q4-6H PRN 30 days budesonide-formoterol 160-4.5 mcg/actuation (Symbicort) 2 puffs inhalation Q12H 1 month celecoxib (Celebrex) 200 mg PO BID 30 days cyclobenzaprine 10 mg PO TID PRN gabapentin 300 mg PO BID 30 days ipratropium-albuterol 0.5 mg-3 mg(2.5 mg base)/3 mL 3 mL inhalation Q6-8H PRN 3 months montelukast 10 mg PO BEDTIME multivitamin with iron 1 tab PO DAILY nebulizers (Compact Compressor Nebulizer) Use?As directed to?treat?asthma, 999 days omeprazole 20 mg PO DAILY 90 days psyllium husk (Metamucil) 1 tbsp PO BID 30 days triamcinolone acetonide 0.1% 1 appl topical BID 30 days HPI Comments Details: 02/12/25--Discussed 24 hour urine results collected:11/17/24 Total volume 570 mL, Calcium 23 mg; Oxalate 21 mg, Citrate 241 mg, Sodium 102. Instructed on importance of fluid intake. I have discussed diet modification to decrease risk of forming more kidney stones. I have discussed low oxalate diet and specific foods to avoid including certain green leafy vegetables, chocalate, nuts, tea, beets, rubarb; low sodium, decreased use of animal protein and the importance of hydration drinking up to 2-2.5 liters of fluids and use of adding lemon to water to increase citrate in the diet. A pamphlet is also provided today. 11/11/24--Nelli is a 39-year-old female who is here with her mother for evaluation as a new patient kidney stones. The patient has had chronic back pain. A CT scan was done which noted punctate bilateral kidney stones. I have discussed with the patient that this finding of punctate bilateral kidney stones is likely not contributing to her back pain. I have discussed further evaluation with 24 hour urine collection. I have discussed the importance of fluid hydration. The patient denies family history of kidney stones. [facility]LY [facility] Medical History Anxiety with depression Costochondral chest pain Chest wall pain Suprapubic pain, acute Gallstones Depression Anxiety Asthma Surgical History Hx of cholecystectomy Hx of tubal ligation Social History (Updated 12/05/24 @ 10:49 by Mago Lopez CMA) Household Members Other:: minor daughter Housing: Apartment Are you a primary transitional care liaison to a significant other at home: Yes (minor daughter) Do you presently have visiting nurse or other home services: No Alcohol intake: current Alcohol intake frequency: does not drink Patient Tobacco Use Status: Former Tobacco user Tobacco use type: Cigarette Cigarettes Per Day: 4 Years Smoked: 5 e-Cigarette/Vaping Use: Never Used Second Hand Smoke Exposure: Yes Substance Use Type: Marijuana service: No Current occupational status: unemployed Current occupation: right hand dominant Current occupational exposures/hazards: No Cognitive needs: No Hearing needs: No Vision needs: No Results Reviewed Results Reviewed: Date of Service: 08/25/24 CT ABDOMEN AND PELVIS WITHOUT CONTRAST CLINICAL INFORMATION: Specified abdomen pain COMPARISON: 12/24/2020 TECHNIQUE: Multidetector volumetric imaging was performed from the superior aspect of the liver through the pubic symphysis. Sagittal and coronal reformatted images were obtained on the technologist's workstation. This CT examination was performed using dose optimization techniques as appropriate, variously including the following: *Automated exposure control *Adjustment of mA and/or kV according to patient size (this includes techniques or standardized protocols for targeted exams where dose is matched to indication/reason for exam; i.e. extremities or head) *Use of iterative reconstruction technique DLP: 491 mGy-cm FINDINGS: LUNG BASES: The visualized lung bases are unremarkable. LIVER, GALLBLADDER, AND BILIARY TREE: The liver is normal in size, shape, and attenuation. No focal hepatic lesion or biliary ductal dilatation is present. The gallbladder surgically absent. PANCREAS: Unremarkable. SPLEEN: Unremarkable. ADRENAL GLANDS: Unremarkable. KIDNEYS AND URETERS: Subtle low density areas in the mid left kidney not completely characterized. This can be followed with ultrasound. A few tiny 1 mm punctate stones in both kidneys are observed nonobstructive. No suspicious lesion or perinephric collection or hydronephrosis. Bladder is decompressed. BLADDER: Decompressed GASTROINTESTINAL TRACT: No evidence of bowel obstruction. The stomach is filled with fluid and ingested material. No right or left lower quadrant inflammatory change. Appendix not clearly identified. ABDOMINAL WALL: No significant hernia is appreciated. LYMPH NODES: Normal. VASCULAR: Aorta is atherosclerotic but not aneurysmal at the bifurcation. PELVIC VISCERA: Unremarkable. OSSEOUS STRUCTURES: Unremarkable. IMPRESSION: Tiny bilateral punctate nephroliths. No hydronephrosis. Assessment & Plan Assessment & Plan (1) Nephrolithiasis: Code(s): N20.0 - Calculus of kidney Category: Medical (2) Chronic back pain: Code(s): M54.9 - Dorsalgia, unspecified; G89.29 - Other chronic pain Category: Medical Plan Diet modification discussed to decrease risk of kidney stones. Follow-up in 1 year with renal ultrasound. Orders: Orders US renal BI 10 Months N20.0 - Calculus of kidney Patient Instructions: The patient had an opportunity to ask questions regarding treatment plan. The patient expressed understanding and agreement with the above treatment plan. The patient is aware they should contact our office by phone for worsening of their current condition or the appearance of new symptoms. Compliance is encouraged with any medications and followup testing that is ordered. It is a privilege to be allowed the opportunity to participate in the urologic care of your patient. If you have any questions or concerns regarding treatment for the above conditions please do not hesitate to contact me. The office telephone contact is [phone]. This note is constructed in part using voice recognition software. While every effort has been made to ensure accuracy business continuity coordinator errors may have been included. Yours sincerely, Clemente Middleton MD Coding Level of Care Code Est Pt Level 3 (71270) Complex EM visit Add On G2211 Diagnoses Nephrolithiasis N20.0 Chronic back pain M54.9; G89.29
== END 2025-02-12 11:06 | disposition home or self-care (01) ==
LOC: HO.HUSH 08:33
PROVIDERS: PCP Family Medicine; Visit Provider Urology
DX: N20.0 Calculus of kidney (principal); M54.9 Dorsalgia, unspecified; G89.29 Other chronic pain; Z13.9 Encounter for screening, unspecified
CPT/HCPCS: 99213; G2211

== ENCOUNTER → 2025-02-12 08:32 | Outpatient (BNVA) | payer OTHER, SELFPAY | PROVIDERS: PCP Family Medicine; Visit Provider Urology | DX: M54.9 Dorsalgia, unspecified (principal); N20.0 Calculus of kidney; G89.29 Other chronic pain | CPT/HCPCS: 81003; 99212 ==

== ENCOUNTER 2025-03-18 11:43 | Outpatient (AMB) | payer OTHER, SELFPAY ==
--- NOTE | 2025-03-18 11:59 | MHC.PC.OV ---
Vital Signs 03/18/25 12:02 Height 5 ft Weight 146 lb 8 oz BMI 28.6 BP 96/53 L Blood Pressure Location Rt brachial Position Sitting Respiration 16 Pulse 82 Pulse Source Pulse Oximeter Temp 98.3 F Temp Source Oral Pulse Oximetry (%) 98 Oxygen Delivery Method Room Air Intake Visit Reasons: FMLA Intake Note: patient here for FMLA Federal Java Developer Required: No Is last menstrual period known: Yes Last menstrual period: 03/17/25 Post menopausal: No Patient : No Allergies latex Allergy (Mild, Verified 03/18/25 12:04) Rash Tobacco use date assessed: 03/18/25 Dental Screening Dental Screen Date: 03/18/25 Did you have a dental visit in the last 12 months?: Yes Did you have a dental problem in the last 6 months where you did not have access to dental care?: No Was dental information given to patient?: Patient has dentist HPI FMLA HPI Details 39 y/o female presents today for FMLA paperwork. 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 Has patellofemoral syndrome, bilateral knees. Notes ongoing knee pain. [facility] Medical History Anxiety with depression Costochondral chest pain Chest wall pain Suprapubic pain, acute Gallstones Depression Anxiety Asthma Surgical History Hx of cholecystectomy Hx of tubal ligation Social History (Updated 12/05/24 @ 10:49 by Mago Lopez CMA) Household Members Other:: minor daughter Housing: Apartment Are you a primary care taker to a significant other at home: Yes (minor daughter) Do you presently have visiting nurse or other home services: No Alcohol intake: current Alcohol intake frequency: does not drink Patient Tobacco Use Status: Former Tobacco user Tobacco use type: Cigarette Cigarettes Per Day: 4 Years Smoked: 5 Packs per year/per ci.00 e-Cigarette/Vaping Use: Never Used Second Hand Smoke Exposure: Yes Substance Use Type: Marijuana Patient : No service: No Current occupational status: unemployed Current occupation: right hand dominant Current occupational exposures/hazards: No Cognitive needs: No Hearing needs: No Vision needs: No Female Reproductive History Menstrual Date of last menstrual period: 03/17/25 Questionnaire Thrive Questionnaire Date Thrive assessed: 11/14/24 I am a: Patient What is your living situation today?: I do not have a steady places to live I am temporarily staying with others Within the past 12 months, did the food you bought not last and you didn't have the money to get more?: Never true Within the past 12 months, did you worry whether your food would run out before you got money to buy more?: Never true Do you have trouble paying for medicines?: No Do you have trouble getting transportation to medical appointments?: No Do you have trouble paying your heating and electricity bill?: I choose not to answer this question Do you have trouble taking care of your child, family member or friend?: No Do you have trouble with day-to-day activities such as bathing, preparing meals, shopping, managing finances, etc.?: Yes Are you currently unemployed and looking for a job?: No Are you interested in more education?: No Please select the resources that you would like help with: Housing/Custodial THRIVE Score: 1 JALEN-7 AMB Questionnaire JALEN-7 Date JALEN - 7 assessed: 06/10/24 Source: Developed by Drs. Sadiq Artis, Azucena Warren, Vern Mckeon and colleagues, with an educational jose from [facility]. Review of Systems Const Denies chills, Denies fatigue, Denies fever(s), Denies headache(s) and Denies weakness ENT Denies dizziness and Denies headache(s) Card Denies dyspnea Resp Denies cough, Denies dyspnea, Denies wheezing and Denies other (shortness of breath) Musc Denies numbness and Denies tingling Neuro Denies dizziness, Denies headache(s), Denies numbness, Denies tingling and Denies weakness Psych Denies anxiety and Denies depression Endo Denies fatigue Aller/Immun Denies wheezing Physical exam (Primary Care) Vital Signs: Last Vital Signs Temp 98.3 F 03/18/25 12:02 Pulse 82 03/18/25 12:02 Resp 16 03/18/25 12:02 BP 96/53 L 03/18/25 12:02 Pulse Ox 98 03/18/25 12:02 Oxygen Delivery Method Room Air 03/18/25 12:02 BMI result Body Mass Index 28.6 Tobacco/Smoking Status: Tobacco use Status Tobacco use date assessed 03/18/25 03/18/25 12:05 Patient Tobacco Use Status Former Tobacco user 03/18/25 12:01 Tobacco use type Cigarette 03/18/25 12:01 e-Cigarette/Vaping Use Never Used 03/18/25 12:01 Thrive Assessment: Date of Thrive Assessment Date Thrive assessed 11/14/24 03/18/25 12:01 Const General: well developed; No acute distress Nutritional Appearance: well nourished Orientation/consciousness: patient oriented x3 HENMT Head: Yes normocephalic and Yes atraumatic Eyes General: appearance normal, both eyes and all related structures Pupils: Equal, round and reactive pupils present EOM: EOMs intact bilaterally Resp Effort & Inspection: normal respiratory effort Neuro General: patient oriented x3 and gait normal Cranial nerves: Yes Equal, round and reactive pupils present Psych Affect: normal affect Coding Level of Care Code Est Pt Level 3 (58872) Diagnoses Patellofemoral pain syndrome of both knees M22.2X1; M22.2X2 Assessment & Plan Assessment & Plan (1) Patellofemoral pain syndrome of both knees: Code(s): M22.2X1 - Patellofemoral disorders, right knee; M22.2X2 - Patellofemoral disorders, left knee Category: Medical Plan: Patellofemoral?syndrome?bilateral?knees Rather?severe?symptoms?and?patient?was?given?bilateral?knee?braces?in?celecoxib?by physiatry. They?had?recommended?follow-up?if?patient?is?not?improving?but?patient?has?no?current?appointment.??Recommended?she?follow-up?with?physiatry?as?soon?as?possible. Filling?out?FMLA?paperwork?to?keep?her?out?of?work?for?rest?of?bilateral?legs from?today?through?05/24/2025.??Tentative?return?to?work?on?05/25/2025. Advised?her?to?use?medication?and?knee?braces?but?keep?knee?braces?off?when?not?needing?to work,?climb?stairs?or?other?strenuous?activities?including?driving. We?discussed?that?I?will?re-evaluate?her?the?week?prior?to?her?attempted?to?return?to?work.??We?will?likely?discuss?transitioning?to?intermittent?leave?if?needed.
[2025-03-18 12:02] VITALS: BP 96/53; PULSE 82; RESP 16; TEMP 36.8; O2SAT 98; BMI 28.6
--- OUTSIDE RECORDS SUMMARY | 2025-03-18 12:30 | XMS_ITS | Clinical Summary ---
Author Organization [address] [place] [address] Address [address] [place] [address] Phone Care Team Providers Care Clinical Care Coordinator Name Role Phone Alfonso Ray MD Primary [...] Upcoming Encounters Date Type Department Care Team ([facility] st Contact Info) Description 04/02/2025 8:45 AM EDT Office Visit Orthopedic Surgery - [place] [phone] [phone] Yusuf Collins DPM [address] [address] Health Maintenance Due Date Last Done Comments [...] patient's age to complete this topic Insurance [facility] Care Teams Clinical Care Coordinator Relationship Specialty Start Date End Date Alfonso Ray MD [address] [place] [address] Dr Fan [place], [place] PCP - General Family Medicine 09/02/24
--- OUTSIDE RECORDS SUMMARY | 2025-03-18 12:30 | XMS_ITS | Clinical Summary ---
Author Organization [employer] Address [address] [facility] 7[address] [place] [address] Care Team Providers Care Inspector Precision Assembly Name Role Phone Unavailable Primary Care Provider [...] Date Last Done Comments Depression Screening 1987 Disability Screening 1987 Alcohol/Substance Use Screening 1999 Tobacco Screening 1999 Family Planning (PISQ) 2002 DTaP/Tdap/Td Vaccines (1 - Tdap) 2006 Hepatitis B Vaccines (1 of 3 - 19+ 3-dose series) 2006 Pap Smear 2008 Cervical Cancer Screening 2017 HPV/Cotest 2017 COVID-19 Vaccine ( - 2023-2 5 season) 2024 Influenza Vaccine (Season Ended) 2025 Zoster Vaccines (1 of 2) 2037 RSV [...] Years) and At-Risk Patients (6 to 49) Years Aged Out No longer eligible b ased on patient's age to complete this topic RSV under 20 months Aged Out No longe r eligible based on patient's age to complete this topic Rotavirus Vaccines Aged Out No longer eligible based on patient's age to complete this topic
== END 2025-03-18 13:34 | disposition home or self-care (01) ==
LOC: HO.HMCFM 11:44
PROVIDERS: PCP Family Medicine; Visit Provider Family Medicine
DX: M22.2X1 Patellofemoral disorders, right knee (principal); M22.2X2 Patellofemoral disorders, left knee

== ENCOUNTER → 2025-03-18 11:43 | Outpatient (BNVA) | payer OTHER, SELFPAY | PROVIDERS: PCP Family Medicine; Visit Provider Family Medicine | DX: M22.2X1 Patellofemoral disorders, right knee (principal); M22.2X2 Patellofemoral disorders, left knee | CPT/HCPCS: 99212 ==

== ENCOUNTER → 2025-03-27 07:29 | Outpatient (BNV) | payer OTHER, SELFPAY | PROVIDERS: PCP Family Medicine; Visit Provider Radiology Diagnostic Radiology | DX: R06.02 Shortness of breath (principal) | CPT/HCPCS: 71046 ==

== ENCOUNTER 2025-03-27 08:10 | Emergency (ER) | payer OTHER, SELFPAY ==
--- NOTE | ~2025-03-27 | XR_ITS ---
EXAMINATION: XR CHEST CLINICAL INFORMATION: sob COMPARISON: August 03, 2024 TECHNIQUE: 2 views of the chest were obtained. FINDINGS: No consolidation, pleural effusion or pneumothorax. No hyperinflation. Cardiomediastinal silhouette size is normal. Osseous structures are intact. Mild multilevel thoracic spondylosis. Vascular clips in the right upper quadrant abdomen. XR/XR chest 2V IMPRESSION: Normal chest x-ray. Multilevel spondylosis, thoracic spine. Probable status post cholecystectomy. Electronically signed by: Parminder Orta MD 03/27/2025 08:37 AM EDT
[2025-03-27 08:13] VITALS: BP 114/81; PULSE 83; RESP 18; TEMP 36.2; O2SAT 100; BMI 29.2
--- NOTE | 2025-03-27 08:56 | ED_ITS ---
HPI - General Adult General Chief complaint: General Medical Stated complaint: Vomiting Headache Diff Breathing Time Seen by Provider: 03/27/25 08:33 Source: patient Mode of arrival: ambulatory Limitations: no limitations History of Present Illness ED Provider: Kaycee Marie NP HPI narrative: Patient is a 39-year-old female who presents emergency department for evaluation. She reports that she into a new apartment approximately 10 days ago and believes that she is having some secondary to black mold exposure. She has seen concerning finding along the wall for black mold, reports that the landlord did confess to this, she is not certain what their plan as as far as treatment. Symptoms began about 3-4 days ago. Two days ago she decided to spend the night at her aunt's house was feeling better. Returned last night and symptoms began again. Balancing diffuse chest pain particularly during episodes of cough and deep inspiration, shortness of breath, concern for asthma exacerbation, frontal headache without dizziness lightheadedness or vision changes, an episode of post-tussive vomiting today. Despite using her nebulizer, infrequent usage of her albuterol inhaler she remains symptomatic with minimal relief. Denies fevers or chills, neck pain or neck stiffness, back pain, sore throat, difficulty swallowing, abdominal pain, numbness or tingling of the extremities, any precipitating injury. Related Data Previous Rx's ?Medication ?Instructions ?Recorded psyllium husk 3.4 gram/5.4 gram 1 tbsp PO BID 30 days #660 grams 10/19/23 oral powder (Metamucil) triamcinolone acetonide 0.1 % 1 appl topical BID 30 da ys #15 05/29/24 topical cream grams multivitamin with iron 1 tab PO DAILY #90 tabs 05/19 01/08 cyclobenzaprine 10 mg tablet 10 mg PO TID PRN muscle s pasm #20 08/03/24 tabs budesonide-formoterol HFA 160 2 puff inhalation Q12H 1 month 08/13/24 mcg-4.5 mcg/actuation aerosol #10.2 grams inhaler (Symbicort) gabapentin 300 mg capsule 300 mg PO BID 30 days #60 ca ps 08/13/24 ipratropium 0.5 mg-albuterol 3 mg 3 ml inhalation Q6-8 H PRN wheezing 08/13/24 (2.5 mg base)/3 mL nebulization 3 months #180 mL soln montelukast 10 mg tablet 10 mg PO BEDTIME #90 tabs omeprazole 20 mg capsule,delayed 20 mg PO DAILY 90 day s #90 caps 08/13/24 release nebulizers (Compact Compressor #1 ea 10/30/24 Nebulizer) albuterol sulfate 90 mcg/actuation 1 inh inhalation Q4 -6H PRN 11/02/24 breath activated powder shortness of breath or wheez ing 30 inhaler,sensor (Proair Digihaler) days #1 ea celecoxib 200 mg capsule (Celebrex) 200 mg PO BID 30 d ays #60 caps 02/02/25 prednisone 20 mg tablet 40 mg (2 x 20 mg) PO BID #10 tabs 03/27/25 Allergies Allergy/AdvReac Type Severity Reaction Status Date / Time latex Allergy Mild Rash Verified 03/27/25 08:15 Review of Systems 2 Review of Systems: Yes all other systems are reviewed and are negative PMFSH Past Medical History Attestation statement: The following information was validated with the patient. Source: old records reviewed Medical History Anxiety with depression Costochondral chest pain Chest wall pain Suprapubic pain, acute Gallstones Depression Anxiety Asthma Surgical History Hx of cholecystectomy Hx of tubal ligation Social History Social History (Updated 12/05/24 @ 10:49 by Mago Lopez CMA) Household Members Other:: minor daughter Housing: Apartment Are you a primary manager care to a significant other at home: Yes (minor daughter) Do you presently have visiting nurse or other home services: No Alcohol intake: current Alcohol intake frequency: holidays/special occasions only Alcohol type: hard liquor Patient Tobacco Use Status: Former Tobacco user Tobacco use type: Cigarette Cigarettes Per Day: 4 Years Smoked: 5 Smoked in Last 30 Days: No e-Cigarette/Vaping Use: Never Used Second Hand Smoke Exposure: Yes Use of substances other than those prescribed or required for medical reasons: Yes Substance Use Type: Marijuana Substance Use Frequency: Daily Advance Directives: No Advance Directives Information Provided: Yes Do you have a plan to hurt others: No Plan Patient : No service: No Current occupational status: unemployed Current occupation: right hand dominant Current occupational exposures/hazards: No Cognitive needs: No Hearing needs: No Vision needs: No Physical Exam ED Vital Signs: Vital Signs - 24 hr 03/27/25 08:13 03/27/25 09:19 Temperature 97.2 F 97.2 F Pulse Rate 83 83 Respiratory Rate 18 18 Blood Pressure 114/81 114/81 Pulse Oximetry 100 100 Oxygen Delivery Method Room Air Room Air BMI result Body Mass Index 29.2 Appearance: Alert.?Oriented to person, place and time. No acute distress.?Normal affect. Eyes: Pupils equal, round and reactive to light.? ENT: Pharynx normal.?? Neck: Normal inspection.? Neck supple.?? CVS: Heart sounds normal. Normal heart rate and rhythm.? Pulses normal.?? Respiratory: No respiratory distress.? Lung sounds clear to auscultation bilaterally?? Abdomen: Soft and non-tender. Normoactive bowel sounds. Skin: Skin warm and dry.? Normal skin color.? Extremities: No lower extremity edema.? No calf ttp? Neuro: Moves all extremities spontaneously. Sensation intact bilaterally. No focal neuro deficits. Ambulates with normal steady gait. Medical Decision Making Medical Decision Making [facility] Narrative: Patient is a 39-year-old female with past medical history of asthma, costochondritis, anxiety presents emergency department for evaluation of chest pain shortness of breath intermittent headache with concern for black mold exposure as per HPI. She has albuterol inhaler nebulizer solutions at home. Symptoms have persisted. Admitting to frequent usage of her albuterol inhaler with minimal improvement. No recent travel, no use of OCP, no lower extremity redness pain or swelling history of VTE/malignancy. PERC negative unlikely pulmonary embolism. Lower suspicion for ACS, no risk factors. Most suspicious for asthma exacerbation, will obtain CXR to evaluate for consolidation infiltrate that might suggest pneumonia. No rashes lesions or urticaria to suggest allergic reaction. No trauma or injury. CBC is without leukocytosis significant anemia or thrombocytopenia. No significant electrolyte derangement. No TRISTAN. LFTs overall unremarkable. Viral serologies are negative. Pleasant discharge home with course of prednisone, suspected asthma exacerbation, given return precautions. All questions answered. Differential Diagnosis Differential Diagnoses: The differential diagnosis associated with the presentation includes (See narrative above) Lab Data [facility] Lab Attestation statement: I reviewed the patient's lab results. 03/27/25 09:30 03/27/25 09:30 Labs: Lab Results 03/27/25 Range/Units 09:30 WBC 9.9 (4.8-10.8) X10*3/uL RBC 4.07 L (4.20-5.50) X10*6/uL Hgb 12.4 (12.0-16.0) g/dl Hct 35.6 L (37.0-47.0) % MCV 87.5 (80.0-98.0) fL MCH 30.5 (27.0-33.0) pg MCHC 34.8 (31.0-35.0) g/dl RDW 13.9 (11.0-16.0) % Plt Count 306 (160-400) X10*3/uL MPV 8.7 L (9.4-12.3) fL Immature Gran % (Auto) 0.5 H (0.0-0.4) % Neut % (Auto) 68.7 (45-73) % Lymph % (Auto) 20.9 (20-40) % [place] % (Auto) 6.5 (2-11) % Eos % (Auto) 2.9 (0-4) % Baso % (Auto) 0.5 (0-2) % Lymph # (Auto) 2.1 (1.2-4.9) X10*3/uL [place] # (Auto) 0.6 (0.1-1.2) X10*3/uL Eos # (Auto) 0.3 (0.0-0.4) X10*3/uL Baso # (Auto) 0.1 (0.0-0.2) X10*3/uL Abs Immat Gran (auto) 0.05 H (0.00-0.03) X10*3/uL Absolute Neuts (auto) 6.8 (2.0-8.3) x10*3/uL Absolute Nucleated RBC 0.000 (0.0-0.012) X10*3/uL Nucleated RBC % (auto) 0.0 (0.0-0.2) /100WBC Sodium 139 (135-145) mmol/L Potassium 4.4 (3.3-5.1) mmol/L Chloride 110 H (96-108) mmol/L Carbon Dioxide 21 L (22-29) mmol/L Anion Gap 12 (12-20) BUN 9 (9-16) mg/dL Creatinine 0.69 (0.5-1.4) mg/dL Estim Creat Clear Calc 108.1 Estimated GFR > 60 Random Glucose 92 (60-115) mg/dL Calcium 8.9 (8.4-10.2) mg/dL Total Bilirubin 0.3 (0.0-1.0) mg/dL AST 18 (5-31) U/L ALT 13 (0-31) U/L Alkaline Phosphatase 37 L (39-117) U/L Total Protein 6.8 (6.5-8.0) g/dL Albumin 4.0 (3.5-5.0) g/dL Influenza Type A (PCR) NEGATIVE (Negative) Influenza Type B (PCR) NEGATIVE (Negative) RSV RNA Qual (PCR) NEGATIVE (Negative) SARS-CoV-2 RNA (RT-PCR) NEGATIVE (Negative) Independent Interpretation I performed an independent interpretation of an: EKG (Normal sinus rhythm with ventricular rate of 71, normal AWILDA, QTC 399, no ST-elevation) and Plain X-Ray (No consolidation or infiltrate to suggest pneumonia. No pleural effusions.) Radiology Impression Discussion of test interpretation with radiology: I have reviewed the radiologist's reading. Radiologist Impression: TECHNIQUE: 2 views of the chest were obtained. FINDINGS: No consolidation, pleural effusion or pneumothorax. No hyperinflation. Cardiomediastinal silhouette size is normal. Osseous structures are intact. Mild multilevel thoracic spondylosis. Vascular clips in the right upper quadrant abdomen. XR/XR chest 2V IMPRESSION: Normal chest x-ray. Multilevel spondylosis, thoracic spine. Probable status post cholecystectomy. External Record Review External record reviewed: Outpatient record Prescription Management I considered prescription management with: Other (See narrative above) Discharge Plan Discharge Clinical Impression: Asthma exacerbation Qualifiers: Asthma severity: moderate Asthma persistence: persistent Qualified Code(s): J 45.41 - Moderate persistent asthma with (acute) exacerbation Patient Disposition: Home, Self-Care Instructions: Asthma (ED) Additional Instructions: Blood work today is reassuring, chest x-ray does not show signs of pneumonia, EKG does not show abnormal findings. Suspect her symptoms are secondary to exacerbation of your asthma, which may be due to a viral infection, potentially the mold exposure that you have expressed concern about. As mentioned, if this is in fact black mold, with continued exposure this may continuously cause exacerbation of your asthma, please speak with your landlord in regards to plan for appropriate treatment, and/or consider relocation to remove herself from the environment. A prescription for prednisone has been sent to your pharmacy please take this daily with food to prevent stomach upset. Return back to emergency department any new or worsening symptoms or concerns which include but is not limited to fevers, chills, worsening shortness of breath/difficulty breathing, chest pain, numbness or tingling of the extremities. Prescriptions: New prednisone 20 mg tablet 40 mg PO BID Qty: 10 0RF No Action (DME) nebulizers [Compact Compressor Nebulizer] Misc See Rx Instructions .Route Qty: 1 0RF Rx Instructions: Use?As directed to?treat?asthma, 999 days Proair Digihaler 90 mcg/actuation aero powdr breath act w/sensor 1 inh inhalation Q4-6H PRN (Reason: shortness of breath or wheezing) 30 Days Qty: 1 2RF cyclobenzaprine 10 mg tablet 10 mg PO TID PRN (Reason: muscle spasm) Qty: 20 0RF triamcinolone acetonide 0.1 % cream 1 appl topical BID 30 Days Qty: 15 2RF Metamucil 3.4 gram/5.4 gram powder 1 tbsp PO BID 30 Days Qty: 660 3RF Rx Instructions: mix into at least 8 oz of water or juice before administering multivitamin with iron Tablet 1 tab PO DAILY Qty: 90 2RF ipratropium-albuterol 0.5 mg-3 mg(2.5 mg base)/3 mL solution for nebulization 3 ml inhalation Q6-8H PRN (Reason: wheezing) 90 Days Qty: 180 3RF gabapentin 300 mg capsule 300 mg PO BID 30 Days Qty: 60 3RF montelukast 10 mg tablet 10 mg PO BEDTIME Qty: 90 3RF omeprazole 20 mg capsule,delayed release(DR/EC) 20 mg PO DAILY 90 Days Qty: 90 2RF budesonide-formoterol [Symbicort] 160-4.5 mcg/actuation HFA aerosol inhaler 2 puff inhalation Q12H 30 Days Qty: 10.2 11RF celecoxib [Celebrex] 200 mg capsule 200 mg PO BID 30 Days Qty: 60 3RF Referrals: Alfonso Ray MD [Primary Care Provider, Internal Medicine] Print Language: Zambian
--- NOTE | 2025-03-27 09:07 | ECG_ITS ---
Test Reason : N/V Blood Pressure : */* mmHG Vent. Rate : 71 BPM Atrial Rate : 71 BPM P-R Int : 178 ms QRS Dur : 76 ms QT Int : 368 ms P-R-T Axes : 56 35 18 degrees QTcB Int : 399 ms Normal sinus rhythm Low voltage QRS Borderline ECG When compared with ECG of 03-Aug-2024 07:15, No significant change was found Referred By: Kaycee Marie Electronically Signed By: Panda Manriquez
[2025-03-27 09:19] VITALS: BP 114/81; PULSE 83; RESP 18; TEMP 36.2; O2SAT 100
--- OUTSIDE RECORDS SUMMARY | 2025-03-27 09:19 | XMS_ITS | Clinical Summary ---
Author Organization [employer] Address [address] [facility] [address] [place] [address] Care Team Providers Care Java Swing Developer Name Role Phone Unavailable Primary Care Provider [...] Cancer Screening 2017 HPV/Cotest 2017 COVID-19 Vaccine (1 - 2023-2 5 season) 2024 Influenza Vaccine (#1) 2025 Zoster Vaccines (1 of 2) 2037 [...]
--- OUTSIDE RECORDS SUMMARY | 2025-03-27 09:19 | XMS_ITS | Clinical Summary ---
Author Organization [address] [place] [address] Address [address] [place] [address] Phone Care Team Providers Care Flatwork Tier Name Role Phone Alfonso Ray MD Primary [...] Upcoming Encounters Date Type Department Care Team ([facility] st Contact Info) Description 04/02/2025 8:45 AM EDT Office Visit Orthopedic Surgery [place] [phone] [phone] Yusuf Collins DPM [address] [address] Health Maintenance Due Date Last Done Comments DTaP,Tdap,and Td Vaccines (1 - Tdap) 2006 Hepatitis B Vaccines (1 of 3 - 19+ 3-dose series) 2006 Cervical Cancer Screening: P ap Smear 2008 COVID-19 Vaccine (2023-2 5 season) 2024 04/27/2022, 04/06/2022 Depression Screening 09/02/2024 HIV Screening 09/02/2024 Hepatitis C Screening 09/02/2024 Social Influencers of Health Screening 09/02/2024 Influenza Vaccine (#1) 2025 Hepatitis A Vaccines Aged Out 01/24/2021 [...] 5 Years) and At-Risk Patients (6 to 49 Years) Aged Out No longer eligible b ased on patient's age to complete this topic RSV Immunization Patients Under 20 months Aged Out No longer eligible b ased on patient's age to complete this topic Varicella Vaccines Aged Out No longer eligible based on patient's age to complete this topic Insurance [facility] Care Teams Flatwork Tier Relationship Specialty Start Date End Date Alfonso Ray MD [address] [place] [address] PCP - General Family Medicine 09/02/24
[2025-03-27 09:34] LABS: MANUAL DIFF FLAG NO
[2025-03-27 09:36] LABS: Hematocrit 35.6 % (37.0-47.0); Hemoglobin 12.4 g/dl (12.0-16.0); Imm Gran Abs Auto 0.05 X10*3/uL (0.00-0.03); Imm Gran Pct Auto 0.5 % (0.0-0.4); Lymphocytes Absolute Auto 2.1 X10*3/uL (1.2-4.9); Mean Corpuscular HGB Conc 34.8 g/dl (31.0-35.0); Mean Corpuscular Hemoglobin 30.5 pg (27.0-33.0); Mean Corpuscular Volume 87.5 fL (80.0-98.0); NRBC Abs Auto 0.000 X10*3/uL (0.0-0.012); NRBC Pct Auto 0.0 /100WBC (0.0-0.2); Platelet Count 306 X10*3/uL (160-400); Red Blood Count 4.07 X10*6/uL (4.20-5.50); White Blood Count 9.9 X10*3/uL (4.8-10.8)
[2025-03-27 09:51] LABS: Alanine Aminotransferase 13 U/L (0-31); Albumin Level 4.0 g/dL (3.5-5.0); Alkaline Phosphatase 37 U/L (39-117); Anion Gap 12 (12-20); Aspartate Amino Transferase 18 U/L (5-31); Blood Urea Nitrogen 9 mg/dL (9-16); Calcium 8.9 mg/dL (8.4-10.2); Carbon Dioxide 21 mmol/L (22-29); Chloride 110 mmol/L (96-108); Creatinine Clr Calc Pharmacy 108.1; Estimated Glomerular Filt Rate > 60; Potassium 4.4 mmol/L (3.3-5.1); Sodium 139 mmol/L (135-145); Total Protein 6.8 g/dL (6.5-8.0)
[2025-03-27 10:16] LABS: Resp Syncy Virus RNA Qual PCR NEGATIVE (Negative); SARS COV2 PCR INHOUSE NEGATIVE (Negative)
[2025-03-27 11:07] VITALS: BP 111/78; PULSE 74; RESP 16; TEMP 36.5; O2SAT 97
[2025-03-27 11:10] VITALS: BP 111/78; PULSE 74; RESP 16; TEMP 36.5; O2SAT 97
== END 2025-03-27 11:10 | disposition home or self-care (01) ==
PROVIDERS: Emergency Provider Emergency Medicine; PCP Family Medicine
DX: J45.41 Moderate persistent asthma with (acute) exacerbation (principal); Z03.818 Encounter for observation for suspected exposure to other biological agents ruled out; R06.02 Shortness of breath
CPT/HCPCS: 71046; 80053; 85025; 87637; 93005; 99283; 99284

== ENCOUNTER → 2025-03-27 09:07 | Outpatient (BNV) | payer OTHER, SELFPAY | PROVIDERS: Emergency Provider Emergency Medicine; PCP Family Medicine; Visit Provider Internal Medicine Cardiovascular Disease | DX: R11.2 Nausea with vomiting, unspecified (principal) | CPT/HCPCS: 93010 ==

== ENCOUNTER 2025-04-10 21:56 | Emergency (ER) | payer OTHER, SELFPAY ==
[2025-04-10 22:01] VITALS: BP 102/67; PULSE 86; RESP 16; TEMP 36.8; O2SAT 99; BMI 29.0
--- OUTSIDE RECORDS SUMMARY | 2025-04-10 22:25 | XMS_ITS | Clinical Summary ---
Author Organization [employer] Address [address] [facility] [address] [place] [address] Care Team Providers Care Motor Pool Clerk Name Role Phone Unavailable Primary Care Provider [...] Tobacco Screening 1999 Family Planning (PISQ) 2002 HPV Vaccines (1 - 3-dose series) 2002 DTaP/Tdap/Td Vaccines (1 - Tdap) 2006 [...]
--- OUTSIDE RECORDS SUMMARY | 2025-04-10 22:25 | XMS_ITS | Clinical Summary ---
Author Organization [address] [place] [address] Address [address] [place] [address] Phone Care Team Providers Care Church History Teacher Name Role Phone Alfonso Ray MD Primary [...] 11/25/2024 1:24 PM EDT Plan of Treatment Health Maintenance Due Date Last Done Comments DTaP,Tdap,and Td Vaccines (1 - Tdap) 2006 Hepatitis B Vaccines (1 of 3 - 19+ 3-dose series) 2006 Cervical Cancer Screening: P ap Smear 2008 COVID-19 Vaccine ( - 2023-2 5 season) 2024 04/27/2022, 04/06/2022 HIV Screening 09/02/2024 Hepatitis C Screening 09/02/2024 Social Influencers of Health Screening 09/02/2024 Depression Screening 09/17/2024 Influenza Vaccine (#1) 2025 Hepatitis A Vaccines [...] patient's age to complete this topic [place] [address] [place] [address] Care Teams Church History Teacher Relationship Specialty Start Date End Date Alfonso Ray MD [address] [place] [address] Dr Fan [place] PCP - General Family Medicine 09/02/24
--- NOTE | 2025-04-10 22:44 | ED_ITS ---
HPI - Dental/Oral General Chief complaint: Dental/Oral Stated complaint: headache, toothache Time Seen by Provider: 04/10/25 22:42 History of Present Illness ED Provider: mary beth HPI Narrative: 24 hrs of clem[place] tooth pain Teeth map: 2 1. cracked 2. tender Related Data Previous Rx's ?Medication ?Instructions ?Recorded psyllium husk 3.4 gram/5.4 gram 1 tbsp PO BID 30 days #660 grams 10/19/23 oral powder (Metamucil) triamcinolone acetonide 0.1 % 1 appl topical BID 30 da ys #15 05/29/24 topical cream grams multivitamin with iron 1 tab PO DAILY #90 tabs 05/19 01/08 cyclobenzaprine 10 mg tablet 10 mg PO TID PRN muscle s pasm #20 08/03/24 tabs budesonide-formoterol HFA 160 2 puff inhalation Q12H 1 month 08/13/24 mcg-4.5 mcg/actuation aerosol #10.2 grams inhaler (Symbicort) gabapentin 300 mg capsule 300 mg PO BID 30 days #60 ca ps 08/13/24 ipratropium 0.5 mg-albuterol 3 mg 3 ml inhalation Q6-8 H PRN wheezing 08/13/24 (2.5 mg base)/3 mL nebulization 3 months #180 mL soln montelukast 10 mg tablet 10 mg PO BEDTIME #90 tabs omeprazole 20 mg capsule,delayed 20 mg PO DAILY 90 day s #90 caps 08/13/24 release nebulizers (Compact Compressor #1 ea 10/30/24 Nebulizer) albuterol sulfate 90 mcg/actuation 1 inh inhalation Q4 -6H PRN 11/02/24 breath activated powder shortness of breath or wheez ing 30 inhaler,sensor (Proair Digihaler) days #1 ea celecoxib 200 mg capsule (Celebrex) 200 mg PO BID 30 d ays #60 caps 02/02/25 prednisone 20 mg tablet 40 mg (2 x 20 mg) PO BID #10 tabs 03/27/25 amoxicillin 875 mg-potassium 1 tab PO BID 7 days #14 t abs 04/10/25 clavulanate 125 mg tablet oxycodone 5 mg tablet 5 mg PO Q8H PRN pain #7 tabs 04/10/25 Allergies Allergy/AdvReac Type Severity Reaction Status Date / Time latex Allergy Mild Rash Verified 04/10/25 22:04 [facility] Past Medical History Medical History Anxiety with depression Costochondral chest pain Chest wall pain Suprapubic pain, acute Gallstones Depression Anxiety Asthma Surgical History Hx of cholecystectomy Hx of tubal ligation Social History Social History (Updated 12/05/24 @ 10:49 by Mago Lopez CMA) Household Members Other:: minor daughter Housing: Apartment Are you a primary ocular care technician to a significant other at home: Yes (minor daughter) Do you presently have visiting nurse or other home services: No Alcohol intake: current Alcohol intake frequency: holidays/special occasions only Alcohol type: hard liquor Patient Tobacco Use Status: Former Tobacco user Tobacco use type: Cigarette Cigarettes Per Day: 4 Years Smoked: 5 e-Cigarette/Vaping Use: Never Used Second Hand Smoke Exposure: Yes Substance Use Type: Marijuana Advance Directives: No Advance Directives Information Provided: No service: No Current occupational status: unemployed Current occupation: right hand dominant Current occupational exposures/hazards: No Cognitive needs: No Hearing needs: No Vision needs: No Physical Exam 2 Exam: Exam: General: Awake alert appears in some pain but not distressed Oral: tender dentition of the teeth identified above. soft sublingual space, no ANUG Vital Signs: Vital Signs: Last Vital Signs Temp 98.5 F 04/10/25 23:04 Pulse 80 04/10/25 23:04 Resp 17 04/10/25 23:04 BP 112/76 04/10/25 23:04 Pulse Ox 100 04/10/25 23:04 O2 Del Method Room Air 04/10/25 23:04 BMI result Body Mass Index 29.0 Medications Administered Discontinued Medications Generic Name Dose Route Start Last Admin Trade Name Freq PRN Reason Stop Dose Admin Acetaminophen 975 mg 04/10/25 22:55 04/10/25 23:00 Acetaminophen 325 Mg Tablet PO 04/10/25 22:56 975 mg ONCE ONE Administration Amoxicillin/Clavulanate Potassium 875 mg 04/10/25 22:43 04/10/25 22:58 Amoxicillin/Potassium Clav 875 Mg Tablet PO 04/10/25 22:44 875 mg ONCE ONE Administration Ibuprofen 600 mg 04/10/25 22:43 04/10/25 22:57 Ibuprofen 600 Mg Tablet PO 04/10/25 22:44 600 mg ONCE ONE Administration Lidocaine HCl 15 ml 04/10/25 22:43 04/10/25 22:57 Lidocaine Hcl Viscous 2 % 15 Ml Solution MUCOUS MEM 04/10/25 22:44 15 ml ONCE ONE Administration Morphine Sulfate 15 mg 04/10/25 22:55 04/10/25 23:01 Morphine Sulfate Immed Release 15 Mg Tablet PO 04/10/25 22:56 15 mg ONCE ONE Administration Medical Decision Making Medical Decision Making MDM Narrative: Medical Decision Makin-year-old with dental pain. She does have cracked and fractured teeth but no signs of purulence or emergent gingival or oral infection or airway obstruction. Plan for pain control empiric antibiotics for possible apical abscess and the strict return precautions Preliminary Favored Differential Diagnosis: Dental fracture, apical abscess, tooth ache among additional considered etiologies Testing Interpreted Independently: Not Applicable Radiology or Lab testing Results Reviewed: Not Applicable Consults: Not Applicable Independent Historians/External Chart Reviews: Not Applicable Social Determinants of Health Impacting MDM/Planning: Not Applicable Discharge Plan Discharge Clinical Impression: Dental implant pain Patient Disposition: Home, Self-Care Instructions: Toothache (ED) Additional Instructions: _ DISCHARGE DIAGNOSES: Tooth pain, fractured tooth possible dental or apical abscess or tooth infection HISTORY OF PRESENTATION: ?Tooth pain EMERGENCY DEPARTMENT COURSE,TESTS, TREATMENTS: While in the ED today you were given antibiotics and pain medicine DISCHARGE MEDICATIONS: ?As needed oxycodone, we recommend also taking the antibiotics prescribed. Tylenol and ibuprofen can be taken [id number] as needed FOLLOW-UP: ?Call your primary or general physician soon as possible to discuss your symptoms, your ED visit and to discuss follow up plans Call dental for follow up INSTRUCTIONS ?& RETURN PRECAUTIONS: If any symptoms change first call your primary physician, if it is after-hours your primary doctors office should have a provider payroll consultant you can speak with. If the symptoms are severe or very concerning to you then call 911 or return to the ED. Kolby Elise MD Emergency Physician [facility] Prescriptions: New amoxicillin-pot clavulanate 875-125 mg tablet 1 tab PO BID 7 Days Qty: 14 0RF oxycodone 5 mg tablet 5 mg PO Q8H PRN (Reason: pain) Qty: 7 0RF Rx Instructions: Partial Fill upon patient request. No Action (DME) nebulizers [Compact Compressor Nebulizer] Misc See Rx Instructions .Route Qty: 1 0RF Rx Instructions: Use?As directed to?treat?asthma, 999 days Proair Digihaler 90 mcg/actuation aero powdr breath act w/sensor 1 inh inhalation Q4-6H PRN (Reason: shortness of breath or wheezing) 30 Days Qty: 1 2RF cyclobenzaprine 10 mg tablet 10 mg PO TID PRN (Reason: muscle spasm) Qty: 20 0RF prednisone 20 mg tablet 40 mg PO BID Qty: 10 0RF triamcinolone acetonide 0.1 % cream 1 appl topical BID 30 Days Qty: 15 2RF Metamucil 3.4 gram/5.4 gram powder 1 tbsp PO BID 30 Days Qty: 660 3RF Rx Instructions: mix into at least 8 oz of water or juice before administering multivitamin with iron Tablet 1 tab PO DAILY Qty: 90 2RF ipratropium-albuterol 0.5 mg-3 mg(2.5 mg base)/3 mL solution for nebulization 3 ml inhalation Q6-8H PRN (Reason: wheezing) 90 Days Qty: 180 3RF gabapentin 300 mg capsule 300 mg PO BID 30 Days Qty: 60 3RF montelukast 10 mg tablet 10 mg PO BEDTIME Qty: 90 3RF omeprazole 20 mg capsule,delayed release(DR/EC) 20 mg PO DAILY 90 Days Qty: 90 2RF budesonide-formoterol [Symbicort] 160-4.5 mcg/actuation HFA aerosol inhaler 2 puff inhalation Q12H 30 Days Qty: 10.2 11RF celecoxib [Celebrex] 200 mg capsule 200 mg PO BID 30 Days Qty: 60 3RF Interventions: ED Discharge Assessment Last Done: 04/10/25 23:04 Discharge Date/Time: 04/10/25 23:07 Print Language: Citizen Of [place]
[2025-04-10] MEDS: Lidocaine HCl Viscous 2 % 15 ML SOLUTION MUCOUS MEM (22:57)
[2025-04-10] MEDS: Morphine Sulfate Immed Release 15 MG TABLET PO (23:01)
[2025-04-10 23:04] VITALS: BP 112/76; PULSE 80; RESP 17; TEMP 36.9; O2SAT 100
== END 2025-04-10 23:07 | disposition home or self-care (01) ==
PROVIDERS: Emergency Provider Emergency Medicine; PCP Family Medicine
DX: M27.69 Other endosseous dental implant failure (principal); K03.81 Cracked tooth
CPT/HCPCS: 99283

== ENCOUNTER 2025-07-01 14:47 | Outpatient (AMB) | payer OTHER, SELFPAY ==
--- NOTE | 2025-07-01 14:58 | MHC.OFFVIS ---
Intake Visit Reasons: OV- B/L knee pain f/u Intake Note: Nelli is a 40 year old female who presents today for a follow up for her bilateral knee pain. Patient states that her knee braces help her but they are causing her mild discomfort. She states that her knee braces are a little too long and would like different braces if possible. Allergies latex Allergy (Mild, Verified 07/01/25 15:13) Rash Medication List - Last Reconciled 07/01/25 by Timothy Gomez PA-C albuterol sulfate 90 mcg/actuation (Proair Digihaler) 1 inh inhalation Q4-6H PRN 30 days amoxicillin-pot clavulanate 875-125 mg 1 tab PO BID 7 days budesonide-formoterol 160-4.5 mcg/actuation (Symbicort) 2 puffs inhalation Q12H 1 month celecoxib 200 mg PO BID cyclobenzaprine 10 mg PO TID PRN gabapentin 300 mg PO BID 30 days ipratropium-albuterol 0.5 mg-3 mg(2.5 mg base)/3 mL 3 mL inhalation Q6-8H PRN 3 months montelukast 10 mg PO BEDTIME multivitamin with iron 1 tab PO DAILY nebulizers (Compact Compressor Nebulizer) Use?As directed to?treat?asthma, 999 days omeprazole 20 mg PO DAILY 90 days oxycodone 5 mg PO Q8H PRN prednisone 40 mg (2 x 20 mg) PO BID psyllium husk (Metamucil) 1 tbsp PO BID 30 days triamcinolone acetonide 0.1% 1 appl topical BID 30 days HPI HPI OV- B/L knee pain f/u: Details: 40-year-old female returns to the office today for bilateral knee pain. At her last visit she was given Genumed knee braces but states the metal in the brace is irritating her knee and she is unable to wear them as it limits her activity. [facility] Medical History Anxiety with depression Costochondral chest pain Chest wall pain Suprapubic pain, acute Gallstones Depression Anxiety Asthma Surgical History Hx of cholecystectomy Hx of tubal ligation Social History Household Members Other:: minor daughter Housing: Apartment Are you a primary intensive care anaesthetist to a significant other at home: Yes (minor daughter) Do you presently have visiting nurse or other home services: No Alcohol intake: current Alcohol intake frequency: holidays/special occasions only Alcohol type: hard liquor Patient Tobacco Use Status: Former Tobacco user Tobacco use type: Cigarette Cigarettes Per Day: 4 Years Smoked: 5 e-Cigarette/Vaping Use: Never Used Second Hand Smoke Exposure: Yes Substance Use Type: Marijuana service: No Current occupational status: unemployed Current occupation: right hand dominant Current occupational exposures/hazards: No Cognitive needs: No Hearing needs: No Vision needs: No Review of Systems Const All systems reviewed & are unremarkable except as noted in HPI and below Physical Exam Extrem Other: Bilateral knees are normal to inspection. She does have retropatellar tenderness present bilaterally. Positive patellar grind. Crepitus with range of motion. Calf supple nontender neurovascularly intact. Assessment & Plan Assessment & Plan (1) Patellofemoral pain syndrome of both knees: Code(s): M22.2X1 - Patellofemoral disorders, right knee; M22.2X2 - Patellofemoral disorders, left knee Category: Medical Plan: Patient was fit for a new knee brace in the office today, both knees. She will continue with activity as tolerated. Follow up as needed. Coding Level of Care Code Est Pt Level 3 (37410) Complex EM visit Add On G2211 Diagnoses Patellofemoral pain syndrome of both knees M22.2X1; M22.2X2
== END 2025-07-01 15:37 | disposition home or self-care (01) ==
LOC: HO.HOS 14:48
PROVIDERS: PCP Family Medicine; Visit Provider Physician Assistant
DX: M22.2X1 Patellofemoral disorders, right knee (principal); M22.2X2 Patellofemoral disorders, left knee
CPT/HCPCS: 99213

== ENCOUNTER → 2025-07-01 14:47 | Outpatient (BNVA) | payer OTHER, SELFPAY | PROVIDERS: PCP Family Medicine; Visit Provider Physician Assistant | DX: M22.2X1 Patellofemoral disorders, right knee (principal); M22.2X2 Patellofemoral disorders, left knee | CPT/HCPCS: 99212 ==

== ENCOUNTER 2025-07-09 12:53 | Outpatient (AMB) | payer OTHER, SELFPAY ==
--- NOTE | 2025-07-09 13:32 | MHC.PC.OV ---
Vital Signs 07/09/25 13:35 Height 5 ft Weight 148 lb BMI 28.9 BP 100/60 Blood Pressure Location Rt brachial Position Sitting Respiration 15 Pulse 80 Pulse Source Pulse Oximeter Temp 98.6 F Temp Source Temporal Artery Scan Pulse Oximetry (%) 97 Oxygen Delivery Method Room Air Intake Visit Reasons: follow up knee Intake Note: Nelli presents in the office today to follow up to her knees. Patient needs refills of her gabapentin, Metamucil and multivitamin. Allergies latex Allergy (Mild, Verified 07/09/25 13:32) Rash Medication List - Last Reconciled 07/09/25 by Alfonso Ray MD albuterol sulfate 90 mcg/actuation (Proair Digihaler) 1 inh inhalation Q4-6H PRN 30 days budesonide-formoterol 160-4.5 mcg/actuation (Symbicort) 2 puffs inhalation Q12H 1 month celecoxib 200 mg PO BID cyclobenzaprine 10 mg PO TID PRN gabapentin 300 mg PO BID 30 days ipratropium-albuterol 0.5 mg-3 mg(2.5 mg base)/3 mL 3 mL inhalation Q6-8H PRN 3 months montelukast 10 mg PO BEDTIME multivitamin with iron 1 tab PO DAILY nebulizers (Compact Compressor Nebulizer) Use?As directed to?treat?asthma, 999 days omeprazole 20 mg PO DAILY 90 days psyllium husk (Metamucil) 1 tbsp PO BID 30 days triamcinolone acetonide 0.1% 1 appl topical BID 30 days Tobacco use date assessed: 07/09/25 Dental Screening Dental Screen Date: 07/09/25 Did you have a dental visit in the last 12 months?: Yes Did you have a dental problem in the last 6 months where you did not have access to dental care?: No Was dental information given to patient?: Patient has dentist HPI follow up knee HPI Details 40 y/o female presents to f/u knee pain, bilateral. Recent work-up showed arthritis of her R knee. Had seen orthopedics 07/01/25. Was fit for a new knee brace, both knees. She follows up as needed. HPI Comments History of Present Illness Details Documentation assistance for Alfonso Ray MD, was provided by Stephen Conde, Beauty Shop Manager on 07/09/2025 at 1:50 PM EST. I, Dr. Ray, have read, observed, and verified documentation. ?? PFSH Medical History Anxiety with depression Costochondral chest pain Chest wall pain Suprapubic pain, acute Gallstones Depression Anxiety Asthma Surgical History Hx of cholecystectomy Hx of tubal ligation Social History (Updated 07/09/25 @ 13:35 by Imelda Godfrey CMA) Household Members Other:: minor daughter Housing: Apartment Are you a primary director of health care marketing to a significant other at home: Yes (minor daughter) Do you presently have visiting nurse or other home services: No Alcohol intake: current Alcohol intake frequency: holidays/special occasions only Alcohol type: hard liquor Patient Tobacco Use Status: Former Tobacco user Tobacco use type: Cigarette Cigarettes Per Day: 4 Years Smoked: 5 e-Cigarette/Vaping Use: Never Used Second Hand Smoke Exposure: Yes Substance Use Type: Marijuana service: No Current occupational status: unemployed Current occupation: right hand dominant Current occupational exposures/hazards: No Cognitive needs: No Hearing needs: No Vision needs: No Questionnaire Thrive Questionnaire Date Thrive assessed: 11/14/24 I am a: Patient What is your living situation today?: I do not have a steady places to live I am temporarily staying with others Within the past 12 months, did the food you bought not last and you didn't have the money to get more?: Never true Within the past 12 months, did you worry whether your food would run out before you got money to buy more?: Never true Do you have trouble paying for medicines?: No Do you have trouble getting transportation to medical appointments?: No Do you have trouble paying your heating and electricity bill?: I choose not to answer this question Do you have trouble taking care of your child, family member or friend?: No Do you have trouble with day-to-day activities such as bathing, preparing meals, shopping, managing finances, etc.?: Yes Are you currently unemployed and looking for a job?: No Are you interested in more education?: No Please select the resources that you would like help with: Housing/Penitentiary THRIVE Score: 1 JALEN-7 AMB Questionnaire JALEN-7 Date JALEN - 7 assessed: 06/10/24 Source: Developed by Drs. Sadiq Artis, Azucena Warren, Vern Mckeon and colleagues, with an educational jose from [employer]. Review of Systems Const Denies chills, Denies fatigue, Denies fever(s), Denies headache(s) and Denies weakness ENT Denies dizziness and Denies headache(s) Card Denies dyspnea Resp Denies cough, Denies dyspnea, Denies wheezing and Denies other (shortness of breath) Musc Denies numbness and Denies tingling Neuro Denies dizziness, Denies headache(s), Denies numbness, Denies tingling and Denies weakness Psych Denies anxiety and Denies depression Endo Denies fatigue Aller/Immun Denies wheezing Physical exam (Primary Care) Vital Signs: Last Vital Signs Temp 98.6 F 07/09/25 13:35 Pulse 80 07/09/25 13:35 Resp 15 07/09/25 13:35 BP 100/60 07/09/25 13:35 Pulse Ox 97 07/09/25 13:35 Oxygen Delivery Method Room Air 07/09/25 13:35 BMI result Body Mass Index 28.9 Tobacco/Smoking Status: Tobacco use Status Tobacco use date assessed 07/09/25 07/09/25 13:38 Patient Tobacco Use Status Former Tobacco user 07/09/25 13:38 Tobacco use type Cigarette 07/09/25 13:38 e-Cigarette/Vaping Use Never Used 07/09/25 13:38 Thrive Assessment: Date of Thrive Assessment Date Thrive assessed 11/14/24 07/09/25 13:38 Const General: well developed; No acute distress Nutritional Appearance: well nourished Orientation/consciousness: patient oriented x3 HENMT Head: Yes normocephalic and Yes atraumatic Eyes General: appearance normal, both eyes and all related structures Pupils: Equal, round and reactive pupils present EOM: EOMs intact bilaterally Resp Effort & Inspection: normal respiratory effort Neuro General: patient oriented x3 and gait normal Cranial nerves: Yes Equal, round and reactive pupils present Psych Affect: normal affect Coding Level of Care Code Est Pt Level 3 (65831) Diagnoses Bilateral knee pain M25.561; M25.562 Assessment & Plan Assessment & Plan (1) Bilateral knee pain: Code(s): M25.561 - Pain in right knee; M25.562 - Pain in left knee Category: Medical Plan: Ongoing bilateral knee pain X-rays earlier this year showed osteoarthritis at right knee Followed by ortho and was seen recently. They had recommended using knee brace when exercising or walking distances and also offered injection therapy. Patient is apprehensive/afraid of needles in her knee. We discussed that she should ask ortho how they intend to keep this as pain-free as possible and deal with anxiety. She can also schedule an appointment and discuss with me a 1 time dose of medications help her with anxiety prior to the procedure if needed. She will think about this Patient wants to try going back to work and I gave her a letter today stating she may return to work without restrictions. She may want to use her knee brace however. Also recommended continuing celecoxib, ice/heat and doing her exercises from physical therapy. Follow-up with ortho as recommended Orders: Orders Lipid Panel Today Z00.00 - Encounter for general adult medical examination without abnormal findings TSH reflex Free T4 Today Z00.00 - Encounter for general adult medical examination without abnormal findings Comprehensive [place]. Panel Fast Today Z00.00 - Encounter for general adult medical examination without abnormal findings Complete Blood Count Auto Diff Today Z00.00 - Encounter for general adult medical examination without abnormal findings Microalbumin, Random (w Creat) Today I10 - Essential (primary) hypertension UA CC w/rflx Micro + Cult Today Z00.00 - Encounter for general adult medical examination without abnormal findings Medications: Refilled multivitamin with iron 1 tab PO DAILY 90 tabs 2RF celecoxib 200 mg PO BID 60 caps 3RF gabapentin 300 mg PO BID 60 caps 3RF 30 days psyllium husk (Metamucil) mix into at least 8 oz of water or juice before administering 1 tbsp PO BID 660 grams 3RF 30 days
[2025-07-09 13:35] VITALS: BP 100/60; PULSE 80; RESP 15; TEMP 37; O2SAT 97; BMI 28.9
--- OUTSIDE RECORDS SUMMARY | 2025-07-09 16:05 | XMS_ITS | Clinical Summary ---
Author Organization [employer] Address [address] [facility] [address] [place] [address] Care Team Providers Care Special Education Math Teacher Name Role Phone Unavailable Primary Care Provider [...] COVID-19 Vaccine (1 - 2023-2 5 season) 2025 Influenza Vaccine (#1) 2025 Zoster Vaccines (1 [...]
--- OUTSIDE RECORDS SUMMARY | 2025-07-09 16:05 | XMS_ITS | Clinical Summary ---
Author Organization [address] [place] [address] Address [address] [place] [address] Phone Care Team Providers Care Web Press Operator Helper Offset Name Role Phone Alfonso Ray MD Primary [...] Cervical Cancer Screening: P ap Smear 2008 HPV Vaccines (1 - 3-dose SCD M series) 2014 HIV Screening 09/02/2024 Hepatitis C Screening 09/02/2024 Social Influencers of Health Screening 09/02/2024 Depression Screening 09/17/2024 COVID-19 Vaccine (3 - 2024-2 6 season) 2025 04/27/2022, 04/06/2022 Influenza Vaccine (#1) 2025 RSV Immunization Adult Patients (1 - 1-dose 75+ series) 2062 Hepatitis A Vaccines Aged Out 01/24/2021 No [...] patient's age to complete this topic Insurance [facility] [place] [address] Care Teams Web Press Operator Helper Offset Relationship Specialty Start Date End Date Alfonso Ray MD [address] [place] [address] Dr Fan [place] PCP - General Family Medicine 09/02/24
== END 2025-07-09 13:59 | disposition home or self-care (01) ==
LOC: HO.HMCFM 12:54
PROVIDERS: PCP Family Medicine; Visit Provider Family Medicine
DX: M25.561 Pain in right knee (principal); M25.562 Pain in left knee

== ENCOUNTER → 2025-07-09 12:53 | Outpatient (BNVA) | payer OTHER, SELFPAY | PROVIDERS: PCP Family Medicine; Visit Provider Family Medicine | DX: M17.11 Unilateral primary osteoarthritis, right knee (principal); M25.562 Pain in left knee; I10 Essential (primary) hypertension; G89.29 Other chronic pain | CPT/HCPCS: 99212 ==

== ENCOUNTER 2025-08-17 07:24 | Emergency (ER) | payer OTHER, SELFPAY ==
--- NOTE | ~2025-08-17 | XR_ITS ---
EXAMINATION: XR HAND, RIGHT CLINICAL INFORMATION: pain after lifting something COMPARISON: Correlated to x-ray dated February 12, 2019. TECHNIQUE: PA, lateral, and oblique views of the right hand. FINDINGS: Metacarpal bones are intact. Phalanges are intact with normal alignment. Carpal bones are intact. Distal radius and ulna are intact. No lytic or blastic lesions. No subcutaneous emphysema. No metallic or radiopaque foreign body. No soft tissue calcifications. XR/XR hand RT min 3V IMPRESSION: No acute fracture or dislocation. Electronically signed by: Parminder Orta MD 08/17/2025 08:22 AM [id number]
[2025-08-17 07:29] VITALS: BP 104/59; PULSE 82; RESP 18; TEMP 36.6; O2SAT 98; BMI 29.3
--- OUTSIDE RECORDS SUMMARY | 2025-08-17 07:55 | XMS_ITS | Clinical Summary ---
Author Organization [address] [place] [address] Address [address] [place] [address] Phone Care Team Providers Care Casino Games Dealer Name Role Phone Alfonso Ray MD Primary [...] patient's age to complete this topic Insurance [facility] Care Teams Casino Games Dealer Relationship Specialty Start Date End Date Alfonso Ray MD [address] [place] [address] Dr Fan [place] PCP - General Family Medicine 09/02/24
--- OUTSIDE RECORDS SUMMARY | 2025-08-17 07:55 | XMS_ITS | Clinical Summary ---
Author Organization [employer] Address [address] [facility] [address] [place] [address] Care Team Providers Care Can Solderer Name Role Phone Unavailable Primary Care Provider [...] 2017 HPV/Cotest 2017 COVID-19 Vaccine (1 - 2024-2 6 season) 2025 Influenza Vaccine (#1) 2025 Zoster [...]
--- NOTE | 2025-08-17 08:11 | ED_ITS ---
HPI - Extremity Problem General Chief complaint: Extremity Injury, Upper Stated complaint: R hand inj Time Seen by Provider: 08/17/25 07:59 Source: patient and RN notes reviewed Mode of arrival: ambulatory Limitations: no limitations History of Present Illness ED Provider: Juana Pereira PA-C HPI Narrative: This is a 40-year-old, with a past medical history of anxiety, depression, asthma, de Quervain's tenosynovitis, who presents emergency department with concerns of right hand pain. Patient reports that she was lifting heavy bins and boxes at her home when suddenly she felt a popping sensation in her right wrist. She has had pain since. She states that she took gabapentin yesterday which provided her with minimal history of similar symptoms in the past. She does reports that the pain causes her to have some numbness and tingling radiating proximally up her right arm. Pain worsens with movement and with palpation. She is right-hand dominant No other complaints or concerns at this time. MD Complaint: extremity pain and joint pain Onset (ago): day(s) Pain Consistency: constant Location: right and upper extremity Relieving factors: nothing Exacerbating factors: nothing Associated symptoms: denies other symptoms Related Data Previous Rx's ?Medication ?Instructions ?Recorded cyclobenzaprine 10 mg tablet 10 mg PO TID PRN muscle s pasm #20 08/03/24 tabs budesonide-formoterol HFA 160 2 puff inhalation Q12H 1 month 08/13/24 mcg-4.5 mcg/actuation aerosol #10.2 grams inhaler (Symbicort) ipratropium 0.5 mg-albuterol 3 mg 3 ml inhalation Q6-8 H PRN wheezing 08/13/24 (2.5 mg base)/3 mL nebulization 3 months #180 mL soln montelukast 10 mg tablet 10 mg PO BEDTIME #90 tabs omeprazole 20 mg capsule,delayed 20 mg PO DAILY 90 day s #90 caps 08/13/24 release nebulizers (Compact Compressor #1 ea 10/30/24 Nebulizer) albuterol sulfate 90 mcg/actuation 1 inh inhalation Q4 -6H PRN 11/02/24 breath activated powder shortness of breath or wheez ing 30 inhaler,sensor (Proair Digihaler) days #1 ea triamcinolone acetonide 0.1 % 1 appl topical BID 30 da ys #15 04/28/25 topical cream grams celecoxib 200 mg capsule 200 mg PO BID #60 caps 07/09 gabapentin 300 mg capsule 300 mg PO BID 30 days #60 ca ps 07/09/25 multivitamin with iron 1 tab PO DAILY #90 tabs 06/18 12/09 psyllium husk 3.4 gram/5.4 gram 1 tbsp PO BID 30 days #660 grams 07/09/25 oral powder (Metamucil) acetaminophen 500 mg tablet 1,000 mg (2 x 500 mg) PO Q 8H PRN 08/17/25 (Tylenol Extra Strength) pain #30 tabs ibuprofen 600 mg tablet 600 mg PO Q6H PRN pain #30 t abs 08/17/25 Allergies Allergy/AdvReac Type Severity Reaction Status Date / Time latex Allergy Mild Rash Verified 08/17/25 07:30 Review of Systems Review of Systems: Constitutional : No Fever, No Chills ENT/Mouth : No sore throat, No Rhinorrhea Eyes: No Eye Pain, No Swelling, No Redness Cardiovascular : No Chest Pain, No SOB Respiratory : No Cough, No Sputum Gastrointestinal : No Nausea, No Vomiting, No Diarrhea, No abdominal Pain Genitourinary : No Dysuria, No Hematuria Musculoskeletal : + joint pain, No Myalgias, No Joint Swelling Skin : No Skin Lesions Neuro : No Weakness, No Numbness, No Headache All other systems reviewed and are negative Yes all other systems are reviewed and are negative Constitutional: Constitutional: Reports as per [facility] Past Medical History Medical History Anxiety with depression Costochondral chest pain Chest wall pain Suprapubic pain, acute Gallstones Depression Anxiety Asthma Surgical History Hx of cholecystectomy Hx of tubal ligation Social History Social History (Updated 07/09/25 @ 13:35 by Imelda Godfrey CMA) Household Members Other:: minor daughter Housing: Apartment Are you a primary personal care worker to a significant other at home: Yes (minor daughter) Do you presently have visiting nurse or other home services: No Alcohol intake: current Alcohol intake frequency: holidays/special occasions only Alcohol type: hard liquor Patient Tobacco Use Status: Former Tobacco user Tobacco use type: Cigarette Cigarettes Per Day: 4 Years Smoked: 5 e-Cigarette/Vaping Use: Never Used Second Hand Smoke Exposure: Yes Substance Use Type: Marijuana Advance Directives: No Advance Directives Information Provided: No Do you have a plan to hurt others: No Plan service: No Current occupational status: unemployed Current occupation: right hand dominant Current occupational exposures/hazards: No Cognitive needs: No Hearing needs: No Vision needs: No Physical Exam Vital Signs: Vital Signs: Last Vital Signs Temp 98 F 08/17/25 07:29 Pulse 82 08/17/25 07:29 Resp 18 08/17/25 07:29 BP 104/59 L 08/17/25 07:29 Pulse Ox 98 08/17/25 07:29 O2 Del Method Room Air 08/17/25 07:29 BMI result Body Mass Index 29.3 Const: General: cooperative, comfortable and no acute distress Orientation/consciousness: patient oriented x3 Limitations: no limitations HEENT: Head: Yes normal to inspection, Yes normocephalic and Yes atraumatic Ears: hearing grossly normal bilaterally General nose exam: Normal external nose present Face and sinus: Yes normal facial exam Mouth: Normal oral and palatal mucosa present, oropharynx normal and moist mucous membranes Throat: Yes posterior oropharynx normal Eyes: General: appearance normal, both eyes and all related structures Eyelids: Yes eyelids normal Conjunctivae: conjunctivae normal Sclerae: sclerae normal Pupils: Equal, round and reactive pupils present EOM: EOMs intact bilaterally Neck: Neck: Yes normal visual inspection, Yes full ROM and Yes no lymphadenopathy Lymphatic: no lymphadenopathy noted Chest: Chest palpation & inspection: normal inspection of the chest Resp: Effort & Inspection: normal respiratory effort and able to speak in complete sentences Auscultation: clear to auscultation bilaterally, no crackles, no rales, no rhonchi and no wheezes Cardio: Rate: regular rate Rhythm: regular rhythm Heart sounds: S1 normal heart sound present and S2 normal heart sound present GI: Inspection: Yes normal to inspection Skin: General skin exam: no rashes or lesions noted Trauma: no lacerations or abrasions Wounds: no wounds Neuro: General: patient oriented x3 and moves all extremities Cranial nerves: Yes Equal, round and reactive pupils present Extrem: Other: Right wrist with no obvious bony deformity or swelling. She does have tenderness palpation along the distal ulna, able to flex and extend without diff iculty, however with reported pain. She also has pain with ulnar and radial deviation. Sensation intact. Capillary refill less than 2 seconds. Strong radial pulse. General: Yes normal to inspection Left upper extremity: normal to inspection Right lower extremity: normal to inspection Left lower extremity: normal to inspection Medical Decision Making Medical Decision Making MDM Narrative: This is a 40-year-old female who presents emergency department with concerns of right wrist pain status post moving heavy boxes yesterday. On arrival, vital signs within normal limits. She is speaking full sentences under no acute distress. Right wrist with no bony deformity or swelling. She does have tenderness palpation along the distal radius, with full ROM. Differential diagnoses include fracture, contusion, sprain, strain. She has full range of motion therefore full tendon rupture unlikely. Capillary refill less than 2 seconds. Will obtain x-rays to rule out any bony abnormalities. Will also medicate with ibuprofen. 8:38 AM 08/17/2025 (Juana Pereira PA-C): X-ray returns, x-ray of the hand was performed, she only has pain along the distal ulna, which is visualized in the x-ray, no bony abnormality seen. Discussed findings with patient and mother at bedside. Given strict return precautions. Given wrist splint, discharged on ibuprofen and Tylenol. Patient understands and agrees with plan. Patient stable for discharge Differential Diagnosis Differential Diagnoses: The differential diagnosis associated with the presentation includes See above Radiology Impression Discussion of test interpretation with radiology: I have reviewed the radiologist's reading. Radiologist Impression: FINDINGS: Metacarpal bones are intact. Phalanges are intact with normal alignment. Carpal bones are intact. Distal radius and ulna are intact. No lytic or blastic lesions. No subcutaneous emphysema. No metallic or radiopaque foreign body. No soft tissue calcifications. XR/XR hand RT min 3V IMPRESSION: No acute fracture or dislocation. Electronically signed by: Parminder Orta MD 08/17/2025 08:22 AM [facility] Dictated By: Parminder Dang MD Discharge Plan Discharge Clinical Impression: Sprain of wrist, right Qualifiers: Encounter type: initial encounter Wrist sprain location: unspecified location Qualified Code(s): S63.501A - Unspecified sprain of right wrist, initial encounter Patient Disposition: Home, Self-Care Instructions: Wrist Injury (ED), Wrist Sprain (ED) Additional Instructions: You were seen in the emergency department after injuring your right wrist. Your x-ray does not show any bony abnormalities. You likely sprained your wrist. We are unable to rule out any ligament or tendon injury therefore if you continue to have pain and symptoms after resting, icing, alternating between ibuprofen and Tylenol and using wrist splint, you can follow-up with the orthopedic team. Ibuprofen 600 mg every 6 hours with food, 2 hours later take Tylenol a 1000 mg (take every 8 hours). Alternating between both of these medications can provide you with significant relief. If any new or worsening symptoms occur including but not limited to decreased sensation or changes in color in your hand and wrist, please seek emergent care. Prescriptions: New ibuprofen 600 mg tablet 600 mg PO Q6H PRN (Reason: pain) Qty: 30 0RF acetaminophen [Tylenol Extra Strength] 500 mg tablet 1,000 mg PO Q8H PRN (Reason: pain) Qty: 30 0RF No Action (DME) nebulizers [Compact Compressor Nebulizer] Misc See Rx Instructions .Route Qty: 1 0RF Rx Instructions: Use?As directed to?treat?asthma, 999 days Proair Digihaler 90 mcg/actuation aero powdr breath act w/sensor 1 inh inhalation Q4-6H PRN (Reason: shortness of breath or wheezing) 30 Days Qty: 1 2RF triamcinolone acetonide 0.1 % cream 1 appl topical BID 30 Days Qty: 15 2RF cyclobenzaprine 10 mg tablet 10 mg PO TID PRN (Reason: muscle spasm) Qty: 20 0RF celecoxib 200 mg capsule 200 mg PO BID Qty: 60 3RF gabapentin 300 mg capsule 300 mg PO BID 30 Days Qty: 60 3RF Metamucil 3.4 gram/5.4 gram powder 1 tbsp PO BID 30 Days Qty: 660 3RF Rx Instructions: mix into at least 8 oz of water or juice before administering multivitamin with iron Tablet 1 tab PO DAILY Qty: 90 2RF ipratropium-albuterol 0.5 mg-3 mg(2.5 mg base)/3 mL solution for nebulization 3 ml inhalation Q6-8H PRN (Reason: wheezing) 90 Days Qty: 180 3RF montelukast 10 mg tablet 10 mg PO BEDTIME Qty: 90 3RF omeprazole 20 mg capsule,delayed release(DR/EC) 20 mg PO DAILY 90 Days Qty: 90 2RF budesonide-formoterol [Symbicort] 160-4.5 mcg/actuation HFA aerosol inhaler 2 puff inhalation Q12H 30 Days Qty: 10.2 11RF Referrals: [facility] [place] [facility] [Provider Group] Stand Alone Forms: Work/School Release Print Language: Georgian
--- NOTE | 2025-08-17 08:52 | PC.NURSE ---
pt medicated prior to d/c. right wrist splint applied - pt tolerated well.
[2025-08-17 08:53] VITALS: BP 104/59; PULSE 82; RESP 18; TEMP 36.6; O2SAT 98
== END 2025-08-17 08:57 | disposition home or self-care (01) ==
PROVIDERS: Emergency Provider Emergency Medicine Emergency Medical Services; PCP Family Medicine
DX: S63.501A Unspecified sprain of right wrist, initial encounter (principal); X50.0XXA Overexertion from strenuous movement or load, initial encounter; Y93.9 Activity, unspecified; Y92.9 Unspecified place or not applicable; Y99.9 Unspecified external cause status; Z91.040 Latex allergy status
CPT/HCPCS: 73130; 99283; 99284

== ENCOUNTER → 2025-08-17 07:41 | Outpatient (BNV) | payer OTHER, SELFPAY | PROVIDERS: Emergency Provider Emergency Medicine Emergency Medical Services; PCP Family Medicine; Visit Provider Radiology Diagnostic Radiology | DX: M79.641 Pain in right hand (principal); X50.0XXA Overexertion from strenuous movement or load, initial encounter | CPT/HCPCS: 73130 ==